=== PATIENT | female | born 2000 | race Hispanic/Latino ===

== ENCOUNTER 2022-03-29 21:52 | Emergency (ER) | payer OTHER ==
--- OUTSIDE RECORDS SUMMARY | 2022-03-29 22:05 | XMS REPORT | Continuity of Care Document ---
:2002 Author Organization [facility] t Address [address] [place] [id number] Care Team Providers Name Role Phone Alexandra Brooks Primary Care Physician WES RUSH Attending Clinician Unavailable TRAN MADRIGAL Attending Clinician Unavailable ANYA RICHARDSON Attending Clinician Unavailable JULIEN ZHENG Attending Clinician Unavailable CHITO RODRIGES Attending Clinician Unavailable Sally Chapa MD Attending Clinician SALLY CHAPA Attending Clinician Unavailable Alexandra Brooks Attending Clinician Chito Rodriges MD Attending Clinician ALEXANDRA BOSTON Attending Clinician Unavailable BREANA ANTON Attending Clinician Unavailable Campos Malloy RN Attending Clinician Unavailable Dot RN, Ruthie Attending Clinician Unavailable Linda Zimmerman RN Attending Clinician Unavailable KEVYN ROBISON Attending Clinician Unavailable Sherri Reyes RN Attending Clinician Unavailable Pob, [facility] Attending Clinician Unavailable William Garcia MD Attending Clinician Neena Bland RN Attending Clinician Unavailable Kassie Garcia MA Attending Clinician Unavailable DIMITRI العراقي Attending Clinician Unavailable Nurse, Adc Pob Immunization Attending Clinician Unavailable Dimitri العراقي DO Attending Clinician DULCE MUELLER Attending Clinician Unavailable Dulce Mueller MD Attending Clinician Doctor Unassigned, [place] Attending Clinician Unavailable Julien Zheng MD Attending Clinician ABEL STRANGE Attending Clinician Unavailable CLARISSA IZAGUIRRE Attending Clinician Unavailable Rambo Glass MA Attending Clinician Unavailable Nancy Quispe APRN Attending Clinician Kate Pal MD Attending Clinician WES RUSH M.D. Attending Clinician Unavailable ORGANTRANSPLANT, OP Attending Clinician Unavailable Breana Anton MD Attending Clinician [phone] SHADIA OROZCO Attending Clinician Unavailable TRAN MADRIGAL M.D. Attending Clinician Unavailable [facility] Attending Clinician Antoinette Payton MD Attending Clinician Kai Miles MD Attending Clinician Tayo Andrew MD Attending Clinician TAYO ANDREW Attending Clinician Unavailable Marck Sargent MD Attending Clinician Juanita Monroy MD Attending Clinician RYAN GAMBINO Attending Clinician Unavailable JORDAN GARCIA Attending Clinician Unavailable JULIEN ZHENG Admitting Clinician Unavailable DUDLEY HOLLEY Admitting Clinician Unavailable TRAN MADRIGAL Admitting Clinician Unavailable TAYO ANDREW Admitting Clinician Unavailable CHITO RODRIGES Admitting Clinician Unavailable Payers Payer Name Policy Type Policy Number Effective Date Expiration Date S our [facility] [id number] 2016 KIDS 00:00:00 [facility] [id number] 2019 KIDS 00:00:00 Problems Condition Condition Condition Status Onset Resolution Last Treating Co mments Source Name Details Category Date Date Treatment Clinician Date Stage 5 Stage 5 Disease Active [facility] chronic chronic 6-16 Health kidney kidney 00:00: disease disease 00 Spina Spina Disease Active 2020-04 [facility] bifida, bifida, 0-15 Health unspecifie unspecifie 00:00: d d 00 Unspecifie Unspecifie Disease Active 2020-04 U T d d 0-15 Health hydronephr hydronephr 00:00: osis osis 00 Abnormal Abnormal Disease Active 2020-04 [facility] radiologic radiologic 0-15 He alth findings findings 00:00: on on 00 diagnostic diagnostic imaging of imaging of renal renal pelvis, pelvis, ureter, or ureter, or bladder bladder Anemia Anemia Disease Active 2020-04 [facility] 0-06 Health 00:00: 00 Developmen Developmen Disease Active 2020-04 U T eliezer delay eliezer delay 0-06 Heal th 00:00: 00 Elevated Elevated Disease Active 2020-04 UT cholestero cholestero 0-06 He alth l l 00:00: 00 Gait Gait Disease Active 2020-04 UT abnormalit abnormalit 0-06 He alth y y 00:00: 00 History of History of Disease Active 2020-04 U T recurrent recurrent 0-06 Heal urinary urinary 00:00: tract tract 00 infection infection Hypertensi Hypertensi Disease Active 2020-04 U T on on 0-06 Health secondary secondary 00:00: to other to other 00 renal renal disorders disorders Short Short Disease Active 2020-04 [facility] stature stature 0-06 Health disorder disorder 00:00: 00 Syringomye Syringomye Disease Active 2020-04 U T yolanda yolanda 0-06 Health 00:00: 00 Thoracogen Thoracogen Disease Active 2020-04 U T ic ic 0-06 Health scoliosis scoliosis 00:00: of of 00 thoracic thoracic region region Weight Weight Disease Active 2020-04 [facility] loss loss 0-06 Health 00:00: 00 Chronic Chronic Disease Active [facility] kidney kidney 9-09 Health disease, disease, 00:00: stage IV stage IV 00 (severe) (severe) Right Right Disease Active Overview: [facility] external external 05-03 [facility] tibial tibial 00:00: g of this torsion torsion 00 note might be different from the original. Formattin g of this note might be different from the original. 04/2020: Noted in records from [facility] clinic. Will scan to EMR.Forma tting of this note might be different from the original. 04/2020: Noted in records from [facility] clinic. Will scan to EMR.Forma tting of this note might be different from the original. 04/2020: Noted in records from [facility] clinic. Will scan to EMR.: Noted in records from [facility] clinic. Will scan to EMR.Forma tting of this note might be different from the original. 04/2020: Noted in records from [facility]ifida clinic. Will scan to EMR. Spinal Spinal Disease Active Overview: Univer s fusion, fusion, 05-03 [facility] ity o f congenital congenital 00:00: g of this [place] 00 note Medical might be Branch different from the original. 12/10/2019 visit with spina bifida clinic note: She does not have S&S of spinal cord tethering . "Posterio r spinal fusion will likely require extension to the pelvis due to the dysraphic lumbar spine. This is likely to have a negative impact of her ambulator y ability and may render her unable to ambulate independe ntly. 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 Formattin g of this note might be different from the original. 04/2020: Noted on records from [facility]. Pt is shunt dependent . Will scan records to EMR.Forma tting of this note might be different from the original. 04/2020: Noted on records from [facility]. Pt is shunt dependent . Will scan records to EMR.Forma tting of this note might be different from the original. 04/2020: Noted on records from [facility]. Pt is shunt dependent . Will scan records to EMR.Forma tting of this note might be different from the original. 04/2020: Noted on records from [facility]. Pt is shunt dependent . Will scan records to EMR.: Noted on records from [facility]. Pt is shunt dependent . Will scan records to EMR. 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 06-07 Heal th due to due to 00:00: vitamin D vitamin D 00 deficiency deficiency Hyperphosp Hyperphosp Disease Active 2019-04 U nivers hatemia hatemia - ity of 00:00: [place] 00 Medical Branch 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 Formattin g of this note might be different from the original. 03/2020: Received records from [facility]rolog [facility] ([facility]. Emily [facility] DOS: 12/14/2019 Renal function is progressi vely worsening with anticipat ed need for future transplan t was discussed with the pt. Pt was referred to the transplan t clinic. Dialysis options were discussed as well. Will scan records to [facility] Direct clinic line: [phone] Shaka Rush academic office: [phone] ting of this note might be different from the original. 03/2020: Received records from nephrolog y and hypertens ion (Dr. Emily Rush) clinic at [facility] DOS: 12/14/2019 Renal function is progressi vely worsening with anticipat ed need for future transplan t was discussed with the pt. Pt was referred to the transplan t clinic. Dialysis options were discussed as well. Will scan records to [facility] Direct clinic line: [phone] Shaka Rush academic office: [phone] ting of this note might be different from the original. 03/2020: Received records from nephrolog y and hypertens ion (Dr. Emily Rush) clinic at [facility] DOS: 12/14/2019 Renal function is progressi vely worsening with anticipat ed need for future transplan t was discussed with the pt. Pt was referred to the transplan t clinic. Dialysis options were discussed as well. Will scan records to [facility] Direct clinic line: [phone] 158Dr. Rush academic office: [phone] ting of this note might be different from the original. 03/2020: Received records from nephrolog y and hypertens ion (Dr. Emily Rush) clinic at [facility] DOS: 12/14/2019 Renal function is progressi vely worsening with anticipat ed need for future transplan t was discussed with the pt. Pt was referred to the transplan t clinic. Dialysis options were discussed as well. Will scan records to [facility] Direct clinic line: [phone] Shaka Rush academic office: [phone]: Received records from nephrolog y and hypertens ion (Dr. Emily Rush) [facility] DOS: 12/14/2019 Renal function is progressi vely worsening with anticipat ed need for future transplan t was discussed with the pt. Pt was referred to the transplan t clinic. Dialysis options were discussed as well. 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 Formattin g of this note might be different from the original. 08/03/2020 : Neurosurg sadie apptPrior to this she was admitted in 2009 for a simultane ous infection and malfuncti on of her previous ventricul operitone al shunt. During the admission the shunt was initially exteriori zed to a external drain and she was started on antibioti cs for her E coli infection . After the CSF was persisten tly negative, she underwent a ventricul operitone al shunt using a Codman fixed pressure shunt. 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 She has latex allergy. There is no family history of hydroceph alus. On examinati on, she was awake, alert and oriented . The extra ocular movements were full, there was no nystagmus , no facial weakness, no lower cranial nerve paresis or tongue wasting. The power, tone, and bulk were normal in upper extremiti es. She had weakness in the lower limbs predomina ntly distally at the knees and the ankles but was able to ambulate on her own with braces. She child was respondin g to tactile and painful sensation s appropria tely. There was no gross gait ataxia or cerebella r signs. The CT scan done in 2012 had revealed evidence of well decompres sed ventricle s. The shunt was in place. The CT done on 09/29/2014 showed the ventricle s to be well decompres sed.The shunt series showed intact shunt tube. The MRI of the cervical spine revealed a mild Chiari with the cranial MRI showed well functioni ng shunt. The shunt series in 2016 and 2019 showed evidence of intact shunt tube with adequate tube in abdomen. The scoliosis in the thoracic region was evident. 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 Regarding her thoracolu mbar scoliosis along with the syrinx and a low-lying cord, I believe that this possibly can be managed nonsurgic ally at the present time. The cord will be inherentl y low-lying in patients with a myelomeni ngocele. A detetheri ng can be considere d however as the risks of CSF leak worsening weakness in the distal lower limbs along with worsening of the bladder dysfuncti ons. As she is currently 20 years old, she is not going to gain any more significa nt height, de tethering may be deferred and can be done only when definitel y indicated . However, the syrinx increases in size will have to consider the tethering of the low-lying cord. We will follow up with MRI scan in the thoracic spine in this regard to assess for any worsening of the syrinx which is present would require a surgical correctio n.Formatt ing of this note might be different from the original. 08/03/2020 : Neurosurg sadie Loerar to this she was admitted in 2009 for a simultane ous infection and malfuncti on of her previous ventricul operitone al shunt. During the admission the shunt was initially exteriori zed to a external drain and she was started on antibioti cs for her E coli infection . After the CSF was persisten tly negative, she underwent a ventricul operitone al shunt using a Codman fixed pressure shunt. 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 She has latex allergy. There is no family history of hydroceph alus. On examinati on, she was awake, alert and oriented . The extra ocular movements were full, there was no nystagmus , no facial weakness, no lower cranial nerve paresis or tongue wasting. The power, tone, and bulk were normal in upper extremiti es. She had weakness in the lower limbs predomina ntly distally at the knees and the ankles but was able to ambulate on her own with braces. She child was respondin g to tactile and painful sensation s appropria tely. There was no gross gait ataxia or cerebella r signs. The CT scan done in 2012 had revealed evidence of well decompres sed ventricle s. The shunt was in place. The CT done on 09/29/2014 showed the ventricle s to be well decompres sed.The shunt series showed intact shunt tube. The MRI of the cervical spine revealed a mild Chiari with the cranial MRI showed well functioni ng shunt. The shunt series in 2016 and 2019 showed evidence of intact shunt tube with adequate tube in abdomen. The scoliosis in the thoracic region was evident. 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 Regarding her thoracolu mbar scoliosis along with the syrinx and a low-lying cord, I believe that this possibly can be managed nonsurgic ally at the present time. The cord will be inherentl y low-lying in patients with a myelomeni ngocele. A detetheri ng can be considere d however as the risks of CSF leak worsening weakness in the distal lower limbs along with worsening of the bladder dysfuncti ons. As she is currently 20 years old, she is not going to gain any more significa nt height, de tethering may be deferred and can be done only when definitel y indicated . However, the syrinx increases in size will have to consider the tethering of the low-lying cord. We will follow up with MRI scan in the thoracic spine in this regard to assess for any worsening of the syrinx which is present would require a surgical correctio n.Formatt ing of this note might be different from the original. 08/03/2020 : Neurosurg sadie Bridgesrior to this she was admitted in 2009 for a simultane ous infection and malfuncti on of her previous ventricul operitone al shunt. During the admission the shunt was initially exteriori zed to a external drain and she was started on antibioti cs for her E coli infection . After the CSF was persisten tly negative, she underwent a ventricul operitone al shunt using a Codman fixed pressure shunt. 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 She has latex allergy. There is no family history of hydroceph alus. On examinati on, she was awake, alert and oriented . The extra ocular movements were full, there was no nystagmus , no facial weakness, no lower cranial nerve paresis or tongue wasting. The power, tone, and bulk were normal in upper extremiti es. She had weakness in the lower limbs predomina ntly distally at the knees and the ankles but was able to ambulate on her own with braces. She child was respondin g to tactile and painful sensation s appropria tely. There was no gross gait ataxia or cerebella r signs. The CT scan done in 2012 had revealed evidence of well decompres sed ventricle s. The shunt was in place. The CT done on 09/29/2014 showed the ventricle s to be well decompres sed.The shunt series showed intact shunt tube. The MRI of the cervical spine revealed a mild Chiari with the cranial MRI showed well functioni ng shunt. The shunt series in 2016 and 2019 showed evidence of intact shunt tube with adequate tube in abdomen. The scoliosis in the thoracic region was evident. 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 Regarding her thoracolu mbar scoliosis along with the syrinx and a low-lying cord, I believe that this possibly can be managed nonsurgic ally at the present time. The cord will be inherentl y low-lying in patients with a myelomeni ngocele. A detetheri ng can be considere d however as the risks of CSF leak worsening weakness in the distal lower limbs along with worsening of the bladder dysfuncti ons. As she is currently 20 years old, she is not going to gain any more significa nt height, de tethering may be deferred and can be done only when definitel y indicated . However, the syrinx increases in size will have to consider the tethering of the low-lying cord. We will follow up with MRI scan in the thoracic spine in this regard to assess for any worsening of the syrinx which is present would require a surgical correctio n.Formatt ing of this note might be different from the original. 08/03/2020 : Neurosurg sadie Loerar to this she was admitted in 2009 for a simultane ous infection and malfuncti on of her previous ventricul operitone al shunt. During the admission the shunt was initially exteriori zed to a external drain and she was started on antibioti cs for her E coli infection . After the CSF was persisten tly negative, she underwent a ventricul operitone al shunt using a Codman fixed pressure shunt. 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 She has latex allergy. There is no family history of hydroceph alus. On examinati on, she was awake, alert and oriented . The extra ocular movements were full, there was no nystagmus , no facial weakness, no lower cranial nerve paresis or tongue wasting. The power, tone, and bulk were normal in upper extremiti es. She had weakness in the lower limbs predomina ntly distally at the knees and the ankles but was able to ambulate on her own with braces. She child was respondin g to tactile and painful sensation s appropria tely. There was no gross gait ataxia or cerebella r signs. The CT scan done in 2012 had revealed evidence of well decompres sed ventricle s. The shunt was in place. The CT done on 09/29/2014 showed the ventricle s to be well decompres sed.The shunt series showed intact shunt tube. The MRI of the cervical spine revealed a mild Chiari with the cranial MRI showed well functioni ng shunt. The shunt series in 2016 and 2019 showed evidence of intact shunt tube with adequate tube in abdomen. The scoliosis in the thoracic region was evident. 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 Regarding her thoracolu mbar scoliosis along with the syrinx and a low-lying cord, I believe that this possibly can be managed nonsurgic ally at the present time. The cord will be inherentl y low-lying in patients with a myelomeni ngocele. A detetheri ng can be considere d however as the risks of CSF leak worsening weakness in the distal lower limbs along with worsening of the bladder dysfuncti ons. As she is currently 20 years old, she is not going to gain any more significa nt height, de tethering may be deferred and can be done only when definitel y indicated . However, the syrinx increases in size will have to consider the tethering of the low-lying cord. We will follow up with MRI scan in the thoracic spine in this regard to assess for any worsening of the syrinx which is present would require a surgical correctio n. S/P S/P Disease Recurre [facility] cecostomy: cecostomy: nce 07-14 it y of MACE FOR MACE FOR 00:00: [place] BOWEL BOWEL 00 Medical IRRIGATION IRRIGATION Br anch Incomplete Incomplete Disease Active U T paraplegia paraplegia 3-28 He alth 00:00: 00 Scoliosis Scoliosis Disease Active Overview: [place] [facility] 00:00: g of this 00 note might be different from the original. Formattin g of this note might be different from the original. No intervent ion needed per records from [facility] on visit 12/10/2019 . Will scan to EMRFormat ting of this note might be different from the original. No intervent ion needed per records from [facility] on visit 12/10/2019 . Will scan to EMRFormat ting of this note might be different from the original. No intervent ion needed per records from [facility] on visit 12/10/2019 . Will scan to EMRFormat ting of this note might be different from the original. No intervent ion needed per records from [facility] on visit 12/10/2019 . Will scan to EMRNo intervent ion needed per records from [facility] on visit 12/10/2019 . 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 08/03/2020 : Neurosurg sadie apptPrior to this she was admitted in 2009 for a simultane ous infection and malfuncti on of her previous ventricul operitone al shunt. During the admission the shunt was initially exteriori zed to a external drain and she was started on antibioti cs for her E coli infection . After the CSF was persisten tly negative, she underwent a ventricul operitone al shunt using a Codman fixed pressure shunt. 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 She has latex allergy. There is no family history of hydroceph alus. On examinati on, she was awake, alert and oriented . The extra ocular movements were full, there was no nystagmus , no facial weakness, no lower cranial nerve paresis or tongue wasting. The power, tone, and bulk were normal in upper extremiti es. She had weakness in the lower limbs predomina ntly distally at the knees and the ankles but was able to ambulate on her own with braces. She child was respondin g to tactile and painful sensation s appropria tely. There was no gross gait ataxia or cerebella r signs. The CT scan done in 2012 had revealed evidence of well decompres sed ventricle s. The shunt was in place. The CT done on 09/29/2014 showed the ventricle s to be well decompres sed.The shunt series showed intact shunt tube. The MRI of the cervical spine revealed a mild Chiari with the cranial MRI showed well functioni ng shunt. The shunt series in 2016 and 2019 showed evidence of intact shunt tube with adequate tube in abdomen. The scoliosis in the thoracic region was evident. 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 Regarding her thoracolu mbar scoliosis along with the syrinx and a low-lying cord, I believe that this possibly can be managed nonsurgic ally at the present time. The cord will be inherentl y low-lying in patients with a myelomeni ngocele. A detetheri ng can be considere d however as the risks of CSF leak worsening weakness in the distal lower limbs along with worsening of the bladder dysfuncti ons. As she is currently 20 years old, she is not going to gain any more significa nt height, de tethering may be deferred and can be done only when definitel y indicated . However, the syrinx increases in size will have to consider the tethering of the low-lying cord. We will follow up with MRI scan in the thoracic spine in this regard to assess for any worsening of the syrinx which is present would require a surgical correctio n. Impaired Impaired Disease Active UT activities activities 8-08 He alth of daily of daily 00:00: living living 00 Recurrent Recurrent Disease Active UT urinary urinary 11-26 Health tract tract 00:00: infection infection 00 Hydronephr Hydronephr Disease Active U nivers osis of osis of 2-21 ity of left left 00:00: [place] kidney kidney 00 Medical Branch Single Single Disease Active Univers kidney kidney 2-21 ity of 00:00: [place] [address] Medical Branch Neurogenic Neurogenic Disease Active U T bowel bowel 2-21 Health 00:00: 00 Urinary Urinary Disease Active 2010-04 UT tract tract 2-30 Health infection, infection, 00:00: site not site not 00 specified specified Obstructiv Obstructiv Disease Active Overview : UT e e 5-05 Formattin Health hydrocepha hydrocepha 00:00: g of this guera guera 00 note might be different from the original. Formattin g of this note might be different from the original. Received 11/14/2020 visit report post surgery. S/p appendico stomy revision with urology 11/09/2020 . Will scan report to EMRFormat ting of this note might be different from the original. Received 11/14/2020 visit report post surgery. S/p appendico stomy revision with urology 11/09/2020 . Will scan report to EMRFormat ting of this note might be different from the original. Received 11/14/2020 visit report post surgery. S/p appendico stomy revision with urology 11/09/2020 . Will scan report to EMRFormat ting of this note might be different from the original. Received 11/14/2020 visit report post surgery. S/p appendico stomy revision with urology 11/09/2020 . Will scan report to EMR Cystitis, Cystitis, Disease Active UT acute acute 4-16 Health 00:00: 00 Secondary Secondary Disease Active Uni vers hypertensi hypertensi 4-14 it y of on on 00:00: [place] [address] Medical Branch S/p S/p Disease Active Overview: Univer s nephrectom nephrectom 4-14 Formattin ity of y y 00:00: g of this [place] [address] note Medical might be Branch different from the original. Left kidney removed. 20% of right kidney working. Will be put on a transplan t list Neurogenic Neurogenic Disease Active Overview : UT bladder bladder 4-14 Formattin Healt h 00:00: g of this note might be different from the original. Formattin g of this note might be different from the original. Myelomeni ngocele with neurogeni c bladderFo rmatting of this note might be different from the original. Myelomeni ngocele with neurogeni c bladderFo rmatting of this note might be different from the original. Myelomeni ngocele with neurogeni c bladderMy elomening ocele with neurogeni c bladderFo rmatting of this note might be different from the original. Myelomeni ngocele with neurogeni c bladderFo rmatting of this note might be different from the original. Myelomeni ngocele with neurogeni c bladderAp pendicove sicostomy performed 10/2020. Will scan post op notes to EMR.Forma tting of this note might be different from the original. Myelomeni ngocele with neurogeni c bladderAp pendicove sicostomy performed 10/2020. Will scan post op notes to EMR.Forma tting of this note might be different from the original. Myelomeni ngocele with neurogeni c bladderAp pendicove sicostomy performed 10/2020. Will scan post op notes to EMR. S/p S/p Disease Active UT nephrectom nephrectom 14 He alth y y 00:00: 00 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 08-02 Health with with 00:00: hydrocepha hydrocepha 00 guera, guera, lumbar lumbar region region Status Status Disease Recurre [facility] post post nce 2 ity of cutaneous- cutaneous[place] vesicostom vesicostom 00 Me dical y y Branch Obstructed Obstructed Disease Active U T ventriculo ventriculo 204 He alth peritoneal peritoneal 00:00: shunt shunt 00 Vesicouret Vesicouret Disease Active U T eral eral 5-16 Health reflux reflux 00:00: 00 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 07-30 Health occulta occulta 00:00: 00 Ultrasound Ultrasound Problem Active U T 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 History of History of Problem Resolve UT essential essential d Phys ici hypertensi hypertensi an s on on History of History of Problem Resolve UT Encopresis Encopresis d Ph ysici with with ans constipati constipati on and on and overflow overflow incontinen incontinen ce ce History of History of Problem Resolve UT Left Left d Physici ventricula ventricula an s r r hypertroph hypertroph y y Presence Presence Problem Active UT of of Physici cerebrospi cerebrospi an s nal fluid nal fluid drainage drainage device device Personal Personal Problem Resolve UT history of history of d Ph ysici urinary urinary ans tract tract infection infection Osteopenia Osteopenia Problem Active U T Physici ans Chronic Chronic Problem Active UT constipati constipati Ph ysici on on ans Asymptomat Asymptomat Problem Active U T ic ic Physici bacteriuri bacteriuri an s a a Hyperphosp Hyperphosp Problem Active U T hatemia hatemia Physici ans Metabolic Metabolic Problem Active UT acidosis acidosis Physic i ans Renal Renal Problem Active UT tubular tubular Physici acidosis acidosis ans 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 ans Vitamin D Vitamin D Problem Active UT deficiency deficiency Ph ysici ans 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, hyroidism, Ph ysici secondary secondary ans renal renal Iron Iron Problem Active UT deficiency deficiency Ph ysici anemia anemia ans 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 CKD CKD Problem Active UT (chronic (chronic Physic i kidney kidney ans disease) disease) stage 4, stage 4, GFR 15-29 GFR 15-29 ml/min ml/min Neurogenic Neurogenic Problem Active U T bladder bladder Physici ans Spina Spina Problem Active UT bifida bifida Physici ans Solitary Solitary Problem Active UT kidney kidney Physici ans Incontinen Incontinen Problem Active U T ce ce Physici ans Chronic Chronic Problem Active UT kidney kidney Physici disease, disease, ans stage III stage III (moderate) (moderate) Allergies, Adverse Reactions, Alerts Allergy Allergy Status Severity Reaction(s) Onset Inactive Treating Comm ents Source Name Type Date Date Clinician Other Allergy Active 2020-04 Other UT to 0-15 reaction( Health substanc 00:00: s): e 00 [place], [place], Banana (substanc e), Family apterygid ae (organism ), Kiwis Nsaids Allergy Active UT to 12-28 Health substanc 00:00: e 00 Ibuprofe Allergy Active Hives Cannot UT n to 2-22 take due Health substanc 00:00: to kidney e 00 problemsC annot take due to kidney problems Ibuprofe Propensi Active Hives Univer s n ty to 2-22 ity of adverse 00:00: [place] reaction 00 Medical s Branch IBUPROFE DRUG Active Hives Univers N INGREDI 2-22 ity of 00:00: [place] 00 Medical Branch Latex Allergy Active Other UT to 3-01 reaction( Health substanc 00:00: s): e 00 Unknown - See commentsR eaction not givenReac tion not givenReac tion not given Other reaction( s): Unknown - See commentsR eaction not given Latex Propensi Active Unknown - Reaction Uni vers ty to See comments 06-19 not given i ty of adverse 00:00: [place] reaction 00 Medical s Branch LATEX DRUG Active Unknown-Cmnt 2006-0 Univ ers INGREDI 3- ity of 00:00: [place] 00 Medical Branch Banana Allergy Active Rash 2006-0 UT to 10-31 Health substanc 00:00: e 00 Kiwi Allergy Active Rash 2006-0 UT Extract to 10-31 Health substanc 00:00: e 00 Avocado Propensi Active Swelling 2006-0 Unive rs ty to 10-31 ity of adverse 00:00: [place] reaction 00 Medical s Branch Banana Propensi Active Rash 2006-0 Univers ty to 10-31 ity of adverse 00:00: [place] reaction 00 Medical s Branch Kiwi Propensi Active Rash 2006-0 Univers ty to 10-31 ity of adverse 00:00: [place] reaction 00 Medical s Branch AVOCADO DRUG Active High Rash 2006-0 Univers INGREDI 7- ity of 00:00: [place] 00 Medical Branch KIWI DRUG Active High Rash 2006-0 Univers INGREDI 7-13 ity of 00:00: [place] 00 Medical Branch BANANA DRUG Active Rash 2006-0 Univers INGREDI 7- ity of 00:00: [place] 00 Medical Branch Avocado Allergy Active Swelling 2006-0 UT to 10-31 Health substanc 00:00: e 00 NSAIDs Allergy Active UT to drug Physici (finding ans ) Social History Social Habit Start Date Stop Date Quantity Comments Source Alcohol intake 2022-01-21 2022-01-21 [facility] 00:00:00 00:00:00 [facility] Exposure to 2022-01-07 2022-01-17 Not sure [facility] SARS-CoV-2 00:00:00 11:57:00 [facility] (event) Branch Cigarette 2020-12-19 2020-12-19 [facility] pack-years 00:00:00 00:00:00 Tobacco use and 2017-08-19 2017-08-19 Smokeless tobacco Un iversity of exposure 00:00:00 00:00:00 non-user [facility] Tobacco Comment 2012-08-28 2012-08-28 No smoke exposure Un iversity of 00:00:00 00:00:00 [facility] Sex Assigned At 2002 2002 [facility] 00:00:00 00:00:00 Smoking Status Start Date Stop Date Source Tobacco smoking consumption [facility] unknown Never smoked tobacco [facility] Medications Ordered Filled Start Stop Current Ordering Indication Dosage Frequency Signature Comments Components Source Medication Medication Date Date Medication? Clinician (SIG) Name Name FLUTICASONE 2021-04 Yes [id number] SPRAY 1 Univers PROPIONATE 0-24 SPRAY INTO ity of 50 00:00: EACH [place] mcg/actuati 00 NOSTRIL Medic al on nasal EVERY DAY Branch spray FLUTICASONE 2021-04 Yes [id number] SPRAY 1 Univers PROPIONATE 0-24 SPRAY INTO ity of 50 00:00: EACH [place] mcg/actuati 00 NOSTRIL Medic al on nasal EVERY DAY Branch spray fluticasone Yes [id number] 1{spray Use 1 Univers propionate 9-28 } [place] in ity o f 50 00:00: each [place] mcg/actuati 00 nostril Medic al on nasal daily. Branch spray fluticasone Yes [id number] 1{spray Use 1 Univers propionate 9-28 } [place] in ity o f 50 00:00: each [place] mcg/actuati 00 nostril Medic al on nasal daily. Branch spray fluticasone Yes [id number] 1{spray Use 1 Univers propionate 9-28 } [place] in ity o f 50 00:00: each [place] mcg/actuati 00 nostril Medic al on nasal daily. Branch spray fluticasone Yes [id number] 1{spray Use 1 Univers propionate 9-28 } [place] in ity o f 50 00:00: each [place] mcg/actuati 00 nostril Medic al on nasal daily. Branch spray fluticasone 2021- No [id number] 1{spray Use 1 Univers propionate 9-28 10-24 } [place] in ity of 50 00:00: 00:00 each [place] mcg/actuati 00 :00 nostril Medic al on nasal daily. Branch spray lisinopril Yes [id number] 10mg QD Take 1 U T 10 MG 5-17 tablet (10 Health tablet 00:00: mg total) 00 by mouth 1 (one) time each day. calcitriol 2021- No [id number] TAKE 1 UT (Rocaltrol) 5-17 06-08 CAPSULE BY H ealth 0.25 MCG 00:00: 00:00 MOUTH capsule 00 :00 EVERY FRIDAY, FRIDAY, FRIDAY, AND FRIDAY oxybutynin 2021-0 Yes [id number] 15mg QD Take 1 UT XL 4-22 tablet (15 Health (Ditropan-X 00:00: mg total) L) 15 MG 24 00 by mouth 1 hr tablet (one) time each day. oxybutynin 2021-0 2021- No 5mg Take 5 mg U nivers XL 4-01 04-01 by mouth 3 ity of (DITROPAN-X 15:20: 00:00 (three) [place] L) 5 mg 24 10 :00 times Medical hr tablet daily. Branch cephALEXin 2021-0 Yes 250mg Take 250 Un boy 250 mg 4-01 mg by ity of capsule 15:19: mouth [place] 23 daily. Medical Branch cephALEXin 2021-0 Yes 250mg Take 250 Un boy 250 mg 4-01 mg by ity of capsule 15:19: mouth [place] 23 daily. Medical Branch cephALEXin 2021-0 Yes 250mg Take 250 Un boy 250 mg 4-01 mg by ity of capsule 15:19: mouth [place] 23 daily. Medical Branch cephALEXin 2021-0 Yes 250mg Take 250 Un boy 250 mg 4-01 mg by ity of capsule 15:19: mouth [place] 23 daily. Medical Branch cephALEXin 2021-0 Yes 250mg Take 250 Un boy 250 mg 4-01 mg by ity of capsule 15:19: mouth [place] 23 daily. Medical Branch cephALEXin 2021-0 Yes 250mg Take 250 Un boy 250 mg 4-01 mg by ity of capsule 15:19: mouth [place] 23 daily. Medical Branch cephALEXin 2021-0 Yes 250mg Take 250 Un boy 250 mg 4-01 mg by ity of capsule 15:19: mouth [place] 23 daily. Medical Branch cephALEXin 2021-0 Yes 250mg Take 250 Un boy 250 mg 4-01 mg by ity of capsule 15:19: mouth [place] 23 daily. Medical Branch lisinopriL 2021-0 Yes 10mg Take 10 mg U nivers 10 mg 4-01 by mouth ity of tablet 15:18: daily. [address] lisinopriL Yes 10mg Take 10 mg U nivers 10 mg 4-01 by mouth ity of tablet 15:18: daily. [place] [facility] lisinopriL 0 Yes 10mg Take 10 mg U nivers 10 mg 4-01 by mouth ity of tablet 15:18: daily. [address] lisinopriL Yes 10mg Take 10 mg U nivers 10 mg 4-01 by mouth ity of tablet 15:18: daily. [place] [facility] lisinopriL Yes 10mg Take 10 mg U nivers 10 mg 4-01 by mouth ity of tablet 15:18: daily. [address] lisinopriL Yes 10mg Take 10 mg U nivers 10 mg 4-01 by mouth ity of tablet 15:18: daily. [address] lisinopriL Yes 10mg Take 10 mg U nivers 10 mg 4-01 by mouth ity of tablet 15:18: daily. [address] lisinopriL Yes 10mg Take 10 mg U nivers 10 mg 4-01 by mouth ity of tablet 15:18: daily. [address] sodium 2020-04- No [id number] 1950mg Q.[id number] Take 3 UT bicarbonate 05-30 12-10 [id number] tablets Health 650 MG 00:00: 05:59 3D (1,950 mg tablet 00 :00 total) by mouth 3 (three) times a day. No known No No known UT medications 12-19 medication He alth 11:54: s 14 calcitriol Yes TAKE 1 UT (Rocaltrol) 8-18 CAPSULE BY He alth 0.25 MCG 00:00: MOUTH capsule 00 EVERY FRIDAY, FRIDAY, FRIDAY, AND FRIDAY FOR 30 DAYS calcitriol Yes TAKE 1 UT (Rocaltrol) 8-18 CAPSULE BY He alth 0.25 MCG 00:00: MOUTH capsule 00 EVERY FRIDAY, FRIDAY, FRIDAY, AND FRIDAY FOR 30 DAYS cephalexin Yes UT (Keflex) 11-27 Health 250 MG 00:00: capsule 00 nitrofurant 2021-0 Yes 50mg Take 50 mg UT oin 7-26 by mouth Health ([place] 00:00: every n) 50 MG 00 night. capsule lisinopril 0 Yes [id number] 10mg QD Take 1 U T 10 MG 6-10 tablet (10 Health tablet 00:00: mg total) 00 by mouth 1 (one) time each day. lisinopril 0 Yes [id number] 10mg QD Take 1 U T 10 MG 6-10 tablet (10 Health tablet 00:00: mg total) 00 by mouth 1 (one) time each day. Lisinopril Lisinopril 2020-0 Yes KATE 1 QD TAKE 1 UT 10 MG Oral 10 MG Oral 4-09 MORIS TABLET Physici Tablet Tablet 00:00: M.D. DAILY. ans 00 CALCIUM 2020-1 Yes 500mg Take 500 Unive rs CARBONATE 2-09 mg by ity of ORAL 09:35: mouth 2 [place] [id number] (two) Medical times Branch daily with meals. CALCIUM 2020-1 Yes 500mg Take 500 Unive rs CARBONATE 2-09 mg by ity of ORAL 09:35: mouth 2 [place] [id number] ([facility]) Medical times Branch daily with meals. CALCIUM 2020-1 Yes 500mg Take 500 Unive rs CARBONATE 2-09 mg by ity of ORAL 09:35: mouth 2 [place] [id number] (two) Medical times Branch daily with meals. CALCIUM 2020-1 Yes 500mg Take 500 Unive rs CARBONATE 2-09 mg by ity of ORAL 09:35: mouth 2 [place] [id number] (two) Medical times Branch daily with meals. CALCIUM 2020-1 Yes 500mg Take 500 Unive rs CARBONATE 2-09 mg by ity of ORAL 09:35: mouth 2 [place] [address] (two) Medical times Branch daily with meals. CALCIUM 2020-1 Yes 500mg Take 500 Unive rs CARBONATE 2-09 mg by ity of ORAL 09:35: mouth 2 [place] [address] (two) Medical times Branch daily with meals. CALCIUM 2020-1 Yes 500mg Take 500 Unive rs CARBONATE 2-09 mg by ity of ORAL 09:35: mouth 2 [place] [address] (two) Medical times Branch daily with meals. CALCIUM 2020-1 Yes 500mg Take 500 Unive rs CARBONATE 2-09 mg by ity of ORAL 09:35: mouth 2 [place] [address] (two) Medical times Branch daily with meals. ferrous 2019-0 Yes TAKE 1 Univers sulfate 325 9-13 TABLET BY ity of mg (65 mg 00:00: MOUTH [place] iron) 00 THREE Medical tablet TIMES A Branch DAY calcitriol Yes TAKE 1 Unive rs 0.25 mcg 9-13 CAPSULE ON ity o f capsule 00:00: M, W, F, 00 DUDLEY AND 2 Medical CAPSULES Branch ON , ferrous Yes TAKE 1 Univers sulfate 325 9-13 TABLET BY ity of mg (65 mg 00:00: MOUTH [place] iron) 00 THREE Medical tablet TIMES A Branch DAY calcitriol Yes TAKE 1 Unive rs 0.25 mcg 9-13 CAPSULE ON ity o f capsule 00:00: M, W, F, 00 DUDLEY AND 2 Medical CAPSULES Branch ON , ferrous Yes TAKE 1 Univers sulfate 325 9-13 TABLET BY ity of mg (65 mg 00:00: MOUTH [place] iron) 00 THREE Medical tablet TIMES A Branch DAY calcitriol Yes TAKE 1 Unive rs 0.25 mcg 9-13 CAPSULE ON ity o f capsule 00:00: M, W, F, 00 DUDLEY AND 2 Medical CAPSULES Branch ON , ferrous Yes TAKE 1 Univers sulfate 325 9-13 TABLET BY ity of mg (65 mg 00:00: MOUTH [place] iron) 00 THREE Medical tablet TIMES A Branch DAY calcitriol Yes TAKE 1 Unive rs 0.25 mcg 9-13 CAPSULE ON ity o f capsule 00:00: M, W, F, DUDLEY AND 2 Medical CAPSULES Branch ON , ferrous Yes TAKE 1 [facility] sulfate 325 9-13 TABLET BY ity of mg (65 mg 00:00: MOUTH [place] iron) 00 THREE Medical tablet TIMES A Branch DAY calcitriol Yes TAKE 1 Unive rs 0.25 mcg 9-13 CAPSULE ON ity o f capsule 00:00: M, W, F, DUDLEY AND 2 Medical CAPSULES Branch ON , ferrous Yes TAKE 1 [facility] sulfate 325 9-13 TABLET BY ity of mg (65 mg 00:00: MOUTH [place] iron) 00 THREE Medical tablet TIMES A Branch DAY calcitriol Yes TAKE 1 Unive rs 0.25 mcg 9-13 CAPSULE ON ity o f capsule 00:00: M, W, F, 00 DUDLEY AND 2 Medical CAPSULES Branch ON ferrous Yes TAKE 1 [facility] sulfate 325 9-13 TABLET BY ity of mg (65 mg 00:00: MOUTH [place] iron) 00 THREE Medical tablet TIMES A Branch DAY calcitriol Yes TAKE 1 Unive rs 0.25 mcg 9-13 CAPSULE ON ity o f capsule 00:00: M, W, F, DUDLEY AND 2 Medical CAPSULES Branch ON ferrous Yes TAKE 1 [facility] sulfate 325 9-13 TABLET BY ity of mg (65 mg 00:00: MOUTH [place] iron) 00 THREE Medical tablet TIMES A Branch DAY calcitriol Yes TAKE 1 Unive rs 0.25 mcg 9-13 CAPSULE ON ity o f capsule 00:00: M, W, F, DUDLEY AND 2 Medical CAPSULES Branch ON , ferrous Yes TAKE 1 UT sulfate 325 9-13 TABLET BY Hea lth (65 Fe) MG 00:00: MOUTH tablet 00 THREE TIMES A DAY ferrous Yes TAKE 1 UT sulfate 325 9-13 TABLET BY Hea lth (65 Fe) MG 00:00: MOUTH tablet 00 THREE TIMES A DAY ferrous 2021- No TAKE 1 UT sulfate 325 9-13 06-16 TABLET BY He alth (65 Fe) MG 00:00: 00:00 MOUTH tablet 00 :00 THREE TIMES A DAY ergocalcife Yes TAKE ONE Un boy rol, 9-07 CAPSULE BY ity of vitamin d2, 00:00: M[place]TH [place]000 unit 00 TIME PER Medi domonique capsule WEEK Branch ergocalcife Yes TAKE ONE Un boy rol, 9-07 CAPSULE BY ity of vitamin d2, 00:00: MOUTH ONE [place],000 unit 00 TIME PER Medi domonique capsule WEEK Branch ergocalcife Yes TAKE ONE Un boy rol, 9-07 CAPSULE BY ity of vitamin d2, 00:00: MOUTH ONE [place] 50,000 unit 00 TIME PER Medi domonique capsule WEEK Branch ergocalcife Yes TAKE ONE Un boy rol, 9-07 CAPSULE BY ity of vitamin d2, 00:00: MOUTH ONE [place],000 unit 00 TIME PER Medi domonique capsule WEEK Branch ergocalcife Yes TAKE ONE Un boy rol, 9-07 CAPSULE BY ity of vitamin d2, 00:00: MOUTH ONE [place] 50,000 unit 00 TIME PER Medi domonique capsule WEEK Branch ergocalcife Yes TAKE ONE Un boy rol, 9-07 CAPSULE BY ity of vitamin d2, 00:00: MOUTH ONE [place] 50,000 unit 00 TIME PER Medi domonique capsule WEEK Branch ergocalcife Yes TAKE ONE Un boy rol, 9-07 CAPSULE BY ity of vitamin d2, 00:00: MOUTH ONE [place] 50,000 unit 00 TIME PER Medi domonique capsule WEEK Branch ergocalcife Yes TAKE ONE Un boy rol, 9-07 CAPSULE BY ity of vitamin d2, 00:00: M[place]TH [place] 50,000 unit 00 TIME PER Medi domonique capsule WEEK Branch ergocalcife Yes TAKE ONE UT rol 9-07 CAPSULE BY Health (Vitamin 00:00: MOUTH ONE D-2) 1.25 00 TIME PER MG ( WEEK UT) capsule ergocalcife Yes TAKE ONE UT rol 9-07 CAPSULE BY Health (Vitamin 00:00: MOUTH ONE D-2) 1.25 00 TIME PER MG (99373 WEEK UT) capsule ergocalcife 2021- No TAKE ONE U T rol 9-07 06-08 CAPSULE BY Health (Vitamin 00:00: 00:00 MOUTH ONE D-2) 1.25 00 :00 TIME PER MG (46517 WEEK UT) capsule nitrofurant 2021- No TAKE 1 Uni vers oin 50 mg 8-07-20 CAPSULE BY ity of capsule 00:00: 00:00 MOUTH [place] 00 :00 EVERYDAY Medical AT BEDTIME Branch sodium Yes TAKE 2 Univers bicarbonate 8-03 TABLETS BY it y of 650 mg 00:00: MOUTH 3 [place] tablet 00 TIMES A Medical DAY Branch sodium Yes TAKE 2 Univers bicarbonate 8-03 TABLETS BY it y of 650 mg 00:00: MOUTH 3 [place] tablet 00 TIMES A Medical DAY Branch sodium Yes TAKE 2 Univers bicarbonate 8-03 TABLETS BY it y of 650 mg 00:00: MOUTH 3 [place] tablet 00 TIMES A Medical DAY Branch sodium Yes TAKE 2 Univers bicarbonate 8-03 TABLETS BY it y of 650 mg 00:00: MOUTH 3 [place] tablet 00 TIMES A Medical DAY Branch sodium Yes TAKE 2 Univers bicarbonate 8-03 TABLETS BY it y of 650 mg 00:00: MOUTH 3 [place] tablet 00 TIMES A Medical DAY Branch sodium Yes TAKE 2 Univers bicarbonate 8-03 TABLETS BY it y of 650 mg 00:00: MOUTH 3 [place] tablet 00 TIMES A Medical DAY Branch sodium Yes TAKE 2 Univers bicarbonate 8-03 TABLETS BY it y of 650 mg 00:00: MOUTH 3 [place] tablet 00 TIMES A Medical DAY Branch sodium Yes TAKE 2 Univers bicarbonate 8-03 TABLETS BY it y of 650 mg 00:00: MOUTH 3 [place] tablet 00 TIMES A Medical DAY Branch amLODIPine Yes 10mg Take 10 mg U T (Norvasc) 803 by mouth. Healt h 10 MG 00:00: tablet 00 amLODIPine 2021- No 10mg Take 10 mg Univers 10 mg 8-03 07-20 by mouth 2 ity of tablet 00:00: 00:00 (two) [place] 00 :00 times Medical daily. Branch oxybutynin Yes 15mg Take 15 mg U nivers 15 mg 24 hr 7-31 by mouth ity of tablet 00:00: daily. Medical Branch oxybutynin Yes 15mg Take 15 mg U nivers 15 mg 24 hr 7-31 by mouth ity of tablet 00:00: daily. Medical Branch oxybutynin Yes 15mg Take 15 mg U nivers 15 mg 24 hr 7-31 by mouth ity of tablet 00:00: daily. Medical Branch oxybutynin Yes 15mg Take 15 mg U nivers 15 mg 24 hr 7-31 by mouth ity of tablet 00:00: daily. Medical Branch oxybutynin Yes 15mg Take 15 mg U nivers 15 mg 24 hr 7-31 by mouth ity of tablet 00:00: daily. Medical Branch oxybutynin Yes 15mg Take 15 mg U nivers 15 mg 24 hr 7-31 by mouth ity of tablet 00:00: daily. Medical Branch oxybutynin Yes 15mg Take 15 mg U nivers 15 mg 24 hr 7-31 by mouth ity of tablet 00:00: daily. Medical Branch oxybutynin Yes 15mg Take 15 mg U nivers 15 mg 24 hr 11-18 by mouth ity of tablet 00:00: daily. [place] 00 [facility] Branch Vitamin D Vitamin D Yes DENIS TAKE 1 UT (Ergocalcif (Ergocalcif 1-26 ALCARAZ CAPSULE [facility] suma) 1.25 suma) 1.25 00:00: M.D. WEEKLY. ans MG (49798 MG (70655 00 UT) Oral UT) Oral Capsule Capsule Calcium Calcium 2016-04 Yes DENIS TAKE 2 UT Carbonate Carbonate 0-24 ALCARAZ TABLET [facility] Antacid 500 Antacid 500 00:00: M.D. Before ans MG Oral MG Oral 00 meals tid Tablet Tablet Chewable Chewable lisinopril 2021- No 5mg Take 5 mg U nivers 5 mg tablet 11-06 by mouth ity of 00:00: 00:00 daily. [place] 00 :00 [facility] Branch Calcitriol Calcitriol Yes DENIS TAKE 1 UT 0.25 MCG 0.25 MCG 5-05 ALCARAZ CAPSULE on Physici Oral Oral 00:00: M.D. M, W, F, ans Capsule Capsule 00 [place] and 2 capsules on , , Sa Ferrous Ferrous Yes DENIS Q0.3333D TAKE 1 UT Sulfate 325 Sulfate 325 8- ALCARAZ TABLET 3 Phys[facility] (65 Fe) MG (65 Fe) MG 00:00: M.D. TIMES ans Oral Tablet Oral Tablet 00 DAILY. Oxybutynin Oxybutynin Yes DENIS TAKE 1 UT Chloride ER Chloride ER 08-27 ALCARAZ TABLET BY [facility] 15 MG Oral 15 MG Oral 00:00: M.D. MOUTH ans Tablet Tablet 00 EVERY DAY Extended Extended Release 24 Release 24 Hour Hour Nitrofurant Nitrofurant Yes DENIS 1 TAKE 1 UT oin oin -09 ALCARAZ CAPSULE Physic i Macrocrysta Macrocrysta 00:00: M.D. BEDTIME ans l 50 MG l 50 MG 00 Oral Oral Capsule Capsule oxybutynin Yes 15mg Take 15 mg U T XL 509 by mouth. Health (Ditropan-X 00:00: L) 15 MG 24 00 hr tablet oxybutynin Yes 15mg Take 15 mg U T XL 5-09 by mouth. Health (Ditropan-X 00:00: L) 15 MG 24 00 hr tablet Sodium Sodium 2011-0 Yes DENIS TAKE 2 UT Bicarbonate Bicarbonate 1-24 ALCARAZ TABLETS BY [facility] 650 MG Oral 650 MG Oral 00:00: M.D. MOUTH 3 ans Tablet Tablet 00 TIMES A DAY Immunizations Ordered Immunization Filled Date Status Comments Sour ce Name Immunization Name Meningococcal B, OMV 2021-07-20 Completed Univ ersity of 00:00:00 [facility] Branch Meningococcal B, OMV 2021-07-20 Completed Univ ersity of 00:00:00 [facility] Meningococcal B, OMV 2021-07-20 Completed Univ ersity of 00:00:00 [facility] Meningococcal B, OMV 2021-07-20 Completed Univ ersity of 00:00:00 [facility] Meningococcal B, OMV 2021-07-20 Completed Univ ersity of 00:00:00 [facility] Meningococcal B, OMV 2021-07-20 Completed Univ ersity of 00:00:00 [facility] Meningococcal B, OMV 2021-07-20 Completed Univ ersity of 00:00:00 [facility] Meningococcal B, OMV 2021-07-20 Completed Univ ersity of 00:00:00 [facility] SARS-COV-2 COVID-19 2021-05-18 Completed Unive rsity of MODERNA BOOSTER 00:00:00 [facility] VACCINE Branch SARS-COV-2 COVID-19 2021-05-18 Completed Unive rsity of MODERNA 0.25ML BOOSTER 00:00:00 [facility] VACCINE Branch SARS-COV-2 COVID-19 2021-05-18 Completed Unive rsity of MODERNA 0.25ML BOOSTER 00:00:00 [facility] VACCINE Branch SARS-COV-2 COVID-19 2021-05-18 Completed Unive rsity of MODERNA 0.25ML BOOSTER 00:00:00 [facility] VACCINE Branch SARS-COV-2 COVID-19 2021-05-18 Completed Unive rsity of MODERNA 0.25ML BOOSTER 00:00:00 [facility] VACCINE Branch SARS-COV-2 COVID-19 2021-05-18 Completed Unive rsity of MODERNA 0.25ML BOOSTER 00:00:00 [facility] Medical VACCINE Branch SARS-COV-2 COVID-19 2021-05-18 Completed Unive rsity of MODERNA 0.25ML BOOSTER 00:00:00 [facility] Medical VACCINE Branch SARS-COV-2 COVID-19 2021-05-18 Completed Unive rsity of MODERNA 0.25ML BOOSTER 00:00:00 [facility] Medical VACCINE Branch SARS-COV-2 COVID-19 2020-07-26 Completed Unive rsity of MODERNA VACCINE 00:00:00 [facility] ical Branch SARS-COV-2 COVID-19 2020-07-26 Completed Unive rsity of MODERNA VACCINE 00:00:00 [place] [facility] ical Branch SARS-COV-2 COVID-19 2020-07-26 Completed Unive rsity of MODERNA 12+ YRS 00:00:00 [facility] ical VACCINE Branch SARS-COV-2 COVID-19 2020-07-26 Completed Unive rsity of MODERNA 12+ YRS 00:00:00 [place] [facility] ical VACCINE Branch SARS-COV-2 COVID-19 2020-07-26 Completed Unive rsity of MODERNA 12+ YRS 00:00:00 [place] [facility] ical VACCINE Branch SARS-COV-2 COVID-19 2020-07-26 Completed Unive rsity of MODERNA 12+ YRS 00:00:00 [place] [facility] ical VACCINE Branch SARS-COV-2 COVID-19 2020-07-26 Completed Unive rsity of MODERNA 12+ YRS 00:00:00 [facility] ical VACCINE Branch SARS-COV-2 COVID-19 2020-07-26 Completed Unive rsity of MODERNA 12+ YRS 00:00:00 [facility] ical VACCINE Branch COVID-19 Pfizer & 2020-07-26 [facility]:00 COVID-19 Pfizer & 2020-07-26 [facility] Vaccination 00:00:00 (PURPLE-DILUTE) SARS-COV-2 COVID-19 2020-06-28 Completed Unive rsity of MODERNA VACCINE 00:00:00 [facility] ical Branch SARS-COV-2 COVID-19 2020-06-28 Completed Unive rsity of MODERNA VACCINE 00:00:00 [place] [facility] ical Branch SARS-COV-2 COVID-19 2020-06-28 Completed Unive rsity of MODERNA 12+ YRS 00:00:00 [place] [facility] ical VACCINE Branch SARS-COV-2 COVID-19 2020-06-28 Completed Unive rsity of MODERNA 12+ YRS 00:00:00 [place] [facility] ical VACCINE Branch SARS-COV-2 COVID-19 2020-06-28 Completed Unive rsity of MODERNA 12+ YRS 00:00:00 [place] [facility] ical VACCINE Branch SARS-COV-2 COVID-19 2020-06-28 Completed Unive rsity of MODERNA 12+ YRS 00:00:00 [place] [facility] ical VACCINE Branch SARS-COV-2 COVID-19 2020-06-28 Completed Unive rsity of MODERNA 12+ YRS 00:00:00 [place] [facility] ical VACCINE Branch SARS-COV-2 COVID-19 2020-06-28 Completed Unive rsity of MODERNA 12+ YRS 00:00:00 [place] [facility] ical VACCINE Branch COVID-19 Pfizer 12 & 2020-06-28 [facility] Vacc[facility]:00 COVID-19 Pfizer 12 & 2020-06-28 [facility] Vacc[facility] 00:00:00 (PURPLE-DILUTE) Influenza Virus 2020-03-29 Completed Universit y of Vaccine Quad .5 mL IM 00:00:00 [facility] 6+ MO Branch Meningococcal B, 2020-03-29 Completed Universi ty of Recombinant 00:00:00 [facility] Influenza Virus 2020-03-29 Completed Universit y of Vaccine Quad .5 mL IM 00:00:00 [facility] 6+ MO Branch Meningococcal B, 2020-03-29 Completed Universi ty of Recombinant 00:00:00 [facility] Influenza Virus 2020-03-29 Completed Universit y of Vaccine Quad .5 mL IM 00:00:00 [facility] 6+ MO Branch Meningococcal B, 2020-03-29 Completed Universi ty of Recombinant 00:00:00 [facility] Influenza Virus 2020-03-29 Completed Universit y of Vaccine Quad .5 mL IM 00:00:00 [facility] 6+ MO Branch Meningococcal B, 2020-03-29 Completed Universi ty of Recombinant 00:00:00 [facility] Influenza Virus 2020-03-29 Completed Universit y of Vaccine Quad .5 mL IM 00:00:00 [facility] 6+ MO Branch Meningococcal B, 2020-03-29 Completed Universi ty of Recombinant 00:00:00 [facility] Influenza Virus 2020-03-29 Completed Universit y of Vaccine Quad .5 mL IM 00:00:00 [facility] 6+ MO Branch Meningococcal B, 2020-03-29 Completed Universi ty of Recombinant 00:00:00 [facility] Influenza Virus 2020-03-29 Completed Universit y of Vaccine Quad .5 mL IM 00:00:00 [facility] 6+ MO Branch Meningococcal B, 2020-03-29 Completed Universi ty of Recombinant 00:00:00 [facility] Influenza Virus 2020-03-29 Completed Universit y of Vaccine Quad .5 mL IM 00:00:00 [facility] 6+ MO Branch Meningococcal B, 2020-03-29 Completed Universi ty of Recombinant 00:00:00 [facility] Meningococcal B, 2020-03-29 [facility]com[facility]:00:00 Influenza, seasonal, 2020-03-29 [facility] injectable 00:00:00 Influenza, seasonal, 2020-03-29 [facility] injectable 00:00:00 Meningococcal B, 2020-03-29 [facility] Recombinant [facility]:00:00 Meningococcal 2019 Completed University of Polysaccharide (groups 00:00:00 [facility] A, C, Y and W-135) Branch conjugate vaccine (MCV4P) Influenza Virus 2019 Completed Universit y of Vaccine Quad .5 mL IM 00:00:00 [facility] 6+ MO Branch Meningococcal 2019 Completed University of Polysaccharide (groups 00:00:00 [facility] A, C, Y and W-135) Branch conjugate vaccine (MCV4P) Influenza Virus 2019 Completed Universit y of Vaccine Quad .5 mL IM 00:00:00 [facility] 6+ MO Branch Meningococcal 2019 Completed University of Polysaccharide (groups 00:00:00 [facility] A, C, Y and W-135) Branch conjugate vaccine (MCV4P) Influenza Virus 2019 Completed Universit y of Vaccine Quad .5 mL IM 00:00:00 [facility] 6+ MO Branch Meningococcal 2019 Completed [facility] of Polysaccharide (groups 00:00:00 [place] [facility] A, C, Y and W-135) Branch conjugate vaccine (MCV4P) Influenza Virus 2019 Completed Universit y of Vaccine Quad .5 mL IM 00:00:00 [facility] 6+ MO Branch Meningococcal 2019 Completed University of Polysaccharide (groups 00:00:00 [place] [facility] A, C, Y and W-135) Branch conjugate vaccine (MCV4P) Influenza Virus 2019 Completed Universit y of Vaccine Quad .5 mL IM 00:00:00 [facility] 6+ MO Branch Meningococcal 2019 Completed University of Polysaccharide (groups 00:00:00 [place] [facility] A, C, Y and W-135) Branch conjugate vaccine (MCV4P) Influenza Virus 2019 Completed Universit y of Vaccine Quad .5 mL IM 00:00:00 [facility] 6+ MO Branch Meningococcal 2019 Completed University of Polysaccharide (groups 00:00:00 [place] [facility] A, C, Y and W-135) Branch conjugate vaccine (MCV4P) Influenza Virus 2019 Completed Universit y of Vaccine Quad .5 mL IM 00:00:00 [facility] 6+ MO Branch Meningococcal 2019 Completed University of Polysaccharide (groups 00:00:00 [place] [facility] A, C, Y and W-135) Branch conjugate vaccine (MCV4P) Influenza Virus 2019 Completed Universit y of Vaccine Quad .5 mL IM 00:00:00 [facility] 6+ MO Branch Meningococcal MCV4P 2019 [facility]:00 Influenza, seasonal, 2019 [facility] injectable [facility]:00:00 Influenza, seasonal, 2019 [facility] injectable 00:00:00 Meningococcal MCV4P 2019 [facility] 00:00:00 HPV9 2016-11-13 Completed University of 00:00:00 [facility] HPV9 2016-11-13 Completed University of 00:00:00 [facility] HPV9 2016-11-13 Completed University of 00:00:00 [facility] HPV9 2016-11-13 Completed University of 00:00:00 [facility] HPV9 2016-11-13 Completed University of 00:00:00 [facility] HPV9 2016-11-13 Completed University of 00:00:00 [facility] HPV9 2016-11-13 Completed University of 00:00:00 [facility] HPV9 2016-11-13 Completed University of 00:00:00 [facility] HPV 9-Valent 2016-11-13 Completed [facility] 00:00:00 HPV 9-Valent 2016-11-13 [facility] 00:00:00 Influenza Virus 2015-01-23 Completed Universit y of Vaccine Quad IM 00:00:00 [place] [facility] Multi-dose 6+ MO Branch HPV9 2015-01-23 Completed University of 00:00:00 [facility] Influenza Virus 2015-01-23 Completed Universit y of Vaccine Quad IM 00:00:00 [place] [facility] ical Multi-dose 6+ MO Branch HPV9 2015-01-23 Completed University of 00:00:00 [facility] Influenza Virus 2015-01-23 Completed Universit y of Vaccine Quad IM 00:00:00 [place] [facility] ical Multi-dose 6+ MO Branch HPV9 2015-01-23 Completed University of 00:00:00 [facility] Influenza Virus 2015-01-23 Completed Universit y of Vaccine Quad IM 00:00:00 [place] [facility] ical Multi-dose 6+ MO Branch HPV9 2015-01-23 Completed University of 00:00:00 [facility] Influenza Virus 2015-01-23 Completed Universit y of Vaccine Quad IM 00:00:00 [place] [facility] ical Multi-dose 6+ MO Branch HPV9 2015-01-23 Completed University of 00:00:00 [facility] Influenza Virus 2015-01-23 Completed Universit y of Vaccine Quad IM 00:00:00 [place] [facility] ical Multi-dose 6+ MO Branch HPV9 2015-01-23 Completed University of 00:00:00 [facility] Influenza Virus 2015-01-23 Completed Universit y of Vaccine Quad IM 00:00:00 [place] [facility] ical Multi-dose 6+ MO Branch HPV9 2015-01-23 Completed University of 00:00:00 [facility] Influenza Virus 2015-01-23 Completed Universit y of Vaccine Quad IM 00:00:00 [place] [facility] ical Multi-dose 6+ MO Branch HPV9 2015-01-23 Completed University of 00:00:00 [facility] influenza virus 2015-01-23 [facility] vaccine, unspecified 00:00:00 formulation Gardasil 9 2015-01-23 [facility] Intramuscular 00:00:00 Suspension Influenza, Unspecified 2015-01-23 [facility] 00:00:00 HPV 9-Valent 2015-01-23 [facility] 00:00:00 Influenza, injectable, 2015-01-23 Completed [facility] quadrivalent 00:00:00 HPV 9-Valent 2015-01-23 Completed [facility] 00:00:00 HPV 9-Valent 2015-01-23 [facility] 00:00:00 Influenza, Unspecified 2015-01-23 Com[facility] 00:00:00 HPV 9-Valent 2015-01-23 [facility] 00:00:00 Influenza, injectable, 2015-01-23 Completed [facility] quadrivalent (afluria, 00:00:00 fluzone) TDAP 2013-12-24 Completed University of 00:00:00 [facility] Influenza Virus 2013-12-24 Completed Universit y of Vaccine (3+ yrs) 00:00:00 [facility] Meningococcal 2013-12-24 Completed University of Oligosaccharide 00:00:00 [place] [facility] ical (groups A, C, Y and Branc h W-135) conjugate vaccine (MCV4O) TDAP 2013-12-24 Completed University of 00:00:00 [facility] Influenza Virus 2013-12-24 Completed Universit y of Vaccine (3+ yrs) 00:00:00 [facility] Meningococcal 2013-12-24 Completed University of Oligosaccharide 00:00:00 [place] [facility] ical (groups A, C, Y and Branc h W-135) conjugate vaccine (MCV4O) TDAP 2013-12-24 Completed University of 00:00:00 [facility] Influenza Virus 2013-12-24 Completed Universit y of Vaccine (3+ yrs) 00:00:00 [facility] Meningococcal 2013-12-24 Completed University of Oligosaccharide 00:00:00 [place] [facility] ical (groups A, C, Y and Branc h W-135) conjugate vaccine (MCV4O) TDAP 2013-12-24 Completed University of 00:00:00 [facility] Influenza Virus 2013-12-24 Completed Universit y of Vaccine (3+ yrs) 00:00:00 [facility] Meningococcal 2013-12-24 Completed University of Oligosaccharide 00:00:00 [place] [facility] ical (groups A, C, Y and Branc h W-135) conjugate vaccine (MCV4O) TDAP 2013-12-24 Completed University of 00:00:00 [facility] Influenza Virus 2013-12-24 Completed Universit y of Vaccine (3+ yrs) 00:00:00 [facility] Meningococcal 2013-12-24 Completed University of Oligosaccharide 00:00:00 [place] [facility] ical (groups A, C, Y and Branc h W-135) conjugate vaccine (MCV4O) TDAP 2013-12-24 Completed University of 00:00:00 [facility] Influenza Virus 2013-12-24 Completed Universit y of Vaccine (3+ yrs) 00:00:00 [facility] Meningococcal 2013-12-24 Completed University of Oligosaccharide 00:00:00 [facility] ical (groups A, C, Y and Branc h W-135) conjugate vaccine (MCV4O) TDAP 2013-12-24 Completed University of 00:00:00 [facility] Influenza Virus 2013-12-24 Completed Universit y of Vaccine (3+ yrs) 00:00:00 [facility] Meningococcal 2013-12-24 Completed University of Oligosaccharide 00:00:00 [place] [facility] ical (groups A, C, Y and Branc h W-135) conjugate vaccine (MCV4O) TDAP 2013-12-24 Completed University of 00:00:00 [facility] Influenza Virus 2013-12-24 Completed Universit y of Vaccine (3+ yrs) 00:00:00 [facility] Meningococcal 2013-12-24 Completed University of Oligosaccharide 00:00:00 [place] [facility] ical (groups A, C, Y and Branc h W-135) conjugate vaccine (MCV4O) influenza virus 2013-12-24 [facility] vaccine, unspecified 00:00:00 formulation Meningococcal, MCV4, 2013-12-24 [facility] unspecified conjugate 00:00:00 formulation(groups A, C, Y and W-135) Boostrix 5-2.5-18.5 2013-12-24 [facility]pleted [facility] Intramuscular 00:00:00 Suspension Influenza, Unspecified 2013-12-24 [facility] 00:00:00 Influenza, seasonal, 2013-12-24 [facility] injectable 00:00:00 Meningococcal MCV4O 2013-12-24 [facility]pleted [facility] 00:[facility]:00 Meningococcal MCV4, 2013-12-24 [facility] Unspecified 00:00:00 Tdap 2013-12-24 [facility]pleted [facility] 00:00:00 Tdap 2013-12-24 Completed [facility] 00:00:00 Influenza, Unspecified 2013-12-24 [facility]pleted [facility] 00:00:00 Influenza, seasonal, 2013-12-24 [facility] injectable 00:00:00 Meningococcal MCV4O 2013-12-24 [facility]pleted [facility] 00:00:00 Meningococcal MCV4, 2013-12-24 [facility]pleted [facility] Unspecified 00:00:00 Tdap 2013-12-24 [facility]pleted [facility] 00:00:00 Tdap 2013-12-24 Completed [facility] 00:00:00 Influenza, injectable, 2013-02-28 Completed [facility] quadrivalent 00:00:00 Influenza, injectable, 2013-02-28 Completed [facility] quadrivalent (afluria, 00:00:00 fluzone) Influenza Virus 2012-02-18 Completed Universit y of Vaccine - Whole 00:00:00 [facility] Influenza, seasonal, 2012-02-18 [facility] injectable 00:00:00 Influenza, seasonal, 2012-02-18 [facility] injectable 00:00:00 Influenza Virus 2006-04-24 Completed Universit y of Vaccine - Whole 00:00:00 [facility] influenza virus 2006-04-24 [facility] vaccine, unspecified 00:00:00 formulation Influenza, seasonal, 2006-04-24 [facility] injectable 00:00:00 Influenza, Unspecified 2006-04-24 [facility] 00:00:00 Influenza, Unspecified 2006-04-24 [facility] 00:00:00 Influenza, seasonal, 2006-04-24 [facility] injectable 00:00:00 Hep B, Adol or Pedi 2006-04-02 Completed Unive rsity of Dosage 00:00:00 [facility] Hepatitis B, 2006-04-02 [facility]ad[facility]cent 00:00:00 dosage Hep B, Adolescent or 2006-04-02 [facility] 00:[facility]:00 Hep B, Adolescent or 2006-04-02 [facility]:00 DTAP 2006-03-27 Completed University of 00:00:00 [facility] HEPATITIS A 2006-03-27 Completed University of 00:00:00 [facility] Influenza Virus 2006-03-27 Completed Universit y of Vaccine - Whole 00:00:00 [facility] Polio (IPV/OPV) 2006-03-27 Completed Universit y of 00:00:00 [facility] Proquad 2006-03-27 Completed University of (MMR/VARICELLA) 00:00:00 [facility] Polio (IPV/OPV) 2006-03-27 Completed Universit y of 00:00:00 [facility] Proquad 2006-03-27 Completed University of (MMR/VARICELLA) 00:00:00 [facility] Polio (IPV/OPV) 2006-03-27 Completed Universit y of 00:00:00 [facility] 2006-03-27 Completed University of (MMR/VARICELLA) 00:00:00 [facility] Polio (IPV/OPV) 2006-03-27 Completed Universit y of 00:00:00 [facility] Proquad 2006-03-27 Completed University of (MMR/VARICELLA) 00:00:00 [facility] Polio (IPV/OPV) 2006-03-27 Completed Universit y of 00:00:00 [facility] Proqu 2006-03-27 Completed University of (MMR/VARICELLA) 00:00:00 [facility] Polio (IPV/OPV) 2006-03-27 Completed Universit y of 00:00:00 [facility] Proquad 2006-03-27 Completed University of (MMR/VARICELLA) 00:00:00 [facility] Polio (IPV/OPV) 2006-03-27 Completed Universit y of 00:00:00 [facility] Proqu 2006-03-27 Completed University of (MMR/VARICELLA) 00:00:00 [facility] Polio (IPV/OPV) 2006-03-27 Completed Universit y of 00:00:00 [facility] Proqu 2006-03-27 Completed University of (MMR/VARICELLA) 00:00:00 [facility] M-M-R II Subcutaneous 2006-03-27 [facility] Injectable 00:00:00 hepatitis A vaccine, 2006-03-27 [facility]ad[facility] 00:00:00 dosage, 2 dose schedule influenza virus 2006-03-27 [facility]pleted [facility] vaccine, unspecified 00:00:00 formulation Influenza, Unspecified 2006-03-27 [facility] 00:00:00 Hep A, ped/adol, 2 2006-03-27 [facility] dose 00:00:00 MMR 2006-03-27 [facility] 00:00:00 Polio, Unspecified 2006-03-27 [facility] 00:[facility]:00 MMRV 2006-03-27 [facility] 00:00:00 DTaP 2006-03-27 Completed [facility] 00:00:00 DTaP 2006-03-27 Completed [facility] 00:00:00 Influenza, Unspecified 2006-03-27 Completed [facility] 00:00:00 Hep A, ped/adol, 2 2006-03-27 [facility]pleted [facility] dose 00:00:00 MMR 2006-03-27 Completed [facility] 00:00:00 Polio, Unspecified 2006-03-27 [facility] 00:[facility]:00 MMRV 2006-03-27 [facility] 00:00:00 HEPATITIS A 2005-05-03 Completed University of 00:00:00 [facility] hepatitis A vaccine, 2005-05-03 [facility]ad[facility] 00:00:00 dosage, 2 dose schedule Hep A, ped/adol, 2 2005-05-03 [facility] dose 00:[facility]:00 Hep A, ped/adol, 2 2005-05-03 [facility]00 DTAP 2003-04-22 Completed [facility] 00:00:00 [facility] Varicella 2003-04-22 Completed [facility] (varivax)(chicken pox) 00:00:00 [facility] Varicella 2003-04-22 Completed [facility] (varivax)(chicken pox) 00:00:00 [facility] Varicella 2003-04-22 Completed [facility] (varivax)(chicken pox) 00:00:00 [facility] Varicella 2003-04-22 Completed [facility] (varivax)(chicken pox) 00:00:00 [facility] Varicella 2003-04-22 Completed [facility] (varivax)(chicken pox) 00:00:00 [facility] Varicella 2003-04-22 Completed [facility] (varivax)(chicken pox) 00:00:00 [facility] Varicella 2003-04-22 Completed [facility] (varivax)(chicken pox) 00:00:00 [facility] Varicella 2003-04-22 Completed [facility] (varivax)(chicken pox) 00:00:00 [facility] DTaP, unspecified 2003-04-22 [facility] formulation 00:00:00 Varivax 1350 PFU/0.5ML 2003-04-22 [facility]pleted [facility] Subcutaneous 00:00:00 Injectable Varicella 2003-04-22 [facility] 00:[facility]:00 DTaP, Unspecified 2003-04-22 [facility] DTaP, Unspecified 2003-04-22 [facility] Varicella 2003-04-22 [facility] 00:00:00 HIB 4 Dose Schedule 2003-01-21 Completed Unive rsity of 00:00:00 [facility] MMR 2003-01-21 Completed [facility] 00:00:00 [facility] Pneumococcal 7 2003-01-21 Completed [facility] Conjugate, PCV7 00:00:00 [facility] ical (Prevnar7) Branch PPD (TB) 2003-01-21 Completed [facility] 00:00:00 [facility] PPD (TB) 2003-01-21 Completed [facility] 00:00:00 [facility] PPD (TB) 2003-01-21 Completed [facility] 00:00:00 [facility] PPD (TB) 2003-01-21 Completed [facility] 00:00:00 [facility] PPD (TB) 2003-01-21 Completed [facility] 00:00:00 [facility] PPD (TB) 2003-01-21 Completed [facility] 00:00:00 [facility] PPD (TB) 2003-01-21 Completed [facility] 00:00:00 [facility] PPD (TB) 2003-01-21 Completed [facility] 00:00:00 [facility] Hib, Haemophilus 2003-01-21 [facility] influenzae type b 00:00:00 vaccine, PRP-T conjugate Pneumo (Prevnar 7) 2003-01-21 [facility] 00:[facility]:00 M-M-R II Subcutaneous 2003-01-21 [facility]pleted [facility] Injectable 00:00:00 Hib (PRP-T) 2003-01-21 [facility] 00:00:00 MMR 2003-01-21 [facility] 00:00:00 Pneumococcal Conjugate 2003-01-21 [facility] PCV 7 00:00:00 PPD Test 2003-01-21 [facility] 00[facility]00:00 HiB, unspecified 2003-01-21 [facility] Pneumococcal, 2003-01-21 [facility] Unspecified 00:00:00 HiB, unspecified 2003-01-21 [facility]:00 Pneumococcal, 2003-01-21 [facility] Unspecified 00:00:00 Hib (PRP-T) 2003-01-21 [facility] 00:00:00 MMR 2003-01-21 [facility] 00:00:00 Pneumococcal Conjugate 2003-01-21 [facility] PCV 7 00:00:00 PPD Test 2003-01-21 [facility] 00:00:00 Pneumococcal 7 2002 Completed [facility] Conjugate, PCV7 00:00:00 [facility] ical (Prevnar7) Branch Polio (IPV/OPV) 2002 Completed [facility] 00:00:00 [facility] Polio (IPV/OPV) 2002 Completed [facility] 00:00:00 [facility] Polio (IPV/OPV) 2002 Completed [facility] 00:00:00 [facility] Polio (IPV/OPV) 2002 Completed [facility] 00:00:00 [facility] Polio (IPV/OPV) 2002 Completed [facility] 00:00:00 [facility] Polio (IPV/OPV) 2002 Completed [facility] 00:00:00 [facility] Polio (IPV/OPV) 2002 Completed [facility] 00:00:00 [facility] Polio (IPV/OPV) 2002 Completed [facility] 00:00:00 [facility] DTaP - Hepatitis B - 2002 [facility] IPV 00:00:00 Pneumo (Prevnar 7) 2002 [facility] 00:00:00 Pneumococcal Conjugate 2002 [facility] PCV 7 00:00:00 Polio, Unspecified 2002 [facility] DTaP / Hep B / IPV 2002 [facility] 00:[facility] DTaP / Hep B / IPV 2002 [facility] 00:[facility] Pneumococcal Conjugate [facility] PCV 7 00:00:00 Polio, Unspecified 2002 [facility] 00:00:00 DTAP 2002 Completed [facility] 00:00:00 [facility] HIB 4 Dose Schedule 2002 Completed Unive rsity of 00:00:00 [facility] Pneumococcal 7 2002 Completed [facility] Conjugate, PCV7 00:00:00 [facility] ica (Prevnar7) Branch Hib, Haemophilus 2002 [facility] influenzae type b 00:00:00 vaccine, PRP-T conjugate Pneumo (Prevnar 7) 2002 [facility] 00:00:00 DTaP, unspecified 2002 [facility] formulation 00:00:00 Hib (PRP-T) 2002 [facility] 00:00:00 Pneumococcal Conjugate 2002 [facility] PCV 7 00:00:00 DTaP, Unspecified 2002 [facility] 00:[facility]:00 DTaP, Unspecified 2002 [facility] 00:[facility]:00 Hib (PRP-T) 2002 [facility] 00:00:00 Pneumococcal Conjugate 2002 [facility] PCV 7 00:00:00 DTAP 2002 Completed [facility] 00:00:00 [facility] HIB 4 Dose Schedule 2002 Completed Unive rsity of 00:00:00 [facility] Pneumococcal 7 2002 Completed [facility] Conjugate, PCV7 00:00:00 [facility] ica (Prevnar7) Branch Polio (IPV/OPV) 2002 Completed [facility] 00:00:00 [facility] Polio (IPV/OPV) 2002 Completed [facility] 00:00:00 [facility] Polio (IPV/OPV) 2002 Completed [facility] 00:00:00 [facility] Polio (IPV/OPV) 2002 Completed [facility] 00:00:00 [facility] Polio (IPV/OPV) 2002 Completed [facility] 00:00:00 [facility] Polio (IPV/OPV) 2002 Completed [facility] 00:00:00 [facility] Polio (IPV/OPV) 2002 Completed [facility] 00:00:00 [facility] Polio (IPV/OPV) 2002 Completed [facility] 00:00:00 [facility] DTaP - Hepatitis B - 2002 [facility] IPV 00:00:00 Hib, Haemophilus 2002 [facility] influenzae type b 00:00:00 vaccine, PRP-T conjugate Pneumo (Prevnar 7) 2002 [facility] 00:00:00 Hib (PRP-T) 2002 [facility] 00:00:00 Pneumococcal Conjugate 2002 [facility] PCV 7 00:00:00 Polio, Unspecified 2002 [facility] 00:[facility] DTaP / Hep B / IPV 2002 [facility] 00:[facility]:00 DTaP 2002 [facility] 00:00:00 DTaP / Hep B / IPV 2002 [facility] 00:[facility]:00 DTaP 2002 [facility] 00:00:00 Hib (PRP-T) 2002 Completed [facility] 00:00:00 Pneumococcal Conjugate 2002 [facility] PCV 7 00:00:00 Polio, Unspecified 2002 [facility] 00:00:00 DTAP 2002 Completed [facility] 00:00:00 [facility] HIB 4 Dose Schedule 2002 Completed [facility]ive rsity of 00:00:00 [facility] Polio (IPV/OPV) 2002 Completed [facility] 00:00:00 [facility] Polio (IPV/OPV) 2002 Completed [facility] 00:00:00 [facility] Polio (IPV/OPV) 2002 Completed [facility] 00:00:00 [facility] Polio (IPV/OPV) 2002 Completed [facility] 00:00:00 [facility] Polio (IPV/OPV) 2002 Completed [facility] 00:00:00 [facility] Polio (IPV/OPV) 2002 Completed [facility] 00:00:00 [facility] Polio (IPV/OPV) 2002 Completed [facility] 00:00:00 [facility] Polio (IPV/OPV) 2002 Completed [facility] 00:00:00 [facility] DTaP - Hepatitis B - 2002 [facility] IPV 00:00:00 Hib, Haemophilus 2002 [facility]pleted [facility] influenzae type b 00:00:00 vaccine, PRP-T conjugate Hib (PRP-T) 2002 [facility] 00:00:00 Polio, Unspecified 2002 [facility] 00:[facility]:00 HiB, unspecified 2002 [facility] 00:[facility] DTaP / Hep B / IPV 2002 [facility] 00:[facility]:00 DTaP [facility] 00:00:00 HiB, unspecified 2002 [facility] 00:[facility] DTaP / Hep B / IPV 2002 [facility] 00:[facility]:00 DTaP [facility] 00:00:00 Hib (PRP-T) 2002 [facility] 00:00:00 Polio, Unspecified 2002 [facility] 00:[facility]:00 Hep B, Adol or Pedi 2002 Completed Unive rsity of Dosage 00:00:00 [facility] Hepatitis B, 2002 [facility] pediatric[facility]adolescent 00:00:00 dosage Hep B, Adolescent or [facility] 00:[facility] Hep B, Adolescent or 2002 [facility] 00:[facility]:00 Hep B, Adol or Pedi 2002 Completed [facility]ive rsity of Dosage 00:00:00 [facility] Hepatitis B, 2002 [facility] 00:00:00 dosage Hep B, Adolescent or 2002 [facility] 00:[facility]:00 Hep B, Adolescent or 2002 [facility] 00:[facility]:00 Vital Signs Vital Name Observation Time Observation Value Comments Source Systolic blood 2022-01-17 120 mm[Hg] [facility] of pressure 17:03:00 [facility] Diastolic blood 2022-01-17 80 mm[Hg] University o f pressure 17:03:00 [facility] Heart rate 2022-01-17 108 /min [facility] 17:03:00 [facility] Body temperature 2022-01-17 36.5 Ambar [facility] 17:03:00 [facility] Body weight 2022-01-17 51.6 kg University of 17:03:00 [facility] Systolic blood 2022-01-16 116 mm[Hg] [facility] of pressure 22:01:00 [facility] Diastolic blood 2022-01-16 87 mm[Hg] University o f pressure 22:01:00 [facility] Heart rate 2022-01-16 90 /min [facility] 21:59:00 [facility] Body temperature 2022-01-16 36.78 Ambar [facility] 21:59:00 [facility] Respiratory rate 2022-01-16 18 /min [facility] 21:59:00 [facility] Body weight 2022-01-16 52.254 kg University of 21:59:00 [facility] Oxygen saturation 2022-01-16 100 /min [facility] in Arterial blood 21:59:[address] [facility] Pulse oximetry [place] Systolic blood 2021-07-20 113 mm[Hg] University of pressure 21:05:00 [facility] Diastolic blood 2021-07-20 77 mm[Hg] University o f pressure 21:05:00 [facility] Heart rate 2021-07-20 85 /min [facility] 19:44:00 [facility] Body temperature 2021-07-20 36.67 Ambar [facility] 19:44:00 [facility] Respiratory rate 2021-07-20 18 /min [facility] 19:44:00 [facility] Body height 2021-07-20 143 cm pt was unable University 19:44:00 to take shoes [facility] off, pt had a Branch boot on. Body weight 2021-07-20 52.98 kg [facility] 19:44:00 [facility] BMI 2021-07-20 25.91 kg/m2 [facility] 19:44:00 [facility] Body mass index 2021-07-20 83.51 % University o f (BMI) [Percentile] 19:44:00 [facility] Per age and sex [facility] Oxygen saturation 2021-07-20 100 /min [facility] Arterial blood 19:44:[address] [facility] by Pulse oximetry Branch Systolic blood 2020-08-10 112 mm[Hg] Location: RUE; [facility] pressure 15:13:00 Position: Sitting Diastolic blood 2020-08-10 69 mm[Hg] Location: R[facility]; [facility] pressure 15:13:00 Position: Sitting Body height 2020-08-10 132.08 cm [facility] 15:13:00 Weight 2020-08-10 46.08 kg [facility] 15:13:00 Body mass index 2020-08-10 26.42 kg/m2 [facility] (BMI) [Ratio] 15:13:00 Heart Rate 2020-08-10 108 /min Location: R [facility] 15:13:00 Brachial Artery; Body temperature 2020-08-10 98.6 [degF] Method: [facility] 15:13:00 Temporal Respiratory rate 2020-08-10 16 /min Quality: Normal [facility] 15:13:00 Systolic blood 2020-04-27 111 mm[Hg] Location: RUE; [facility] pressure 15:51:00 Position: Sitting Diastolic blood 2020-04-27 72 mm[Hg] Location: R[facility]; [facility] pressure 15:51:00 Position: Sitting Body height 2020-04-27 139.7 cm [facility] 15:51:00 Weight 2020-04-27 44.69 kg [facility] 15:51:00 Body mass index 2020-04-27 22.9 kg/m2 [facility] (BMI) [Ratio] 15:51:00 Body temperature 2020-04-27 97.7 [degF] Method: [facility] 15:51:00 Temporal Heart Rate 2020-04-27 87 /min Location: R [facility] 15:51:00 Brachial Artery; Respiratory rate 2020-04-27 16 /min [facility] 15:51:00 Body height 2019-12-22 55 [in_us] [facility] 12:56:00 Weight 2019-12-22 98 [lb_av] [facility] 12:56:00 Body mass index 2019-12-22 22.78 kg/m2 [facility] (BMI) [Ratio] 12:56:00 Systolic blood 2019-12-14 113 mm[Hg] Location: [facility]; [facility] pressure 14:57:00 Position: Sitting Diastolic blood 2019-12-14 74 mm[Hg] Location: [facility]; [facility] pressure 14:57:00 Position: Sitting Body height 2019-12-14 55 [in_us] [facility] 14:57:00 Weight 2019-12-14 98.125 [lb_av] [facility] 14:57:00 Body mass index 2019-12-14 22.81 kg/m2 [facility] (BMI) [Ratio] 14:57:00 Body temperature 2019-12-14 99 [degF] Method: Oral [facility] 14:57:00 Heart Rate 2019-12-14 121 /min Location: R [facility] 14:57:00 Brachial Artery; Quality: Normal Respiratory rate 2019-12-14 16 /min Quality: Normal [facility] 14:57:00 Systolic blood 2019-10-07 132 mm[Hg] [facility] pressure 13:17:00 Diastolic blood 2019-10-07 88 mm[Hg] [facility] pressure 13:17:00 Body height 2019-10-07 140 cm [facility] 13:17:00 Weight 2019-10-07 45.9 kg [facility] 13:17:00 Body mass index 2019-10-07 23.42 kg/m2 [facility] (BMI) [Ratio] 13:17:00 Body temperature 2019-10-07 98 [degF] [facility] 13:17:00 Heart Rate 2019-10-07 97 /min [facility] 13:17:00 Systolic blood 2019-06-04 106 mm[Hg] [facility] pressure 13:42:00 Diastolic blood 2019-06-04 71 mm[Hg] [facility] pressure 13:42:00 Body height 2019-06-04 143 cm [facility] 13:42:00 Weight 2019-06-04 49.1 kg [facility] 13:42:00 Body mass index 2019-06-04 24.01 kg/m2 [facility] (BMI) [Ratio] 13:42:00 Body temperature 2019-06-04 98.7 [degF] [facility] 13:42:00 Heart Rate 2019-06-04 90 /min [facility] 13:42:00 Systolic blood 2019-05-18 116 mm[Hg] [facility] pressure 15:11:00 Diastolic blood 2019-05-18 77 mm[Hg] [facility] pressure 15:11:00 Body height 2019-05-18 144 cm [facility] 15:11:00 Weight 2019-05-18 49.1 kg [facility] 15:11:00 Body mass index 2019-05-18 23.68 kg/m2 [facility] (BMI) [Ratio] 15:11:00 Body temperature 2019-05-18 98.3 [degF] [facility] 15:11:00 Heart Rate 2019-05-18 94 /min [facility] 15:11:00 BP Systolic 2019-05-11 93 mm[Hg] Location: [facility]; [facility] 13:38:00 Position: Sitting BP Diastolic 2019-05-11 55 mm[Hg] Location: [facility]; [facility] 13:38:00 Position: Sitting Height 2019-05-11 56 [in_us] [facility] 13:38:00 Weight 2019-05-11 109 [lb_av] [facility] 13:38:00 Body Mass Index 2019-05-11 24.44 kg/m2 [facility] Calculated 13:38:00 Temperature 2019-05-11 97.7 [degF] Method: Oral [facility] 13:38:00 Heart Rate 2019-05-11 94 /min Location: R [facility] 13:38:00 Brachial Artery; Respiration Rate 2019-05-11 18 /min Quality: Normal [facility] 13:38:00 BP Systolic 2019-01-12 121 mm[Hg] Location: [facility]; [facility] 13:18:00 Position: Sitting BP Diastolic 2019-01-12 81 mm[Hg] Location: [facility]; [facility] 13:18:00 Position: Sitting Height 2019-01-12 56.69 [in_us] [facility] 13:18:00 Weight 2019-01-12 104.125 [lb_av] [facility] 13:18:00 Body Mass Index 2019-01-12 22.78 kg/m2 [facility] Calculated 13:18:00 Temperature 2019-01-12 97.7 [degF] Method: Oral [facility] 13:18:00 BP Systolic 2018-09-15 118 mm[Hg] Location: [facility]; [facility] 15:30:00 Position: Sitting BP Diastolic 2018-09-15 74 mm[Hg] Location: [facility]; [facility] 15:30:00 Position: Sitting Height 2018-09-15 145 cm [facility] 15:30:00 Weight 2018-09-15 104 [lb_av] [facility] 15:30:00 Body Mass Index 2018-09-15 22.44 kg/m2 [facility] Calculated 15:30:00 Heart Rate 2018-09-15 80 /min [facility] 15:30:00 BP Systolic 2018-06-09 122 mm[Hg] Location: [facility]; [facility] 13:27:00 Position: Sitting BP Diastolic 2018-06-09 78 mm[Hg] Location: [facility]; [facility] 13:27:00 Position: Sitting Weight 2018-06-09 48.2 kg [facility] 13:27:00 Temperature 2018-06-09 97.7 [degF] Method: Oral [facility] 13:27:00 Heart Rate 2018-06-09 105 /min [facility] 13:27:00 BP Systolic 2018-03-17 111 mm[Hg] Location: [facility]; [facility] 13:41:00 Position: Sitting BP Diastolic 2018-03-17 78 mm[Hg] Location: [facility]; [facility] 13:41:00 Position: Sitting Height 2018-03-17 142.3 cm [facility] 13:41:00 Weight 2018-03-17 46.3 kg [facility] 13:41:00 Body Mass Index 2018-03-17 22.86 kg/m2 [facility] Calculated 13:41:00 Temperature 2018-03-17 97.9 [degF] [facility] 13:41:00 Heart Rate 2018-03-17 109 /min [facility] 13:41:00 BP Systolic 2017-11-11 125 mm[Hg] Location: [facility]; [facility] 15:29:00 Position: Sitting BP Diastolic 2017-11-11 82 mm[Hg] Location: [facility]; [facility] 15:29:00 Position: Sitting Weight 2017-11-11 46.7 kg [facility] 15:29:00 Heart Rate 2017-11-11 80 /min [facility] 15:29:00 BP Systolic 2017-08-12 117 mm[Hg] Location: [facility]; [facility] 15:00:00 Position: Sitting BP Diastolic 2017-08-12 73 mm[Hg] Location: [facility]; [facility] 15:00:00 Position: Sitting Height 2017-08-12 144.8 cm [facility] 15:00:00 Weight 2017-08-12 47.8 kg [facility] 15:00:00 Body Mass Index 2017-08-12 22.8 kg/m2 [facility] Calculated 15:00:00 Heart Rate 2017-08-12 97 /min [facility] 15:00:00 BP Systolic 2017-05-13 101 mm[Hg] Location: [facility]; [facility] 15:44:00 Position: Sitting BP Diastolic 2017-05-13 61 mm[Hg] Location: [facility]; [facility] 15:44:00 Position: Sitting Height 2017-05-13 144.8 cm [facility] 15:44:00 Weight 2017-05-13 44.9 kg [facility] 15:44:00 Body Mass Index 2017-05-13 21.41 kg/m2 [facility] Calculated 15:44:00 Heart Rate 2017-05-13 99 /min [facility] 15:44:00 BP Systolic 2017-02-11 112 mm[Hg] Location: [facility]; [facility] 15:50:00 Position: Sitting BP Diastolic 2017-02-11 73 mm[Hg] Location: [facility] 15:50:00 Position: Sitting Heart Rate 2017-02-11 76 /min [facility] 15:50:00 BP Systolic 2017-02-11 110 mm[Hg] Location: [facility] 15:49:00 Position: Sitting BP Diastolic 2017-02-11 66 mm[Hg] Location: [facility]; [facility] 15:49:00 Position: Sitting Heart Rate 2017-02-11 82 /min [facility] 15:49:00 Weight 2017-02-11 45.1 kg [facility] 15:49:00 Procedures Procedure Date / Time Performing Clinician Source Performed PREPARE PACKED RBC 2022-02-27 19:38:12 [facility] TYPE AND SCREEN 2022-02-27 16:35:00 Jf Acharya [facility] o f [facility] MENINGOCOCCAL B VACCINE, 2021-07-20 20:30:06 Darvin Alexandraaicha [facility] OMV, 2 DOSE, IM [facility] [Q] CYSTATIN C WITH eGFR 2020-08-10 00:00:00 [facility] [Q] PROTEIN, TOTAL 2020-08-10 00:00:00 [facility] W/CREAT, RANDOM URINE [QL] CBC (INCLUDES 2020-08-10 00:00:00 [facility] DIFF/PLT) [QL] CMP W/EGFR 2020-08-10 00:00:00 [facility] [QL] MAGNESIUM 2020-08-10 00:00:00 [facility] [QL] PHOSPHATE ( 2020-08-10 00:00:00 [facility] PHOSPHORUS) [QL] PTH, INTACT (WITHOUT 2020-08-10 00:00:00 [facility] CALCIUM) [QL] URINALYSIS, COMPLETE 2020-08-10 00:00:00 [facility] [QL] VITAMIN D, 2020-08-10 00:00:00 [facility] 25-HYDROXY, LC/MS/MS [Q] IRON, TIBC AND 2020-08-10 00:00:00 [facility] FERRITIN PANEL [QL] CMP W/EGFR 2020-08-03 00:00:00 [facility] [QL] CMP W/EGFR 2020-04-27 00:00:00 [facility] [L] Vitamin D, 25-Hydroxy, 2020-04-27 00:00:00 [facility] Total - [employer] [QL] VITAMIN D, 2020-04-27 00:00:00 [facility] 25-HYDROXY, LC/MS/MS [Q] PTH, INTACT AND 2020-04-27 00:00:00 [facility] CALCIUM [QL] MAGNESIUM 2020-04-27 00:00:00 [facility] [QL] PHOSPHATE ( 2020-04-27 00:00:00 [facility] PHOSPHORUS) [QL] CBC (INCLUDES 2020-04-27 00:00:00 [facility] DIFF/PLT) [QL] IRON AND TOTAL IRON 2020-04-27 00:00:00 [facility] BINDING CAPACITY [QL] FERRITIN 2020-04-27 00:00:00 [facility] [QL] URINALYSIS, COMPLETE 2020-04-27 00:00:00 [facility] [Q] PROTEIN, TOTAL 2020-04-19 00:00:00 [facility] W/CREAT, RANDOM URINE [QL] CBC (INCLUDES 2020-04-19 00:00:00 [facility] DIFF/PLT) [QL] CMP W/EGFR 2020-04-19 00:00:00 [facility] [QL] IRON AND TOTAL IRON 2020-04-19 00:00:00 [facility] BINDING CAPACITY [QL] IRON, TOTAL 2020-04-19 00:00:00 [facility] [QL] MAGNESIUM 2020-04-19 00:00:00 [facility] [QL] PHOSPHATE ( 2020-04-19 00:00:00 [facility] PHOSPHORUS) [QL] PTH, INTACT (WITHOUT 2020-04-19 00:00:00 [facility] CALCIUM) [QL] URINALYSIS, COMPLETE 2020-04-19 00:00:00 [facility] [QL] VITAMIN D, 2020-04-19 00:00:00 [facility] 25-HYDROXY, LC/MS/MS [QL] CYSTATIN C 2020-04-19 00:00:00 [facility] [Q] CYSTATIN C WITH eGFR 2019-12-14 00:00:00 [facility] [Q] PROTEIN, TOTAL 2019-12-14 00:00:00 [facility] W/CREAT, RANDOM URINE [QL] CBC (INCLUDES 2019-12-14 00:00:00 [facility] DIFF/PLT) [QL] CMP W/EGFR 2019-12-14 00:00:00 [facility] [QL] MAGNESIUM 2019-12-14 00:00:00 [facility] [QL] PHOSPHATE ( 2019-12-14 00:00:00 [facility] PHOSPHORUS) [QL] PTH, INTACT (WITHOUT 2019-12-14 00:00:00 [facility] CALCIUM) [QL] URINALYSIS, COMPLETE 2019-12-14 00:00:00 [facility] [QL] VITAMIN D, 2019-12-14 00:00:00 [facility] 25-HYDROXY, LC/MS/MS [QL] HEPATITIS PANEL 2019-12-14 00:00:00 [facility] [QL] CULTURE, URINE, 2019-10-05 00:00:00 [facility] ROUTINE [UTP] Surgical Repair 2019-09-16 00:00:00 [facility] Bladder 2019-07-07 00:00:00 [facility] Cystourethrogram void[place] [id number] [H] Iron, TIBC \\T\\ 2019-07-05 00:00:00 [facility] Ferritin [QH] PROTEIN, TOTAL 2019-07-05 00:00:00 [facility] W/CREAT, RANDOM URINE [QLH] CBC (INCLUDES 2019-07-05 00:00:00 [facility] DIFF/PLT) [QLH] CMP W/EGFR 2019-07-05 00:00:00 [facility] [QLH] PTH, INTACT (WITHOUT 2019-07-05 00:00:00 [facility] CALCIUM) [QLH] URINALYSIS, COMPLETE 2019-07-05 00:00:00 [facility] [QLH] VITAMIN D, 2019-07-05 00:00:00 [facility] 25-HYDROXY, LC/MS/MS [QLH] MAGNESIUM 2019-07-05 00:00:00 [facility] [QLH] PHOSPHATE ( 2019-07-05 00:00:00 [facility] PHOSPHORUS) Renal [id number] 2019-05-18 00:00:00 [facility] [H] Pediatric Renal Panel 2019-05-11 00:00:00 [facility] [QLH] URINALYSIS, COMPLETE 2019-05-11 00:00:00 [facility] W/REFLEX TO CULTURE [QLH] VITAMIN D, 2019-05-11 00:00:00 [facility] 25-HYDROXY, LC/MS/MS [QLH] PTH, INTACT (WITHOUT 2019-05-11 00:00:00 [facility] CALCIUM) [QLH] CBC (INCLUDES 2019-05-11 00:00:00 [facility] DIFF/PLT) [H] Iron, TIBC \\T\\ 2019-05-11 00:00:00 [facility] Ferritin [QH] PROTEIN, TOTAL 2019-05-11 00:00:00 [facility] W/CREAT, RANDOM URINE [QLH] URINALYSIS, COMPLETE 2019-05-11 00:00:00 [facility] [H] Iron, TIBC \\T\\ 2019-01-12 00:00:00 [facility] Ferritin [H] Pediatric Renal Panel 2019-01-12 00:00:00 [facility] [QH] PROTEIN, TOTAL 2019-01-12 00:00:00 [facility] W/CREAT, RANDOM URINE [QLH] CBC (INCLUDES 2019-01-12 00:00:00 [facility] DIFF/PLT) [QLH] PTH, INTACT (WITHOUT 2019-01-12 00:00:00 [facility] CALCIUM) [QLH] URINALYSIS, COMPLETE 2019-01-12 00:00:00 [facility] [QLH] VITAMIN D, 2019-01-12 00:00:00 [facility] 25-HYDROXY, LC/MS/MS [H] Iron, TIBC \\T\\ 2018-09-15 00:00:00 [facility] Ferritin [H] Pediatric Renal Panel 2018-09-15 00:00:00 [facility] [QH] PROTEIN, TOTAL 2018-09-15 00:00:00 [facility] W/CREAT, RANDOM URINE [QLH] CBC (INCLUDES 2018-09-15 00:00:00 [facility] DIFF/PLT) [QLH] PTH, INTACT (WITHOUT 2018-09-15 00:00:00 [facility] CALCIUM) [QLH] VITAMIN D, 2018-09-15 00:00:00 [facility] 25-HYDROXY, LC/MS/MS [H] Iron, TIBC \\T\\ 2018-06-09 00:00:00 [facility] [H] Pediatric Renal Panel 2018-06-09 00:00:[facility] [QH] PROTEIN, TOTAL 2018-06-09 00:00:00 [facility] W/CREAT, RANDOM URINE [QLH] CBC (INCLUDES 2018-06-09 00:00:00 [facility] DIFF/PLT) [QLH] PTH, INTACT (WITHOUT 2018-06-09 00:00:00 [facility] CALCIUM) [QLH] URINALYSIS, COMPLETE 2018-06-09 00:00:00 [facility] [QLH] VITAMIN D, 2018-06-09 00:00:00 [facility] 25-HYDROXY, LC/MS/MS [H] Iron, TIBC \\T\\ 2018-03-17 00:00:00 [facility] [H] Pediatric Renal Panel 2018-03-17 00:00:00 [facility] [QH] PROTEIN, TOTAL 2018-03-17 00:00:00 [facility] W/CREAT, RANDOM URINE [QLH] CBC (INCLUDES 2018-03-17 00:00:00 [facility] DIFF/PLT) [QLH] PTH, INTACT (WITHOUT 2018-03-17 00:00:00 [facility] CALCIUM) [QLH] VITAMIN D, 2018-03-17 00:00:00 [facility] 25-HYDROXY, LC/MS/MS [O] Urine Dipstick (In 2017-11-11 00:00:00 [facility]) [H] Iron, TIBC \\T\\ 2017-11-11 00:00:00 [facility] [H] Pediatric Renal Panel 2017-11-11 00:00:00 [facility] [QH] PROTEIN, TOTAL 2017-11-11 00:00:00 [facility] W/CREAT, RANDOM URINE [QLH] CBC (INCLUDES 2017-11-11 00:00:00 [facility] DIFF/PLT) [QLH] PTH, INTACT (WITHOUT 2017-11-11 00:00:00 [facility] CALCIUM) [QLH] URINALYSIS, COMPLETE 2017-11-11 00:00:00 [facility] [QLH] VITAMIN D, 2017-11-11 00:00:00 [facility] 25-HYDROXY, LC/MS/MS [QLH] CMP W/EGFR 2017-11-11 00:00:00 [facility] [QLH] MAGNESIUM 2017-11-11 00:00:00 [facility] [QLH] PHOSPHATE ( 2017-11-11 00:00:00 [facility] PHOSPHORUS) [QLH] IRON AND TOTAL IRON 2017-11-11 00:00:00 [facility] BINDING CAPACITY [QLH] FERRITIN 2017-11-11 00:00:00 [facility] [QLH] CMP W/EGFR 2017-08-14 00:00:00 [facility] [QLH] PHOSPHATE ( 2017-08-14 00:00:00 [facility] PHOSPHORUS) [QLH] PTH, INTACT (WITHOUT 2017-08-14 00:00:00 [facility] CALCIUM) [O] Urine Dipstick (In 2017-08-12 00:00:00 [facility] [H] Pediatric Renal Panel 2017-08-12 00:00:00 [facility] [QLH] CBC (INCLUDES 2017-08-12 00:00:00 [facility] DIFF/PLT) [QLH] IRON AND TOTAL IRON 2017-08-12 00:00:00 [facility] BINDING CAPACITY [QLH] PTH, INTACT (WITHOUT 2017-08-12 00:00:00 [facility] CALCIUM) [QLH] FERRITIN 2017-08-12 00:00:00 [facility] [QLH] VITAMIN D, 2017-08-12 00:00:00 [facility] 25-HYDROXY, LC/MS/MS [QLH] VITAMIN D, 1,25 2017-08-12 00:00:00 [facility] DIHYDROXY LC/MS/MS [H] Pediatric Renal Panel 2017-05-13 00:00:00 [facility] [QH] PROTEIN, TOTAL 2017-05-13 00:00:00 [facility] W/CREAT, RANDOM URINE [QLH] CBC (INCLUDES 2017-05-13 00:00:00 [facility] DIFF/PLT) [QLH] PTH, INTACT (WITHOUT 2017-05-13 00:00:00 [facility] CALCIUM) [QLH] VITAMIN D, 1,25 2017-05-13 00:00:00 [facility] DIHYDROXY LC/MS/MS [QLH] VITAMIN D, 2017-05-13 00:00:00 [facility] 25-HYDROXY, LC/MS/MS Plan of Care Planned Activity Planned Date Details Comments Source Future Scheduled 2020-10-24 [Q] CYSTATIN C [facility] Test 00:00:00 WITH eGFR [code = [Q] CYSTATIN C WITH eGFR] Future Scheduled 2020-10-24 [Q] PROTEIN, TOTAL [facility] 00:00:00 W/CREAT, RANDOM URINE [code = [Q] PROTEIN, TOTAL W/CREAT, RANDOM URINE] Future Scheduled 2020-10-24 [QL] CBC (INCLUDES [facility] 00:00:00 DIFF/PLT) [code = [QL] CBC (INCLUDES DIFF/PLT)] Future Scheduled 2020-10-24 [QL] CMP W/EGFR [facility] 00:00:00 [code = [QL] CMP W/EGFR] Future Scheduled 2020-10-24 [QL] MAGNESIUM [facility] 00:00:00 [code = [QL] MAGNESIUM] Future Scheduled 2020-10-24 [QL] PHOSPHATE ( [facility] 00:00:00 PHOSPHORUS) [code = [QL] PHOSPHATE ( PHOSPHORUS)] Future Scheduled 2020-10-24 [QL] PTH, INTACT [facility] 00:00:00 (WITHOUT CALCIUM) [code = [QL] PTH, INTACT (WITHOUT CALCIUM)] Future Scheduled 2020-10-24 [QL] URINALYSIS, [facility] 00:00:00 COMPLETE [code = [QL] URINALYSIS, COMPLETE] Future Scheduled 2020-10-24 [QL] VITAMIN D, [facility] 00:00:00 25-HYDROXY, LC/MS/MS [code = [QL] VITAMIN D, 25-HYDROXY, LC/MS/MS] Future Scheduled 2020-10-24 [Q] IRON, TIBC AND [facility] 00:00:00 FERRITIN PANEL [code = [Q] IRON, TIBC AND FERRITIN PANEL] Future Scheduled 2020-10-24 [Q] CYSTATIN C [facility] 00:00:00 WITH eGFR [code = [Q] CYSTATIN C WITH eGFR] Future Scheduled 2020-10-24 [Q] PROTEIN, TOTAL [facility] 00:00:00 W/CREAT, RANDOM URINE [code = [Q] PROTEIN, TOTAL W/CREAT, RANDOM URINE] Future Scheduled 2020-10-24 [QL] CBC (INCLUDES [facility] 00:00:00 DIFF/PLT) [code = [QL] CBC (INCLUDES DIFF/PLT)] Future Scheduled 2020-10-24 [QL] CMP W/EGFR [facility] 00:00:00 [code = [QL] CMP W/EGFR] Future Scheduled 2020-10-24 [QL] MAGNESIUM [facility] 00:00:00 [code = [QL] MAGNESIUM] Future Scheduled 2020-10-24 [QL] PHOSPHATE ( [facility] 00:00:00 PHOSPHORUS) [code = [QL] PHOSPHATE ( PHOSPHORUS)] Future Scheduled 2020-10-24 [QL] PTH, INTACT [facility] 00:00:00 (WITHOUT CALCIUM) [code = [QL] PTH, INTACT (WITHOUT CALCIUM)] Future Scheduled 2020-10-24 [QL] URINALYSIS, [facility] 00:00:00 COMPLETE [code = [QL] URINALYSIS, COMPLETE] Future Scheduled 2020-10-24 [QL] VITAMIN D, [facility] 00:00:00 25-HYDROXY, LC/MS/MS [code = [QL] VITAMIN D, 25-HYDROXY, LC/MS/MS] Future Scheduled 2020-10-24 [Q] IRON, TIBC AND [facility] 00:00:00 FERRITIN PANEL [code = [Q] IRON, TIBC AND FERRITIN PANEL] Future Scheduled 2020-10-24 [Q] CYSTATIN C [facility] 00:00:00 WITH eGFR [code = [Q] CYSTATIN C WITH eGFR] Future Scheduled 2020-10-24 [Q] PROTEIN, TOTAL [facility] 00:00:00 W/CREAT, RANDOM URINE [code = [Q] PROTEIN, TOTAL W/CREAT, RANDOM URINE] Future Scheduled 2020-10-24 [QL] CBC (INCLUDES [facility] 00:00:00 DIFF/PLT) [code = [QL] CBC (INCLUDES DIFF/PLT)] Future Scheduled 2020-10-24 [QL] CMP W/EGFR [facility] 00:00:00 [code = [QL] CMP W/EGFR] Future Scheduled 2020-10-24 [QL] MAGNESIUM [facility] 00:00:00 [code = [QL] MAGNESIUM] Future Scheduled 2020-10-24 [QL] PHOSPHATE ( [facility] 00:00:00 PHOSPHORUS) [code = [QL] PHOSPHATE ( PHOSPHORUS)] Future Scheduled 2020-10-24 [QL] PTH, INTACT [facility] 00:00:00 (WITHOUT CALCIUM) [code = [QL] PTH, INTACT (WITHOUT CALCIUM)] Future Scheduled 2020-10-24 [QL] URINALYSIS, [facility] 00:00:00 COMPLETE [code = [QL] URINALYSIS, COMPLETE] Future Scheduled 2020-10-24 [QL] VITAMIN D, [facility] 00:00:00 25-HYDROXY, LC/MS/MS [code = [QL] VITAMIN D, 25-HYDROXY, LC/MS/MS] Future Scheduled 2020-10-24 [Q] IRON, TIBC AND [facility] 00:00:00 FERRITIN PANEL [code = [Q] IRON, TIBC AND FERRITIN PANEL] Future Scheduled 2020-08-11 [QL] CMP W/EGFR [facility] 00:00:00 [code = [QL] CMP W/EGFR] Future Scheduled 2020-08-11 [QL] CMP W/EGFR [facility] 00:00:00 [code = [QL] CMP W/EGFR] Future Scheduled 2019-10-14 [UT[facility]] Surgical [facility] 00:00:00 Repair [code = [UTP] Surgical Repair] Future Scheduled 2019-10-14 [UT[facility]] Surgical [facility] 00:00:00 Repair [code = [UTP] Surgical Repair] Diagnostic Test 2017-12-09 [H] Iron, TIBC \\T\\ [facility] Pending 00:00:00 Ferritin [code = [H] Iron, TIBC \\T\\ Ferritin] Diagnostic Test 2017-12-09 [H] [facility] 00:00:00 Renal Panel [code = [H] Pediatric Renal Panel] Diagnostic Test 2017-12-09 [QH] PROTEIN, [facility] Pending 00:00:00 TOTAL W/CREAT, RANDOM URINE [code = [QH] PROTEIN, TOTAL W/CREAT, RANDOM URINE] Diagnostic Test 2017-12-09 [QLH] CBC [facility] Pending 00:00:00 (INCLUDES DIFF/PLT) [code = [QLH] CBC (INCLUDES DIFF/PLT)] Diagnostic Test 2017-12-09 [QLH] PTH, INTACT [facility] Pending 00:00:00 (WITHOUT CALCIUM) [code = [QLH] PTH, INTACT (WITHOUT CALCIUM)] Diagnostic Test 2017-12-09 [QLH] URINALYSIS, [facility] Pending 00:00:00 COMPLETE [code = [QLH] URINALYSIS, COMPLETE] Diagnostic Test 2017-12-09 [QLH] VITAMIN D, [facility]ending 00:00:00 25-HYDROXY, LC/MS/MS [code = [QLH] VITAMIN D, 25-HYDROXY, LC/MS/MS] Diagnostic Test 2017-12-09 [H] Iron, TIBC \\T\\ [facility] 00:00:00 Ferritin [code = [H] Iron, TIBC \\T\\ Ferritin] Diagnostic Test 2017-12-09 [H] [facility] 00:00:00 Renal Panel [code = [H] Pediatric Renal Panel] Diagnostic Test 2017-12-09 [QH] PROTEIN, [facility]ending 00:00:00 TOTAL W/CREAT, RANDOM URINE [code = [QH] PROTEIN, TOTAL W/CREAT, RANDOM URINE] Diagnostic Test 2017-12-09 [QLH] CBC [facility] Pending 00:00:00 (INCLUDES DIFF/PLT) [code = [QLH] CBC (INCLUDES DIFF/PLT)] Diagnostic Test 2017-12-09 [QLH] PTH, INTACT [facility] Pending 00:00:00 (WITHOUT CALCIUM) [code = [QLH] PTH, INTACT (WITHOUT CALCIUM)] Diagnostic Test 2017-12-09 [QLH] URINALYSIS, [facility] Pending 00:00:00 COMPLETE [code = [QLH] URINALYSIS, COMPLETE] Diagnostic Test 2017-12-09 [QLH] VITAMIN D, [facility]ending 00:00:00 25-HYDROXY, LC/MS/MS [code = [QLH] VITAMIN D, 25-HYDROXY, LC/MS/MS] Diagnostic Test 2017-12-09 [QLH] CBC [facility] Pending 00:00:00 (INCLUDES DIFF/PLT) [code = [QLH] CBC (INCLUDES DIFF/PLT)] Diagnostic Test 2017-12-09 [QLH] CMP W/EGFR [facility]ending 00:00:00 [code = [QLH] CMP W/EGFR] Diagnostic Test 2017-12-09 [QLH] MAGNESIUM [facility] 00:00:00 [code = [QLH] MAGNESIUM] Diagnostic Test 2017-12-09 [QLH] PHOSPHATE [facility]ending 00:00:00 ( PHOSPHORUS) [code = [QLH] PHOSPHATE ( PHOSPHORUS)] Diagnostic Test 2017-12-09 [QLH] IRON AND [facility]ending 00:00:00 TOTAL IRON BINDING CAPACITY [code = [QLH] IRON AND TOTAL IRON BINDING CAPACITY] Diagnostic Test 2017-12-09 [QLH] FERRITIN [facility] 00:00:00 [code = [QLH] FERRITIN] Diagnostic Test 2017-12-09 [QH] PROTEIN, [facility] 00:00:00 TOTAL W/CREAT, RANDOM URINE [code = [QH] PROTEIN, TOTAL W/CREAT, RANDOM URINE] Diagnostic Test 2017-12-09 [QLH] PTH, INTACT [facility]ending 00:00:00 (WITHOUT CALCIUM) [code = [QLH] PTH, INTACT (WITHOUT CALCIUM)] Diagnostic Test 2017-12-09 [QLH] URINALYSIS, [facility] Pending 00:00:00 COMPLETE [code = [QLH] URINALYSIS, COMPLETE] Diagnostic Test 2017-12-09 [QLH] VITAMIN D, [facility] 00:00:00 25-HYDROXY, LC/MS/MS [code = [QLH] VITAMIN D, 25-HYDROXY, LC/MS/MS] Diagnostic Test 2017-12-09 [H] Iron, TIBC \\T\\ [facility] 00:00:00 Ferritin [code = [H] Iron, TIBC \\T\\ Ferritin] Diagnostic Test 2017-12-09 [H] Pediatric [facility] 00:00:00 Renal Panel [code = [H] Pediatric Renal Panel] Diagnostic Test 2017-12-09 [QH] PROTEIN, [facility] 00:00:00 TOTAL W/CREAT, RANDOM URINE [code = [QH] PROTEIN, TOTAL W/CREAT, RANDOM URINE] Diagnostic Test 2017-12-09 [QLH] CBC [facility] 00:00:00 (INCLUDES DIFF/PLT) [code = [QLH] CBC (INCLUDES DIFF/PLT)] Diagnostic Test 2017-12-09 [QLH] PTH, INTACT [facility]ending 00:00:00 (WITHOUT CALCIUM) [code = [QLH] PTH, INTACT (WITHOUT CALCIUM)] Diagnostic Test 2017-12-09 [QLH] URINALYSIS, [facility]ending 00:00:00 COMPLETE [code = [QLH] URINALYSIS, COMPLETE] Diagnostic Test 2017-12-09 [QLH] VITAMIN D, [facility] 00:00:00 25-HYDROXY, LC/MS/MS [code = [QLH] VITAMIN D, 25-HYDROXY, LC/MS/MS] Diagnostic Test 2017-12-09 [QLH] CBC [facility]ending 00:00:00 (INCLUDES DIFF/PLT) [code = [QLH] CBC (INCLUDES DIFF/PLT)] Diagnostic Test 2017-12-09 [QLH] CMP W/EGFR [facility] 00:00:00 [code = [QLH] CMP W/EGFR] Diagnostic Test 2017-12-09 [QLH] MAGNESIUM [facility]ending 00:00:00 [code = [QLH] MAGNESIUM] Diagnostic Test 2017-12-09 [QLH] PHOSPHATE [facility] Pending 00:00:00 ( PHOSPHORUS) [code = [QLH] PHOSPHATE ( PHOSPHORUS)] Diagnostic Test 2017-12-09 [QLH] IRON AND [facility]ending 00:00:00 TOTAL IRON BINDING CAPACITY [code = [QLH] IRON AND TOTAL IRON BINDING CAPACITY] Diagnostic Test 2017-12-09 [QLH] FERRITIN [facility] 00:00:00 [code = [QLH] FERRITIN] Diagnostic Test 2017-12-09 [QH] PROTEIN, [facility] 00:00:00 TOTAL W/CREAT, RANDOM URINE [code = [QH] PROTEIN, TOTAL W/CREAT, RANDOM URINE] Diagnostic Test 2017-12-09 [QLH] PTH, INTACT [facility] 00:00:00 (WITHOUT CALCIUM) [code = [QLH] PTH, INTACT (WITHOUT CALCIUM)] Diagnostic Test 2017-12-09 [QLH] URINALYSIS, [facility]ending 00:00:00 COMPLETE [code = [QLH] URINALYSIS, COMPLETE] Diagnostic Test 2017-12-09 [QLH] VITAMIN D, [facility] 00:00:00 25-HYDROXY, LC/MS/MS [code = [QLH] VITAMIN D, 25-HYDROXY, LC/MS/MS] Diagnostic Test 2017-12-09 [H] Iron, TIBC \\T\\ [facility] 00:00:00 Ferritin [code = [H] Iron, TIBC \\T\\ Ferritin] Diagnostic Test 2017-12-09 [H] [facility] 00:00:00 Renal Panel [code = [H] Pediatric Renal Panel] Diagnostic Test 2017-12-09 [QH] PROTEIN, [facility] 00:00:00 TOTAL W/CREAT, RANDOM URINE [code = [QH] PROTEIN, TOTAL W/CREAT, RANDOM URINE] Diagnostic Test 2017-12-09 [QLH] CBC [facility]ending 00:00:00 (INCLUDES DIFF/PLT) [code = [QLH] CBC (INCLUDES DIFF/PLT)] Diagnostic Test 2017-12-09 [QLH] PTH, INTACT [facility]ending 00:00:00 (WITHOUT CALCIUM) [code = [QLH] PTH, INTACT (WITHOUT CALCIUM)] Diagnostic Test 2017-12-09 [QLH] URINALYSIS, [facility]ending 00:00:00 COMPLETE [code = [QLH] URINALYSIS, COMPLETE] Diagnostic Test 2017-12-09 [QLH] VITAMIN D, [facility] 00:00:00 25-HYDROXY, LC/MS/MS [code = [QLH] VITAMIN D, 25-HYDROXY, LC/MS/MS] Diagnostic Test 2017-09-15 [QLH] CMP W/EGFR [facility] 00:00:00 [code = [QLH] CMP W/EGFR] Diagnostic Test 2017-09-15 [QLH] PHOSPHATE [facility]ending 00:00:00 ( PHOSPHORUS) [code = [QLH] PHOSPHATE ( PHOSPHORUS)] Diagnostic Test 2017-09-15 [QLH] PTH, INTACT [facility]ending 00:00:00 (WITHOUT CALCIUM) [code = [QLH] PTH, INTACT (WITHOUT CALCIUM)] Diagnostic Test 2017-09-15 [QLH] CMP W/EGFR [facility] 00:00:00 [code = [QLH] CMP W/EGFR] Diagnostic Test 2017-09-15 [QLH] PHOSPHATE [facility]ending 00:00:00 ( PHOSPHORUS) [code = [QLH] PHOSPHATE ( PHOSPHORUS)] Diagnostic Test 2017-09-15 [QLH] PTH, INTACT [facility]ending 00:00:00 (WITHOUT CALCIUM) [code = [QLH] PTH, INTACT (WITHOUT CALCIUM)] Future Scheduled [QL] CMP W/EGFR Approx [id number] [facility] [code = [QL] CMP W/EGFR] Future Scheduled [L] Vitamin D, Approx [id number] [facility] 25-Hydroxy, Total - [facility] [code = [L] Vitamin D, 25-Hydroxy, Total - [employer]] Future Scheduled [QL] VITAMIN D, Approx [id number] [facility] 25-HYDROXY, LC/MS/MS [code = [QL] VITAMIN D, 25-HYDROXY, LC/MS/MS] Future Scheduled [Q] PTH, INTACT Approx [id number] [facility] Test AND CALCIUM [code = [Q] PTH, INTACT AND CALCIUM] Future Scheduled [QL] MAGNESIUM Approx [id number] [facility] [code = [QL] MAGNESIUM] Future Scheduled [QL] PHOSPHATE ( Approx [id number] [facility] Test PHOSPHORUS) [code = [QL] PHOSPHATE ( PHOSPHORUS)] Future Scheduled [QL] CBC (INCLUDES Approx [id number] [facility] DIFF/PLT) [code = [QL] CBC (INCLUDES DIFF/PLT)] Future Scheduled [QL] IRON AND Approx [id number] [facility] Test TOTAL IRON BINDING CAPACITY [code = [QL] IRON AND TOTAL IRON BINDING CAPACITY] Future Scheduled [QL] FERRITIN Approx [id number] [facility] [code = [QL] FERRITIN] Future Scheduled [QL] URINALYSIS, Approx [id number] [facility] Test COMPLETE [code = [QL] URINALYSIS, COMPLETE] Future Scheduled [QL] CMP W/EGFR Approx [id number] [facility] [code = [QL] CMP W/EGFR] Future Scheduled [L] Vitamin D, Approx [id number] [facility] Test 25-Hydroxy, Total - [employer] [code = [L] Vitamin D, 25-Hydroxy, Total - [employer]] Future Scheduled [QL] VITAMIN D, Approx [id number] [facility] 25-HYDROXY, LC/MS/MS [code = [QL] VITAMIN D, 25-HYDROXY, LC/MS/MS] Future Scheduled [Q] PTH, INTACT Approx [id number] [facility] Test AND CALCIUM [code = [Q] PTH, INTACT AND CALCIUM] Future Scheduled [QL] MAGNESIUM Approx [id number] [facility] [code = [QL] MAGNESIUM] Future Scheduled [QL] PHOSPHATE ( Approx [id number] [facility] PHOSPHORUS) [code = [QL] PHOSPHATE ( PHOSPHORUS)] Future Scheduled [QL] CBC (INCLUDES Approx [id number] [facility] DIFF/PLT) [code = [QL] CBC (INCLUDES DIFF/PLT)] Future Scheduled [QL] IRON AND Approx [id number] [facility] Test TOTAL IRON BINDING CAPACITY [code = [QL] IRON AND TOTAL IRON BINDING CAPACITY] Future Scheduled [QL] FERRITIN Approx [id number] [facility] [code = [QL] FERRITIN] Future Scheduled [QL] URINALYSIS, Approx [id number] [facility] COMPLETE [code = [QL] URINALYSIS, COMPLETE] Future Scheduled [QL] CMP W/EGFR Approx [id number] [facility] [code = [QL] CMP W/EGFR] Future Scheduled [L] Vitamin D, Approx [id number] [facility] 25-Hydroxy, Total - [facility] [code = [L] Vitamin D, 25-Hydroxy, Total - [employer]] Future Scheduled [QL] VITAMIN D, Approx [id number] [facility] 25-HYDROXY, LC/MS/MS [code = [QL] VITAMIN D, 25-HYDROXY, LC/MS/MS] Future Scheduled [Q] PTH, INTACT Approx [id number] [facility] Test AND CALCIUM [code = [Q] PTH, INTACT AND CALCIUM] Future Scheduled [QL] MAGNESIUM Approx [id number] [facility] [code = [QL] MAGNESIUM] Future Scheduled [QL] PHOSPHATE ( Approx [id number] [facility] PHOSPHORUS) [code = [QL] PHOSPHATE ( PHOSPHORUS)] Future Scheduled [QL] CBC (INCLUDES Approx [id number] [facility] DIFF/PLT) [code = [QL] CBC (INCLUDES DIFF/PLT)] Future Scheduled [QL] IRON AND Approx [id number] [facility] Test TOTAL IRON BINDING CAPACITY [code = [QL] IRON AND TOTAL IRON BINDING CAPACITY] Future Scheduled [QL] FERRITIN Approx [id number] [facility] [code = [QL] FERRITIN] Future Scheduled [QL] URINALYSIS, Approx [id number] [facility] COMPLETE [code = [QL] URINALYSIS, COMPLETE] Encounters Start End Encounter Admission Attending Care Care Encounter Source Date/Time Date/Time Type Type Clinicians Facility Department ID 2022-03-24 Outpatient [facility] [id number] [place] 06:01:[id number] [place] [address] 2022-03-13 Outpatient [facility] [id number] [place] 14:11:[address] [place] [address] 2021-03-29 Outpatient VICTOR MANUEL [facility] [id number] [place] 15:38:12 [facility] 2021-02-08 Outpatient TRAN MADRIGAL [facility] [id number] [place] 16:00:36 [facility] 2020-12-19 Outpatient TRAN MADRIGAL [facility] [id number] [place] 12:24:20 [facility] 2020-12-10 Outpatient TRAN MADRIGAL [facility] [id number] [place] 01:03:57 [facility] 2020-08-26 Outpatient VICTOR MANUEL [facility] [id number] [place] 03:48:26 [facility] 2019-09-14 Outpatient DYLAN, [facility] [id number] [facility] 09:20:42 [facility] 2019-09-09 Inpatient JULIEN ZHENG [facility] [id number] [facility] 17:48:36 2022-05-16 2022-05-16 Outpatient RUSH, [facility] [id number] [place] 10:40:00 10:40:00 [facility] 2022-04-04 2022-04-04 Outpatient Damian RODRIGES [facility] [id number] [facility] 09:40:00 09:40:00 CHITO calhoun [facility] 2022-02-22 2022-03-23 Outpatient JULIEN ZHENG [facility] LIYA [id number] [facility] 11:00:00 23:59:00 2022-02-27 2022-02-27 [facility] JIMMY Chapa [id number] [facility] 11:24:00 23:59:00 Encounter [facility] [id number] [facility] [address] 2022-02-27 2022-02-27 Outpatient Damian CHAPA [facility] ANC [id number] [facility] 00:00:00 00:00:00 [facility] 2022-01-24 2022-02-22 Outpatient JULIEN ZHENG [facility] [id number] [facility] 11:00:00 23:59:00 2022-02-09 2022-02-09 [facility] [id number] [facility] 00:00:00 00:00:00 Alexandra [place] [id number] [id number] [id number] Mi dical NAL 225 [facility] 2022-01-17 2022-01-17 [facility] [id number] [facility] 12:00:00 12:20:00 Visit [place] [facility] [id number] [id number] [id number] [facility] [address] 2022-01-17 2022-01-17 Outpatient Damian RODRIGES [facility] [id number] Univers 12:00:00 12:00:00 CHITO calhoun [facility] 2022-01-16 2022-01-16 Outpatient Damian BOSTON [facility] [id number] Univers 15:20:00 16:03:01 ALEXANDRA [facility] 2022-01-16 2022-01-16 [facility] 1.2.840.114 [id number] Univers 15:20:00 16:03:01 Visit Alexandra MILLER [id number] i ty [place] [id number] Mi dical NAL [address] [facility] 2021-11-27 2021-12-26 Outpatient DE [facility] [id number] [facility] 11:00:00 23:59:00 BREANA CHOWDHURY 2021-10-24 2021-11-22 Outpatient DE [facility] [id number] [facility] 11:00:00 23:59:00 BREANA CHOWDHURY 2021-10-30 2021-10-30 Telephone [facility] 1.2.840.114 [id number] [facility] 00:00:00 00:00:00 [place] SPECIALTY [id number] [facility] [id number] [facility] [phone] [place] [address] 2021-09-19 2021-10-18 Outpatient DE [facility] MHH [id number] [facility] 08:25:00 23:59:00 JUANSINGHBREANA SMITH 2021-09-25 2021-09-25 Telephone Campos Malloy S[place]OVIA 1.2.840.1 14 [id number] [place] 00:00:00 00:00:00 Campos Malloy [id number] Health MEDICAL 9.2.7.2.686 [place] [id number] 0 2021-09-21 2021-09-21 Telephone Ruthie Chris S[place] 1.2. 840.114 [id number] [place] 00:00:00 00:00:00 Ruthie Chris [id number] Health MEDICAL [id number] [place] [phone] 0 2021-09-18 2021-09-18 Telephone Linda Zimmerman S[place] 1.2.840 .114 [id number] [place] 00:00:00 00:00:00 Linda Zimmerman [id number] Health MEDICAL [id number] [place] [id number] 2021-08-10 2021-08-10 Telemedici Tran Madrigal 1.2.840.114 [id number] [place] 08:30:00 08:36:10 maida [place] [id number] [facility] 9.2.7.2.686 [facility] [id number] SPECIALTY 6 2021-07-11 2021-08-09 Outpatient ENRIQUETA, [facility] [id number] [facility] 06:52:00 23:59:00 KEVYN 2021-07-23 2021-07-23 Telephone Sherri Reyes 1.2.84 0.114 [id number] [place] 00:00:00 00:00:00 Sherri Reyes 350.1.13.58 [facility] 9.2.7.2.686 [place] [id number] [id number] 2021-07-21 2021-07-21 Hotel Controller Darian, [facility] 1.2.8 40.114 [id number] Univers 09:15:00 09:30:00 Visit William Garcia 350.1.13.10 ity Alexandra Montano 4.2.7.2.686 [place] PROFESS[place] [phone] Mi dical [facility] 353 [facility] 2021-07-21 2021-07-21 Outpatient Damian BOSTON [facility] [id number] Univers 09:15:00 09:15:00 ALEXANDRA calhoun [facility] 2021-07-20 2021-07-20 Billaurelia [place] [facility] 1.2.840.114 [id number] Univers 16:00:00 16:21:18 Encounter Alexandra MILLER [id number] ity rodo [place] [id number] Mi dical [facility] 225 [facility] 2021-07-20 2021-07-20 Office Darvin [facility] 1.2.840.114 [id number] Univers 14:20:00 16:09:35 Visit Alexandra MILLER 350.1.13.10 i ty [facility] 4[place] [id number] Mi dical NAL 225 [facility] 2021-07-20 2021-07-20 Outpatient Damian BOSTON [facility] [id number] Univers 14:20:00 16:09:35 ALEXANDRA calhoun [facility] 2021-07-20 2021-07-20 [facility] [id number] Univers 16:00:00 16:00:00 ALEXANDRA [facility] 2021-07-20 2021-07-20 Telephone Sherri Reyes 1.2.84 0.114 [id number] [place] 00:00:00 00:00:00 Sherri Reyes [id number] Health MEDICAL [id number] CENTER [id number] 0 2021-07-13 2021-07-13 Telephone Neena Bland 1.2.8 40.114 [id number] [place] 00:00:00 00:00:00 Neena Bland 350.1.13.58 Health MEDICAL 9.2.7.2.686 BOND [id number] 0 2021-07-09 2021-07-09 Telephone Kassie Garcia 6410 1.2.8 40.114 [id number] [place] 00:00:00 00:00:00 Kassie GarciaN 350.1.13.5 8 Health 9.2.7.2.686 [id number] 7 2021-05-18 2021-05-18 Outpatient Damian العراقي [facility] [id number] Univers 16:40:00 16:40:00 DIMITRI marilyn [facility] 2021-05-18 2021-05-18 Imm/Inj Nurse, Adc Pob Immunization [facility] 1.2.840.114 [id number] Univers 16:40:00 16:40:00 Visit Dimitri العراقي 350.1.13 .10 ity of [facility] [place].2.[place] [id number] [address] 2021-03-28 2021-04-26 Outpatient ERVIN [facility] 9603 [facility] 14:12:00 23:59:00 DULCE 2021-04-09 2021-04-09 [facility] JIMMY Chapa 1.2.682.043 [id number] Univers 08:37:00 23:59:00 [facility] 350.1.13.10 [place] [phone] [facility] [address] 2021-04-09 2021-04-09 Outpatient R JANUARY, [facility] ANC [id number] Univers 00:00:00 00:00:00 SALLY itmarilyn of [facility] 2021-03-29 2021-03-29 Office HAYDEE Rush 1.2.840.114 [id number] [place] 14:20:00 15:38:16 Visit Wes GARCIA 350.1.13.58 H ealt MEDICAL 9.2.7.2.686 [facility] [id number] 8 2021-03-27 2021-03-27 EXT [facility] OP Ervin, EXT MSRDP 1.2.840.114 [id number] [place] 00:00:00 00:00:00 Dulce LOCATION 350.1.13.58 H ealth 9.2.7.2.686 [id number] 0 2021-03-27 2021-03-27 EXT [facility] OP Ervin, EXT MSRDP 1.2.840.114 [id number] [place] 00:00:00 00:00:00 Dulce LOCATION 350.1.13.58 H ealth 9.2.7.2.686 [id number] 0 2021-02-20 2021-02-20 Telephone Darvin [facility] 1.2.840.114 [id number] Univers 00:00:00 00:00:00 Alexandra MILLER 350.1.13.10 i ty of [place].2.[place] PROFESS[place] [phone] Mi dical NAL 225 [facility] 2021-02-08 2021-02-08 Office Tran Madrigal UTP 6410 1.2.840.114 1 [id number] [place] 15:04:41 16:04:53 Visit TOLU HERBERT 350.1.13.58 Health 9.2.7.2.686 [id number] 7 2021-02-08 2021-02-08 Orders Doctor JULIEN 1.2.840.114 [id number] Univers 00:00:00 00:00:00 Only Unassigned, MESERET 350.1.13.10 ity of [place] [facility] 4.2.7.2.686 [place] [id number] [address] 2021-01-17 2021-01-17 Outpatient [facility]60 2 [facility] 13:22:00 13:22:00 2021-01-16 2021-01-16 EXT [facility] OP Jem Julien EXT MSRDP 1.2.840.1 14 [id number] [place] 00:00:00 00:00:00 S LOCATION 350.1.13.58 H ealth 9.2.7.2.686 [id number] 0 2021-01-16 2021-01-16 EXT MHH OP Julien Zheng EXT MSRDP 1.2.840.1 14 [id number] [place] 00:00:00 00:00:00 S LOCATION 350.1.13.58 H ealth 9.2.7.2.686 [id number] 0 2020-12-28 2020-12-28 Office HAYDEE Rush 1.2.840.114 [id number] 1598 [place] 15:13:44 16:59:21 Visit Wes GARCIA 350.1.13.58 [facility] 9.2.7.2.686 [facility] [id number] 8 2020-12-26 2020-12-26 Telephone CM [place] 1.2.840.114 [id number] Univers 00:00:00 00:00:00 Alexandra Miller 350.1.13.10 i ty of [place].2.[place] Profess[place] [phone] Mi dical nal 225 [facility] 2020-12-19 2020-12-19 Office Tran Madrigal UTP 6410 1.2.840.114 1 [id number] NE 10:35:28 12:26:07 Visit TOLU HERBERT 350.1.13.58 Health 9.2.7.2.686 [id number] 7 2020-12-19 2020-12-19 Orders Doctor JULIEN 1.2.840.114 [id number] Univers 00:00:00 00:00:00 Only Unassigned, MESERET 350.1.13.10 ity of [place] HOSPITAL 4.2.7.2.686 [place] [phone] [address] 2020-11-30 2020-11-30 Orders Doctor JULIEN 1.2.840.114 [id number] 00:00:00 00:00:00 Only Unassigned, MESERET 350.1.13.10 ity of [place] HOSPITAL 4.2.7.2.686 [place] [id number] [address] 2020-11-20 2020-11-22 Inpatient E ALIE, [facility] 7536 [facility] 09:09:00 18:03:00 ABEL 2020-11-15 2020-11-15 Telephone Darvin [facility] 1.2.840.114 [id number] [facility] 00:00:00 00:00:00 Alexandra Miller 350.1.13.10 i ty of [place].2.7.2.686 [place] [facility] [phone] Mi dical [facility] 225 [facility] 2020-11-09 2020-11-13 Inpatient ZINA, [facility] URO 7535 [facility] 06:06:00 16:00:00 CLARISSA 2020-11-07 2020-11-07 Telephone Rambo Glass UTP 6410 1.2. 840.114 [id number] NE 00:00:00 00:00:[address] 350.1.13. 58 Health 9.2.7.2.686 [id number] 7 2020-11-07 2020-11-07 Telephone HAYDEE Quispe 6410 1.2.840.114 1 [id number] NE 00:00:00 00:00:[address] 350.1.13.58 Health 9.2.7.2.686 [id number] 7 2020-11-07 2020-11-07 Telephone Darvin [facility] 1.2.840.114 [id number] [facility] 00:00:00 00:00:00 Alexandra Nancy 350.1.13.10 i ty of [place].7.2.[place] Profess[place] [phone] Mi dical nal 225 [facility] 2020-11-02 2020-11-02 Orders Doctor VICTORIA 1.2.840.114 [id number] [facility] 00:00:00 00:00:00 Only Unassigned, MESERET 350.1.13.10 ity of [place] [facility] 4.2.7.2.686 [place] [id number] [address] 2020-10-31 2020-10-31 Telephone Darvin [facility] 1.2.840.114 [id number] [facility] 00:00:00 00:00:00 Alexandra Nancy 350.1.13.10 i ty of [place] 4.[place].7.2.[place] Profess[place] [phone] Mi dical nal 225 [facility] 2020-10-25 2020-10-25 Orders HAYDEE Rush [facility] 1.2.840.114 [id number] [place] 00:00:00 00:00:00 Only Wes [facility] 350.1.13.58 H [facility] TOWER 9.2.7.2.686 [id number] 3 2020-10-19 2020-10-19 Outside Tran Madrigal UTP 6410 1.2.840.114 1 [id number] [place] 00:00:00 00:00:[address] 350.1.13.58 Health 9.2.7.2.686 [id number] 4 2020-09-28 2020-09-28 HAYDEE Jessica 6410 1.2.840.114 [id number] [place] 00:00:00 00:00:[address] 350.1.13.58 Health 9.2.7.2.686 [id number] 1 2020-09-21 2020-09-21 Outpatient Damian RODRIGES [facility] [id number] [facility] 11:30:00 11:30:00 CHITO calhoun [facility] 2020-08-07 2020-09-05 Outpatient DE [facility] 9601 [facility] 13:13:00 23:59:00 BREANA CHOWDHURY 2020-08-29 2020-08-29 Refill Moris, UTP 6410 1.2.840.114 [id number] [place] 00:00:00 00:00:00 Kate MOTLEY 350.1.13.58 Health 9.2.7.2.686 [id number] 1 2020-08-10 2020-08-10 Appointmen VICTOR MANUEL, UTP Pedi [id number] [place] 15:00:00 15:00:00 t; WES, Nephrology Phy linwood RUSH M.D. & ans Ye MAIER M.D. n 2020-08-07 2020-08-07 Appointmen ORGANTRANSP UTP UTP [id number] [place] 13:00:00 13:00:00 t; BRYN OP Physi ci ORGANTRANS ans PLANT, OP 2020-08-07 2020-08-07 EXT MHH OP de EXT MSRDP 1.2.840.114 1 [id number] [place] 00:00:00 00:00:00 [facility] 350.1.13.58 Health [facility] 9.2.7.2.686 [id number] 0 2020-08-07 2020-08-07 EXT [facility] OP de EXT MSRDP 1.2.840.114 1 [id number] [place] 00:00:00 00:00:00 [facility] 350.1.13.58 Health [facility] 9.2.7.2.686 [id number] 0 2020-08-03 2020-08-03 [facility] 1.2.840.114 [id number] Univers 11:54:09 13:07:33 Visit [facility] 350.1.13.10 it y of [place] 4.2.7.2.686 Karoline Hernandez [phone] [address] Office Building 2020-08-03 2020-08-03 Outpatient Damian RODRIGES [facility] [id number] Univers 12:00:00 12:00:00 CHITO calhoun [facility] 2020-07-26 2020-07-26 Outpatient Damian OROZCO [facility] [id number] Univers 13:10:00 13:10:00 [facility] 2020-07-21 2020-07-21 Outpatient Damian RODRIGES [facility] [id number] Univers 14:45:00 14:45:00 CHITO marilyn [facility] 2020-06-28 2020-06-28 Outpatient Damian OROZCO [facility] [id number] Univers 13:10:00 13:10:00 [facility] 2020-06-23 2020-06-23 [facility] [id number] Univers 13:15:00 13:15:00 [facility] 2020-06-09 2020-06-09 Outpatient Damian [facility] [id number] Univers 15:40:00 15:40:00 [facility] 2020-06-08 2020-06-08 Outpatient [facility] [id number] Univers 12:40:00 12:40:00 [facility] 2020-05-31 2020-05-31 Outpatient Damian BOSTON [facility] [id number] Univers 15:20:00 15:20:00 [facility] 2020-05-12 2020-05-12 Outpatient [facility] [id number] Univers 09:00:00 09:00:00 [facility] 2020-05-11 2020-05-11 Orders Doctor VICTORIA 1.2.840.114 [id number] Univers 00:00:00 00:00:00 Only Unassigned, MESERET 350.1.13.10 ity of [place] [employer] 4.2.7.2.686 [place] [phone] [address] 2020-04-27 2020-04-27 HAYDEE Rodriguez [id number] [place] 15:40:00 15:40:00 t; WES, Nephrology Phy linwood RUSH M.D. & ans Ye MAIER M.D. n 2020-04-24 2020-04-24 Orders Doctor JULIEN Hammer2.840.114 [id number] Univers 00:00:00 00:00:00 Only Unassigned, MESERET 350.1.13.10 ity of [place] [facility] 4.2.7.2.686 [place] [phone] [address] 2020-04-19 2020-04-19 Appointmen HAYDEE MADRIGAL Pediatric [id number] [place] 15:00:00 15:00:00 t; TRAN MADRIGAL M.D. Urology P saranya MAYFIELD M.D. [facility] 2020-04-19 2020-04-19 Appointmen HAYDEE MADRIGAL [facility] [id number] [place] 14:00:00 14:00:00 t; TRAN MADRIGAL M.D. P hysici ERIC, M.D. [facility] 2020-04-19 2020-04-19 Telephone Darvin, [facility] 1.2.840.114 [id number] Univers 00:00:00 00:00:00 Alexandra Nancy 350.1.13.10 i ty of [place].2.[place] Profess[place] [phone] Mi dical nal [address] [place] [address] 2020-04-11 2020-04-11 Appointmen VICTOR MANUEL, HAYDEE [facility] [id number] [place] 13:40:00 13:40:00 t; Silvano MAIER i, M.D. ans JOSHUA, M.D. 2020-04-04 2020-04-04 Telephone [facility] 1.2.840.114 [id number] Univers 00:00:00 00:00:00 Alexandra [place] 350.1.13.10 i ty of [place].7.2.[place] [phone] Mi dical nal [address] [place] [address] 2020-04-04 2020-04-04 Telephone [facility] 1.2.840.114 [id number] Univers 00:00:00 00:00:00 Alexandra [place] 350.1.13.10 i ty of [place] 4.[place].7.2.[place] [phone] Mi dicfl nal [address] [place] [address] 2020-04-03 2020-04-03 Telephone [facility] 1.2.840.114 [id number] Univers 00:00:00 00:00:00 [facility] 350.1.13.10 it y of [place] 4.2.7.2.686 [place] Professio [phone] Mi dical nal [address] Office [facility] One 2020-04-01 2020-04-01 Hotel Controller Darian, Jimmie Lab Main [facility] 1.2.8 40.114 [id number] Univers 08:03:14 08:18:14 Visit China Bostonta [place] 350.1.13.10 ity of [place] 4.2.7.2.[place] [phone] Mi dical [facility] 353 [facility] 2020-04-01 2020-04-01 Outpatient R [facility] [id number] Univers 08:15:00 08:15:00 ity of [facility] 2020-03-31 2020-03-31 [facility] 1.2.840.114 [id number] Univers 00:00:00 00:00:00 Outreach Kalyani Hans [place] 350.1.13.10 ity of [place].7.2.[place] [phone] Mi dical nal 225 [facility] 2020-03-29 2020-03-29 [facility] 1.2.840.114 [id number] Univers 16:35:01 16:50:01 Encounter Alexandra [place] 350.1.13.10 ity of [place] 4.2.7.2.[place] Profess[place] [phone] Mi dical nal 225 [facility] 2020-03-29 2020-03-29 Office [facility] 1.2.840.114 [id number] Univers 09:09:56 10:51:25 Visit Alexandra [place] 350.1.13.10 i ty of [place] 4.2.7.2.[place] [phone] Mi dical nal 225 [facility] 2020-03-29 2020-03-29 Outpatient R [facility] [id number] Univers 09:00:00 09:00:00 ALEXANDRA ity of [facility] 2020-03-29 2020-03-29 Orders Doctor JULIEN 1.2.840.114 [id number] Univers 00:00:00 00:00:00 Only Unassigned, MESERET 350.1.13.10 ity of [place] HOSPITAL 4.2.7.2.686 [place] [phone] [facility] [address] 2020-01-24 2020-01-24 Orders Doctor JULIEN 1.2.840.114 [id number] Univers 00:00:00 00:00:00 Only Unassigned, MESERET 350.1.13.10 ity of [place] HOSPITAL 4.2.7.2.686 [place] [phone] [facility] [address] 2020-01-14 2020-01-14 Telephone [facility] 1.2.840.114 7 [id number] Univers 00:00:00 00:00:00 Antoinette Shaffer 350.1.13.10 ity of Pediatric 4.2.7.2.686 [facility] [phone] [facility] [address] 2020 2020 Orders Doctor VICTORIA 1.2.840.114 [id number] Univers 00:00:00 00:00:00 Only Unassigned, MESERET 350.1.13.10 ity of [place] HOSPITAL 4.2.7.2.686 [place] [phone] [address] 2020-01-10 2020-01-10 Telephone [facility] 1.2.840.114 [id number] Univers 00:00:00 00:00:00 [facility] 350.1.13.10 it y of [place] 4.2.7.2.686 [place] Professio [phone] Mi dical [facility] [address] One 2019-12-22 2019-12-22 AppointHAYDEE Bhandari Pediatric [id number] [place] 13:00:00 13:00:00 t; TRAN MADRIGAL M.D. Surgery - Physici Sophia MAYFIELD. [facility] 2019-12-14 2019-12-14 AppointHAYDEE Crowley Pedi [id number] [place] 14:40:00 14:40:00 t; WES, Nephrology Phy linwood RUSH M.D. & ans Ye MAIER M.D. n 2019-11-24 2019-11-24 HAYDEE Nichols [id number] [place] 14:40:00 14:40:00 t; TRAN MADRIGAL M.D. P hysici ERIC, M.D. ans 2019-11-16 2019-11-16 Office [facility] 1.2.752.400 [id number] Univers 13:53:15 14:08:15 Visit Edward P SPECIALTY 350.1.13.10 ity of [facility] 4.2.7.2.686 [facility] CENTER AT [phone] [address] 2019-11-16 2019-11-16 Outpatient R [facility] [id number] Univers 14:00:00 14:00:00 EDWARD ity of [facility] 2019-11-16 2019-11-16 Orders Doctor JULIEN 1.2.840.114 [id number] Univers 00:00:00 00:00:00 Only Unassigned, MESERET 350.1.13.10 ity of [place] [facility] 4.2.7.2.686 [place] [phone] [address] 2019-11-04 2019-11-04 Outpatient R [facility] [id number] Univers 13:15:00 13:15:00 EDWARD ity of [facility] 2019-11-04 2019-11-04 HAYDEE Nichols [facility] [id number] [place] 09:30:00 09:30:00 t; TRAN MADRIGAL M.D. P hysici ERIC, M.D. ans 2019-10-14 2019-10-14 HAYDEE Nichols [facility] [id number] [place] 13:00:00 13:00:00 t; TRAN MADRIGAL M.D. P hysici ERIC, M.D. ans 2019-10-07 2019-10-07 HAYDEE Nichols Pediatric [id number] [place] 13:00:00 13:00:00 t; TRAN MADRIGAL M.D. Urology P saranya MAYFIELD M.D. ans 2019-09-09 2019-09-09 Outpatient R [facility] [id number] Univers 09:44:10 23:59:00 EDWARD ity of [facility] 2019-09-09 2019-09-09 [facility] 1.2.840.114 [id number] Univers 09:44:00 23:59:00 Encounter Edward P [place] 350.1.13.10 ity of [place] 4.2.7.2.686 [facility] [phone] [facility] [address] 2019-08-12 2019-09-09 [facility] 1.2.840.114 [id number] Univers 07:55:40 12:35:52 ne Visit Edward P SPECIALTY 350.1.13.10 ity of CARE 4.2.7.2.686 [facility] AT [phone] Mi lorri ARELLANO[address] 2019-09-09 2019-09-09 Orders Doctor VICTORIA 1.2.840.114 [id number] Univers 00:00:00 00:00:00 Only Unassigned, MESERET 350.1.13.10 ity of [place] [facility] 4.2.7.2.686 [place] [phone] [facility] [address] 2019-08-12 2019-08-12 Outpatient R [facility] [id number] Univers 11:15:00 11:15:00 EDWARD ity of [facility] 2019-08-05 2019-08-05 Outpatient [facility] [id number] Univers 15:40:00 15:40:00 CHITO ity of [facility] 2019-07-27 2019-07-27 [facility] 1.2.840.114 [id number] Univers 10:49:00 23:59:00 Encounter Edward P [place] 350.1.13.10 ity of [place] 4.2.7.2.686 [facility] [phone] [facility] [address] [place] [address] 2019-07-27 2019-07-27 Outpatient R [facility] [id number] Univers 00:00:00 00:00:00 EDWARD ity [facility] 2019-07-27 2019-07-27 Orders Doctor VICTORIA 1.2.840.114 [id number] Univers 00:00:00 00:00:00 Only Unassigned, MESERET 350.1.13.10 ity of [place] HOSPITAL 4.2.7.2.686 [place] [phone] [address] 2019-07-22 2019-07-22 Outpatient R [facility] [id number] Univers 10:40:00 10:40:00 CHITO ity of [facility] 2019-07-21 2019-07-21 [facility] 1.2.337.851 [id number] Univers 00:00:00 00:00:00 Management Edward P SPECIALTY 350.1.13.10 it[place].2.[place] AT [phone] Mi lorri SANTIAGO [address] [facility] 2019-07-21 2019-07-21 Patient Doctor [facility] 1.2.840.114 [id number] Univers 00:00:00 00:00:00 Secure Msg Unassigned, SPECIALTY 350.1.13.10 ity of [place] CARE [place].2.7.2.[place] AT [phone] Mi lorri EILEENMarilyn 198 [facility] 2019-07-15 2019-07-15 Orders Doctor JULIEN 1.2.840.114 [id number] Univers 00:00:00 00:00:00 Only Unassigned, MESERET 350.1.13.10 ity of [place] HOSPITAL 4.2.7.2.686 [place] [phone] [address] 2019-07-09 2019-07-09 [facility] 1.2.840.114 [id number] Univers 14:49:00 23:59:00 Encounter Edward P SPECIALTY 350.1.13.10 ity of [place]2.7.2.[place] AT [phone] Mi jyotsnadeepika ARELLANOMarilyn [address] [facility] 2019-07-09 2019-07-09 [facility] 1.2.840.114 [id number] Univers 14:46:00 14:48:00 Encounter Edward P SPECIALTY 350.1.13.10 it[place] of [place].7.2.[place] AT [phone] Mi dicdeepika SANTIAGO [address] [place] [address] 2019-07-09 2019-07-09 Outpatient R [facility] [id number] Univers 14:43:23 14:45:00 EDWARD ity [facility] 2019-07-09 2019-07-09 [facility] 1.2.840.114 [id number] Univers 14:43:00 14:45:00 Encounter Edward P SPECIALTY 350.1.13.10 ity of [place].7.2.[place] AT [phone] Mi dicdeepika SANTIAGO [address] [place] [address] 2019-07-08 2019-07-08 [facility] 1.2.963.054 [id number] Univers 14:33:00 23:59:00 Encounter Chito SPECIALTY 350.1.13.10 ity of [place]2.7.2.[place] [phone] Mi dicdeepika SANTIAGO [address] [place] [address] 2019-07-08 2019-07-08 Outpatient R [facility] [id number] Univers 14:32:43 14:32:[address] [facility] 2019-07-08 2019-07-08 [facility] 1.2.598.818 [id number] Univers 14:32:00 14:32:00 Encounter [place] SPECIALTY 350.1.13.10 ity of [place]2.7.2.[place] [phone] Mi lorri SANTIAGO [address] [place] [address] 2019-07-06 2019-07-06 Ann RUSH, [facility] UTP [id number] [place] 13:40:00 13:40:00 t; Silvano MAIER i, M.D. ans JOSHUA, M.D. 2019-07-05 2019-07-05 Outpatient DE [facility] 9600 [facility] 12:49:00 12:49:00 BREANA CHOWDHURY 2019-07-05 2019-07-05 Appointmen ORGANTRANSP [facility] UTP [id number] [place] 09:30:00 09:30:00 t; MARTIN Physi ci ORGANTRANS ans PLANT, OP 2019-07-02 2019-07-02 [facility]phone [facility] 1.2.840.114 [id number] Univers 00:00:00 00:00:00 [facility] 350.1.13.10 it [place].2.[place] [phone] [address] Office [facility] 2019-07-01 2019-07-01 [facility] 1.2.840.114 [id number] Univers 11:33:00 23:59:00 Encounter Edward P SPECIALTY 350.1.13.10 ity of C[place]2.7.2.[place] AT [phone] Mi lorri SANTIAGO 8[address] [facility] 2019-07-01 2019-07-01 [facility] 1.2.826.823 [id number] Univers 10:07:15 11:38:11 Visit Edward P SPECIALTY 350.1.13.10 ity of [place]2.7.2.[place] AT [phone] Mi lorri SANTIAGO 198 [facility] 2019-07-01 2019-07-01 Outpatient R [facility] [id number] Univers 10:31:31 11:32:00 EDWARD ity of [facility] 2019-07-01 2019-07-01 [facility] 1.2.840.114 [id number] Univers 10:31:00 11:32:00 Encounter Edward P SPECIALTY 350.1.13.10 ity of [place] 4[place]2.7.2.[place] AT [phone] Mi lorri SANTIAGO 8[address] [facility] 2019-06-30 2019-06-30 Appointmen ORGANTRANSP [facility] [id number] [place] 07:00:00 07:00:00 t; MARTIN Physi ci ORGANTRANS ans MENDEL, SARA 2019-06-30 2019-06-30 Telephone [facility] 1.2.840.114 [id number] Univers 00:00:00 00:00:00 [facility] [id number] [id number] [phone] [address] Office Building 2019-06-28 2019-06-28 [facility] [id number] Univers 00:00:00 00:00:00 EDWARD ity of [facility] 2019-06-28 2019-06-28 Telephone Marck Sargent [facility] David 1.2.840.114 [id number] Univers 00:00:00 00:00:00 Edmund 350.1.13.10 it y [place] [facility] [place]7.2.686 [facility] [phone] [address] 2019-06-28 2019-06-28 [facility] 1.2.840.114 [id number] Univers 00:00:00 00:00:00 Juanita SPECIALTY [id number] [id number] [phone] [address] 2019-06-28 2019-06-28 Orders Doctor JULIEN 1.2.840.114 [id number] Univers 00:00:00 00:00:00 Only Unassigned, MESERET 350.1.13.10 ity of [place] [facility] 4.2.7.2.686 [place] [phone] [address] 2019-06-16 2019-06-16 Telephone Anetlmo [facility] 1.2.840.114 [id number] Univers 00:00:00 00:00:00 [facility] [id number] [id number] [phone] [address] Office Building 2019-06-03 2019-06-03 Appointmen HAYDEE MADRIGAL Pediatric [id number] [place] 14:00:00 14:00:00 t; TRAN MADRIGAL M.D. Urology P saranya MAYFIELD M.D. ans 2019-06-02 2019-06-02 Orders Doctor JULIEN 1.2.840.114 [id number] Univers 00:00:00 00:00:00 Only Unassigned, MESERET 350.1.13.10 ity of [place] [facility] 4.2.7.2.686 [place] [phone] [address] 2019-05-20 2019-05-20 Office Antelmo [facility] 1.2.840.114 [id number] Univers 09:59:39 10:19:39 Visit [place] SPECIALTY 350.1.13.10 [place] [phone] [address] 2019-05-20 2019-05-20 Spencer Rodriges [facility] 1.2.840.114 [id number] Univers 00:00:00 00:00:00 (Out) [place] SPECIALTY 350.1.13.10 ity of [place] 4.2.7.2.686 [place] [phone] [address] 2019-05-18 2019-05-18 AppointHAYDEE Bhandari Pediatric [id number] [place] 15:15:00 15:15:00 t; TRAN MADRIGAL M.D. Urology P saranya MAYFIELD M.D. ans 2019-05-11 2019-05-11 HAYDEE Rodriguez Pedi [id number] [place] 13:40:00 13:40:00 t; Chip MAIER M.D. & Ye Duke M.D. n 2019-01-12 2019-01-12 HAYDEE Rodriguez Pedi [id number] [place] 13:00:00 13:00:00 t; Chip MAIER M.D. & Ye [facility] M.D. n 2019-01-04 2019-01-04 [facility] [id number] Univers 10:00:00 10:00:00 RYAN SHAIKH [facility] 2018-09-15 2018-09-15 HAYDEE [facility] [id number] [place] 15:20:00 15:20:00 t; joceline MAIER i, M.D. [place] ans JOSHUA, M.D. 2018-06-09 2018-06-09 HAYDEE Rodriguez Pedi [id number] [place] 13:30:00 13:30:00 t; Chip MAIER M.D. & Ye Duke M.D. n 2018-03-17 2018-03-17 Appointsocrates [facility], [facility] [place] [id number] [place] 13:30:00 13:30:00 t; Ceasar MAIER i, M.D. Specialty fozia MAIER M.D. 2017-11-11 2017-11-11 Ann [facility] Pedi [id number] [place] 15:00:00 15:00:00 t; WES Nephrology Stephanie [facility] M.D. & Ye Duke M.D. n 2017-08-12 2017-08-12 Appointsocrates [facility] [id number] [place] 14:30:00 14:30:00 t; Ceasar MAIER i, M.D. Specialty fozia MAIER M.D. 2017-05-13 2017-05-13 Ann [facility] Nephrology [id number] [place] 15:30:00 15:30:00 t; Silvano MAIER i, M.D. ans JOSHUA, M.D. 2017-02-11 2017-02-11 Ann [facility], [facility] [id number] [place] 15:30:00 15:30:00 t; Silvano MAIER i, M.D. ans JOSHUA, M.D. 2016-12-10 2016-12-10 Ann [facility] UTP [id number] [place] 14:00:00 14:00:00 t; Silvano MAIER i, M.D. ans JOSHUA, M.D. 2016-12-03 2016-12-03 Ann GARCIA, [facility] UTP [id number] [place] 11:00:00 11:00:00 t; ECHO fozia Garcia i ECHO 2016-09-03 2016-09-03 Ann [facility], [facility] [id number] [place] 16:00:00 16:00:00 t; Silvano MAIER i, M.D. ans JOSHUA, M.D. 2015-11-01 2015-11-01 Ann [facility] [id number] [place] 15:45:00 15:45:00 t; Silvano MAIER i, M.D. ans JOSHUA, M.D. 2015-06-28 2015-06-28 AppointHAYDEE Crowley UTP [id number] [place] 15:45:00 15:45:00 t; Silvano MAIER i, M.D. ans JOSHUA, M.D. 2015-05-15 2015-05-15 HAYDEE Rodriguez UTP [id number] [place] 14:00:00 14:00:00 t; Silvano MAIER i, M.D. ans JOSHUA, M.D. 2002 2002 Orders Doctor JULIEN [id number] Univers 00:00:00 00:00:00 Only Unassigned, MESERET [id number] [facility] [place] [facility] [id number] [place] [phone] [address] 2002 2002 Orders Doctor JULIEN [id number] Univers 00:00:00 00:00:00 Only Unassigned, MESERET 350.1.13.10 [facility] [place] [facility] 4.2.7.2.686 [place] [phone] [address] Results Test Description Test Time Test Comments Results Result Comments Source Prepare Packed RBC (in units) 2022-02-27 19:38:12 Test Item Value Reference Range Interpretation Comme nts Cross Match Result (test code = Compatible 4408) ISBT Blood Type Code (test code = 265795) Unit Blood Type (test code = 4410) O Pos Unit Number (test code = 4411) [id number] Blood Expiration Date & Time (test code = 891283) Status Information (test code = Issued 4411) Product Identification (test code = Red Blood Cells 4413) Product Code (test code = 4414) [id number] Performed at [facility] Laboratory Services - [facility] Blood [address] [place] [address]Oelo Free: [phone] A No. [id number] [facility] [id number] 17:58:08 Test Item Value Reference Range Interpretation Comments ABO & RH (test code O POSITIVE Performe d at [facility] = 20) Laboratory Serv [facility] Blood Bank3 [address] [facility] s [address]Tvxu Free: [phone] A No. [id number] IAT (test code = Negative Performed a t [facility] 1185) Laboratory Serv [facility] Blood Bank3 [facility] s [address]Nxpj Free: [phone] A No. [id number] [facility][] CMP [id number] 16:16:00 Test Item Value Reference Range Interpretation Comments GLUCOSE; Normal 90 mg/dl 65-99 N Fasting refe rence (test code = 1547-9) interva l UREA NITROGEN (BUN) 52 mg/dl 7-20 (test code = UREA NITROGEN (BUN)) CREATININE (test 3.41 mg/dl 0.50-1.00 code = CREATININE) eGFR NON-AFR. 19 See_Comment [Automated me ssage] TANZANIAN (test code {ML/MIN/1.7} The syst em which = eGFR NON-AFR. generated th is TANZANIAN) result transmit janes reference range : > OR = 60. The reference range was not used to interpret this result as normal/abnormal . eGFR 22 See_Comment [Automated mes marcelina] TANZANIAN (test code {ML/MIN/1.7} The syst em which = eGFR generated thi s TANZANIAN) result transmit janes reference range : > OR = 60. The reference range was not used to interpret this result as normal/abnormal . BUN/CREATININE RATIO 15 {CALC} 6-22 N (test code = BUN/CREATININE RATIO) SODIUM (test code = 137 mmol/L 135-146 N SODIUM) POTASSIUM (test code 3.9 mmol/L 3.8-5.1 N = POTASSIUM) CHLORIDE (test code 109 mmol/L 98-110 N = CHLORIDE) CARBON DIOXIDE (test 17 mmol/L 20-32 code = CARBON DIOXIDE) CALCIUM (test code = 8.9 mg/dl 8.9-10.4 N CALCIUM) PROTEIN, TOTAL (test 7.0 g/dl 6.3-8.2 N code = PROTEIN, TOTAL) ALBUMIN (test code = 4.2 g/dl 3.6-5.1 N ALBUMIN) GLOBULIN (test code 2.8 {G/DL 2.0-3.8 N = GLOBULIN) CALC} ALBUMIN/GLOBULIN 1.5 {CALC} 1.0-2.5 N RATIO (test code = ALBUMIN/GLOBULIN RATIO) BILIRUBIN, TOTAL; 0.3 mg/dl 0.2-1.1 N Normal (test code = 38736-7) ALKALINE PHOSPHATASE 49 u/l 36-128 N (test code = ALKALINE PHOSPHATASE) AST; Below Low 7 u/l 12-32 Threshold (test code = 1916-6) ALT; Normal (test 6 u/l 5-32 N code = 1742-6) [facility]] Urine Dipstick (In Office)2020-08-10 15:47:00 Test Item Value Reference Range Interpretation Comments Glucose (test code = Glucose) Negative N LEUKOCYTES (test code = Small A LEUKOCYTES) NITRITE; Normal (test code = Negative N 23652-8) UROBILINOGEN; Normal (test code 0.2 N = 39988-1) PROTEIN; Abnormal (test code = 100 A 73810-8) pH (test code = pH) 6.5 N URINE BLOOD; Abnormal (test code Small A = 37610-5) SPECIFIC GRAVITY; Normal (test 1.010 N code = 2965-2) KETONES; Normal (test code = Negative N 15454-2) BILIRUBIN; Normal (test code = Negative N 45163-8) COLOR URINE; Normal (test code = Light Yellow N 5778-6) APPEARANCE; Abnormal (test code Turbid A = 5767-9) [facility][Q] IRON, TIBC AND FERRITIN [id number] 11:37:00 Test Item Value Reference Range Interpretation Comments IRON, TOTAL (test code = 32 {mcg/dl} 27-164 N IRON, TOTAL) IRON BINDING CAPACITY (test 283 {mcg/dL ca} 271-448 N code = IRON BINDING CAPACITY) % SATURATION (test code = % 11 {% CALC} 15-45 SATURATION) FERRITIN (test code = 17 ng/ml 6-67 N FERRITIN) [facility][Q] PTH, INTACT AND [id number] 11:37:00 Test Item Value Reference Interpretation Comments Range PARATHYROID 132 pg/ml 12-71 Interpretive Gu lei Intact PTH HORMONE, INTACT Calcium----- (test code = ---- ---Normal PARATHYROID Parathyroid Nor mal HORMONE, INTACT) NormalHypop arathyroidism Low or Low Normal LowHyperparathy roidism Primary Normal or High High Secondary High Normal or Low Tertiary High HighNon-Parathy roid Hypercalcemia L ow or Low Normal High CALCIUM (test 9.3 mg/dl 8.9-10.4 N code = CALCIUM) REPORT COMMENT:FASTING:YES[facility][QL] [id number] 11:37:00 Test Item Value Reference Range Interpretation Comments MAGNESIUM (test code = MAGNESIUM) 2.4 mg/dl 1.5-2.5 N [facility][QL] PHOSPHATE ( PHOSPHORUS)2020-07-26 11:37:00 Test Item Value Reference Range Interpretation Comments PHOSPHATE ( PHOSPHORUS) (test 4.8 mg/dl 2.5-4.5 code = PHOSPHATE ( PHOSPHORUS)) [facility][QL] CMP [id number] 11:37:00 Test Item Value Reference Range Interpretation Comments GLUCOSE; Normal 91 mg/dl 65-99 N Fasting refe rence (test code = 1547-9) interva l UREA NITROGEN (BUN) 68 mg/dl 7-20 (test code = UREA NITROGEN (BUN)) CREATININE (test 3.48 mg/dl 0.50-1.00 code = CREATININE) eGFR NON-AFR. 18 See_Comment [Automated mn ssage] TANZANIAN (test code {ML/MIN/1.7} The syst em which = eGFR NON-AFR. generated th is TANZANIAN) result transmit janes reference range : > OR = 60. The reference range was not used to interpret this result as normal/abnormal . eGFR 21 See_Comment [Automated mes marcelina] TANZANIAN (test code {ML/MIN/1.7} The syst em which = eGFR generated thi s TANZANIAN) result transmit janes reference range : > OR = 60. The reference range was not used to interpret this result as normal/abnormal . BUN/CREATININE RATIO 20 {CALC} 6-22 N (test code = BUN/CREATININE RATIO) SODIUM (test code = 136 mmol/L 135-146 N SODIUM) POTASSIUM (test code 3.8 mmol/L 3.8-5.1 N = POTASSIUM) CHLORIDE (test code 108 mmol/L 98-110 N = CHLORIDE) CARBON DIOXIDE (test 17 mmol/L 20-32 code = CARBON DIOXIDE) CALCIUM (test code = 9.3 mg/dl 8.9-10.4 N CALCIUM) PROTEIN, TOTAL (test 7.5 g/dl 6.3-8.2 N code = PROTEIN, TOTAL) ALBUMIN (test code = 4.3 g/dl 3.6-5.1 N ALBUMIN) GLOBULIN (test code 3.2 {G/DL 2.0-3.8 N = GLOBULIN) CALC} ALBUMIN/GLOBULIN 1.3 {CALC} 1.0-2.5 N RATIO (test code = ALBUMIN/GLOBULIN RATIO) BILIRUBIN, TOTAL; 0.3 mg/dl 0.2-1.1 N Normal (test code = 39964-2) ALKALINE PHOSPHATASE 75 u/l 36-128 N (test code = ALKALINE PHOSPHATASE) AST; Below Low 6 u/l 12-32 Threshold (test code = 1916-6) ALT; Normal (test 6 u/l 5-32 N code = 1742-6) [facility][QL] URINALYSIS, [id number] 11:37:00 Test Item Value Reference Range Interpretation Comments COLOR; Normal (test YELLOW YELLOW N code = 5778-6) APPEARANCE (test code CLEAR CLEAR N = APPEARANCE) SPECIFIC GRAVITY; 1.009 1.001-1.035 N Normal (test code = 2965-2) PH; Normal (test code 5.5 5.0-8.0 N = 2756-5) GLUCOSE; Normal (test NEGATIVE NEGATIVE N code = 1547-9) BILIRUBIN; Normal NEGATIVE NEGATIVE N (test code = 92454-8) KETONES; Normal (test NEGATIVE NEGATIVE N code = 84517-4) OCCULT BLOOD; Abnormal 1+ NEGATIVE A (test code = 72372-6) PROTEIN; Abnormal 1+ NEGATIVE A (test code = 67097-2) NITRITE; Abnormal POSITIVE NEGATIVE A (test code = 05243-9) LEUKOCYTE ESTERASE 3+ NEGATIVE A (test code = LEUKOCYTE ESTERASE) WBC; Abnormal (test 40-60 See_Comment A [Automa janes message] code = 6690-2) The system [facility] generated this result transmitted ref erence range: < OR = 5 . The reference range was not used to int erpret this result as normal/abnormal . RBC; Abnormal (test 3-10 See_Comment A [Automa janes message] code = 789-8) The system i generated this result transmitted ref erence range: < OR = 2 . The reference range was not used to int erpret this result as normal/abnormal . SQUAMOUS EPITHELIAL 0-5 See_Comment [Automa janes message] CELLS (test code = The syste [place] 85802-6) generated this result transmitted ref erence range: < OR = 5 . The reference range was not used to int erpret this result as normal/abnormal . BACTERIA; Abnormal MODERATE NONE SEEN A (test code = 630-4) HYALINE CAST; Normal NONE SEEN NONE SEEN N (test code = 91840-6) [facility][QL] CBC (INCLUDES DIFF/PLT)2020-07-26 11:37:00 Test Item Value Reference Range Interpretation Comments WHITE BLOOD CELL COUNT 6.9 {Thousand/u} 4.5-13.0 N (test code = WHITE BLOOD CELL COUNT) RED BLOOD CELL COUNT (test 4.11 {Million/uL} 3.80-5.10 N code = RED BLOOD CELL COUNT) HEMOGLOBIN; Below Low 11.0 g/dl 11.5-15.3 Threshold (test code = 24094-5) HEMATOCRIT; Normal (test 34.8 % 34.0-46.0 N code = 4544-3) MCV; Normal (test code = 84.7 fL 78.0-98.0 N 787-2) MCHC; Normal (test code = 31.6 g/dl 31.0-36.0 N 78128-5) RDW; Above High Threshold 15.6 % 11.0-15.0 (test code = 788-0) PLATELET COUNT; Normal 287 {Thousand/u} 140-400 N (test code = 777-3) MPV; Normal (test code = 12.1 fL 7.5-12.5 N 58456-1) ABSOLUTE NEUTROPHILS (test 4326 {cells/uL} 2377-3370 N code = ABSOLUTE NEUTROPHILS) ABSOLUTE LYMPHOCYTES (test 1442 {cells/uL} 8493-5228 N code = ABSOLUTE LYMPHOCYTES) ABSOLUTE MONOCYTES (test 338 {cells/uL} 200-900 N code = ABSOLUTE MONOCYTES) ABSOLUTE EOSINOPHILS (test 745 {cells/uL} 15-500 code = ABSOLUTE EOSINOPHILS) ABSOLUTE BASOPHILS (test 48 {cells/uL} 0-200 N code = ABSOLUTE BASOPHILS) NEUTROPHILS (test code = 62.7 % N NEUTROPHILS) LYMPHOCYTES (test code = 20.9 % N LYMPHOCYTES) MONOCYTES; Normal (test 4.9 % N code = 23279-8) EOSINOPHILS; Normal (test 10.8 % N code = 01192-6) BASOPHILS; Normal (test 0.7 % N code = 86067-7) [facility][QL] VITAMIN D, 25-HYDROXY, [id number] 11:37:00 Test Item Value Reference Range Interpretation Comments VITAMIN 17 ng/ml 30-100 Vitamin D Statu s 25-OH D,25-OH,TOTAL,IA Vitamin D: Deficiency: (test code = VITAMIN <20 ng/ mLInsufficiency: D,25-OH,TOTAL,IA) 20 - 29 ng /mLOptimal: > or = 30 ng/mL F or 25-OH Vitamin D testi ng on patients on D2-supplementat ion and patients for wh om quantitation of D2 and D3 fractions is required, the QuestAssureD(TM )25-OH VIT D, (D2,D3), LC/MS/MS is recommended: order code 96216 (pat ients >2yrs).See Note 1 Note 1 For additional information, pl ease refer to http://educatio n.[employer]/f aq/CVZ665 (This link is b eing provided for informational/e ducationa l purposes only .) REPORT COMMENT:FASTING:YESUT [facility][O] Urine Dipstick (In Office)2020-04-27 16:11:00 Test Item Value Reference Range Interpretation Comments Glucose (test code = Glucose) Negative N LEUKOCYTES (test code = Small A LEUKOCYTES) NITRITE; Normal (test code = Negative N 24342-6) UROBILINOGEN; Normal (test code 0.2 N = 85255-9) PROTEIN; Abnormal (test code = 100 A 50162-8) pH (test code = pH) 5.5 N URINE BLOOD; Abnormal (test code Small A = 54856-1) SPECIFIC GRAVITY; Normal (test 1.010 N code = 2965-2) KETONES; Normal (test code = Negative N 79043-4) BILIRUBIN; Normal (test code = Negative N 06060-6) COLOR URINE; Normal (test code = Light yellow N 5778-6) APPEARANCE; Abnormal (test code Cloudy A = 5767-9) [facility][Q] CYSTATIN C WITH [id number] 13:36:00 Test Item Value Reference Range Interpretation Comments CYSTATIN C (test code = 2.89 mg/L 0.52-1.19 CYSTATIN C) eGFR (test code = eGFR) 26 {ML/MIN/1.7} > OR = 60 [facility][QL] [id number] 13:35:00 Test Item Value Reference Range Interpretation Comments MAGNESIUM (test code = MAGNESIUM) 2.4 mg/dl 1.5-2.5 N [facility][QL] PHOSPHATE ( PHOSPHORUS)2020-04-25 13:35:00 Test Item Value Reference Range Interpretation Comments PHOSPHATE ( PHOSPHORUS) (test 4.8 mg/dl 2.5-4.5 code = PHOSPHATE ( PHOSPHORUS)) [facility][QL] IRON AND TOTAL IRON BINDING [id number] 13:35:00 Test Item Value Reference Range Interpretation Comments IRON, TOTAL (test code = 81 {mcg/dl} 27-164 N IRON, TOTAL) IRON BINDING CAPACITY (test 293 {mcg/dL ca} 271-448 N code = IRON BINDING CAPACITY) % SATURATION (test code = % 28 {% CALC} 15-45 N SATURATION) [facility][QL] CMP [id number] 13:35:00 Test Item Value Reference Range Interpretation Comments GLUCOSE; Normal (test 82 mg/dl 65-99 N Fastin g reference code = 1547-9) interval UREA NITROGEN (BUN) 67 mg/dl 7-20 (test code = UREA NITROGEN (BUN)) CREATININE (test code 3.22 mg/dl 0.50-1.00 = CREATININE) eGFR NON-AFR. 20 {ML/MIN/1.7} > OR = 60 TANZANIAN (test code = eGFR NON-AFR. TANZANIAN) eGFR 23 {ML/MIN/1.7} > OR = 60 (test code = eGFR ) BUN/CREATININE RATIO 21 {CALC} 6-22 N (test code = BUN/CREATININE RATIO) SODIUM (test code = 138 mmol/L 135-146 N SODIUM) POTASSIUM (test code 3.8 mmol/L 3.8-5.1 N = POTASSIUM) CHLORIDE (test code = 112 mmol/L 98-110 CHLORIDE) CARBON DIOXIDE (test 17 mmol/L 20-32 code = CARBON DIOXIDE) CALCIUM (test code = 9.3 mg/dl 8.9-10.4 N CALCIUM) PROTEIN, TOTAL (test 7.6 g/dl 6.3-8.2 N code = PROTEIN, TOTAL) ALBUMIN (test code = 4.4 g/dl 3.6-5.1 N ALBUMIN) GLOBULIN (test code = 3.2 {G/DL CALC} 2.0-3.8 N GLOBULIN) ALBUMIN/GLOBULIN 1.4 {CALC} 1.0-2.5 N RATIO (test code = ALBUMIN/GLOBULIN RATIO) BILIRUBIN, TOTAL; 0.4 mg/dl 0.2-1.1 N Normal (test code = 46145-6) ALKALINE PHOSPHATASE 64 u/l 36-128 N (test code = ALKALINE PHOSPHATASE) AST; Normal (test 13 u/l 12-32 N code = 1916-6) ALT; Normal (test 17 u/l 5-32 N code = 1742-6) [facility][QL] URINALYSIS, [id number] 13:35:00 Test Item Value Reference Range Interpretation Comments COLOR; Normal (test code = 5778-6) YELLOW YELLOW N APPEARANCE (test code = APPEARANCE) CLOUDY CLEAR A SPECIFIC GRAVITY; Normal (test code 1.006 1.001-1.035 N = 2965-2) PH; Normal (test code = 2756-5) 5.5 5.0-8.0 N GLUCOSE; Normal (test code = NEGATIVE NEGATIVE N 1547-9) BILIRUBIN; Normal (test code = NEGATIVE NEGATIVE N 48871-4) KETONES; Normal (test code = NEGATIVE NEGATIVE N 47544-8) OCCULT BLOOD; Abnormal (test code = 1+ NEGATIVE A 46389-8) PROTEIN; Abnormal (test code = 1+ NEGATIVE A 02194-8) NITRITE; Abnormal (test code = POSITIVE NEGATIVE A 70579-0) LEUKOCYTE ESTERASE (test code = 3+ NEGATIVE A LEUKOCYTE ESTERASE) WBC; Abnormal (test code = 6690-2) > OR = 60 < OR = 5 A RBC; Abnormal (test code = 789-8) 3-10 < OR = 2 A SQUAMOUS EPITHELIAL CELLS (test 0-5 < OR = 5 code = 17075-6) BACTERIA; Abnormal (test code = MODERATE NONE SEEN A 630-4) HYALINE CAST; Normal (test code = NONE SEEN NONE SEEN N 93046-7) [facility][QL] CBC (INCLUDES DIFF/PLT)2020-04-25 13:35:00 Test Item Value Reference Range Interpretation Comments WHITE BLOOD CELL COUNT 6.6 {Thousand/u} 4.5-13.0 N (test code = WHITE BLOOD CELL COUNT) RED BLOOD CELL COUNT (test 4.09 {Million/uL} 3.80-5.10 N code = RED BLOOD CELL COUNT) HEMOGLOBIN; Below Low 10.6 g/dl 11.5-15.3 Threshold (test code = 78272-0) HEMATOCRIT; Normal (test 34.3 % 34.0-46.0 N code = 4544-3) MCV; Normal (test code = 83.9 fL 78.0-98.0 N 787-2) MCHC; Below Low Threshold 30.9 g/dl 31.0-36.0 N (test code = 04077-4) RDW; Normal (test code = 14.3 % 11.0-15.0 N 788-0) PLATELET COUNT; Normal 323 {Thousand/u} 140-400 N (test code = 777-3) MPV; Normal (test code = 11.2 fL 7.5-12.5 N 17841-4) ABSOLUTE NEUTROPHILS (test 4633 {cells/uL} 1163-8017 N code = ABSOLUTE NEUTROPHILS) ABSOLUTE LYMPHOCYTES (test 1353 {cells/uL} 0658-9914 N code = ABSOLUTE LYMPHOCYTES) ABSOLUTE MONOCYTES (test 383 {cells/uL} 200-900 N code = ABSOLUTE MONOCYTES) ABSOLUTE EOSINOPHILS (test 152 {cells/uL} 15-500 N code = ABSOLUTE EOSINOPHILS) ABSOLUTE BASOPHILS (test 79 {cells/uL} 0-200 N code = ABSOLUTE BASOPHILS) NEUTROPHILS (test code = 70.2 % N NEUTROPHILS) LYMPHOCYTES (test code = 20.5 % N LYMPHOCYTES) MONOCYTES; Normal (test 5.8 % N code = 99816-8) EOSINOPHILS; Normal (test 2.3 % N code = 38131-1) BASOPHILS; Normal (test 1.2 % N code = 28975-0) [facility][QL] PTH, INTACT (WITHOUT CALCIUM)2020-04-25 13:35:00 Test Item Value Reference Interpretation Comments Range PARATHYROID 128 pg/ml 12-71 Interpretive Gu lei Intact PTH HORMONE, INTACT Calcium----- (test code = ---- ---Normal PARATHYROID Parathyroid Nor mal HORMONE, INTACT) NormalHypop arathyroidism Low or Low Normal LowHyperparathy roidism Primary Normal or High High Secondary High Normal or Low Tertiary High HighNon-Parathy roid Hypercalcemia L ow or Low Normal High [facility][QL] VITAMIN D, 25-HYDROXY, LC/[id number] 13:35:00 Test Item Value Reference Range Interpretation Comments VITAMIN 11 ng/ml 30-100 Vitamin D Statu s 25-OH D,25-OH,TOTAL,IA Vitamin D: Deficiency: (test code = VITAMIN <20 ng/ mLInsufficiency: D,25-OH,TOTAL,IA) 20 - 29 ng /mLOptimal: > or = 30 ng/mL F or 25-OH Vitamin D testi ng on patients on D2-supplementat ion and patients for wh om quantitation of D2 and D3 fractions is required, the QuestAssureD(TM )25-OH VIT D, (D2,D3), LC/MS/MS is recommended: order code 49827 (pat ients >2yrs).See Note 1 Note 1 For additional information, pl ease refer to http://educatio n.[employer]/f aq/JCU045 (This link is b will provided for informational/e ducationa l purposes only .) [facility][Q] PROTEIN, TOTAL W/CREAT, RANDOM [id number] 13:35:00 Test Item Value Reference Range Interpretation Comments CREATININE, RANDOM URINE 35 mg/dl 20-275 N (test code = CREATININE, RANDOM URINE) PROTEIN/CREATININE RATIO 1.514 {mg/mg crea} 0.021-0.161 (test code = PROTEIN/CREATININE RATIO) PROTEIN, TOTAL, RANDOM UR 53 mg/dl 5-24 (test code = PROTEIN, TOTAL, RANDOM UR) [facility][O] Urine Dipstick (In Office)2019-12-14 15:25:00 Test Item Value Reference Range Interpretation Comments Glucose (test code = Glucose) Negative N LEUKOCYTES (test code = Small A LEUKOCYTES) NITRITE; Normal (test code = Negative N 91995-5) UROBILINOGEN; Normal (test code 0.2 N = 37363-8) PROTEIN; Abnormal (test code = 30 A 42182-9) pH (test code = pH) 5.5 N URINE BLOOD; Abnormal (test code Moderate A = 49217-0) SPECIFIC GRAVITY; Abnormal (test <1.005 A code = 2965-2) KETONES; Normal (test code = Negative N 06836-4) BILIRUBIN; Normal (test code = Negative N 28351-4) COLOR URINE; Normal (test code = Light yellow N 5778-6) APPEARANCE; Abnormal (test code Cloudy A = 5767-9) [facility][QL] HEPATITIS [id number] 00:00:00 Test Item Value Reference Range Interpretation Comments HEPATITIS A AB, REACTIVE NON-REACTIVE A For addition al TOTAL; Abnormal information, please ([place] = [place] [address]-6) http://educatio n.ques tdiagnostics.co m/faq/ GXE267 (This li nk is being provided for informational/e ducati onal purposes o nly.) HEPATITIS B SURFACE NON-REACTIVE NON-REACTIVE N ANTIBODY QL; Normal (test code = 61492-8) HEPATITIS B SURFACE NON-REACTIVE NON-REACTIVE N ANTIGEN; Normal (test code = 5195-3) HEPATITIS B CORE AB NON-REACTIVE NON-REACTIVE N TOTAL; Normal (test code = 23817-5) HEPATITIS C NON-REACTIVE NON-REACTIVE N ANTIBODY; Normal (test code = 61933-5) SIGNAL TO CUT-OFF 0.01 <1.00 N HCV antibo dy was (test code = SIGNAL non-reac tive. There TO CUT-OFF) is no laborator y evidence of HCV infection. In m ost cases, no furth er action is requi red. However,if rece nt HCV exposure is suspected, a te [place] HCV RNA([place] [address]) is sugge sted. For additional information ple ase refer tohttp://educat ion.qu estPixowl. [employer]/fa q/DYR21k0(This link is being provid ed for informational/e ducati onal purposes o nly.) [facility][QL] [id number] 00:00:00 Test Item Value Reference Range Interpretation Comments MAGNESIUM (test code = MAGNESIUM) 2.3 mg/dl 1.5-2.5 N [facility][QL] PHOSPHATE ( PHOSPHORUS)2019-12-14 00:00:00 Test Item Value Reference Range Interpretation Comments PHOSPHATE ( PHOSPHORUS) (test 4.0 mg/dl 2.5-4.5 N code = PHOSPHATE ( PHOSPHORUS)) [facility][QL] CMP [id number] 00:00:00 Test Item Value Reference Range Interpretation Comments GLUCOSE; Normal (test 91 mg/dl 65-139 N Non-fa sting code = 1547-9) reference int erval UREA NITROGEN (BUN) 49 mg/dl 7-20 (test code = UREA NITROGEN (BUN)) CREATININE (test code 3.38 mg/dl 0.50-1.00 Patien t is <18 = CREATININE) years old. Adelita ble to calculate eG FR. BUN/CREATININE RATIO 14 {CALC} 6-22 N (test code = BUN/CREATININE RATIO) SODIUM (test code = 139 mmol/L 135-146 N SODIUM) POTASSIUM (test code 3.2 mmol/L 3.8-5.1 = POTASSIUM) CHLORIDE (test code = 111 mmol/L 98-110 CHLORIDE) CARBON DIOXIDE (test 16 mmol/L 20-32 code = CARBON DIOXIDE) CALCIUM (test code = 9.7 mg/dl 8.9-10.4 N CALCIUM) PROTEIN, TOTAL (test 8.3 g/dl 6.3-8.2 code = PROTEIN, TOTAL) ALBUMIN (test code = 4.7 g/dl 3.6-5.1 N ALBUMIN) GLOBULIN (test code = 3.6 {G/DL CALC} 2.0-3.8 N GLOBULIN) ALBUMIN/GLOBULIN 1.3 {CALC} 1.0-2.5 N RATIO (test code = ALBUMIN/GLOBULIN RATIO) BILIRUBIN, TOTAL; 0.4 mg/dl 0.2-1.1 N Normal (test code = 72757-8) ALKALINE PHOSPHATASE 52 u/l 36-128 N (test code = ALKALINE PHOSPHATASE) AST; Below Low 7 u/l 12-32 Threshold (test code = 1916-6) ALT; Normal (test 6 u/l 5-32 N code = 1742-6) [facility][QL] CBC (INCLUDES DIFF/PLT)2019-12-14 00:00:00 Test Item Value Reference Range Interpretation Comments WHITE BLOOD CELL COUNT 5.9 {Thousand/u} 4.5-13.0 N (test code = WHITE BLOOD CELL COUNT) RED BLOOD CELL COUNT (test 4.15 {Million/uL} 3.80-5.10 N code = RED BLOOD CELL COUNT) HEMOGLOBIN; Below Low 11.1 g/dl 11.5-15.3 Threshold (test code = 04729-5) HEMATOCRIT; Normal (test 34.2 % 34.0-46.0 N code = 4544-3) MCV; Normal (test code = 82.4 fL 78.0-98.0 N 787-2) MCHC; Normal (test code = 32.5 g/dl 31.0-36.0 N 00476-8) RDW; Normal (test code = 14.6 % 11.0-15.0 N 788-0) PLATELET COUNT; Normal 345 {Thousand/u} 140-400 N (test code = 777-3) MPV; Normal (test code = 12.0 fL 7.5-12.5 N 85241-6) ABSOLUTE NEUTROPHILS (test 3463 {cells/uL} 6283-9144 N code = ABSOLUTE NEUTROPHILS) ABSOLUTE LYMPHOCYTES (test 1522 {cells/uL} 5421-3997 N code = ABSOLUTE LYMPHOCYTES) ABSOLUTE MONOCYTES (test 330 {cells/uL} 200-900 N code = ABSOLUTE MONOCYTES) ABSOLUTE EOSINOPHILS (test 537 {cells/uL} 15-500 code = ABSOLUTE EOSINOPHILS) ABSOLUTE BASOPHILS (test 47 {cells/uL} 0-200 N code = ABSOLUTE BASOPHILS) NEUTROPHILS (test code = 58.7 % N NEUTROPHILS) LYMPHOCYTES (test code = 25.8 % N LYMPHOCYTES) MONOCYTES; Normal (test 5.6 % N code = 06376-6) EOSINOPHILS; Normal (test 9.1 % N code = 24891-0) BASOPHILS; Normal (test 0.8 % N code = 31261-1) [facility][QL] PTH, INTACT (WITHOUT CALCIUM)2019-12-14 00:00:00 Test Item Value Reference Interpretation Comments Range PARATHYROID 136 pg/ml - Interpretive Gu lei Intact PTH HORMONE, INTACT Calcium----- (test code = ---- ---Normal PARATHYROID Parathyroid Nor mal HORMONE, INTACT) NormalHypop arathyroidism Low or Low Normal LowHyperparathy roidism Primary Normal or High High Secondary High Normal or Low Tertiary High HighNon-Parathy roid Hypercalcemia L ow or Low Normal High [facility][QL] VITAMIN D, 25-HYDROXY, LC/MS/[id number] 00:00:00 Test Item Value Reference Range Interpretation Comments VITAMIN 24 ng/ml 30-100 Vitamin D Statu s 25-OH D,25-OH,TOTAL,IA Vitamin D: Deficiency: (test code = VITAMIN <20 ng/ mLInsufficiency: D,25-OH,TOTAL,IA) 20 - 29 ng /mLOptimal: > or = 30 ng/mL F or 25-OH Vitamin D testi ng on patients on D2-supplementat ion and patients for wh om quantitation of D2 and D3 fractions is required, the QuestAssureD(TM )25-OH VIT D, (D2,D3), LC/MS/MS is recommended: order code 99965 (pat ients >2yrs).See Note 1 Note 1 For additional information, pl ease refer to http://educatio nBrandlive.[employer]/f aq/WUD814 (This link is b eing provided for informational/e ducationa l purposes only .) [facility][QL] URINALYSIS, [id number] 00:00:00 Test Item Value Reference Range Interpretation Comments COLOR; Normal (test code = 5778-6) YELLOW YELLOW N APPEARANCE (test code = TURBID CLEAR A APPEARANCE) SPECIFIC GRAVITY; Normal (test 1.009 1.001-1.035 N code = 2965-2) PH; Normal (test code = 2756-5) < OR = 5.0 5.0-8.0 N GLUCOSE; Normal (test code = NEGATIVE NEGATIVE N 9967-9) BILIRUBIN; Normal (test code = NEGATIVE NEGATIVE N 86624-4) KETONES; Normal (test code = NEGATIVE NEGATIVE N 20392-7) OCCULT BLOOD; Abnormal (test code 2+ NEGATIVE A = 89490-6) PROTEIN; Abnormal (test code = 1+ NEGATIVE A 28415-9) NITRITE; Normal (test code = NEGATIVE NEGATIVE N 04784-0) LEUKOCYTE ESTERASE (test code = 3+ NEGATIVE A LEUKOCYTE ESTERASE) WBC; Abnormal (test code = 6690-2) > OR = 60 < OR = 5 A RBC; Abnormal (test code = 789-8) 3-10 < OR = 2 A SQUAMOUS EPITHELIAL CELLS; Normal NONE SEEN < OR = 5 N (test code = 65607-8) BACTERIA; Abnormal (test code = MODERATE NONE SEEN A 630-4) HYALINE CAST; Normal (test code = NONE SEEN NONE SEEN N 41742-3) [facility][Q] CYSTATIN C WITH [id number] 00:00:00 Test Item Value Reference Range Interpretation Comments CYSTATIN C (test code = 2.69 mg/L 0.52-1.19 CYSTATIN C) eGFR (test code = eGFR) 28 {ML/MIN/1.7} > OR = 60 [facility][Q] PROTEIN, TOTAL W/CREAT, RANDOM [id number] 00:00:00 Test Item Value Reference Range Interpretation Comments CREATININE, RANDOM URINE 32 mg/dl 20-275 N (test code = CREATININE, RANDOM URINE) PROTEIN/CREATININE RATIO 1.250 {mg/mg crea} 0.021-0.161 (test code = PROTEIN/CREATININE RATIO) PROTEIN, TOTAL, RANDOM UR 40 mg/dl 5-24 (test code = PROTEIN, TOTAL, RANDOM UR) [facility][QL] URINALYSIS, COMPLETE W/REFLEX TO [id number] 00:00:00 Test Item Value Reference Range Interpretation Comments COLOR; Normal (test YELLOW YELLOW N code = 5778-6) APPEARANCE (test code CLEAR CLEAR N = APPEARANCE) SPECIFIC GRAVITY; 1.009 1.001-1.035 N Normal (test code = 2965-2) PH; Normal (test code 5.5 5.0-8.0 N = 2756-5) GLUCOSE; Normal (test NEGATIVE NEGATIVE N code = 1547-9) BILIRUBIN; Normal NEGATIVE NEGATIVE N (test code = 89717-8) KETONES; Normal (test NEGATIVE NEGATIVE N code = 49505-1) OCCULT BLOOD; 2+ NEGATIVE A Abnormal (test code = 37958-0) PROTEIN; Abnormal 1+ NEGATIVE A (test code = 55255-7) NITRITE (test code = NEGATIVE NEGATIVE N NITRITE) LEUKOCYTE ESTERASE 2+ NEGATIVE A (test code = LEUKOCYTE ESTERASE) WBC; Abnormal (test 10-20 < OR = 5 A code = 6690-2) RBC; Abnormal (test 3-10 < OR = 2 A code = 789-8) SQUAMOUS EPITHELIAL 0-5 < OR = 5 CELLS (test code = 82366-1) BACTERIA; Abnormal FEW NONE SEEN A (test code = 630-4) HYALINE CAST; Normal NONE SEEN NONE SEEN N SPECIME N RECEIVED DATE (test code = 91232-0) AND TI NM: [id number] [facility][QL] CBC (INCLUDES DIFF/PLT)2019-10-11 00:00:00 Test Item Value Reference Range Interpretation Comments WHITE BLOOD CELL 6.9 4.5-13.0 N COUNT (test code = {Thousand/u} WHITE BLOOD CELL COUNT) RED BLOOD CELL COUNT 4.16 3.80-5.10 N (test code = RED {Million/uL} BLOOD CELL COUNT) HEMOGLOBIN; Below 11.4 g/dl 11.5-15.3 Low Threshold (test code = 33187-6) HEMATOCRIT; Normal 34.8 % 34.0-46.0 N (test code = 4544-3) MCV; Normal (test 83.7 fL 78.0-98.0 N code = 787-2) MCHC; Normal (test 32.8 g/dl 31.0-36.0 N code = 69829-9) RDW; Above High 15.2 % 11.0-15.0 Threshold (test code = 788-0) PLATELET COUNT; 296 140-400 N Normal (test code = {Thousand/u} 777-3) MPV; Normal (test 11.4 fL 7.5-12.5 N code = 31297-4) ABSOLUTE NEUTROPHILS 3912 8156-3233 N (test code = {cells/uL} ABSOLUTE NEUTROPHILS) ABSOLUTE LYMPHOCYTES 2077 1575-0670 N (test code = {cells/uL} ABSOLUTE LYMPHOCYTES) ABSOLUTE MONOCYTES 518 {cells/uL} 200-900 N (test code = ABSOLUTE MONOCYTES) ABSOLUTE EOSINOPHILS 331 {cells/uL} 15-500 N (test code = ABSOLUTE EOSINOPHILS) ABSOLUTE BASOPHILS 62 {cells/uL} 0-200 N (test code = ABSOLUTE BASOPHILS) NEUTROPHILS (test 56.7 % N code = NEUTROPHILS) LYMPHOCYTES (test 30.1 % N code = LYMPHOCYTES) MONOCYTES; Normal 7.5 % N (test code = 96235-4) EOSINOPHILS; Normal 4.8 % N (test code = 22820-1) BASOPHILS; Normal 0.9 % N SPECIMEN R ECEIVED (test code = DATE AND TIME: 95875-2) [facility][QL] PTH, INTACT (WITHOUT CALCIUM)2019-10-11 00:00:00 Test Item Value Reference Interpretation Comments Range PARATHYROID 140 pg/ml Interpretive Gu lei Intact PTH HORMONE, INTACT Calcium----- (test code = ---- ---Normal PARATHYROID Parathyroid Nor mal HORMONE, INTACT) NormalHypop arathyroidism Low or Low Normal LowHyperparathy roidism Primary Normal or High High Secondary High Normal or Low Tertiary High HighNon-Parathy roid Hypercalcemia L ow or Low Normal High SPE CIMEN RECEIVED DATE AND TIME: [facility][QL] VITAMIN D, 25-HYDROXY, LC/MS/[id number] 00:00:00 Test Item Value Reference Range Interpretation Comments VITAMIN 26 ng/ml 30-100 Vitamin D Statu s 25-OH D,25-OH,TOTAL,IA Vitamin D: Deficiency: (test code = VITAMIN <20 ng/ mLInsufficiency: D,25-OH,TOTAL,IA) 20 - 29 ng /mLOptimal: > or = 30 ng/mL F or 25-OH Vitamin D testi ng on patients on D2-supplementat ion and patients for wh om quantitation of D2 and D3 fractions is re quired, the QuestAssure D(TM)25-OH VIT D, (D2,D3), LC/MS/MS is recommended: order code 39128 (pat ients >2yrs).See Note 1 Note 1 For additional information, pl ease refer to http://educatio n.[employer]/fa q/UTI193 (This link is b eing provided for informational/e ducational purposes only.) SPECIMEN RECEIVED DATE A TIME: [facility][Q] REFLEXIVE URINE [id number] 00:00:00 Test Item Value Reference Range Interpretation Comments REFLEXIVE URINE CULTURE INDICATED SPECIME N RECEIVED CULTURE (test - RESULTS TO DATE AND TIME: code = REFLEXIVE FOLLOW URINE CULTURE) [facility][QL] CULTURE, URINE, [id number] 00:00:00 Test Item Value Reference Range Interpretation Comments CULTURE (test code See Comment CULTURE, URINE, ROUTINE = CULTURE) Micro Number: [id number] Test Status: Fi nal Specimen Source : URINE Specimen Qualit y: Adequate Result : Multiple organi sms present, each l ess than 10,000 CFU/mL. These organisms, comm only found on after school driver al and internal genita yolanda, are considered to b e colonizers. No further testing performed.SPECI MEN RECEIVED DATE A ND TIME: [facility][QL] CULTURE, URINE, [id number] 13:59:00 Test Item Value Reference Range Interpretation Comments CULTURE (test See Comment A CULTURE, URINE , ROUTINE code = CULTURE) Micro Number : [id number] Test Status: Fi nal Specimen Source : URINE, CLEAN CATCH Spe cimen Quality: Adequa te Result: Greater than 10 0,000 CFU/mL of Klebs iella oxytoca K.oxyto ca - INT HANSA AMOX/CLAVULANAT E S 4 AMPICILLIN R >= 32 AMP/SULBACTAM I 16 CEFAZOLIN R 16 1 CEFEPIME S <=1 CEFTRIAXONE S < =1 CIPROFLOXACIN S <=0.25 GENTAMICIN S <= 1 IMIPENEM S <=0.25 LEVOFL OXACIN S <=0.12 NITROFUR ANTOIN R 128 PIP/TAZOBAC MARRERO S <=4 TOBRAMYCIN S <= 1 TRIMETHOPRIM/DUDLEY LFA S <=20S=Susceptib le I=Intermediate R=Resistant * = Not TestedNR = Not Reported NN = See Ther apy CommentsTHERAPY COMMENTS Note 1: For unc omplicated UTI caused by E . coli, K. pneumoniae or P . mirabilis: Cefa zolin is susceptible if HANSA <32 mcg/mL and pred icts susceptible to the oral agents cefaclor , cefdinir, cefpo doxime, cefprozil, cefu roxime, cephalexin and loracarbef. [facility] Bladder Cystourethrogram voiding [id number] 09:50:00EXAM: VOIDING CYSTOURETHROGRAMDATE: 09/14/2019, 0953 hoursINDICATION: - chronic kidney disease ,neurogenic bladder.COMPARISON: 01/28/2018FLUOROSCOPIC TIME: 48 secondsSKIN DOSE: 2.98 mGYFINDINGS:A scoutview of the abdomen shows a normal bowel gas pattern. No abnormalcalcifications are seen. Levoscoliosis of the lumbar spine has increasedslightly since the previous radiograph. Ventriculoperitoneal shunt tubingremains coiled in the pelvis.After placement of a catheter in the bladder through the vesicostomy,approximately 375 mL of contrast material were administered. The bladder isenlarged and trabeculated but is unchanged in appearance. No vesicoureteralreflux occurs. A small amount of residual contrast remained in the bladderafter drainage.IMPRESSION:1. No change in the appearance of the enlarged,trabeculated neurogenicbladder.2. No vesicoureteral reflux.--Read by: María Elena Victoriaictated Date/time: 09/14/19 11:12Electronically Signed by: María Elena Victoria MD 09/13/2010:16FINAL REPORTUT [facility]icians[Q] IRON, TIBC AND FERRITIN [id number] 12:57:00 Test Item Value Reference Range Interpretation Comments IRON, TOTAL (test code = 47 {mcg/dl} 27-164 N IRON, TOTAL) IRON BINDING CAPACITY (test 231 {mcg/dL ca} 271-448 code = IRON BINDING CAPACITY) % SATURATION (test code = % 20 {% CALC} 15-45 N SATURATION) FERRITIN (test code = 21 ng/ml 6-67 N FERRITIN) [facility][QLH] [id number] 12:57:00 Test Item Value Reference Range Interpretation Comments MAGNESIUM (test code = MAGNESIUM) 2.3 mg/dl 1.5-2.5 N [facility][QLH] PHOSPHATE ( PHOSPHORUS)2019-07-07 12:57:00 Test Item Value Reference Range Interpretation Comments PHOSPHATE ( PHOSPHORUS) (test 4.1 mg/dl 2.5-4.5 N code = PHOSPHATE ( PHOSPHORUS)) [facility][QLH] CMP [id number] 12:57:00 Test Item Value Reference Range Interpretation Comments GLUCOSE; Normal 95 mg/dl 65-139 N Non-fasting (test code = 1547-9) referen ce interval UREA NITROGEN (BUN) 54 mg/dl 7-20 (test code = UREA NITROGEN (BUN)) CREATININE (test 3.32 mg/dl 0.50-1.00 Patient is <18 code = CREATININE) years old . Unable to calculate eG FR. BUN/CREATININE RATIO 16 {CALC} 6-22 N (test code = BUN/CREATININE RATIO) SODIUM (test code = 143 mmol/L 135-146 N SODIUM) POTASSIUM (test code 3.7 mmol/L 3.8-5.1 = POTASSIUM) CHLORIDE (test code 106 mmol/L 98-110 N = CHLORIDE) CARBON DIOXIDE (test 26 mmol/L 20-32 N code = CARBON DIOXIDE) CALCIUM (test code = 9.9 mg/dl 8.9-10.4 N CALCIUM) PROTEIN, TOTAL (test 6.7 g/dl 6.3-8.2 N code = PROTEIN, TOTAL) ALBUMIN (test code = 4.1 g/dl 3.6-5.1 N ALBUMIN) GLOBULIN (test code 2.6 {G/DL CALC} 2.0-3.8 N = GLOBULIN) ALBUMIN/GLOBULIN 1.6 {CALC} 1.0-2.5 N RATIO (test code = ALBUMIN/GLOBULIN RATIO) BILIRUBIN, TOTAL; 0.2 mg/dl 0.2-1.1 N Normal (test code = 09809-3) ALKALINE PHSPHATASE 45 u/l 36-128 N (test code = ALKALINE PHSPHATASE) AST; Below Low 6 u/l 12-32 Threshold (test code = 1916-6) ALT; Below Low 4 u/l 5-32 Threshold (test code = 1742-6) [facility]] URINALYSIS, [id number] 12:57:00 Test Item Value Reference Range Interpretation Comments COLOR; Normal (test code = 5778-6) YELLOW YELLOW N APPEARANCE (test code = APPEARANCE) CLEAR CLEAR N SPECIFIC GRAVITY; Normal (test code 1.010 1.001-1.035 N = 2965-2) PH; Normal (test code = 2756-5) 6.5 5.0-8.0 N GLUCOSE; Normal (test code = 1547-9) NEGATIVE NEGATIVE N BILIRUBIN; Normal (test code = NEGATIVE NEGATIVE N 58542-6) KETONES; Normal (test code = NEGATIVE NEGATIVE N 42314-7) OCCULT BLOOD; Abnormal (test code = TRACE NEGATIVE A 96517-3) PROTEIN; Abnormal (test code = TRACE NEGATIVE A 75912-0) NITRITE; Normal (test code = NEGATIVE NEGATIVE N 60350-4) LEUKOCYTE ESTERASE (test code = 2+ NEGATIVE A LEUKOCYTE ESTERASE) WBC; Abnormal (test code = 6690-2) 40-60 < OR = 5 A RBC; Abnormal (test code = 789-8) 3-10 < OR = 2 A SQUAMOUS EPITHELIAL CELLS; Abnormal 6-10 < OR = 5 A (test code = 76481-5) BACTERIA; Abnormal (test code = MODERATE NONE SEEN A 630-4) HYALINE CAST; Abnormal (test code = 0-1 NONE SEEN A 02525-3) [facility]] CBC (INCLUDES DIFF/PLT)2019-07-07 12:57:00 Test Item Value Reference Range Interpretation Comments WHITE BLOOD CELL COUNT 5.1 {Thousand/u} 4.5-13.0 N (test code = WHITE BLOOD CELL COUNT) RED BLOOD CELL COUNT (test 3.89 {Million/uL} 3.80-5.10 N code = RED BLOOD CELL COUNT) HEMAGLOBIN; Below Low 10.7 g/dl 11.5-15.3 Threshold (test code = 55824-6) HEMATOCRIT; Below Low 33.2 % 34.0-46.0 Threshold (test code = 4544-3) MCV; Normal (test code = 85.3 fL 78.0-98.0 N 787-2) MCHC; Normal (test code = 32.2 g/dl 31.0-36.0 N 81097-4) RDW; Normal (test code = 13.5 % 11.0-15.0 N 788-0) PLATELET COUNT; Normal 259 {Thousand/u} 140-400 N (test code = 777-3) MPV; Normal (test code = 11.5 fL 7.5-12.5 N 07441-9) ABSOLUTE NEUTROPHILS (test 2729 {cells/uL} 8526-2419 N code = ABSOLUTE NEUTROPHILS) ABSOLUTE LYMPHOCYTES (test 1637 {cells/uL} 0465-4423 N code = ABSOLUTE LYMPHOCYTES) ABSOLUTE MONOCYTES (test 281 {cells/uL} 200-900 N code = ABSOLUTE MONOCYTES) ABSOLUTE EOSINOPHILS (test 413 {cells/uL} 15-500 N code = ABSOLUTE EOSINOPHILS) ABSOLUTE BASOPHILS (test 41 {cells/uL} 0-200 N code = ABSOLUTE BASOPHILS) NEUTROPHILS (test code = 53.5 % N NEUTROPHILS) LYMPHOCYTES (test code = 32.1 % N LYMPHOCYTES) MONOCYTES; Normal (test 5.5 % N code = 51233-0) EOSINOPHILS; Normal (test 8.1 % N code = 06958-2) BASOPHILS; Normal (test 0.8 % N code = 10957-7) [facility][QL] PTH, INTACT (WITHOUT CALCIUM)2019-07-07 12:57:00 Test Item Value Reference Range Interpretation Comments PARATHYROID 54 pg/ml 12-71 N Interpretive Gu lei Intact PTH HORMONE, INTACT Calcium----- (test code = ---- ---Normal PARATHYROID Parathyroid Nor mal HORMONE, INTACT) NormalHypop arathyroidism Low or Low Normal LowHyperparathy roidism Primary Normal or High High Secondary High Normal or Low Tertiary High HighNon-Parathy roid Hypercalcemia L ow or Low Normal High [facility]] VITAMIN D, 25-HYDROXY, LC/MS/[id number] 12:57:00 Test Item Value Reference Range Interpretation Comments VITAMIN 30 ng/ml 30-100 N Vitamin D Statu s 25-OH D,25-OH,TOTAL,IA Vitamin D: Deficiency: (test code = VITAMIN <20 ng/ mLInsufficiency: D,25-OH,TOTAL,IA) 20 - 29 ng /mLOptimal: > or = 30 ng/mL F or 25-OH Vitamin D testi ng on patients on D2-supplementat ion and patients for wh om quantitation of D2 and D3 fractions is required, the QuestAssureD(TM )25-OH VIT D, (D2,D3), LC/MS/MS is recommended: order code 22947 (pat ients >2yrs). For mor e information on this test, go to:http://educa pavel.[employer] tdiagnostics.co m/faq/FAQ 163(This link i s being provided for informational/e ducationa l purposes only .) [facility][QH] PROTEIN, TOTAL W/CREAT, RANDOM [id number] 12:57:00 Test Item Value Reference Range Interpretation Comments CREATININE, RANDOM URINE 38 mg/dl 20-275 N (test code = CREATININE, RANDOM URINE) PROTEIN/CREATININE RATIO 0.711 {mg/mg crea} 0.021-0.161 (test code = PROTEIN/CREATININE RATIO) PROTEIN, TOTAL, RANDOM UR 27 mg/dl 5-24 (test code = PROTEIN, TOTAL, RANDOM UR) [facility] Retroperitoneal Complete [id number] 11:16:00PROCEDURE INFORMATION:Exam: US Retroperitoneal Complete.Exam date and time: 05/29/2019 11:34 AMAge: 19years oldClinical indication: Renal agenesis, unilateral; Additional info: /solitarykidneyTECHNIQUE:Imaging protocol: Real-time ultrasound of the retroperitoneum with imagedocumentation. 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 No prone images left kidney were obtained.Right kidney: No renal tissue identified in the right renal fossa, similarprior and keeping with history of solitary left kidney.Left kidney: Limited evaluation of the left kidney upper and inferior poles dueto obscuration from anatomic structures such as ribs and bowel gas. The leftkidney measures approximately 8.3 cm in length, previously 9 cm. The apparentdecreased size is likely secondary to measurement technique variability andsuboptimal imaging of the left kidney. Normal size, shape, contour, andposition. Redemonstration of the mildly hyperechoic renal cortex. The corticesare normal in thickness and the corticomedullary differentiation is maintained.No hydronephrosis, nephrolithiasis or abnormal perinephric fluid collections.Aorta: The imaged portions are normal. Limited evaluation due to obscuration bybowel gas.Common iliac arteries: Obscured by bowel gas.Inferior vena cava: The imaged portions are normal. Limited evaluation due toobscuration by bowel gas.Bladder: The urinary bladder is well filled (approximately 224.6 mL) with mildmural irregularity/thickening, in keeping with history of neurogenic bladder.Other findings: No ascites.IMPRESSION:1. Mildly limited exam.2. Mildly hyperechoic left kidney without hydronephrosis.3. Absent right kidney.Sebastián Seay MD On 05/29/2019 13:56:12; [id number]--Vmog by: Sebastián Seay MDDictated Date/time: 05/29/19 13:56Electronically Signed by: Sebastián Seay MD 05/29/2012:56FINALREPORTUT [facility]icians[[facility]] CBC (INCLUDES DIFF/PLT) 2019-05-11 14:55:01 Test Item Value Reference Range Interpretation Comments WBC (test code = 6690-2) 10.0 {K/CMM} 3.7-10.4 RBC; Below Low Threshold (test 4.12 {M/CMM} 4.20-5.40 code = 789-8) Hgb; Below Low Threshold (test 11.8 g/dl 12.0-16.0 code = 718-7) Hct; Below Low Threshold (test 35.9 % 36.0-48.0 code = 78186-9) MCV (test code = 787-2) 87.2 fL 80.0-98.0 MCH (test code = 785-6) 28.5 pg 27.0-31.0 MCHC (test code = 786-4) 32.7 g/dl 32.0-36.0 RDW (test code = 788-0) 13.9 % 11.5-14.5 Platelet (test code = 00615-2) 258 {K/CMM} 133-450 Mean Platelet Volume (test code 9.0 fL 7.4-10.4 = 04397-2) [facility][QL] [id number] 14:55:01 Test Item Value Reference Range Interpretation Comments Segmented Neutrophils (test code 67.2 % 45.0-75.0 = 23258-9) Monocytes (test code = 47695-7) 5.9 % 2.0-12.0 Lymphocytes; Below Low Threshold 14.5 % 20.0-40.0 (test code = 50302-9) Eosinophils; Above High Threshold 12.2 % 0.0-4.0 (test code = 03467-0) Basophils (test code = 706-2) 0.2 % 0.0-1.0 Segs-Bands # (test code = 6.7 {K/CMM} 1.5-8.1 16806-4) Lymphocytes # (test code = 1.5 {K/CMM} 1.0-5.5 76907-1) Monocytes # (test code = 66352-5) 0.6 {K/CMM} 0.0-0.8 Eosinophils #; Above High 1.2 {K/CMM} 0.0-0.5 Threshold (test code = 91503-8) [facility][QL] VITAMIN D, 25-HYDROXY, LC/MS/[id number] 14:55:01 Test Item Value Reference Range Interpretation Comments Vitamin D, 25-OH, 21.5 ng/ml 30.0-100.0 Reference range is based Total (test code on recommen dations in the = Vitamin D, EndocrineSociet y Clinical 25-OH, Total) Practice Guide line (J Clin Endocrinol Utplx0046;96:19 11-1930) [facility][QL] PTH, INTACT (WITHOUT CALCIUM)2019-05-11 14:55:01 Test Item Value Reference Range Interpretation Comments Parathyroid Hormone Intact; Above 143.3 pg/ml 18.4-80.1 High Threshold (test code = 2731-8) [facility][H] Pediatric Renal [id number] 14:55:01 Test Item Value Reference Range Interpretation Comments Sodium Level (test 137 {mEq/l} 135-145 code = 2951-2) Potassium Level 3.6 {mEq/l} 3.5-5.1 (test code = 2823-3) Chloride Level 105 {mEq/l} 95-109 (test code = 2075-0) Carbon Dioxide; 22 {mEq/l} 24-32 Below Low Threshold (test code = 8-9) Blood Urea 54 mg/dl 7-22 Nitrogen; Above High Threshold (test code = 3094-0) Creatinine Lvl; 3.90 mg/dl 0.50-1.40 Above High Threshold (test code = 2160-0) Glucose Lvl; Above 105 mg/dl 70-99 Adult ref erence range High Threshold values reflec t the (test code = clinical guidel inesof 2345-7) the [place] [employer]. Chol (test code = 167 mg/dl <=199 2093-3) Albumin Lvl (test 3.7 g/dl 3.5-5.0 code = 1751-7) Alk Phos (test 80 u/l 43-86 The pediatric reference code = 1783-0) ranges for th is test represent a CLSI-basedtrans ference of the CALIPER database of pediatric re ference intervals to th eSiemens Notrees analyzer (Clinical Biochemistry 46 (2013): 1681-0985). [facility] [employer] ices has not interna lly validated these referenceranges and therefore they should be used only in th e context of a thoroughcl inical assessment. ALT (test code = 19 u/l 0-65 1743-4) Calcium Level 8.9 mg/dl 8.5-10.5 Total (test code = 58479-1) Magnesium Level; 2.8 mg/dl 1.8-2.4 Above High Threshold (test code = 02986-5) Phosphorus Level 3.2 mg/dl 2.5-4.5 (test code = 2777-1) Uric Acid; Above 8.2 mg/dl 2.5-7.0 High Threshold (test code = 3084-1) eGFR (test code = See Comment No height is recorded 87763-8) for this patien t; estimated GFR c annot be calculated. [facility][H] Iron, TIBC \\T\\ [id number] 14:55:01 Test Item Value Reference Range Interpretation Comments Iron; Below Low Threshold (test 27 ug/dL 30-160 code = 2498-4) % [place] (test code = 2502-3) 13 % 12-57 TIBC; Below Low Threshold (test 209 ug/dL 228-428 code = 2500-7) UIBC (test code = UIBC) 182 ug/dL 110-370 Ferritin Lvl (test code = 2276-4) 118 ng/ml 5-204 [facility][O] Urine Dipstick (In Office)2019-05-11 00:00:00 Test Item Value Reference Range Interpretation Comments Glucose (test code = Glucose) Negative N LEUKOCYTES (test code = small A LEUKOCYTES) NITRITE; Normal (test code = negative N 77129-5) UROBILINOGEN; Normal (test code 0.2 N = 71444-8) PROTEIN; Abnormal (test code = 30 A 37007-8) pH (test code = pH) 6.5 N URINE BLOOD; Abnormal (test code trace-intact A = 16199-7) SPECIFIC GRAVITY; Normal (test 1.010 N code = 2965-2) KETONES; Normal (test code = negative N 03177-7) BILIRUBIN; Normal (test code = negative N 03934-0) COLOR URINE; Normal (test code = yellow N 5778-6) APPEARANCE; Normal (test code = clear N 5767-9) [facility]] CBC (INCLUDES DIFF/PLT)2019-01-12 14:36:01 Test Item Value Reference Range Interpretation Comments WBC (test code = 6690-2) 5.6 {K/CMM} 3.7-10.4 RBC (test code = 789-8) 4.35 {M/CMM} 4.20-5.40 Hgb (test code = 718-7) 12.1 g/dl 12.0-16.0 Hct (test code = 44077-1) 37.6 % 36.0-48.0 MCV (test code = 787-2) 86.5 fL 80.0-98.0 MCH (test code = 785-6) 27.9 pg 27.0-31.0 MCHC (test code = 786-4) 32.2 g/dl 32.0-36.0 RDW; Above High Threshold (test 15.5 % 11.5-14.5 code = 788-0) Platelet (test code = 90742-6) 278 {K/CMM} 133-450 Mean Platelet Volume (test code 9.4 fL 7.4-10.4 = 70817-0) [facility]] [id number] 14:36:01 Test Item Value Reference Range Interpretation Comments Segmented Neutrophils (test code 59.1 % 45.0-75.0 = 46688-4) Monocytes (test code = 73491-0) 7.5 % 2.0-12.0 Lymphocytes (test code = 65620-4) 28.4 % 20.0-40.0 Eosinophils (test code = 15579-5) 3.7 % 0.0-4.0 Basophils; Above High Threshold 1.3 % 0.0-1.0 (test code = 706-2) Segs-Bands # (test code = 3.3 {K/CMM} 1.5-8.1 42088-9) Lymphocytes # (test code = 1.6 {K/CMM} 1.0-5.5 11030-8) Monocytes # (test code = 54743-0) 0.4 {K/CMM} 0.0-0.8 Eosinophils # (test code = 0.2 {K/CMM} 0.0-0.5 60505-1) Basophils # (test code = 19796-0) 0.1 {K/CMM} 0.0-0.2 [facility]] PTH, INTACT (WITHOUT CALCIUM)2019-01-12 14:36:01 Test Item Value Reference Range Interpretation Comments Parathyroid Hormone Intact; Above 267.1 pg/ml 18.4-80.1 High Threshold (test code = 2731-8) [facility]] VITAMIN D, 25-HYDROXY, LC/MS/[id number] 14:36:01 Test Item Value Reference Range Interpretation Comments Vitamin D, 25-OH, 16.8 ng/ml 30.0-100.0 Reference range is based Total (test code on recommen dations in the = Vitamin D, EndocrineSociet y Clinical 25-OH, Total) Practice Guide line (J Clin Endocrinol Qvzfp3123;96:19 11-1930) [facility][H] Pediatric Renal [id number] 14:36:01 Test Item Value Reference Range Interpretation Comments Sodium Level (test 141 {mEq/l} 135-145 code = 2951-2) Potassium Level 3.6 {mEq/l} 3.5-5.1 (test code = 2823-3) Chloride Level; 111 {mEq/l} 95-109 Above High Threshold (test code = 2074-0) Carbon Dioxide; 19 {mEq/l} 24-32 Below Low Threshold (test code = 2027-9) Blood Urea 55 mg/dl 7-22 Nitrogen; Above High Threshold (test code = 3094-0) Creatinine Lvl; 3.50 mg/dl 0.50-1.40 Above High Threshold (test code = 2160-0) Glucose Lvl; Below 62 mg/dl 70-99 Adult ref erence range Low Threshold values reflect the (test code = clinical guidel inesof 2345-7) the [place] [employer]. Chol; Above High 206 mg/dl <=199 Threshold (test code = 2093-3) Albumin Lvl (test 4.1 g/dl 3.5-5.0 code = 1751-7) Alk Phos (test 61 u/l 43-86 The pediatric reference code = 1783-0) ranges for th is test represent a CLSI-basedtrans ference of the CALIPER database of pediatric re ference intervals to th e[employer]iemens Notrees analyzer (Clinical Biochemistry 46 (2013): 6286-8991). [facility] [employer] [facility] has not interna lly validated these referenceranges and therefore they should be used only in th e context of a thoroughcl inical assessment. ALT (test code = 20 u/l 0-65 1743-4) Calcium Level 8.7 mg/dl 8.5-10.5 Total (test code = 85158-0) Magnesium Level; 2.8 mg/dl 1.8-2.4 Above High Threshold (test code = 71910-1) Phosphorus Level 4.2 mg/dl 2.5-4.5 (test code = 2777-1) Uric Acid; Above 7.6 mg/dl 2.5-7.0 High Threshold (test code = 3084-1) eGFR (test code = See Comment No height is recorded 69358-6) for this patien t; estimated GFR c annot be calculated. [facility][H] Iron, TIBC \\T\\ [id number] 14:36:01 Test Item Value Reference Range Interpretation Comments Iron (test code = 2498-4) 78 ug/dL 30-160 % Satur [place] (test code = 2502-3) 29 % 12-57 TIBC (test code = 2500-7) 272 ug/dL 228-428 UIBC (test code = UIBC) 194 ug/dL 110-370 Ferritin Lvl (test code = 2276-4) 32 ng/ml 5-204 [facility][QH] PROTEIN, TOTAL W/CREAT, RANDOM [id number] 14:36:01 Test Item Value Reference Range Interpretation Comments U Creatinine (test 28.80 mg/dl No establ ished code = 2161-8) reference ran ge. Urine Protein Level 141.1 mg/dl No estab lished (test code = 2888-6) referen ce ranges. U Prot/Creat (test 4.90 code = 2890-2) [facility]] URINALYSIS, [id number] 14:36:01 Test Item Value Reference Range Interpretation Comments UA RBC (test code = 61513-9) <1 0-2 UA WBC; Above High Threshold 6 {/HPF} 0-5 (test code = 43244-9) UA Bacteria; Abnormal (test Many None Seen A code = 79876-1) UA Mucus (test code = 8247-9) Few None Seen UA Color (test code = 5778-6) Light Yellow Yellow UA Turbidity (test code = Slight Cloudy Clear 77272-3) UA Spec Grav (test code = 1.015 <=1.030 5810-7) UA pH (test code = 5803-2) 6.0 5.0-8.0 UA Protein; Abnormal (test code 100 mg/dl Negative A = 87022-7) UA Glucose (test code = Negative Negative 99114-1) UA Ketones (test code = Negative Negative 20313-4) UA Bili (test code = 5770-3) Negative Negative UA Blood; Abnormal (test code = Small Negative A 5794-3) UROBILINOGEN (test code = 0.2 {EU/DL} 0.1-1.0 58925-7) UA Nitrite (test code = 5802-4) Negative Negative UA Leuk Est; Abnormal (test Moderate Negative A code = 5799-2) UA Sq Epi (test code = 36506-9) None Seen Few [facility][O] Urine Dipstick (In Office)2019-01-12 00:00:00 Test Item Value Reference Range Interpretation Comments Glucose (test code = Glucose) 100 A LEUKOCYTES (test code = Small A LEUKOCYTES) NITRITE; Abnormal (test code = Positive A 35137-3) UROBILINOGEN; Normal (test code 0.2 N = 91528-0) PROTEIN; Abnormal (test code = >300 A 57570-3) pH (test code = pH) 6.0 N URINE BLOOD; Abnormal (test code Moderate A = 67182-1) SPECIFIC GRAVITY; Normal (test 1.015 N code = 2965-2) KETONES; Normal (test code = Negative N 88608-7) BILIRUBIN; Normal (test code = Negative N 95015-3) COLOR URINE; Normal (test code = Light Yellow N 5778-6) APPEARANCE; Abnormal (test code Cloudy A = 5767-9) [facility]] CBC (INCLUDES DIFF/PLT)2018-09-15 17:00:01 Test Item Value Reference Range Interpretation Comments WBC (test code = 6690-2) 5.6 {K/CMM} 3.7-10.4 RBC (test code = 789-8) 4.73 {M/CMM} 4.20-5.40 Hgb (test code = 718-7) 13.1 g/dl 12.0-16.0 Hct (test code = 78371-9) 41.7 % 36.0-48.0 MCV (test code = 787-2) 88.1 fL 80.0-98.0 MCH (test code = 785-6) 27.6 pg 27.0-31.0 MCHC; Below Low Threshold (test 31.4 g/dl 32.0-36.0 code = 786-4) RDW (test code = 788-0) 14.4 % 11.5-14.5 Platelet (test code = 39770-5) 259 {K/CMM} 133-450 Mean Platelet Volume (test code 9.4 fL 7.4-10.4 = 26322-3) [facility]] [id number] 17:00:01 Test Item Value Reference Range Interpretation Comments Segmented Neutrophils (test code 69.0 % 45.0-75.0 = 19133-3) Monocytes (test code = 12529-0) 6.4 % 2.0-12.0 Lymphocytes (test code = 66888-9) 21.7 % 20.0-40.0 Eosinophils (test code = 90654-8) 1.9 % 0.0-4.0 Basophils (test code = 706-2) 1.0 % 0.0-1.0 Segs-Bands # (test code = 3.8 {K/CMM} 1.5-8.1 88134-6) Lymphocytes # (test code = 1.2 {K/CMM} 1.0-5.5 01220-2) Monocytes # (test code = 25510-2) 0.4 {K/CMM} 0.0-0.8 Eosinophils # (test code = 0.1 {K/CMM} 0.0-0.5 61766-2) Basophils # (test code = 63837-2) 0.1 {K/CMM} 0.0-0.2 [facility]] Pediatric Renal [id number] 17:00:01 Test Item Value Reference Range Interpretation Comments Sodium Level (test 140 {mEq/l} 135-145 code = 2951-2) Potassium Level 3.7 {mEq/l} 3.5-5.1 (test code = 2823-3) Chloride Level; 110 {mEq/l} 95-109 Above High Threshold (test code = 5-0) Carbon Dioxide; 19 {mEq/l} 24-32 Below Low Threshold (test code = 2027-9) Blood Urea Nitrogen; 52 mg/dl 7-22 Above High Threshold (test code = 3094-0) Creatinine Lvl; 2.80 mg/dl 0.50-1.40 Above High Threshold (test code = 2160-0) Glucose Lvl; Above 104 mg/dl 70-99 Adult ref erence range High Threshold (test values reflect the code = 2345-7) clinical guid elinesof the [place] Di abetes [employer]. Chol; Above High 236 mg/dl <=199 Threshold (test code = 3-3) Albumin Lvl (test 4.3 g/dl 3.5-5.0 code = 1751-7) Alk Phos (test code 62 u/l 39-136 = 1783-0) ALT (test code = 17 u/l 0-65 1743-4) Calcium Level Total 9.1 mg/dl 8.5-10.5 (test code = 50289-7) Magnesium Level; 2.8 mg/dl 1.8-2.4 Above High Threshold (test code = 83047-1) Phosphorus Level 4.0 mg/dl 2.5-4.5 (test code = 2777-1) Uric Acid (test code 7.0 mg/dl 2.5-7.0 = 3084-1) eGFR (test code = See Comment No height is recorded 01122-3) for this patien t; estimated GFR c annot be calculated. [facility]] Iron, TIBC \\T\\ [id number] 17:00:01 Test Item Value Reference Range Interpretation Comments Iron (test code = 2498-4) 57 ug/dL 30-160 % [place] (test code = 2502-3) 21 % 12-57 TIBC (test code = 2500-7) 277 ug/dL 228-428 UIBC (test code = UIBC) 220 ug/dL 110-370 Ferritin Lvl (test code = 2276-4) 24 ng/ml 5-204 [facility]] PTH, INTACT (WITHOUT CALCIUM)2018-09-15 17:00:01 Test Item Value Reference Range Interpretation Comments Parathyroid Hormone Intact; Above 216.9 pg/ml 18.4-80.1 High Threshold (test code = 2731-8) [facility]] VITAMIN D, 25-HYDROXY, [id number] 17:00:01 Test Item Value Reference Range Interpretation Comments Vitamin D, 25-OH, 11.7 ng/ml 30.0-100.0 Reference range is based Total (test code on recommen dations in the = Vitamin D, EndocrineSociet y Clinical 25-OH, Total) Practice Guide line (J Clin Endocrinol Lqycc7176;96:19 11-1930) [facility]] Urine Dipstick (In Office)2018-09-15 16:07:00 Test Item Value Reference Range Interpretation Comments Glucose (test code = Glucose) NEG N LEUKOCYTES (test code = LEUKOCYTES) LARGE A NITRITE; Abnormal (test code = POSITIVE A 54116-5) UROBILINOGEN; Normal (test code = 0.2 N 93892-3) PROTEIN; Abnormal (test code = 100 MG/DL A 87454-8) pH (test code = pH) 6.0 N URINE BLOOD; Abnormal (test code = MODERATE A 47418-4) SPECIFIC GRAVITY; Normal (test code 1.015 N = 2965-2) KETONES; Normal (test code = NEG N 95853-2) BILIRUBIN; Normal (test code = NEG N 64292-9) COLOR URINE; Abnormal (test code = MARCELINO A 5778-6) APPEARANCE; Abnormal (test code = CLOUDY A 5767-9) [facility]] PTH, INTACT (WITHOUT CALCIUM)2018-06-09 14:27:01 Test Item Value Reference Range Interpretation Comments Parathyroid Hormone Intact; Above 239.4 pg/ml 18.4-80.1 High Threshold (test code = 2731-8) [facility]] URINALYSIS, [id number] 14:27:01 Test Item Value Reference Range Interpretation Comments UA Color (test code = 5778-6) Red UA Turbidity; Abnormal (test code Marked Clear A = 01569-1) UA Spec Grav (test code = 5810-7) 1.016 <=1.030 UA pH (test code = 5803-2) 5.0 5.0-8.0 UA Protein; Abnormal (test code = 100 mg/dl Negative A 80461-4) UA Glucose (test code = 42764-7) Negative Negative UA Ketones (test code = 34987-6) Negative Negative UA Bili (test code = 5770-3) Negative Negative UA Blood; Abnormal (test code = Moderate Negative A 5794-3) UROBILINOGEN (test code = 78527-1) <=1.0 0.1-1.0 UA Nitrite (test code = 5802-4) Negative Negative UA Leuk Est; Abnormal (test code = Moderate Negative A 5799-2) UA RBC; Above High Threshold (test 4 {/HPF} 0-2 code = 57398-9) UA WBC; Above High Threshold (test 112 {/HPF} 0-5 code = 23166-7) UA Bacteria; Abnormal (test code = Many None Seen A 74171-0) UA Mucus (test code = 8247-9) Few None Seen UA Sq Epi (test code = 67329-6) Occasional Few [facility]] CBC (INCLUDES DIFF/PLT)2018-06-09 14:27:01 Test Item Value Reference Range Interpretation Comments WBC (test code = 6690-2) 7.0 {K/CMM} 3.7-10.4 RBC; Below Low Threshold (test 4.18 {M/CMM} 4.20-5.40 code = 789-8) Hgb; Below Low Threshold (test 11.8 g/dl 12.0-16.0 code = 718-7) Hct (test code = 46592-6) 37.1 % 36.0-48.0 MCV (test code = 787-2) 88.6 fL 80.0-98.0 MCH (test code = 785-6) 28.3 pg 27.0-31.0 MCHC; Below Low Threshold (test 31.9 g/dl 32.0-36.0 code = 786-4) RDW; Above High Threshold (test 14.6 % 11.5-14.5 code = 788-0) Platelet (test code = 07772-7) 228 {K/CMM} 133-450 Mean Platelet Volume (test code 9.2 fL 7.4-10.4 = 18473-7) [facility]] [id number] 14:27:01 Test Item Value Reference Range Interpretation Comments Segmented Neutrophils (test code 57.0 % 45.0-75.0 = 61708-5) Monocytes (test code = 76993-1) 6.2 % 2.0-12.0 Lymphocytes; Below Low Threshold 17.8 % 20.0-40.0 (test code = 26658-7) Eosinophils; Above High Threshold 18.6 % 0.0-4.0 (test code = 11034-1) Basophils (test code = 706-2) 0.4 % 0.0-1.0 Segs-Bands # (test code = 4.0 {K/CMM} 1.5-8.1 49595-4) Lymphocytes # (test code = 1.2 {K/CMM} 1.0-5.5 85837-6) Monocytes # (test code = 93272-5) 0.4 {K/CMM} 0.0-0.8 Eosinophils #; Above High 1.3 {K/CMM} 0.0-0.5 Threshold (test code = 03881-3) [facility]] Pediatric Renal [id number] 14:27:01 Test Item Value Reference Range Interpretation Comments Sodium Level (test 141 {mEq/l} 135-145 code = 2951-2) Potassium Level 3.9 {mEq/l} 3.5-5.1 (test code = 2823-3) Chloride Level; 112 {mEq/l} 95-109 Above High Threshold (test code = 5-0) Carbon Dioxide; 16 {mEq/l} 24-32 Below Low Threshold (test code = 2027-9) Blood Urea Nitrogen; 51 mg/dl 7-22 Above High Threshold (test code = 3094-0) Creatinine Lvl; 3.10 mg/dl 0.50-1.40 Above High Threshold (test code = 2160-0) Glucose Lvl (test 88 mg/dl 70-99 Adult refe rence range code = 2345-7) values reflec t the clinical guidel inesof the [place] Di [employer]etes [employer]. Chol (test code = 191 mg/dl <=199 3-3) Albumin Lvl (test 3.9 g/dl 3.5-5.0 code = 1751-7) Alk Phos (test code 67 u/l 39-136 = 1783-0) ALT (test code = 16 u/l 0-65 1743-4) Calcium Level Total 8.6 mg/dl 8.5-10.5 (test code = 10547-1) Magnesium Level; 2.6 mg/dl 1.8-2.4 Above High Threshold (test code = 49593-4) Phosphorus Level 4.2 mg/dl 2.5-4.5 (test code = 2777-1) Uric Acid; Above 7.9 mg/dl 2.5-7.0 High Threshold (test code = 3084-1) eGFR (test code = See Comment No height is recorded 89675-0) for this patien t; estimated GFR c annot be calculated. [facility]] Iron, TIBC \\T\\ [id number] 14:27:01 Test Item Value Reference Range Interpretation Comments Iron (test code = 2498-4) 41 ug/dL 30-160 % [place] (test code = 2502-3) 17 % 12-57 TIBC (test code = 2500-7) 243 ug/dL 228-428 UIBC (test code = UIBC) 202 ug/dL 110-370 Ferritin Lvl (test code = 2276-4) 40 ng/ml 5-204 [facility]] VITAMIN D, 25-HYDROXY, [id number] 14:27:01 Test Item Value Reference Range Interpretation Comments Vitamin D, 25-OH, 13.2 ng/ml 30.0-100.0 Reference range is based Total (test code on recommen dations in the = Vitamin D, EndocrineSociet y Clinical 25-OH, Total) Practice Guide line (J Clin Endocrinol Jbgtz6294;96:19 11-1930) [facility]] PROTEIN, TOTAL W/CREAT, RANDOM [id number] 14:27:01 Test Item Value Reference Range Interpretation Comments U Creatinine (test 28.40 mg/dl No establ ished code = 2161-8) reference ran ges. Urine Protein Level 116.9 mg/dl No estab lished (test code = 2888-6) referen ce ranges. U Prot/Creat (test 4.12 code = 2890-2) [facility]] Urine Dipstick (In Office)2018-06-09 13:40:00 Test Item Value Reference Range Interpretation Comments Glucose (test code = Glucose) 100 A LEUKOCYTES (test code = LEUKOCYTES) small A NITRITE; Normal (test code = neg N 50891-9) UROBILINOGEN; Normal (test code = 0.2 N 85652-0) PROTEIN; Abnormal (test code = 100 A 71955-1) pH (test code = pH) 6.0 MS URINE BLOOD; Abnormal (test code = moderate A 78312-8) SPECIFIC GRAVITY; Normal (test code 1.015 N = 2965-2) KETONES; Normal (test code = neg N 94438-9) BILIRUBIN; Normal (test code = neg N 73276-3) COLOR URINE; Normal (test code = yellow N 5778-6) APPEARANCE; Abnormal (test code = cloudy A 5767-9) [facility]] [id number] 14:36:01 Test Item Value Reference Range Interpretation Comments Segmented Neutrophils (test code 47.0 % 45.0-75.0 = 90491-9) Monocytes (test code = 19244-1) 5.3 % 2.0-12.0 Lymphocytes (test code = 23788-7) 26.7 % 20.0-40.0 Eosinophils; Above High Threshold 20.3 % 0.0-4.0 (test code = 29544-1) Basophils (test code = 706-2) 0.7 % 0.0-1.0 Segs-Bands # (test code = 3.1 {K/CMM} 1.5-8.1 11361-3) Lymphocytes # (test code = 1.8 {K/CMM} 1.0-5.5 06798-2) Monocytes # (test code = 02370-4) 0.3 {K/CMM} 0.0-0.8 Eosinophils #; Above High 1.3 {K/CMM} 0.0-0.5 Threshold (test code = 07166-5) Basophils # (test code = 17579-9) 0.0 {K/CMM} 0.0-0.2 [facility]] PTH, INTACT (WITHOUT CALCIUM)2018-03-17 14:36:01 Test Item Value Reference Range Interpretation Comments Parathyroid Hormone Intact; Above 141.6 pg/ml 18.4-80.1 High Threshold (test code = 2731-8) [facility]] Pediatric Renal [id number] 14:36:01 Test Item Value Reference Range Interpretation Comments Sodium Level (test 141 {mEq/l} 135-145 code = 2951-2) Potassium Level 4.4 {mEq/l} 3.5-5.1 (test code = 2823-3) Chloride Level; 112 {mEq/l} 95-109 Above High Threshold (test code = 5-0) Carbon Dioxide; 20 {mEq/l} 24-32 Below Low Threshold (test code = 8-9) Blood Urea Nitrogen; 41 mg/dl 7-22 Above High Threshold (test code = 3094-0) Creatinine Lvl; 2.70 mg/dl 0.50-1.40 Above High Threshold (test code = 2160-0) Glucose Lvl (test 80 mg/dl 70-99 Adult refe rence range code = 2345-7) values reflec t the clinical guidel inesof the [place] [employer]etes [employer]. Chol; Above High 209 mg/dl <=199 Threshold (test code = 2093-3) Albumin Lvl (test 4.0 g/dl 3.5-5.0 code = 1751-7) Alk Phos (test code 71 u/l 39-136 = 1783-0) ALT (test code = 17 u/l 0-65 1743-4) Calcium Level Total 9.2 mg/dl 8.5-10.5 (test code = 39196-6) Magnesium Level; 2.7 mg/dl 1.8-2.4 Above High Threshold (test code = 84893-9) Phosphorus Level 3.8 mg/dl 2.5-4.5 (test code = 2777-1) Uric Acid (test code 6.1 mg/dl 2.5-7.0 = 3084-1) eGFR (test code = See Comment No height is recorded 35521-0) for this patien t; estimated GFR c annot be calculated. [facility]] Iron, TIBC \\T\\ [id number] 14:36:01 Test Item Value Reference Range Interpretation Comments Iron (test code = 2498-4) 69 ug/dL 30-160 % [place] (test code = 2502-3) 26 % 12-57 TIBC (test code = 2500-7) 261 ug/dL 228-428 UIBC (test code = UIBC) 192 ug/dL 110-370 Ferritin Lvl (test code = 2276-4) 50 ng/ml 5-204 [facility][QL] VITAMIN D, 25-HYDROXY, [id number] 14:36:01 Test Item Value Reference Range Interpretation Comments Vitamin D, 25-OH, 20.6 ng/ml 30.0-100.0 Reference range is based Total (test code on recommen dations in the = Vitamin D, EndocrineSociet y Clinical 25-OH, Total) Practice Guide line (J Clin Endocrinol Lgmnv6703;96:19 11-1930) [facility]] CBC (INCLUDES DIFF/PLT)2018-03-17 14:36:01 Test Item Value Reference Range Interpretation Comments WBC (test code = 6690-2) 6.6 {K/CMM} 3.7-10.4 RBC (test code = 789-8) 4.79 {M/CMM} 4.20-5.40 Hgb (test code = 718-7) 13.3 g/dl 12.0-16.0 Hct (test code = 85954-4) 40.7 % 36.0-48.0 MCV (test code = 787-2) 84.9 fL 80.0-98.0 MCH (test code = 785-6) 27.8 pg 27.0-31.0 MCHC (test code = 786-4) 32.7 g/dl 32.0-36.0 RDW (test code = 788-0) 14.1 % 11.5-14.5 Platelet (test code = 94064-3) 271 {K/CMM} 133-450 Mean Platelet Volume (test code 8.8 fL 7.4-10.4 = 33240-3) [facility]] Urine Dipstick (In Office)2018-03-17 14:01:00 Test Item Value Reference Range Interpretation Comments Glucose (test code = Glucose) Negative N LEUKOCYTES (test code = Trace A LEUKOCYTES) NITRITE; Normal (test code = Negative N 05509-7) UROBILINOGEN; Normal (test code 0.2 N = 63243-2) PROTEIN; Abnormal (test code = 30 A 03201-9) pH (test code = pH) 6.5 N URINE BLOOD; Abnormal (test code Trace-intact A = 11056-7) SPECIFIC GRAVITY; Normal (test 1.015 N code = 2965-2) KETONES; Normal (test code = Negative N 46423-5) BILIRUBIN; Normal (test code = Negative N 67130-7) COLOR URINE; Normal (test code = light yellow N 5778-6) APPEARANCE; Normal (test code = clear N 5767-9) [facility]] [id number] 16:34:00 Test Item Value Reference Range Interpretation Comments MAGNESIUM (test code = MAGNESIUM) 2.6 mg/dl 1.5-2.5 [facility]] PHOSPHATE ( PHOSPHORUS)2017-12-18 16:34:00 Test Item Value Reference Range Interpretation Comments PHOSPHATE ( PHOSPHORUS) (test 4.1 mg/dl 2.5-4.5 N code = PHOSPHATE ( PHOSPHORUS)) [facility]] IRON AND TOTAL IRON BINDING [id number] 16:34:00 Test Item Value Reference Range Interpretation Comments IRON, TOTAL (test code = 78 {mcg/dl} 27-164 N IRON, TOTAL) IRON BINDING CAPACITY (test 258 {mcg/dL ca} 271-448 code = IRON BINDING CAPACITY) % SATURATION (test code = % 30 {% CALC} 8-45 N SATURATION) [facility]] CMP [id number] 16:34:00 Test Item Value Reference Range Interpretation Comments GLUCOSE; Normal 81 mg/dl 65-139 N Non-fasting (test code = 1547-9) referen ce interval UREA NITROGEN (BUN) 46 mg/dl 7-20 (test code = UREA NITROGEN (BUN)) CREATININE (test 2.32 mg/dl 0.40-1.00 Patient is <18 code = CREATININE) years old . Unable to calculate eG FR. BUN/CREATININE RATIO 20 {CALC} 6-22 N (test code = BUN/CREATININE RATIO) SODIUM (test code = 138 mmol/L 135-146 N SODIUM) POTASSIUM (test code 3.8 mmol/L 3.8-5.1 N = POTASSIUM) CHLORIDE (test code 107 mmol/L 98-110 N = CHLORIDE) CARBON DIOXIDE (test 22 mmol/L 20-32 N code = CARBON DIOXIDE) CALCIUM (test code = 9.1 mg/dl 8.9-10.4 N CALCIUM) PROTEIN, TOTAL (test 7.0 g/dl 6.3-8.2 N code = PROTEIN, TOTAL) ALBUMIN (test code = 4.3 g/dl 3.6-5.1 N ALBUMIN) GLOBULIN (test code 2.7 {G/DL CALC} 2.0-3.8 N = GLOBULIN) ALBUMIN/GLOBULIN 1.6 {CALC} 1.0-2.5 N RATIO (test code = ALBUMIN/GLOBULIN RATIO) BILIRUBIN, TOTAL; 0.4 mg/dl 0.2-1.1 N Normal (test code = 25820-2) ALKALINE PHSPHATASE 76 u/l 41-244 N (test code = ALKALINE PHSPHATASE) AST; Below Low 8 u/l 12-32 Threshold (test code = 1916-6) ALT; Normal (test 7 u/l 6-19 N code = 1742-6) [facility]] URINALYSIS, [id number] 16:34:00 Test Item Value Reference Range Interpretation Comments COLOR; Normal (test code = 5778-6) YELLOW YELLOW N APPEARANCE (test code = CLEAR CLEAR N APPEARANCE) SPECIFIC GRAVITY; Normal (test 1.004 1.001-1.035 N code = 2965-2) PH; Abnormal (test code = 2756-5) > OR = 8.5 5.0-8.0 A GLUCOSE; Normal (test code = NEGATIVE NEGATIVE N 1547-9) BILIRUBIN; Normal (test code = NEGATIVE NEGATIVE N 44019-4) KETONES; Normal (test code = NEGATIVE NEGATIVE N 20694-3) OCCULT BLOOD; Abnormal (test code 1+ NEGATIVE A = 23112-3) PROTEIN; Abnormal (test code = 2+ NEGATIVE A 81397-2) NITRITE; Abnormal (test code = POSITIVE NEGATIVE A 73126-8) LEUKOCYTE ESTERASE (test code = 2+ NEGATIVE A LEUKOCYTE ESTERASE) WBC; Abnormal (test code = 6690-2) 6-10 < OR = 5 A RBC; Abnormal (test code = 789-8) 3-10 < OR = 2 A SQUAMOUS EPITHELIAL CELLS (test 0-5 < OR = 5 code = 56038-8) BACTERIA; Abnormal (test code = FEW NONE SEEN A 630-4) HYALINE CAST; Normal (test code = NONE SEEN NONE SEEN N 56230-2) [facility]] CBC (INCLUDES DIFF/PLT)2017-12-18 16:34:00 Test Item Value Reference Range Interpretation Comments WHITE BLOOD CELL COUNT 5.1 {Thousand/u} 4.5-13.0 N (test code = WHITE BLOOD CELL COUNT) RED BLOOD CELL COUNT (test 4.40 {Million/uL} 3.80-5.10 N code = RED BLOOD CELL COUNT) HEMAGLOBIN; Normal (test 12.2 g/dl 11.5-15.3 N code = 64303-6) HEMATOCRIT; Normal (test 37.1 % 34.0-46.0 N code = 4544-3) MCV; Normal (test code = 84.3 fL 78.0-98.0 N 787-2) MCHC; Normal (test code = 32.9 g/dl 31.0-36.0 N 40278-1) RDW; Normal (test code = 13.5 % 11.0-15.0 N 788-0) PLATELET COUNT; Normal 263 {Thousand/u} 140-400 N (test code = 777-3) MPV; Normal (test code = 11.2 fL 7.5-12.5 N 67687-6) ABSOLUTE NEUTROPHILS (test 2933 {cells/uL} 6879-6203 N code = ABSOLUTE NEUTROPHILS) ABSOLUTE LYMPHOCYTES (test 1673 {cells/uL} 6055-7939 N code = ABSOLUTE LYMPHOCYTES) ABSOLUTE MONOCYTES (test 311 {cells/uL} 200-900 N code = ABSOLUTE MONOCYTES) ABSOLUTE EOSINOPHILS (test 133 {cells/uL} 15-500 N code = ABSOLUTE EOSINOPHILS) ABSOLUTE BASOPHILS (test 51 {cells/uL} 0-200 N code = ABSOLUTE BASOPHILS) NEUTROPHILS (test code = 57.5 % N NEUTROPHILS) LYMPHOCYTES (test code = 32.8 % N LYMPHOCYTES) MONOCYTES; Normal (test 6.1 % N code = 20278-1) EOSINOPHILS; Normal (test 2.6 % N code = 20898-5) BASOPHILS; Normal (test 1.0 % N code = 89803-5) [facility]] PTH, INTACT (WITHOUT CALCIUM)2017-12-18 16:34:00 Test Item Value Reference Interpretation Comments Range PARATHYROID 175 pg/ml 9-69 Interpretive Gu lei Intact PTH HORMONE, INTACT Calcium----- (test code = ---- ---Normal PARATHYROID Parathyroid No rmal HORMONE, INTACT) NormalHypop arathyroidism Low or Low Normal LowHyperparathy roidism Primary Normal or High High Secondary High Normal or Low Tertiary High HighNon-Parathy roid Hypercalcemia L ow or Low Normal High [facility]] [id number] 16:34:00 Test Item Value Reference Range Interpretation Comments FERRITIN (test code = FERRITIN) 34 ng/ml 6-67 N [facility]] VITAMIN D, 25-HYDROXY, LC/MS/[id number] 16:34:00 Test Item Value Reference Range Interpretation Comments VITAMIN 17 ng/ml 30-100 Vitamin D Statu s 25-OH D,25-OH,TOTAL,IA Vitamin D: Deficiency: (test code = VITAMIN <20 ng/ mLInsufficiency: D,25-OH,TOTAL,IA) 20 - 29 ng /mLOptimal: > or = 30 ng/mL F or 25-OH Vitamin D testi ng on patients on D2-supplementat ion and patients for wh om quantitation of D2 and D3 fractions is required, the [employer]ureD(TM )25-OH VIT D, (D2,D3), LC/MS/MS is recommended: order code 37669 (pat ients >2yrs). For john sood information on this test, go to:[email or web address](This link i s being provided for informational/e ducationa l purposes only .) [facility]] PROTEIN, TOTAL W/CREAT, RANDOM [id number] 16:34:00 Test Item Value Reference Range Interpretation Comments CREATININE, RANDOM URINE 30 mg/dl 20-320 N (test code = CREATININE, RANDOM URINE) PROTEIN/CREATININE RATIO 2700 {MG/G CREAT} 21-161 (test code = PROTEIN/CREATININE RATIO) PROTEIN, TOTAL, RANDOM UR 81 mg/dl 5-24 (test code = PROTEIN, TOTAL, RANDOM UR) [facility][O] Urine Dipstick (In Office)2017-11-11 00:00:00 Test Item Value Reference Range Interpretation Comments LEUKOCYTES (test code = SMALL A LEUKOCYTES) NITRITE; Abnormal (test code POSITIVE A = 20375-0) UROBILINOGEN; Normal (test 0.2 N code = 12307-7) PROTEIN; Abnormal (test code 100 MG/DL A = 76222-7) pH (test code = pH) 6.0 N URINE BLOOD; Abnormal (test LARGE A code = 41495-7) SPECIFIC GRAVITY; Normal 1.010 N (test code = 2965-2) KETONES; Normal (test code = NEG N 64044-0) BILIRUBIN; Normal (test code NEG N = 06673-6) GLUCOSE; Normal (test code = NEG N 1547-9) COLOR URINE; Normal (test LIGHT YELLOW N code = 5778-6) APPEARANCE (test code = SLIGHTLY CLOUDY 5767-9) [facility]] PHOSPHATE ( PHOSPHORUS)2017-09-16 15:20:00 Test Item Value Reference Range Interpretation Comments PHOSPHATE ( PHOSPHORUS) (test 4.6 mg/dl 2.5-4.5 code = PHOSPHATE ( PHOSPHORUS)) [facility]] CMP [id number] 15:20:00 Test Item Value Reference Range Interpretation Comments GLUCOSE; Normal 92 mg/dl 65-139 N Non-fasting (test code = 1547-9) referen ce interval UREA NITROGEN (BUN) 45 mg/dl 7-20 (test code = UREA NITROGEN (BUN)) CREATININE (test 2.55 mg/dl 0.40-1.00 Patient is <18 code = CREATININE) years old . Unable to calculate eG FR. BUN/CREATININE RATIO 18 {CALC} 6-22 N (test code = BUN/CREATININE RATIO) SODIUM (test code = 140 mmol/L 135-146 N SODIUM) POTASSIUM (test code 3.6 mmol/L 3.8-5.1 = POTASSIUM) CHLORIDE (test code 110 mmol/L 98-110 N = CHLORIDE) CARBON DIOXIDE (test 19 mmol/L 20-31 code = CARBON DIOXIDE) CALCIUM (test code = 8.8 mg/dl 8.9-10.4 CALCIUM) PROTEIN, TOTAL (test 6.6 g/dl 6.3-8.2 N code = PROTEIN, TOTAL) ALBUMIN (test code = 3.9 g/dl 3.6-5.1 N ALBUMIN) GLOBULIN (test code 2.7 {G/DL CALC} 2.0-3.8 N = GLOBULIN) ALBUMIN/GLOBULIN 1.4 {CALC} 1.0-2.5 N RATIO (test code = ALBUMIN/GLOBULIN RATIO) BILIRUBIN, TOTAL; 0.3 mg/dl 0.2-1.1 N Normal (test code = 96204-5) ALKALINE PHSPHATASE 106 u/l 41-244 N (test code = ALKALINE PHSPHATASE) AST; Below Low 7 u/l 12-32 Threshold (test code = 1916-6) ALT; Normal (test 7 u/l 6-19 N code = 1742-6) [facility]] PTH, INTACT (WITHOUT CALCIUM)2017-09-16 15:20:00 Test Item Value Reference Interpretation Comments Range PARATHYROID 311 pg/ml 9-69 Interpretive Gu lei Intact PTH HORMONE, INTACT Calcium----- (test code = ---- ---Normal PARATHYROID Parathyroid Nor mal HORMONE, INTACT) NormalHypop arathyroidism Low or Low Normal LowHyperparathy roidism Primary Normal or High High Secondary High Normal or Low Tertiary High HighNon-Parathy roid Hypercalcemia L ow or Low Normal High [facility]] [id number] 16:50:01 Test Item Value Reference Range Interpretation Comments Ferritin Lvl (test code = 2276-4) 24 ng/ml 5-204 [facility]] IRON AND TOTAL IRON BINDING [id number] 16:50:01 Test Item Value Reference Range Interpretation Comments Iron (test code = 2498-4) 57 ug/dL 30-160 % Satur Fe (test code = 2502-3) 18 % 12-57 TIBC (test code = 2500-7) 312 ug/dL 228-428 UIBC (test code = UIBC) 255 ug/dL 110-370 [facility][H] Pediatric Renal [id number] 16:50:01 Test Item Value Reference Range Interpretation Comments Sodium Level (test 139 {mEq/l} 135-145 code = 2951-2) Potassium Level 3.7 {mEq/l} 3.5-5.1 (test code = 2823-3) Chloride Level (test 108 {mEq/l} 95-109 code = 5-0) Carbon Dioxide; 20 {mEq/l} 24-32 Below Low Threshold (test code = 8-9) Blood Urea Nitrogen; 48 mg/dl 7-22 Above High Threshold (test code = 3094-0) Creatinine Lvl; 2.40 mg/dl 0.50-1.40 Above High Threshold (test code = 2160-0) Glucose Lvl; Above 100 mg/dl 70-99 Adult ref erence range High Threshold (test values reflect the code = 2345-7) clinical guid elinesof the [place] Di abetes Association. Chol; Above High 223 mg/dl <=199 Threshold (test code = 3-3) Albumin Lvl (test 3.7 g/dl 3.5-5.0 code = 1751-7) Alk Phos (test code 127 u/l 80-406 = 1783-0) ALT (test code = 16 u/l 0-65 1743-4) Calcium Level Total 8.8 mg/dl 8.5-10.5 (test code = 29888-5) Magnesium Level; 2.5 mg/dl 1.8-2.4 Above High Threshold (test code = 98354-3) Phosphorus Level; 5.4 mg/dl 2.5-4.5 Above High Threshold (test code = 2777-1) Uric Acid (test code 7.0 mg/dl 2.5-7.0 = 3084-1) eGFR (test code = See Comment No height is recorded 01801-7) for this patien t; estimated GFR c annot be calculated. [facility]] PTH, INTACT (WITHOUT CALCIUM)2017-08-12 16:50:01 Test Item Value Reference Range Interpretation Comments Parathyroid Hormone Intact; Above 272.6 pg/ml 18.4-80.1 High Threshold (test code = 2731-8) [facility]] CBC (INCLUDES DIFF/PLT)2017-08-12 16:50:01 Test Item Value Reference Range Interpretation Comments WBC (test code = 6690-2) 7.3 {K/CMM} 3.7-10.4 RBC (test code = 789-8) 4.56 {M/CMM} 4.20-5.40 Hgb (test code = 718-7) 12.8 g/dl 12.0-16.0 Hct (test code = 93155-5) 38.0 % 36.0-48.0 MCV (test code = 787-2) 83.3 fL 80.0-98.0 MCH (test code = 785-6) 28.0 pg 27.0-31.0 MCHC (test code = 786-4) 33.6 g/dl 32.0-36.0 RDW (test code = 788-0) 13.9 % 11.5-14.5 Platelet (test code = 69312-8) 230 {K/CMM} 133-450 Mean Platelet Volume (test code 9.5 fL 7.4-10.4 = 61773-9) [facility]] [id number] 16:50:01 Test Item Value Reference Range Interpretation Comments Segmented Neutrophils (test code 51.9 % 34.0-64.0 = 46845-9) Monocytes (test code = 60745-3) 6.3 % 2.0-12.0 Lymphocytes (test code = 73086-6) 29.6 % 20.0-40.0 Eosinophils; Above High Threshold 11.8 % 0.0-4.0 (test code = 05506-4) Basophils (test code = 706-2) 0.4 % 0.0-1.0 Segs-Bands # (test code = 3.8 {K/CMM} 1.5-8.1 80224-4) Lymphocytes # (test code = 2.2 {K/CMM} 1.0-5.5 75485-5) Monocytes # (test code = 33998-4) 0.5 {K/CMM} 0.0-0.8 Eosinophils #; Above High 0.9 {K/CMM} 0.0-0.5 Threshold (test code = 46295-1) Basophils # (test code = 83617-4) 0.0 {K/CMM} 0.0-0.2 [facility]] VITAMIN D, 25-HYDROXY, [id number] 16:50:01 Test Item Value Reference Range Interpretation Comments Vitamin D, 25-OH, 13.9 ng/ml 30.0-100.0 Reference range is based Total (test code on recommen dations in the = Vitamin D, EndocrineSociet y Clinical 25-OH, Total) Practice Guide line (J Clin Endocrinol Jhmic5088;96:19 11-1930) [facility][QL] VITAMIN D, 1,25 DIHYDROXY [id number] 16:50:01 Test Item Value Reference Range Interpretation Comments Vitamin D 1,25 (OH)2 33 pg/ml Referen ce Range:Infants Total (test code = and child angelica: 15 - 90 Vitamin D 1,25 (OH)2 Total) Vitamin D2 1,25 (OH)2 25 pg/ml (test code = Vitamin D2 1,25 (OH)2) Vitamin D3 1,25 (OH)2 <10 Perfor med At: ES (test code = Vitamin Esoteri x D3 1,25 (OH)2) Endocrinology [address] [place], [place] [id number] gurinder Franz MD Ph:[phone] [facility][O] Urine Dipstick (In Office)2017-08-12 15:56:00 Test Item Value Reference Range Interpretation Comments LEUKOCYTES (test code = LEUKOCYTES) Trace A NITRITE; Abnormal (test code = positive A 43850-2) UROBILINOGEN; Normal (test code = 0.2 N 77978-5) PROTEIN; Abnormal (test code = 100 A 15670-7) pH (test code = pH) 7.0 N URINE BLOOD; Abnormal (test code = small A 03950-2) SPECIFIC GRAVITY; Normal (test code 1.010 N = 2965-2) KETONES; Normal (test code = neg N 09762-9) BILIRUBIN; Normal (test code = neg N 99131-4) GLUCOSE; Normal (test code = 1547-9) neg N COLOR URINE; Normal (test code = yellow N 5778-6) APPEARANCE; Normal (test code = clear N 5767-9) [facility]] CBC (INCLUDES DIFF/PLT)2017-05-13 17:29:01 Test Item Value Reference Range Interpretation Comments WBC (test code = WBC) 6.1 {K/CMM} 3.7-10.4 RBC (test code = RBC) 4.60 {M/CMM} 4.20-5.40 Hgb (test code = 60632-6) 12.5 g/dl 12.0-16.0 Hct (test code = 4544-3) 38.3 % 36.0-48.0 MCV (test code = MCV) 83.2 fL 80.0-98.0 MCH (test code = MCH) 27.1 pg 27.0-31.0 MCHC (test code = MCHC) 32.5 g/dl 32.0-36.0 RDW (test code = RDW) 13.9 % 11.5-14.5 Platelet (test code = 777-3) 264 {K/CMM} 133-450 Mean Platelet Volume (test code 8.9 fL 7.4-10.4 = Mean Platelet Volume) [facility]] [id number] 17:29:01 Test Item Value Reference Range Interpretation Comments Segmented Neutrophils (test code 48.9 % 34.0-64.0 = 43213-1) Monocytes # (test code = 60577-9) 0.4 {K/CMM} 0.0-0.8 Lymphocytes (test code = 27.6 % 20.0-40.0 Lymphocytes) Eosinophils #; Above High 1.0 {K/CMM} 0.0-0.5 Threshold (test code = 64815-1) Basophils (test code = 73425-9) 0.6 % 0.0-1.0 Segs-Bands # (test code = 3.0 {K/CMM} 1.5-8.1 02464-2) Lymphocytes # (test code = 1.7 {K/CMM} 1.0-5.5 11349-6) [facility]] PROTEIN, TOTAL W/CREAT, RANDOM [id number] 17:29:01 Test Item Value Reference Range Interpretation Comments U Creatinine (test 18.10 mg/dl No establ ished code = U Creatinine) referen ce ranges. Urine Protein Level 41.8 mg/dl No estab lished (test code = 2888-6) referen ce ranges. U Prot/Creat (test 2.31 code = 2890-2) [facility]] PTH, INTACT (WITHOUT CALCIUM)2017-05-13 17:29:01 Test Item Value Reference Range Interpretation Comments Parathyroid Hormone Intact (test 167.7 pg/ml 11.1-79.5 code = Parathyroid Hormone Intact) [facility][H] Pediatric Renal [id number] 17:29:01 Test Item Value Reference Range Interpretation Comments Sodium Level (test 139 {mEq/l} 135-145 code = Sodium Level) Potassium Level 4.4 {mEq/l} 3.5-5.1 (test code = Potassium Level) Chloride Level (test 106 {mEq/l} 95-109 code = Chloride Level) Carbon Dioxide (test 21 {mEq/l} 24-32 code = Carbon Dioxide) Blood Urea Nitrogen 53 mg/dl 7-22 (test code = Blood Urea Nitrogen) Creatinine Lvl (test 2.40 mg/dl 0.50-1.40 code = Creatinine Lvl) Glucose Lvl (test 95 mg/dl 70-99 Adult refe rence range code = Glucose Lvl) values r eflect the clinical guidel inesof the [place] Di abetes Association. Chol (test code = 214 mg/dl <=199 Chol) Albumin Lvl (test 3.9 g/dl 3.5-5.0 code = 1751-7) Alk Phos (test code 100 u/l 80-406 = 1783-0) ALT (test code = 14 u/l 0-65 1742-6) Calcium Level Total 9.3 mg/dl 8.5-10.5 (test code = Calcium Level Total) Magnesium Level 2.9 mg/dl 1.8-2.4 (test code = Magnesium Level) Phosphorus Level 6.2 mg/dl 2.5-4.5 (test code = Phosphorus Level) Uric Acid (test code 6.5 mg/dl 2.5-7.0 = 3086-6) eGFR (test code = See Comment No height is recorded eGFR) for this patien t; estimated GFR c annot be calculated. [facility]] VITAMIN D, 25-HYDROXY, [id number] 17:29:01 Test Item Value Reference Range Interpretation Comments Vitamin D, 25-OH, 10.7 ng/ml 30.0-100.0 Reference range is based Total (test code on recommen dations in the = Vitamin D, EndocrineSociet y Clinical 25-OH, Total) Practice Guide line (J Clin Endocrinol Kizlh8272;96:19 11-1930) [facility][QL] VITAMIN D, 1,25 DIHYDROXY [id number] 17:29:01 Test Item Value Reference Range Interpretation Comments Vitamin D 1,25 (OH)2 49 pg/ml Referen ce Range:Infants Total (test code = and child angelica: 15 - 90 Vitamin D 1,25 (OH)2 Total) Vitamin D2 1,25 (OH)2 <10 (test code = Vitamin D2 1,25 (OH)2) Vitamin D3 1,25 (OH)2 47 pg/ml Perfor med At: ES (test code = Vitamin Esoteri x D3 1,25 (OH)2) Endocrinology [address] [place], [place] [id number] gurinder Franz MD Ph:[phone] [facility][O] Urine Dipstick (In Office)2017-05-13 15:54:00 Test Item Value Reference Range Interpretation Comments LEUKOCYTES (test code = LEUKOCYTES) Small A NITRITE; Abnormal (test code = Positive A 69957-2) UROBILINOGEN; Normal (test code = 0.2 N 58098-1) PROTEIN; Abnormal (test code = 100mg/dL A 67378-6) pH (test code = pH) 7.0 N URINE BLOOD; Abnormal (test code = Moderate A 48204-4) SPECIFIC GRAVITY; Normal (test code 1.010 N = 2965-2) KETONES; Normal (test code = Negative N 03800-7) BILIRUBIN; Normal (test code = Negative N 87127-9) GLUCOSE; Normal (test code = 1547-9) Negative N [facility]] Urine Dipstick (In Office)2017-02-11 16:23:00 Test Item Value Reference Range Interpretation Comments LEUKOCYTES (test code = TRACE A LEUKOCYTES) NITRITE; Abnormal (test code = POSITIVE A 08745-4) UROBILINOGEN; Normal (test code = 0.2 N 70070-1) PROTEIN; Abnormal (test code = 30mg/dL A 21004-5) pH (test code = pH) 7.0 N URINE BLOOD; Abnormal (test code TRACE-LYSED A = 85400-5) SPECIFIC GRAVITY; Normal (test 1.010 N code = 2965-2) KETONES; Normal (test code = NEGATIVE N 20411-9) BILIRUBIN; Normal (test code = NEGATIVE N 34494-6) GLUCOSE; Normal (test code = NEGATIVE N 1547-9) [facility]
[2022-03-29 23:04] LABS: Urine Blood Trace-lysed (Negative); Urine Glucose Negative (Negative); Urine Protein Negative (Negative); Urine Specific Gravity <=1.005 (1.005-1.030); Urine pH 5.5 (5.0-7.0)
[2022-03-29 23:12] LABS: Urine Specific Gravity/Preg 1.005 (1.005-1.030)
--- NOTE | 2022-03-29 23:23 | EDPHYS ---
Physician Documentation [facility] Name: Ari Honeycutt Age: 22 yrs Sex: Female : 2000 Arrival Date: 03/29/2022 Time: 21:53 Bed IW1 Private MD: ED Physician Tarik Correa HPI: 03/29 23:24 This 22 yrs old Female presents to ER via Wheelchair with complaints of Cloudy kdr Urine, Urinary Retention. 23:24 The patient noted that her urine was cloudy this morning. She has not had a UTI in a kdr few years. She had no new or associated s/s suggesting a UTI. The patient does self cath secondary to spina bifida.. 23:24 Onset: The symptoms/episode began/occurred this morning. Severity of symptoms: At their kdr worst the symptoms were very mild in the emergency department the symptoms are unchanged. The patient has experienced similar episodes in the past, a few times. The patient has not recently seen a physician. Historical: - Allergies: 22:21 Latex, Natural Rubber; hb 22:21 Motrin; hb - PMHx: 22:21 Hypertension; SPINABIFADA; hb - Immunization history:: Adult Immunizations up to date. - Social history:: Smoking status: Patient denies any tobacco usage or history of. ROS: 23:24 Constitutional: Negative for fever, chills, and weight loss, Eyes: Negative for injury, kdr pain, redness, and discharge, ENT: Negative for injury, pain, and discharge, Neck: Negative for injury, pain, and swelling, Cardiovascular: Negative for chest pain, palpitations, and edema, Respiratory: Negative for shortness of breath, cough, wheezing, and pleuritic chest pain, Abdomen/GI: Negative for abdominal pain, nausea, vomiting, diarrhea, and constipation, Back: Negative for injury and pain, Skin: Negative for injury, rash, and discoloration, Neuro: Negative for headache, weakness, numbness, tingling, and seizure activity. Psych: Negative for depression, anxiety, suicide ideation, homicidal ideation, and hallucinations, Allergy/Immunology: Negative for hives, rash, and allergies, Endocrine: Negative for neck swelling, polydipsia, polyuria, polyphagia, and marked weight changes, Hematologic/Lymphatic: Negative for swollen nodes, abnormal bleeding, and unusual bruising. 23:24 : Positive for urinary symptoms, Negative for hematuria, pelvic pain, flank pain, burning with urination, difficulty urinating, bladder incontinence, foul smelling urine. Exam: 23:24 Constitutional: This is a well developed, well nourished patient who is awake, alert, kdr and in no acute distress. Head/Face: Normocephalic, atraumatic. Eyes: Pupils equal round and reactive to light, extra-ocular motions intact. Lids and lashes normal. Conjunctiva and sclera are non-icteric and not injected. Cornea within normal limits. Periorbital areas with no swelling, redness, or edema. Neck: Trachea midline, no thyromegaly or masses palpated, and no cervical lymphadenopathy. Supple, full range of motion without nuchal rigidity, or vertebral point tenderness. No Meningismus. Chest/axilla: Normal chest wall appearance and motion. Nontender with no deformity. No lesions are appreciated. Cardiovascular: Regular rate and rhythm with a normal S1 and S2. No gallops, murmurs, or rubs. Normal PMI, no JVD. No pulse deficits. Respiratory: Lungs have equal breath sounds bilaterally, clear to auscultation and percussion. No rales, rhonchi or wheezes noted. No increased work of breathing, no retractions or nasal flaring. Abdomen/GI: Soft, non-tender, with normal bowel sounds. No distension or tympany. No guarding or rebound. No evidence of tenderness throughout. Vital Signs: 22:19 BP 101 / 64; Pulse 91; Resp 16; Temp 98.2(O); Pulse Ox 100% on R/A; Weight 45.36 kg; hb Height 4 ft. 9 in. (144.78 cm); Pain 0/10; 22:19 Body Mass Index 21.64 (45.36 kg, 144.78 cm) hb MDM: 23:23 Patient medically screened. kdr 23:24 Data reviewed: vital signs, nurses notes, lab test result(s). Counseling: I had a kdr detailed discussion with the patient and/or guardian regarding: the historical points, exam findings, and any diagnostic results supporting the discharge/admit diagnosis, lab results, the need for outpatient follow up. 03/29 23:04 Order name: Urine Dipstick-Ancillary; Complete Time: 23:15 EDMS 03/29 23:05 Order name: Test Urine - POC; Complete Time: 23:15 mb4 03/29 22:03 Order name: Urine Dipstick-Ancillary (obtain specimen); Complete Time: 23:22 kdr 03/29 22:25 Order name: Urine Test (obtain specimen); Complete Time: 23:22 kdr 03/29 23:24 Order name: Urine Culture kdr Administered Medications: No medications were administered Disposition Summary: 03/29/22 23:23 Discharge Ordered Location: Home kdr Problem: new kdr Symptoms: are unchanged kdr Condition: Stable kdr Diagnosis - Other abnormal findings in urine - Cloudy kdr Followup: kdr - With: Private Physician - When: 2 - 3 days - Reason: If symptoms return, Further diagnostic work-up, Recheck today's complaints, Continuance of care, Re-evaluation by your physician Discharge Instructions: - Discharge Summary Sheet kdr - Urine Culture and Sensitivity Testing kdr Forms: - Medication Reconciliation Form kdr - Thank You Letter kdr - Antibiotic Education kdr Prescriptions: - Bactrim DS 800-160 mg Oral Tablet - take 1 tablet by ORAL route every 12 hours for 3 days; 6 tablet; Refills: 0, kdr Product Selection Permitted Signatures: Dispatcher [employer] [facility] Tarik Correa MD MD kdr Vanessa Reeves, RN RN
--- NOTE | 2022-03-29 23:23 | ER ---
Nurse's Notes [facility] Name: Ari Honeycutt Age: 22 yrs Sex: Female : 2000 Arrival Date: 03/29/2022 Time: 21:53 Bed IW1 Private MD: Diagnosis: Other abnormal findings in urine-Cloudy Presentation: 03/29 22:19 Chief complaint: Cloudy urine and decreased output when she self cathed today. Denies hb pain/fever/chills. Coronavirus screen: At this time, the client does not indicate any symptoms associated with coronavirus-19. Ebola Screen: No symptoms or risks identified at this time. Initial Sepsis Screen: Does the patient meet any 2 criteria? No. Patient's initial sepsis screen is negative. Does the patient have a suspected source of infection? No. Patient's initial sepsis screen is negative. Risk Assessment: Do you want to hurt yourself or someone else? Patient reports no desire to harm self or others. Onset of symptoms was March 29, 2022. 22:19 Method Of Arrival: Wheelchair hb 22:19 Acuity: ARSEN 4 hb Historical: - Allergies: 22:21 Latex, Natural Rubber; hb 22:21 Motrin; hb - PMHx: 22:21 Hypertension; SPINABIFADA; hb - Immunization history:: Adult Immunizations up to date. - Social history:: Smoking status: Patient denies any tobacco usage or history of. Vital Signs: 22:19 BP 101 / 64; Pulse 91; Resp 16; Temp 98.2(O); Pulse Ox 100% on R/A; Weight 45.36 kg; hb Height 4 ft. 9 in. (144.78 cm); Pain 0/10; 22:19 Body Mass Index 21.64 (45.36 kg, 144.78 cm) hb ED Course: 21:53 Patient arrived in ED. bp1 22:03 Tarik Correa MD is Attending Physician. kdr 22:21 Triage completed. hb 22:21 Arm band placed on. hb Administered Medications: No medications were administered Outcome: 23:23 Discharge ordered by . kdr 03/30 00:05 Patient left the ED. hb Addendum: 04/02/2022 18:07 Addendum: Culture Results: Positive urine culture. Bacteria is resistant to, has s s intermediate sensitivity, or is not tested against prescribed antibiotics. Report given to JANE for further evaluation and then to soil conservationist for follow up with patient. Phone call Attempt #1 Spoke with patient and her mother. Pt states that she does not have a PCP at this time, but has an appointment soon with a provider through [facility]. AL Rosales recommends patient go to [facility] for further treatment. Pt verbalizes understanding that she needs to follow up TRIP and if she chooses to go to [facility] to call us and we will fax culture report TRIP to the facility for continuity of care. Signatures: Tarik Correa MD MD [facility] Belkis Arora RN RN ss Vanessa Reeves, SABI RN Laurita Zuñiga [facility]
[2022-03-30 15:56] VITALS: BP 101/64; TEMP 98.2; O2SAT 100
== END 2022-03-30 00:05 | disposition home or self-care (01) ==
LOC: ER 21:52
DX: R82.998 Other abnormal findings in urine (principal)
CPT/HCPCS: 81003; 81025; 87077; 87086; 87088; 87186; 99281

== ENCOUNTER 2022-04-13 15:03 | Emergency (ER) | payer OTHER ==
--- OUTSIDE RECORDS SUMMARY | 2022-04-13 15:21 | XMS REPORT | Continuity of Care Document ---
:2000 Author Organization [facility] t Address [address] [place] [place] [address] Care Team Providers Name Role Phone Alexandra Brooks Primary Care Physician WES RUSH Attending Clinician Unavailable TRAN MADRIGAL Attending Clinician Unavailable ANYA RICHARDSON Attending Clinician Unavailable JULIEN ZHENG Attending Clinician Unavailable Chito Rodriges MD Attending Clinician NAILA LUIS Attending Clinician Unavailable Robby Wilks MD Attending Clinician CHITO RODRIGES Attending Clinician Unavailable Sally Chapa MD Attending Clinician SALLY CHAPA Attending Clinician Unavailable Alexandra Brooks Attending Clinician ALEXANDRA BOSTON Attending Clinician Unavailable BREANA ANTON Attending Clinician Unavailable Campos Malloy RN Attending Clinician Unavailable Dot CELESTIN, Ruthie Attending Clinician Unavailable Elsie CELESTIN, Linda Attending Clinician Unavailable KEVYN ROBISON Attending Clinician Unavailable Eric CELESTIN, Sherri Attending Clinician Unavailable Po, [facility] Attending Clinician Unavailable William Garcia MD Attending Clinician Baldo RN, Neena Attending Clinician Unavailable Kassie Garcia MA Attending Clinician Unavailable DIMITRI العراقي Attending Clinician Unavailable Nurse, [facility] Immunization Attending Clinician Unavailable Dimitri العراقي DO Attending Clinician DULCE MUELLER Attending Clinician Unavailable Dulce Mueller MD Attending Clinician Doctor Unassigned, [place] Attending Clinician Unavailable Julien Zheng MD Attending Clinician ABEL STRANGE Attending Clinician Unavailable CLARISSA IZAGUIRRE Attending Clinician Unavailable Rambo Glass MA Attending Clinician Unavailable Nancy Quispe APRN Attending Clinician Kate Pal MD Attending Clinician WES RUSH M.D. Attending Clinician Unavailable ORGANTRANSPLANT, OP Attending Clinician Unavailable Anton MD, Breana Attending Clinician [phone] SHADIA OROZCO Attending Clinician Unavailable TRAN MADRIGAL M.D. Attending Clinician Unavailable Kalyani Banks LMSW Attending Clinician Antoinette Payton MD Attending Clinician Kai Miles MD Attending Clinician Tayo Andrew MD Attending Clinician TAYO ANDREW Attending Clinician Unavailable Marck Sargent MD Attending Clinician Juanita Monroy MD Attending Clinician RYAN GAMBINO Attending Clinician Unavailable JORDAN GARCIA Attending Clinician Unavailable JULIEN ZHENG Admitting Clinician Unavailable JON NARAYANAN Admitting Clinician Unavailable DUDLEY HOLLEY Admitting Clinician Unavailable TRAN MADRIGAL Admitting Clinician Unavailable TAYO ANDREW Admitting Clinician Unavailable CHITO RODRIGES Admitting Clinician Unavailable Payers Payer Name Policy Type Policy Number Effective Date Expiration Date Mili CAO [id number] 2016 KIDS 00:00:00 Problems Condition Condition Condition Status [...] 2020-04 U T recurrent recurrent 0-06 Heal th urinary urinary 00:00: tract tract 00 infection [...] stage IV stage IV 00 (severe) (severe) Spinal Spinal Disease Active Overview: Univer s fusion, fusion, 05-03 [facility] ity o f congenital congenital 00:00: g of this [place] 00 note Medical might be Branch different [...] 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 04/2020: Noted on records from [facility]. Pt is shunt dependent . Will scan records to EMR.Forma tting of this note might be different from the original. 04/2020: Noted on records from [facility]. Pt is shunt dependent . Will scan records to EMR.Forma tting of this note might be different from the original. 04/2020: Noted on records from [facility]. Pt is shunt dependent . Will scan records to EMR.Forma tting of this note might be different from the original. 04/2020: Noted on records from [facility]. Pt is shunt dependent . Will scan records to EMR.: Noted on records from [facility]. Pt is shunt dependent . Will scan records to EMR. Right Right Disease Active Overview: UT external external 05-03 [facility] tibial tibial 00:00: g of this torsion torsion 00 note might be different from the original. Formattin g of this note might be different from the original. 04/2020: Noted in records from [facility] Sp[facility] Bifida clinic. Will scan to EMR.Forma tting of this note might be different from the original. 04/2020: Noted in records from [facility]ifida clinic. Will scan to EMR.Forma tting of this note might be different from the original. 04/2020: Noted in records from [facility]ifida clinic. Will scan to EMR.: Noted in records from [facility] Bifida clinic. Will scan to EMR.Forma tting of this note might be different from the original. 04/2020: Noted in records from [facility] Spina Bifida clinic. Will scan to EMR. 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 Formattin g of this note might be different from the original. 03/2020: Received records from nephrolog y and hypertens ion (Dr. Emily Rush) clinic at [facility] DOS: 12/14/2019 Renal function is progressi vely worsening with anticipat ed need for future transplan t was discussed with the pt. Pt was referred to the transplan t clinic. Dialysis options were discussed as well. Will scan records to [facility]'s Direct clinic line: [phone] 158Dr. Rush academic office: [phone] ting of this note might be different from the original. 03/2020: Received records from nephrolog y and hypertens ion (Dr. Emily Rush) clinic at [facility]. DOS: 12/14/2019 Renal function is progressi vely worsening with anticipat ed need for future transplan t was discussed with the pt. Pt was referred to the transplan t clinic. Dialysis options were discussed as well. Will scan records to [facility]'s Direct clinic line: [phone] 158Dr. Rush academic office: [phone] ting of this note might be different from the original. 03/2020: Received records from nephrolog y and hypertens ion (Dr. Emily Rush) clinic at [facility] DOS: 12/14/2019 Renal function is progressi vely worsening with anticipat ed need for future transplan t was discussed with the pt. Pt was referred to the transplan t clinic. Dialysis options were discussed as well. Will scan records to [facility]'s Direct clinic line: [phone] 158Dr. Rush academic office: [phone] ting of this note might be different from the original. 03/2020: Received records from nephrolog y and hypertens ion (Dr. Emily Rush) clinic at [facility] DOS: 12/14/2019 Renal function is progressi vely worsening with anticipat ed need for future transplan t was discussed with the pt. Pt was referred to the transplan t clinic. Dialysis options were discussed as well. Will scan records to [facility]'s Direct clinic line: [phone] Shaka Rush academic office: [phone]: Received records from nephrolog y and hypertens ion (Dr. Emily Rush) clinic at [facility] DOS: 12/14/2019 Renal function is progressi vely worsening with anticipat ed need for future transplan t was discussed with the pt. Pt was referred to the transplan t clinic. Dialysis options were discussed as well. 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 Formattin g of this note might be different from the original. No intervent ion needed per records from [facility] on visit 12/10/2019 . Will scan to EMRFormat ting of this note might be different from the original. No intervent ion needed per records from [facility] on visit 12/10/2019 . Will scan to EMRFormat ting of this note might be different from the original. No intervent ion needed per records from [facility] on visit 12/10/2019 . Will scan to EMRFormat ting of this note might be different from the original. No intervent ion needed per records from [facility] on visit 12/10/2019 . Will scan to EMRNo intervent ion needed per records from [facility] on visit 12/10/2019 . 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 11-26 [facility] ity o f shunt shunt 00:00: g of this [place] status status 00 note Medical might be [...] of 2-21 ity of left left 00:00: [place] kidney kidney Medical Branch Single Single Disease Active Univers kidney kidney 2-21 ity of 00:00: [place] [address] Medical Branch Neurogenic Neurogenic Disease Active U T bowel bowel 2-21 Health 00:00: 00 Urinary Urinary Disease Active 2010-04 UT tract tract 2-30 Health infection, infection, 00:00: site not site not 00 specified specified Obstructiv Obstructiv Disease Active Overview : [facility] hydrocepha hydrocepha 00:00: g of this [...] report to EMR Cystitis, Cystitis, Disease Active MD acute acute 4-16 Health 00:00: 00 Secondary Secondary Disease Active Uni vers hypertensi hypertensi 4-14 it y of on on 00:00: [address] S/p S/p Disease Active UT nephrectom nephrectom 4-14 He alth y y 00:00: 00 Neurogenic Neurogenic Disease Active Overview : UT bladder bladder 4-14 [facility] Healt h 00:00: g of this 00 note might [...] 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 14 Health with with 00:00: hydrocepha hydrocepha 00 [...] 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 4-11 Health occulta occulta 00:00: 00 Ultrasound Ultrasound [...] IBUPROFE DRUG Active Hives Univers N INGREDI 2 ity of 00:00: [place] 00 Medical Branch Latex Propensi Active Unknown - Reaction Uni vers ty to See comments 06-19 not given i ty of adverse 00:00: [place] reaction 00 Medical s Branch LATEX DRUG Active Unknown-Cmnt Univ ers INGREDI 06-19 ity of 00:00: [place] 00 Medical Branch Latex Allergy Active Other UT to 3 reaction( Health substanc 00:00: s): e 00 Unknown - See commentsR eaction not givenReac tion not givenReac tion not given Other reaction( s): Unknown - See commentsR eaction not given Banana Allergy Active Rash 2006-0 UT to 10-31 Health substanc 00:00: e 00 Kiwi Allergy Active Rash 2006-0 UT Extract to 10-31 Health substanc 00:00: e 00 Avocado Propensi Active Swelling 2006-0 Unive rs ty to 7 ity of adverse 00:00: [place] reaction 00 Medical s Branch Banana Propensi Active Rash 2006-0 Univers ty to 7-13 ity of adverse 00:00: [place] reaction 00 Medical s Branch Kiwi Propensi Active Rash 2006-0 Univers ty to 7-13 ity of adverse 00:00: [place] reaction 00 Medical s Branch AVOCADO DRUG Active High Rash 2006-0 Univers INGREDI 7-13 ity of 00:00: [place] 00 Medical Branch KIWI DRUG Active High Rash 2006-0 Univers INGREDI 7-13 ity of 00:00: [place] 00 Medical Branch BANANA DRUG Active Rash 2006-0 Univers INGREDI 7-13 ity of 00:00: [place] 00 Medical Branch Avocado Allergy Active Swelling 2006-0 UT to 10-31 Health substanc 00:00: e 00 NSAIDs Allergy Active [facility] to drug [facility] (finding ans ) Social History Social Habit Start Date Stop Date Quantity Comments Source Alcohol intake 2022-01-21 2022-01-21 University 00:00:00 00:00:[address] [facility] Exposure to 2022-01-07 2022-01-[address] [facility] SARS-CoV-2 00:00:00 11:57:00 [facility] (event) [place] Cigarette 2020-12-19 2020-12-19 [facility] pack-years 00:00:00 00:00:00 Tobacco use and 2017-08-19 2017-08-19 Smokeless tobacco Un iversity of exposure 00:00:00 00:00:[address] [facility] Tobacco Comment 2012-08-28 2012-08-28 No smoke exposure Un iversity of 00:00:00 00:00:[address] [facility] Sex Assigned At 2002 2002 [facility] 00:00:00 00:00:00 Smoking Status Start Date Stop Date Source Tobacco smoking consumption [facility] unknown Never smoked tobacco [facility] Medications Ordered Filled Start Stop Current Ordering Indication Dosage Frequency Signature Comments Components Source Medication Medication Date Date Medication? Clinician (SIG) Name Name nickolas 2021-04 Yes [id number] TAKE 1 UT rol 2-13 CAPSULE Health (Vitamin 00:00: (50,000 D2) 1.25 MG 00 UNITS (40677 UT) TOTAL) BY capsule MOUTH ONCE WEEKLY oxybutynin 2021-04 Yes [id number] TAKE 1 UT XL 2-12 TABLET (15 Health (Ditropan-X 00:00: MG TOTAL) L) 15 MG 24 00 BY MOUTH hr tablet ONE TIME EACH DAY. FLUTICASONE 2021-04 Yes [id number] SPRAY 1 Univers PROPIONATE 0-24 SPRAY INTO ity of 50 00:00: EACH [place] mcg/actuati 00 NOSTRIL Medic al on nasal EVERY DAY Branch spray FLUTICASONE 2021-04 Yes [id number] SPRAY 1 Univers PROPIONATE 0-24 SPRAY INTO ity of 50 00:00: EACH [place] mcg/actuati 00 NOSTRIL Medic al on nasal EVERY DAY Branch spray FLUTICASONE 2021-04 Yes [id number] SPRAY 1 Univers PROPIONATE 0-24 SPRAY INTO ity of 50 00:00: EACH [place] mcg/actuati 00 NOSTRIL Medic al on nasal EVERY DAY Branch spray FLUTICASONE 2021-04 Yes [id number] SPRAY 1 Univers PROPIONATE 0-24 SPRAY INTO ity of 50 00:00: EACH [place] mcg/actuati 00 NOSTRIL Medic al on nasal EVERY DAY Branch spray fluticasone Yes [id number] 1{spray Use 1 Univers propionate 9-28 } [place] in ity o f 50 00:00: each [place] mcg/actuati 00 nostril Medic al on nasal daily. Branch spray fluticasone Yes [id number] 1{spray Use 1 Univers propionate 9-28 } [place] in ity o f 50 00:00: each [place] mcg/actuati 00 nostril Medic al on nasal daily. Branch spray fluticasone Yes [id number] 1{spray Use 1 Univers propionate 9-28 } [place] in ity o f 50 00:00: each [place] mcg/actuati 00 nostril Medic al on nasal daily. Branch spray fluticasone Yes [id number] 1{spray Use 1 Univers propionate 9-28 } [place] in ity o f 50 00:00: each [place] mcg/actuati 00 nostril Medic al on nasal daily. Branch spray fluticasone 2021- No [id number] 1{spray Use 1 Univers propionate 9-28 10-24 } [place] in ity of 50 00:00: 00:00 each [place] mcg/actuati 00 :00 nostril Medic al on nasal daily. Branch spray ferrous 2022- No [id number] 325mg [id number] Take 1 UT sulfate 325 6-16 06-17 [id number] tablet Health (65 Fe) MG 00:00: 04:59 3D (325 mg tablet 00 :00 total) by mouth in the morning and 1 tablet (325 mg total) at noon and 1 tablet (325 mg total) in the evening. calcitriol Yes [id number] TAKE 1 U T (Rocaltrol) 6-08 CAPSULE BY He alth 0.25 MCG 00:00: MOUTH capsule 00 EVERY FRIDAY, FRIDAY, FRIDAY, AND FRIDAY lisinopril Yes [id number] 10mg QD Take 1 U T 10 MG 5-17 tablet (10 Health tablet 00:00: mg total) 00 by mouth 1 (one) time each day. lisinopril Yes [id number] 10mg QD Take 1 U T 10 MG 5-17 tablet (10 Health tablet 00:00: mg total) 00 by mouth 1 (one) time each day. calcitriol 2021- No [id number] TAKE 1 UT (Rocaltrol) 5-17 06-08 CAPSULE BY H ealth 0.25 MCG 00:00: 00:00 MOUTH capsule 00 :00 EVERY FRIDAY, FRIDAY, FRIDAY, AND FRIDAY oxybutynin Yes [id number] 15mg QD Take 1 UT XL 4-22 tablet (15 Health (Ditropan-X 00:00: mg total) L) 15 MG 24 00 by mouth 1 hr tablet (one) time each day. oxybutynin 2021- No 5mg Take 5 mg U nivers XL 4-01 04-01 by mouth 3 ity of (DITROPAN-X 15:20: 00:00 (three[place] L) 5 mg 24 10 :00 times Medical hr tablet daily. Branch cephALEXin 2-0 Yes 250mg Take 250 Un boy 250 mg 4-01 mg by ity of capsule 15:19: mouth [place] 23 daily. Medical Branch cephALEXin 2-0 Yes 250mg Take 250 Un boy 250 mg 4-01 mg by ity of capsule 15:19: mouth [place] 23 daily. Medical Branch cephALEXin 2-0 Yes 250mg Take 250 Un boy 250 mg 4-01 mg by ity of capsule 15:19: mouth [place] 23 daily. Medical Branch cephALEXin 2-0 Yes 250mg Take 250 Un boy 250 mg 4-01 mg by ity of capsule 15:19: mouth [place] 23 daily. Medical Branch cephALEXin 2-0 Yes 250mg Take 250 Un boy 250 mg 4-01 mg by ity of capsule 15:19: mouth [place] 23 daily. Medical Branch cephALEXin 2-0 Yes 250mg Take 250 Un boy 250 mg 4-01 mg by ity of capsule 15:19: mouth [place] 23 daily. Medical Branch cephALEXin 2-0 Yes 250mg Take 250 Un boy 250 mg 4-01 mg by ity of capsule 15:19: mouth [place] 23 daily. Medical Branch cephALEXin 2-0 Yes 250mg Take 250 Un boy 250 mg 4-01 mg by ity of capsule 15:19: mouth [place] 23 daily. Medical Branch cephALEXin 2-0 Yes 250mg Take 250 Un boy 250 mg 4-01 mg by ity of capsule 15:19: mouth [place] 23 daily. Medical Branch cephALEXin 2-0 Yes 250mg Take 250 Un boy 250 mg 4-01 mg by ity of capsule 15:19: mouth [place] 23 daily. Medical Branch lisinopriL 2-0 Yes 10mg Take 10 mg U nivers 10 mg 4-01 by mouth ity of tablet 15:18: daily. Medical Branch lisinopriL 2022-0 Yes 10mg Take 10 mg U nivers 10 mg 4-01 by mouth ity of tablet 15:18: daily. Medical Branch lisinopriL 2022-0 Yes 10mg Take 10 mg U nivers 10 mg 4-01 by mouth ity of tablet 15:18: daily. [address] lisinopriL Yes 10mg Take 10 mg U nivers 10 mg 4-01 by mouth ity of tablet 15:18: daily. [place] [facility] lisinopriL Yes 10mg Take 10 mg U nivers 10 mg 4-01 by mouth ity of tablet 15:18: daily. [address] lisinopriL Yes 10mg Take 10 mg U nivers 10 mg 4-01 by mouth ity of tablet 15:18: daily. [address] lisinopriL Yes 10mg Take 10 mg U nivers 10 mg 4-01 by mouth ity of tablet 15:18: daily. [address] lisinopriL Yes 10mg Take 10 mg U nivers 10 mg 4-01 by mouth ity of tablet 15:18: daily. [address] lisinopriL Yes 10mg Take 10 mg U nivers 10 mg 4-01 by mouth ity of tablet 15:18: daily. [address] lisinopriL Yes 10mg Take 10 mg U nivers 10 mg 4-01 by mouth ity of tablet 15:18: daily. [address] sodium 2020-04- No [id number] 1950mg Q.[id number] Take 3 UT bicarbonate 05-30 1210 [id number] tablets Health 650 MG 00:00: 05:59 3D [...] 11-27 Health 250 MG 00:00: capsule 00 cephalexin 2020-0 Yes UT (Keflex) 8-09 Health 250 MG 00:00: capsule 00 nitrofurant 2020-0 Yes 50mg Take 50 mg UT oin 7-26 by mouth Health ([place] 00:00: every n) 50 MG 00 night. capsule lisinopril 2020-0 Yes [id number] 10mg QD Take 1 U T 10 MG 6-10 tablet (10 Health tablet 00:00: mg total) 00 by mouth 1 (one) time each day. lisinopril 2020-0 Yes [id number] 10mg QD Take 1 U T 10 [...] by ity of ORAL 09:35: mouth 2 [place] [address] ([facility]) Medical times Branch daily with meals. CALCIUM 2020-1 Yes 500mg Take 500 Unive rs CARBONATE 2-09 mg by ity of ORAL 09:35: mouth 2 [place] [address] (two) Medical times Branch daily with meals. CALCIUM 2020-1 Yes 500mg Take 500 Unive rs CARBONATE 2-09 mg by ity of ORAL 09:35: mouth 2 [place] [address] (two) Medical times Branch daily with meals. CALCIUM 2020-1 Yes 500mg Take 500 Unive rs CARBONATE 2-09 mg by ity of ORAL 09:35: mouth 2 [place] [address] (two) Medical times Branch daily with meals. CALCIUM 2020-1 Yes 500mg Take 500 Unive rs CARBONATE 2-09 mg by ity of ORAL 09:35: mouth 2 [place] [address] (two) Medical times Branch daily with meals. CALCIUM 2020-1 Yes 500mg Take 500 Unive rs CARBONATE 2-09 mg by ity of ORAL 09:35: mouth 2 [place] [address] (two) Medical times Branch daily with meals. CALCIUM 2020-1 Yes 500mg Take 500 Unive rs CARBONATE 2-09 mg by ity of ORAL 09:35: mouth 2 [place] [address] (two) Medical times Branch daily with meals. CALCIUM 2020-1 Yes 500mg Take 500 Unive rs CARBONATE 2-09 mg by ity of ORAL 09:35: mouth 2 [place] 38 (two) Medical times Branch daily with meals. CALCIUM 2019-04 Yes 500mg Take 500 Unive rs CARBONATE 2-09 mg by ity of ORAL 09:35: mouth 2 [place] 38 (two) Medical times Branch daily with meals. CALCIUM 2019-04 Yes 500mg Take 500 Unive rs CARBONATE 2-09 mg by ity of ORAL 09:35: mouth 2 [place] 38 (two) Medical times Branch daily with meals. ferrous Yes TAKE 1 Univers sulfate 325 9-13 TABLET BY ity of mg (65 mg 00:00: MOUTH [place] iron) 00 THREE Medical tablet TIMES A Branch DAY calcitriol Yes TAKE 1 Unive rs 0.25 mcg 9-13 CAPSULE ON ity o f capsule 00:00: M, W, F, 00 DUDLEY AND 2 Medical CAPSULES Branch ON , , ferrous Yes TAKE 1 Univers sulfate [...] o f capsule 00:00: M, W, F, [place] 00 DUDLEY AND 2 Medical CAPSULES Branch ON , , ferrous Yes TAKE 1 Univers sulfate [...] 00 TIME PER Medi domonique capsule WEEK [place] ergocalcife Yes TAKE ONE Un boy rol, 9-07 CAPSULE BY ity of vitamin d2, 00:00: MOUTH ONE [place],000 unit 00 TIME PER Medi domonique capsule WEEK [place] ergocalcife Yes TAKE ONE Un boy rol, [...] ergocalcife Yes TAKE ONE Un boy rol, 9- CAPSULE BY ity of vitamin d2, 00:00: MOUTH ONE [place] 50,000 unit 00 TIME PER Medi domonique capsule WEEK Branch ergocalcife Yes TAKE ONE UT rol 9- CAPSULE BY Health (Vitamin 00:00: MOUTH ONE D-2) 1.25 00 TIME PER MG ( UT) capsule ergocalcife Yes TAKE ONE UT rol 9- CAPSULE BY Health (Vitamin 00:00: MOUTH ONE D-2) 1.25 00 TIME PER MG ( UT) capsule ergocalcife 2021- No TAKE ONE U T rol 12-26 06- CAPSULE BY Health (Vitamin 00:00: 00:00 MOUTH ONE D-2) 1.25 00 :00 TIME PER MG ( UT) capsule nitrofurant 2021- No TAKE 1 [...] 10mg Take 10 mg U T (Norvasc) 11-21 by mouth. Healt h 10 MG 00:00: tablet 00 amLODIPine 2021- No 10mg Take 10 mg Univers 10 mg 11-21 by mouth 2 ity of tablet 00:00: 00:00 (two) [place] 00 :00 times Medical daily. Branch oxybutynin Yes 15mg Take 15 mg U nivers 15 mg 24 hr 7-31 by mouth ity of tablet 00:00: daily. [place] Medical Branch oxybutynin Yes 15mg Take 15 mg U nivers 15 mg 24 hr 7-31 by mouth ity of tablet 00:00: daily. [place] Medical Branch oxybutynin Yes 15mg Take 15 mg U nivers 15 mg 24 hr 7-31 by mouth ity of tablet 00:00: daily. [place] Medical Branch oxybutynin Yes 15mg Take 15 mg U nivers 15 mg 24 hr 7-31 by mouth ity of tablet 00:00: daily. [place] Medical Branch oxybutynin Yes 15mg Take 15 mg U nivers 15 mg 24 hr 7-31 by mouth ity of tablet 00:00: daily. [place] [facility] Branch oxybutynin Yes 15mg Take 15 mg U nivers 15 mg 24 hr 7-31 by mouth ity of tablet 00:00: daily. [place] Medical Branch oxybutynin Yes 15mg Take 15 mg U nivers 15 mg 24 hr 7-31 by mouth ity of tablet 00:00: daily. [place] [facility] Branch oxybutynin Yes 15mg Take 15 mg U nivers 15 mg 24 hr 7-31 by mouth ity of tablet 00:00: daily. [place] [facility] Branch oxybutynin Yes 15mg Take 15 mg U nivers 15 mg 24 hr 7-31 by mouth ity of tablet 00:00: daily. [address] oxybutynin Yes 15mg Take 15 mg U nivers 15 mg 24 hr 7-31 by mouth ity of tablet 00:00: daily. [address] Vitamin D Vitamin D Yes DENIS TAKE 1 UT (Ergocalcif (Ergocalcif 1-26 ALCARAZ CAPSULE [facility] suma) 1.25 suma) 1.25 00:00: M.D. WEEKLY. ans MG (67825 MG (36558 00 UT) Oral UT) Oral Capsule Capsule Calcium Calcium 2016-04 Yes DENIS TAKE 2 UT Carbonate Carbonate 0-24 ALCARAZ TABLET [facility] Antacid 500 Antacid 500 00:00: M.D. Before ans MG Oral MG Oral 00 meals tid Tablet Tablet Chewable Chewable lisinopril 2021- No 5mg Take 5 mg U nivers 5 mg tablet 11-06 by mouth ity of 00:00: 00:00 daily. [place] 00 :00 [facility] Calcitriol Calcitriol Yes DENIS TAKE 1 UT 0.25 MCG 0.25 MCG 5-05 ALCARAZ CAPSULE on [facility] Oral Oral 00:00: M.D. M, W, F, ans Capsule Capsule 00 [place] and 2 capsules on , , Ferrous Ferrous Yes DENIS Q0.3333D TAKE 1 UT Sulfate 325 Sulfate 325 8-04 ALCARAZ TABLET 3 [facility] (65 Fe) MG (65 Fe) MG 00:00: M.D. TIMES ans Oral Tablet Oral Tablet 00 DAILY. Oxybutynin Oxybutynin Yes DENIS TAKE 1 UT Chloride ER Chloride ER 5-09 ALCARAZ TABLET BY [facility] 15 MG Oral [...] MG 24 00 hr tablet Sodium Sodium Yes DENIS TAKE 2 UT Bicarbonate Bicarbonate 1-24 ALCARAZ TABLETS BY [facility] 650 MG Oral 650 MG Oral 00:00: M.D. MOUTH 3 ans Tablet Tablet 00 TIMES A DAY Immunizations Ordered Immunization Filled Date Status Comments Sour ce Name Immunization Name Meningococcal B, OMV 2021-07-20 Completed [facility] ers[facility] of 00:00:00 [facility] Meningococcal B, OMV 2021-07-20 Completed [facility] ersity of 00:00:00 [facility] Meningococcal B, OMV 2021-07-20 Completed Univ ersity of 00:00:00 [facility] Meningococcal B, OMV 2021-07-20 Completed Univ ersity of 00:00:00 [facility] Meningococcal B, OMV 2021-07-20 Completed Univ ersity of 00:00:00 [facility] Meningococcal B, OMV 2021-07-20 Completed Univ ersity of 00:00:00 [facility] Meningococcal B, OMV 2021-07-20 Completed [facility] ersity of 00:00:[address] [facility] Meningococcal B, OMV 2021-07-20 Completed Univ ersity of 00:00:[address] [facility] Meningococcal B, OMV 2021-07-20 Completed Univ ersity of 00:00:[address] [facility] Meningococcal B, OMV 2021-07-20 Completed Univ ersity of 00:00:[address] [facility] SARS-COV-2 COVID-19 2021-05-18 Completed Unive rsity of MODERNA BOOSTER 00:00:00 [facility] VACCINE Branch SARS-COV-2 COVID-19 2021-05-18 Completed Unive rsity of MODERNA 0.25ML BOOSTER 00:00:00 [facility] VACCINE Branch SARS-COV-2 COVID-19 2021-05-18 Completed Unive rsity of MODERNA 0.25ML BOOSTER 00:00:00 [facility] VACCINE Branch SARS-COV-2 COVID-19 2021-05-18 Completed Unive rsity of MODERNA 0.25ML BOOSTER 00:00:00 [facility] VACCINE Branch SARS-COV-2 COVID-19 2021-05-18 Completed Unive rsity of MODERNA 0.25ML BOOSTER 00:00:00 [facility] VACCINE Branch SARS-COV-2 COVID-19 2021-05-18 Completed Unive rsity of MODERNA 0.25ML BOOSTER 00:00:00 [facility] VACCINE Branch SARS-COV-2 COVID-19 2021-05-18 Completed Unive rsity of MODERNA 0.25ML BOOSTER 00:00:00 [facility] VACCINE Branch SARS-COV-2 COVID-19 2021-05-18 Completed Unive rsity of MODERNA 0.25ML BOOSTER 00:00:00 [facility] VACCINE Branch SARS-COV-2 COVID-19 2021-05-18 Completed Unive rsity of MODERNA 0.25ML BOOSTER 00:00:00 [facility] VACCINE Branch SARS-COV-2 COVID-19 2021-05-18 Completed Unive rsity of MODERNA 0.25ML BOOSTER 00:00:00 [facility] VACCINE Branch SARS-COV-2 COVID-19 2020-07-26 Completed Unive rsity of MODERNA VACCINE 00:00:00 [facility] ical Branch SARS-COV-2 COVID-19 2020-07-26 Completed Unive rsity of MODERNA VACCINE 00:00:00 [facility] ical Branch SARS-COV-2 COVID-19 2020-07-26 Completed Unive rsity of MODERNA 12+ YRS 00:00:00 [facility] ical VACCINE Branch SARS-COV-2 COVID-19 2020-07-26 Completed Unive rsity of MODERNA 12+ YRS 00:00:00 [facility] ical VACCINE Branch SARS-COV-2 COVID-19 2020-07-26 Completed Unive rsity of MODERNA 12+ YRS 00:00:00 [facility] ical VACCINE Branch SARS-COV-2 COVID-19 2020-07-26 Completed Unive rsity of MODERNA 12+ YRS 00:00:00 [facility] ical VACCINE Branch SARS-COV-2 COVID-19 2020-07-26 Completed Unive rsity of MODERNA 12+ YRS 00:00:00 [place] [facility] VACCINE Branch SARS-COV-2 COVID-19 2020-07-26 Completed Unive rsity of MODERNA 12+ YRS 00:00:00 [place] [facility] VACCINE [facility] SARS-COV-2 COVID-19 2020-07-26 Completed Unive rsity of MODERNA 12+ YRS 00:00:00 [place] [facility] VACCINE Branch SARS-COV-2 COVID-19 2020-07-26 Completed Unive rsity of MODERNA 12+ YRS 00:00:00 [place] [facility] VACCINE [facility] COVID-19 Pfizer & 2020-07-26 [facility] Vacc[facility]:00 (PURPLE-DILUTE) COVID-19 Pfizer & 2020-07-26 [facility] Vacc[facility] 00:00:00 (PURPLE-DILUTE) COVID-19 Pfizer & 2020-07-26 [facility] 00:00:00 COVID-19 Pfizer & 2020-06-28 [facility] Vacc[facility] 00:00:00 SARS-COV-2 COVID-19 2020-06-28 Completed Unive rsity of MODERNA VACCINE 00:00:00 [facility] ical Branch SARS-COV-2 COVID-19 2020-06-28 Completed Unive rsity of MODERNA VACCINE 00:00:00 [facility] ical Branch SARS-COV-2 COVID-19 2020-06-28 Completed Unive rsity of MODERNA 12+ YRS 00:00:00 [place] [facility] VACCINE Branch SARS-COV-2 COVID-19 2020-06-28 Completed Unive rsity of MODERNA 12+ YRS 00:00:00 [place] [facility] VACCINE Branch SARS-COV-2 COVID-19 2020-06-28 Completed Unive rsity of MODERNA 12+ YRS 00:00:00 [place] [facility] VACCINE Branch SARS-COV-2 COVID-19 2020-06-28 Completed Unive rsity of MODERNA 12+ YRS 00:00:00 [place] [facility] VACCINE Branch SARS-COV-2 COVID-19 2020-06-28 Completed Unive rsity of MODERNA 12+ YRS 00:00:00 [place] [facility] VACCINE Branch SARS-COV-2 COVID-19 2020-06-28 Completed Unive rsity of MODERNA 12+ YRS 00:00:00 [facility] ica VACCINE Branch SARS-COV-2 COVID-19 2020-06-28 Completed Unive rsity of MODERNA 12+ YRS 00:00:00 [facility] ical VACCINE Branch SARS-COV-2 COVID-19 2020-06-28 Completed Unive rsity of MODERNA 12+ YRS 00:00:00 [facility] VACCINE Branch COVID-19 Pfizer & 2020-06-28 [facility]:00 (PURPLE-DILUTE) COVID-19 Pfizer & 2020-06-28 [facility] Vacc[facility] 00:00:00 (PURPLE-DILUTE) Meningococcal B, 2020-03-29 [facility] Recombinant 00:[facility]:00 Influenza, seasonal, 2020-03-29 [facility] injectable 00:00:00 Influenza Virus 2020-03-29 Completed [facility]it y of Vaccine Quad .5 mL IM 00:00:00 [facility] 6+ MO [facility] Meningococcal B, 2020-03-29 Completed Universi ty of Recombinant 00:00:[address] [facility] Influenza Virus 2020-03-29 Completed Universit y of Vaccine Quad .5 mL IM 00:00:00 [facility] 6[facility] MO [facility] Meningococcal B, 2020-03-29 Completed Universi ty of Recombinant 00:00:[address] [facility] Influenza Virus 2020-03-29 Completed Universit y of Vaccine Quad .5 mL IM 00:00:00 [facility] 6+ MO [facility] Meningococcal B, 2020-03-29 Completed Universi ty of Recombinant 00:00:[address] [facility] Influenza Virus 2020-03-29 Completed Universit y of Vaccine Quad .5 mL IM 00:00:00 [facility] 6[facility] MO [facility] Meningococcal B, 2020-03-29 Completed Universi ty of Recombinant 00:00:[address] [facility] Influenza Virus 2020-03-29 Completed Universit y of Vaccine Quad .5 mL IM 00:00:00 [facility] 6[facility] MO [facility] Meningococcal B, 2020-03-29 Completed Universi ty of Recombinant 00:00:[address] [facility] Influenza Virus 2020-03-29 Completed Universit y of Vaccine Quad .5 mL IM 00:00:00 [facility] 6[facility] MO [facility] Meningococcal B, 2020-03-29 Completed Universi ty of Recombinant 00:00:[address] [facility] Influenza Virus 2020-03-29 Completed Universit y of Vaccine Quad .5 mL IM 00:00:00 [facility] 6[facility] MO [facility] Meningococcal B, 2020-03-29 Completed Universi ty of Recombinant 00:00:[address] [facility] Influenza Virus 2020-03-29 Completed Universit y of Vaccine Quad .5 mL IM 00:00:00 [facility] 6[facility] MO [facility] Meningococcal B, 2020-03-29 Completed Universi ty of Recombinant 00:00:[address] [facility] Influenza Virus 2020-03-29 Completed Universit y of Vaccine Quad .5 mL IM 00:00:00 [facility] 6[facility] MO [facility] Meningococcal B, 2020-03-29 Completed Universi ty of Recombinant 00:00:[address] [facility] Influenza Virus 2020-03-29 Completed Universit y of Vaccine Quad .5 mL IM 00:00:00 [facility] 6[facility] MO [facility] Meningococcal B, 2020-03-29 Completed Universi ty of Recombinant 00:00:[address] [facility] Influenza, seasonal, 2020-03-29 [facility]:00 Meningococcal B, 2020-03-29 [facility]combinant 00:00:00 Influenza, seasonal, 2020-03-29 [facility] injectable 00:00:00 Meningococcal B, 2020-03-29 [facility]combinant 00:00:00 Meningococcal MCV4P 2019 [facility] Influenza, seasonal, 2019 [facility] injectable [facility]:00 Meningococcal 2019 Completed University of Polysaccharide [...] 00:00:00 [facility] 6[facility] Influenza, seasonal, 2019 [facility] injectable 00:00:00 Meningococcal MCV4P 2019 [facility] 00:[facility]:00 Influenza, seasonal, 2019 [facility] injectable 00:00:00 Meningococcal MCV4P 2019 [facility] 00:[facility]:00 HPV 9-Valent 2016-11-13 [facility] 00:00:00 HPV9 2016-11-13 Completed University of 00:00:[address] [facility] HPV9 2016-11-13 Completed University of 00:00:[address] [facility] HPV9 2016-11-13 Completed University of 00:00:[address] [facility] HPV9 2016-11-13 Completed University of 00:00:[address] [facility] HPV9 2016-11-13 Completed University of 00:00:[address] [facility] HPV9 2016-11-13 Completed University of 00:00:[address] [facility] HPV9 2016-11-13 Completed University of 00:00:[address] [facility] HPV9 2016-11-13 Completed University of 00:00:[address] [facility] HPV9 2016-11-13 Completed University of 00:00:[address] [facility] HPV9 2016-11-13 Completed University of 00:00:[address] [facility] HPV 9-Valent 2016-11-13 [facility] 00:00:00 HPV 9-Valent 2016-11-13 Com[facility] 00:00:00 Influenza, Unspecified 2015-01-23 Completed [facility] 00:00:00 HPV 9-Valent 2015-01-23 Completed [facility] 00:00:00 Influenza, injectable, 2015-01-23 Completed [facility] quadrivalent 00:00:00 HPV 9-Valent 2015-01-23 Completed [facility] 00:00:00 Influenza Virus 2015-01-23 Completed [facility]it y of Vaccine Quad IM 00:00:00 [place] [facility] Multi-dose 6+ MO Branch HPV9 2015-01-23 Completed [facility] of 00:00:[address] [facility] Influenza Virus 2015-01-23 Completed Universit y of Vaccine Quad IM 00:00:00 [place] [facility] Multi-dose 6+ MO Branch HPV9 2015-01-23 Completed University of 00:00:[address] [facility] Influenza Virus 2015-01-23 Completed Universit y of Vaccine Quad IM 00:00:00 [place] [facility] Multi-dose 6+ MO Branch HPV9 2015-01-23 Completed University of 00:00:[address] [facility] Influenza Virus 2015-01-23 Completed Universit y of Vaccine Quad IM 00:00:00 [place] [facility] Multi-dose 6+ MO Branch HPV9 2015-01-23 Completed University of 00:00:[address] [facility] Influenza Virus 2015-01-23 Completed Universit y of Vaccine Quad IM 00:00:00 [place] [facility] Multi-dose 6+ MO Branch HPV9 2015-01-23 Completed University of 00:00:[address] [facility] Influenza Virus 2015-01-23 Completed Universit y of Vaccine Quad IM 00:00:00 [place] [facility] Multi-dose 6+ MO Branch HPV9 2015-01-23 Completed University of 00:00:[address] [facility] Influenza Virus 2015-01-23 Completed Universit y of Vaccine Quad IM 00:00:00 [place] [facility] Multi-dose 6+ MO Branch HPV9 2015-01-23 Completed [facility] of 00:00:[address] [facility] Influenza Virus 2015-01-23 Completed Universit y of Vaccine Quad IM 00:00:00 [place] [facility] Multi-dose 6+ MO Branch HPV9 2015-01-23 Completed [facility] of 00:00:[address] [facility] Influenza Virus 2015-01-23 Completed Universit y of Vaccine Quad IM 00:00:00 [place] [facility] Multi-dose 6+ MO Branch HPV9 2015-01-23 Completed [facility] of 00:00:[address] [facility] Influenza Virus 2015-01-23 Completed Universit y of Vaccine Quad IM 00:00:00 [place] [facility] Multi-dose 6+ MO Branch HPV9 2015-01-23 Completed [facility] of 00:00:[address] [facility] influenza virus 2015-01-23 [facility] vaccine, unspecified 00:00:00 formulation Gardasil 9 2015-01-23 [facility] Intramuscular 00:00:00 Suspension HPV 9-Valent 2015-01-23 Completed [facility] 00:00:00 Influenza, Unspecified 2015-01-23 Completed [facility] 00:00:00 HPV 9-Valent 2015-01-23 Completed [facility] 00:00:00 Influenza, injectable, 2015-01-23 Completed [facility] quadrivalent (afluria, 00:00:00 fluzone) HPV 9-Valent 2015-01-23 Completed [facility] 00:00:00 Influenza, Unspecified 2015-01-23 Completed [facility] 00:00:00 HPV 9-Valent 2015-01-23 [facility] 00:00:00 Influenza, injectable, 2015-01-23 Completed [facility] quadrivalent (afluria, 00:00:00 fluzone) Influenza, Unspecified 2013-12-24 Completed [facility] 00:00:00 Influenza, seasonal, 2013-12-24 [facility] injectable 00:00:00 Meningococcal MCV4O 2013-12-24 [facility] 00:[facility]:00 Meningococcal MCV4, 2013-12-24 [facility] Unspecified 00:00:00 TDAP 2013-12-24 Completed [facility] of 00:00:[address] [facility] Influenza Virus 2013-12-24 Completed Universit y of Vaccine (3+ yrs) 00:00:00 [facility] Meningococcal 2013-12-24 Completed University of Oligosaccharide 00:00:00 [place] [facility] (groups A, C, Y and Branc h W-135) conjugate vaccine (MCV4O) TDAP 2013-12-24 Completed University of 00:00:[address] [facility] Tdap 2013-12-24 Completed [facility] 00:00:00 Influenza Virus 2013-12-24 Completed Universit y of Vaccine (3+ yrs) 00:00:00 [facility] Meningococcal 2013-12-24 Completed University of Oligosaccharide 00:00:00 [place] [facility] (groups A, C, Y and Branc h W-135) conjugate vaccine (MCV4O) TDAP 2013-12-24 Completed University of 00:00:[address] [facility] Influenza Virus 2013-12-24 Completed Universit y of Vaccine (3+ yrs) 00:00:00 [facility] Meningococcal 2013-12-24 Completed [facility] of Oligosaccharide 00:00:00 [place] [facility] (groups A, C, Y and Branc h W-135) conjugate vaccine (MCV4O) TDAP 2013-12-24 Completed University of 00:00:[address] [facility] Influenza Virus 2013-12-24 Completed Universit y of Vaccine (3+ yrs) 00:00:00 [facility] Meningococcal 2013-12-24 Completed [facility] of Oligosaccharide 00:00:00 [place] [facility] (groups A, C, Y and Branc h W-135) conjugate vaccine (MCV4O) TDAP 2013-12-24 Completed University of 00:00:[address] [facility] Tdap 2013-12-24 Completed [facility] 00:00:00 Influenza Virus 2013-12-24 Completed Universit y of Vaccine (3+ yrs) 00:00:00 [facility] Meningococcal 2013-12-24 Completed University of Oligosaccharide 00:00:00 [place] [facility] (groups A, C, Y and Branc h W-135) conjugate vaccine (MCV4O) TDAP 2013-12-24 Completed University of 00:00:[address] [facility] Influenza Virus 2013-12-24 Completed Universit y of Vaccine (3+ yrs) 00:00:00 [facility] Meningococcal 2013-12-24 Completed [facility] of Oligosaccharide 00:00:00 [place] [facility] (groups A, C, Y and Branc h W-135) conjugate vaccine (MCV4O) TDAP 2013-12-24 Completed University of 00:00:[address] [facility] Influenza Virus 2013-12-24 Completed Universit y of Vaccine (3+ yrs) 00:00:00 [facility] Meningococcal 2013-12-24 Completed [facility] of Oligosaccharide 00:00:00 [place] [facility] (groups A, C, Y and Branc h W-135) conjugate vaccine (MCV4O) TDAP 2013-12-24 Completed [facility] of 00:00:[address] [facility] Influenza Virus 2013-12-24 Completed Universit y of Vaccine (3+ yrs) 00:00:00 [facility] Meningococcal 2013-12-24 Completed [facility] of Oligosaccharide 00:00:00 [place] [facility] (groups A, C, Y and Branc h W-135) conjugate vaccine (MCV4O) TDAP 2013-12-24 Completed [facility] of 00:00:[address] [facility] Influenza Virus 2013-12-24 Completed Universit y of Vaccine (3+ yrs) 00:00:00 [facility] Meningococcal 2013-12-24 Completed [facility] of Oligosaccharide 00:00:00 [place] [facility] (groups A, C, Y and Branc h W-135) conjugate vaccine (MCV4O) TDAP 2013-12-24 Completed University of 00:00:[address] [facility] Influenza Virus 2013-12-24 Completed Universit y of Vaccine (3+ yrs) 00:00[facility]00 [facility] 2013-12-24 Com[facility] 00:00:00 [facility] ical (groups A, C, Y [...] Completed [facility] quadrivalent (afluria, 00:00:00 fluzone) Influenza, injectable, 2013-02-28 Completed [facility] quadrivalent (afluria, 00:00:00 fluzone) Influenza Virus 2012-02-18 Completed [facility] of Vaccine - Whole 00:00:00 [place] [facility] Influenza Virus 2012-02-18 Completed [facility] of Vaccine - Whole 00:00:00 [facility] Influenza, seasonal, 2012-02-18 [facility] injectable [facility]:00:00 Influenza, seasonal, 2012-02-18 [facility] injectable 00:00:00 Influenza, seasonal, 2012-02-18 [facility] injectable 00:00:00 Influenza Virus 2006-04-24 Completed Universit y of Vaccine - Whole 00:00:00 [facility] Influenza Virus 2006-04-24 Completed Universit y of Vaccine - Whole 00:00:00 [facility] Influenza, seasonal, 2006-04-24 [facility] injectable 00:00:00 Influenza, Unspecified 2006-04-24 [facility] 00:00:00 influenza virus 2006-04-24 [facility] vaccine, unspecified 00:00:00 formulation Influenza, Unspecified 2006-04-24 Completed [facility] 00:00:00 Influenza, seasonal, 2006-04-24 [facility] injectable 00:00:00 Influenza, Unspecified 2006-04-24 Completed [facility] 00:00:00 Influenza, seasonal, 2006-04-24 [facility] injectable 00:00:00 Hep B, Adol or Pedi 2006-04-02 Completed Unive rsity of Dosage 00:00:[address] [facility] Hep B, Adol or Pedi 2006-04-02 Completed Unive rsity of Dosage 00:00:[address] [facility] Hep B, Adolescent or 2006-04-02 [facility] 00:[facility]:00 Hepatitis B, 2006-04-02 [facility]ad[facility] 00:00:00 dosage Hep B, Adolescent or 2006-04-02 [facility] 00:00:00 Hep B, Adolescent or 2006-04-02 [facility] 00[facility]00:00 DTAP 2006-03-27 Completed University 00:00:[address] [facility] HEPATITIS A 2006-03-27 Completed University 00:00:[address] [facility] Influenza Virus 2006-03-27 Completed Universit y of Vaccine - Whole 00:00:00 [facility] Polio (IPV/OPV) 2006-03-27 Completed [facility] y of 00:00:[address] [facility] Proqu 2006-03-27 Completed University of (MMR/VARICELLA) 00:00:00 [facility] Polio (IPV/OPV) 2006-03-27 Completed Universit y of 00:00:[address] [facility] Proquad 2006-03-27 Completed University of (MMR/VARICELLA) 00:00:00 [facility] Polio (IPV/OPV) 2006-03-27 Completed Universit y of 00:00:[address] [facility] 2006-03-27 Completed University of (MMR/VARICELLA) 00:00:00 [facility] Polio (IPV/OPV) 2006-03-27 Completed [facility]it y of 00:00:[address] [facility] 2006-03-27 Completed University of (MMR/VARICELLA) 00:00:00 [facility] Polio (IPV/OPV) 2006-03-27 Completed [facility] of 00:00:00 [facility] 2006-03-27 Completed University of (MMR/VARICELLA) 00:00:00 [facility] Polio (IPV/OPV) 2006-03-27 Completed [facility] y of 00:00:00 [facility] 2006-03-27 Completed University of (MMR/VARICELLA) 00:00:00 [facility] Polio (IPV/OPV) 2006-03-27 Completed [facility] of 00:00:00 [facility] 2006-03-27 Completed University of (MMR/VARICELLA) 00:00:00 [facility] Polio (IPV/OPV) 2006-03-27 Completed [facility]it y of 00:00:[address] [facility] Proquad 2006-03-27 Completed University of (MMR/VARICELLA) 00:00:00 [facility] Polio (IPV/OPV) 2006-03-27 Completed [facility]it y of 00:00:[address] [facility] Proad 2006-03-27 Completed University of (MMR/VARICELLA) 00:00:00 [facility] DTAP 2006-03-27 Completed University of 00:00:[address] [facility] HEPATITIS A 2006-03-27 Completed University of 00:00:[address] [facility] Influenza Virus 2006-03-27 Completed Universit y of Vaccine - Whole 00:00:00 [facility] Polio (IPV/OPV) 2006-03-27 Completed [facility] of 00:00:[address] [facility] Proquad 2006-03-27 Completed University of (MMR/VARICELLA) 00:00:00 [facility] Influenza, Unspecified 2006-03-27 [facility] 00:00:00 Hep A, ped/adol, 2 2006-03-27 [facility] dose [facility]:00 MMR 2006-03-27 Completed [facility] 00:00:00 Polio, Unspecified 2006-03-27 [facility] 00:[facility]:00 MMRV 2006-03-27 Completed [facility] 00:00:00 DTaP 2006-03-27 Completed [facility] 00:00:00 M-M-R II Subcutaneous 2006-03-27 [facility]pleted [facility] Injectable 00:00:00 hepatitis A vaccine, 2006-03-27 [facility] 00:00:00 dosage, 2 dose schedule influenza virus 2006-03-27 [facility] vaccine, unspecified 00:00:00 formulation DTaP 2006-03-27 Completed [facility] 00:00:00 Influenza, [...] HEPATITIS A 2005-05-03 Completed [facility] of 00:00:[address] [facility] HEPATITIS A 2005-05-03 Completed University of 00:00:[address] [facility] Hep A, ped/adol, 2 2005-05-03 [facility] 00:[facility]:00 hepatitis A vaccine, 2005-05-03 [facility]ad[facility] 00:00:00 dosage, 2 dose schedule Hep A, ped/adol, 2 2005-05-03 [facility]:00 Hep A, ped/adol, 2 2005-05-03 [facility]:00 DTAP 2003-04-22 Completed [facility] of 00:00:[address] [facility] Varicella 2003-04-22 Completed University of (varivax)(chicken pox) 00:00:00 [facility] Varicella 2003-04-22 Completed University of (varivax)(chicken pox) 00:00:00 [facility] Varicella 2003-04-22 Completed University of (varivax)(chicken pox) 00:00:00 [facility] Varicella 2003-04-22 Completed University of (varivax)(chicken pox) 00:00:00 [facility] Varicella 2003-04-22 Completed University of (varivax)(chicken pox) 00:00:00 [facility] Varicella 2003-04-22 Completed University of (varivax)(chicken pox) 00:00:00 [facility] Varicella 2003-04-22 Completed University of (varivax)(chicken pox) 00:00:00 [facility] Varicella 2003-04-22 Completed [facility] of (varivax)(chicken pox) 00:00:00 [facility] Varicella 2003-04-22 Completed University of (varivax)(chicken pox) 00:00:00 [facility] DTAP 2003-04-22 Completed [facility] of 00:00:[address] [facility] Varicella 2003-04-22 Completed [facility] of (varivax)(chicken pox) 00:00:00 [facility] Varicella 2003-04-22 [facility] 00:00:00 DTaP, Unspecified 2003-04-22 [facility] DTaP, unspecified 2003-04-22 [facility] formulation 00:00:00 Varivax 1350 PFU/0.5ML 2003-04-22 Completed [facility] Subcutaneous 00:00:00 Injectable DTaP, Unspecified 2003-04-22 [facility] 00:[facility]:00 Varicella 2003-04-22 [facility] 00:[facility]:00 DTaP, Unspecified 2003-04-22 [facility] Varicella 2003-04-22 [facility] 00:[facility]:00 HIB 4 Dose Schedule 2003-01-21 Completed Unive rsity of 00:00:[address] [facility] MMR 2003-01-21 Completed University of 00:00:[address] [facility] Pneumococcal 7 2003-01-21 Completed University of Conjugate, PCV7 00:00:00 [place] [facility] (Prevnar7) [facility] PPD (TB) 2003-01-21 Completed University of 00:00:[address] [facility] PPD (TB) 2003-01-21 Completed University of 00:00:[address] [facility] PPD (TB) 2003-01-21 Completed University of 00:00:[address] [facility] PPD (TB) 2003-01-21 Completed University of 00:00:[address] [facility] PPD (TB) 2003-01-21 Completed University of 00:00:[address] [facility] PPD (TB) 2003-01-21 Completed University of 00:00:[address] [facility] PPD (TB) 2003-01-21 Completed University of 00:00:[address] [facility] PPD (TB) 2003-01-21 Completed University of 00:00:[address] [facility] PPD (TB) 2003-01-21 Completed University of 00:00:[address] [facility] HIB 4 Dose Schedule 2003-01-21 Completed Unive rsity of 00:00:[address] [facility] MMR 2003-01-21 Completed University of 00:00:[address] [facility] Pneumococcal 7 2003-01-21 Completed University of Conjugate, PCV7 00:00:00 [place] [facility] (Prevnar7) [facility] PPD (TB) 2003-01-21 Completed University of 00:00:[address] [facility] Hib (PRP-T) 2003-01-21 [facility]pleted [facility] 00:[facility]:00 MMR 2003-01-21 [facility] 00:00:00 Pneumococcal Conjugate 2003-01-21 [facility]pleted [facility] PCV 7 00:00:00 Hib, Haemophilus 2003-01-21 [facility]pleted [facility] influenzae type b 00:00:00 vaccine, PRP-T conjugate Pneumo (Prevnar 7) 2003-01-21 [facility]pleted [facility]:00 M-M-R II Subcutaneous 2003-01-21 [facility]pleted [facility] Injectable 00:00:00 PPD Test 2003-01-21 [facility]pleted [facility] [...] 2002 Completed University of Conjugate, PCV7 00:00:00 [facility] (Prevnar7) Branch Polio (IPV/OPV) 2002 Completed [facility] y of 00:00:[address] [facility] Polio (IPV/OPV) 2002 Completed Universit y of 00:00:00 [facility] Branch Polio (IPV/OPV) 2002 Completed Universit y of 00:00:00 [facility] Polio (IPV/OPV) 2002 Completed Universit y of 00:00:00 [facility] Polio (IPV/OPV) 2002 Completed Universit y of 00:00:00 [facility] Polio (IPV/OPV) 2002 Completed Universit y of 00:00:00 [facility] Polio (IPV/OPV) 2002 Completed [facility]it y of 00:00:00 [facility] Polio (IPV/OPV) 2002 Completed [facility] y of 00:00:[address] [facility] Polio (IPV/OPV) 2002 Completed [facility] y of 00:00:[address] [facility] Pneumococcal 7 2002 Completed University of Conjugate, PCV7 00:00:00 [place] [facility] (Prevnar7) [facility] Polio (IPV/OPV) 2002 Completed [facility]it y of 00:00:[address] [facility] DTaP - Hepatitis B - 2002 [...] 00:00:00 DTAP 2002 Completed University of 00:00:[address] [facility] HIB 4 Dose Schedule 2002 Completed Unive rsity of 00:00:[address] [facility] Pneumococcal 7 2002 Completed University of Conjugate, PCV7 00:00:00 [facility] ical (Prevnar7) Branch DTAP 2002 Completed University of 00:00:[address] [facility] HIB 4 Dose Schedule 2002 Completed Unive rsity of 00:00:[address] [facility] Pneumococcal 7 2002 Completed University of Conjugate, PCV7 00:00:00 [facility] ical (Prevnar7) Branch Hib, Haemophilus 2002 Completed [facility] [...] 00:00:00 DTAP 2002 Completed University of 00:00:[address] [facility] HIB 4 Dose Schedule 2002 Completed Unive rsity of 00:00:[address] [facility] Pneumococcal 7 2002 Completed University Conjugate, PCV7 00:00:00 [facility] ical (Prevnar7) Branch Polio (IPV/OPV) 2002 Completed Universit y of 00:00:[address] [facility] Polio (IPV/OPV) 2002 Completed Universit y of 00:00:[address] [facility] Polio (IPV/OPV) 2002 Completed Universit y of 00:00:[address] [facility] Polio (IPV/OPV) 2002 Completed [facility]it y of 00:00:[address] [facility] Polio (IPV/OPV) 2002 Completed Universit y of 00:00:[address] [facility] Polio (IPV/OPV) 2002 Completed [facility]it y of 00:00:[address] [facility] Polio (IPV/OPV) 2002 Completed Universit y of 00:00:[address] [facility] Polio (IPV/OPV) 2002 Completed Universit y of 00:00:[address] [facility] Polio (IPV/OPV) 2002 Completed Universit y of 00:00:[address] [facility] DTAP 2002 Completed University of 00:00:[address] [facility] HIB 4 Dose Schedule 2002 Completed Unive rsity of 00:00:[address] [facility] Pneumococcal 7 2002 Completed University of Conjugate, PCV7 00:00:00 [facility] ical (Prevnar7) Branch Polio (IPV/OPV) 2002 Completed Universit y of 00:00:[address] [facility] DTaP - Hepatitis B - 2002 [...] 00:00:00 DTAP 2002 Completed University of 00:00:[address] [facility] HIB 4 Dose Schedule 2002 Completed Unive rsity of 00:00:[address] [facility] Polio (IPV/OPV) 2002 Completed Universit y of 00:00:[address] [facility] Polio (IPV/OPV) 2002 Completed Universit y of 00:00:[address] [facility] Polio (IPV/OPV) 2002 Completed Universit y of 00:00:[address] [facility] Polio (IPV/OPV) 2002 Completed Universit y of 00:00:[address] [facility] Polio (IPV/OPV) 2002 Completed [facility]it y of 00:00:[address] [facility] Polio (IPV/OPV) 2002 Completed [facility]it y of 00:00:[address] [facility] Polio (IPV/OPV) 2002 Completed Universit y of 00:00:[address] [facility] Polio (IPV/OPV) 2002 Completed Universit y of 00:00:[address] [facility] Polio (IPV/OPV) 2002 Completed Universit y of 00:00:[address] [facility] DTAP 2002 Completed University of 00:00:[address] [facility] HIB 4 Dose Schedule 2002 Completed Unive rsity of 00:00:[address] [facility] Polio (IPV/OPV) 2002 Completed Universit y of 00:00:[address] [facility] DTaP - Hepatitis B - 2002 [...] 2002 Completed Unive rsity of Dosage 00:00:[address] [facility] Hep B, Adol or Pedi 2002 Completed Unive rsity of Dosage 00:00:[address] [facility] Hepatitis B, 2002 [facility]pleted [facility] 00:00:00 dosage Hep B, Adolescent or [facility] Hep B, Adolescent or 2002 [facility] Hep B, Adolescent or 2002 [facility]:00 Hep B, Adol or Pedi 2002 Completed Unive rsity of Dosage 00:00:[address] [facility] Hep B, Adol or Pedi 2002 Completed Unive rsity of Dosage 00:00:[address] [facility] Hepatitis B, 2002 Completed [facility]cent 00:00:00 dosage Hep B, Adolescent or 2002 [facility]:00 Hep B, Adolescent or 2002 [facility] 00:[facility]:00 Hep B, Adolescent or 2002 [facility] 00:[facility] Vital Signs Vital Name Observation Time Observation Value Comments Source Systolic blood 2022-01-17 120 mm[Hg] University of pressure 17:03:[address] [facility] Diastolic blood 2022-01-17 80 mm[Hg] University o f pressure 17:03:[address] [facility] Heart rate 2022-01-17 108 /min University of 17:03:[address] [facility] Body temperature 2022-01-17 36.5 Ambar University of 17:03:[address] [facility] Body weight 2022-01-17 51.6 kg University of 17:03:[address] [facility] Systolic blood 2022-01-16 116 mm[Hg] University of pressure 22:01:[address] [facility] Diastolic blood 2022-01-16 87 mm[Hg] University o f pressure 22:01:[address] [facility] Heart rate 2022-01-16 90 /min University of 21:59:[address] [facility] Body temperature 2022-01-16 36.78 Ambar University of 21:59:[address] [facility] Respiratory rate 2022-01-16 18 /min University of 21:59:[address] [facility] Body weight 2022-01-16 52.254 kg University of 21:59:[address] [facility] Oxygen saturation 2022-01-16 100 /min [facility] in Arterial blood 21:59:00 [facility] by Pulse oximetry Branch Systolic blood 2021-07-20 113 mm[Hg] University of pressure 21:05:[address] [facility] Diastolic blood 2021-07-20 77 mm[Hg] University o f pressure 21:05:[address] [facility] Heart rate 2021-07-20 85 /min University of 19:44:[address] [facility] Body temperature 2021-07-20 36.67 Ambar University of 19:44:[address] [facility] Respiratory rate 2021-07-20 18 /min University of 19:44:[address] [facility] Body height 2021-07-20 143 cm pt was unable University of 19:44:00 to take shoes [facility] off, pt had a Branch boot on. Body weight 2021-07-20 52.98 kg University of 19:44:[address] [facility] BMI 2021-07-20 25.91 kg/m2 University of 19:44:[address] [facility] Body mass index 2021-07-20 83.51 % University o f (BMI) [Percentile] 19:44:00 [place] [facility] Per age and sex Branch Oxygen saturation 2021-07-20 100 /min [facility] in Arterial blood 19:44:00 [facility] by Pulse oximetry Branch Systolic blood 2020-08-10 112 mm[Hg] Location: RUE; [facility] pressure 15:13:00 Position: Sitting Diastolic blood 2020-08-10 69 mm[Hg] [facility]: [facility]; [facility] pressure 15:13:00 Position: Sitting Body [...] Systolic blood 2020-04-27 111 mm[Hg] Location: RUE; [facility] pressure 15:51:00 Position: Sitting Diastolic blood 2020-04-27 72 mm[Hg] Location: RUE; [facility] pressure 15:51:00 Position: Sitting Body [...] Systolic blood 2019-12-14 113 mm[Hg] Location: RUE; [facility] pressure 14:57:00 Position: Sitting Diastolic blood 2019-12-14 74 mm[Hg] Location: RUE; [facility] pressure 14:57:00 Position: Sitting Body [...] BP Systolic 2019-05-11 93 mm[Hg] [facility]; [facility] 13:38:00 Position: Sitting BP Diastolic 2019-05-11 55 mm[Hg] Location: RUE; [facility] 13:38:00 Position: Sitting Height 2019-05-11 56 [in_us] [facility] 13:38:00 Weight 2019-05-11 109 [lb_av] [facility] 13:38:00 Body Mass Index 2019-05-11 24.44 kg/m2 [facility] Calculated 13:38:00 Temperature 2019-05-11 97.7 [degF] Method: Oral [facility] 13:38:00 Heart Rate 2019-05-11 94 /min Location: R [facility] 13:38:00 Brachial Artery; Respiration Rate 2019-05-11 18 /min Quality: Normal [facility] 13:38:00 BP Systolic 2019-01-12 121 mm[Hg] Location: RUE; [facility] 13:18:00 Position: Sitting BP Diastolic 2019-01-12 [...] BP Systolic 2018-03-17 111 mm[Hg] Location: RUE; [facility] 13:41:00 Position: Sitting BP Diastolic 2018-03-17 78 mm[Hg] Location: RUE; [facility] 13:41:00 Position: Sitting Height 2018-03-17 142.3 [...] BP Systolic 2017-08-12 117 mm[Hg] Location: RUE; [facility] 15:00:00 Position: Sitting BP Diastolic 2017-08-12 73 mm[Hg] Location: RUE; [facility] 15:00:00 Position: Sitting Height 2017-08-12 144.8 cm [facility] 15:00:00 Weight 2017-08-12 47.8 kg [facility] 15:00:00 Body Mass Index 2017-08-12 22.8 kg/m2 [facility] Calculated 15:00:00 Heart Rate 2017-08-12 97 /min [facility] 15:00:00 BP Systolic 2017-05-13 101 mm[Hg] Location: RUE; [facility] 15:44:00 Position: Sitting BP Diastolic 2017-05-13 61 mm[Hg] Location: RUE; [facility] 15:44:00 Position: Sitting Height 2017-05-13 144.8 cm [facility] 15:44:00 Weight 2017-05-13 44.9 kg [facility] 15:44:00 Body Mass Index 2017-05-13 21.41 kg/m2 [facility] Calculated 15:44:00 Heart Rate 2017-05-13 99 /min [facility] 15:44:00 BP Systolic 2017-02-11 112 mm[Hg] Location: RUE; [facility] 15:50:00 Position: Sitting BP Diastolic 2017-02-11 73 mm[Hg] Location: RUE; [facility] 15:50:00 Position: Sitting Heart Rate 2017-02-11 76 /min [facility] 15:50:00 BP Systolic 2017-02-11 110 mm[Hg] Location: RUE; [facility] 15:49:00 Position: Sitting BP Diastolic 2017-02-11 66 mm[Hg] Location: RUE; [facility] 15:49:00 Position: Sitting Heart Rate 2017-02-11 82 /min [facility] 15:49:00 Weight 2017-02-11 45.1 kg [facility] 15:49:00 Procedures Procedure Date / Time Performing Clinician Source Performed PREPARE PACKED RBC 2022-02-27 19:38:[address] [facility] AND SCREEN 2022-02-27 16:35:00 Jf Acharya Jarrod [place] [facility] MENINGOCOCCAL B VACCINE, 2021-07-20 20:30:06 Alexandra Boston [facility] OMV, 2 DOSE, IM Medical Branch [...] 2019-07-07 00:00:00 [facility] Cystourethrogram voiding 64712 [H] Iron, TIBC \\T\\ 2019-07-05 00:00:00 [facility] [...] 2019-07-05 00:00:00 [facility] PHOSPHORUS) Renal [id number] 2019-05-18 00:00:00 [facility] [H] Pediatric [...] Physicia ns 25-HYDROXY, LC/MS/MS [QLH] VITAMIN D, 2017-08-12 00:00:00 [facility] DIHYDROXY LC/MS/MS [H] Pediatric Renal Panel 2017-05-13 00:00:00 [facility] [QH] PROTEIN, TOTAL 2017-05-13 00:00:00 [facility] W/CREAT, RANDOM URINE [QLH] CBC (INCLUDES 2017-05-13 00:00:00 [facility] DIFF/PLT) [QLH] PTH, INTACT (WITHOUT 2017-05-13 00:00:00 [facility] CALCIUM) [QLH] VITAMIN D, 2017-05-13 00:00:00 [facility] DIHYDROXY LC/MS/MS [...] CALCIUM)] Future Scheduled [QL] CMP W/EGFR Approx [id number] [facility] Test [code = [QL] CMP W/EGFR] Future Scheduled [L] Vitamin D, Approx [id number] [facility] Test 25-Hydroxy, Total - Esoterix [code = [L] Vitamin D, 25-Hydroxy, Total - Esoterix] Future Scheduled [QL] VITAMIN D, Approx [id number] [facility] Test 25-HYDROXY, LC/MS/MS [code = [QL] VITAMIN D, 25-HYDROXY, LC/MS/MS] Future Scheduled [Q] PTH, INTACT Approx [id number] [facility] Test AND CALCIUM [code = [Q] PTH, INTACT AND CALCIUM] Future Scheduled [QL] MAGNESIUM Approx [id number] [facility] Test [code = [QL] MAGNESIUM] Future Scheduled [QL] PHOSPHATE ( Approx [id number] [facility] Test PHOSPHORUS) [code = [QL] PHOSPHATE ( PHOSPHORUS)] Future Scheduled [QL] CBC (INCLUDES Approx [id number] [facility] Test DIFF/PLT) [code = [QL] CBC (INCLUDES DIFF/PLT)] Future Scheduled [QL] IRON AND Approx [id number] [facility] Test TOTAL IRON BINDING CAPACITY [code = [QL] IRON AND TOTAL IRON BINDING CAPACITY] Future Scheduled [QL] FERRITIN Approx [id number] [facility] Test [code = [QL] FERRITIN] Future Scheduled [QL] URINALYSIS, Approx [id number] [facility] Test COMPLETE [code = [QL] URINALYSIS, COMPLETE] Future Scheduled [QL] CMP W/EGFR Approx [id number] [facility] Test [code = [QL] CMP W/EGFR] Future Scheduled [L] Vitamin D, Approx [id number] [facility] Test 25-Hydroxy, Total - Esoterix [code = [L] Vitamin D, 25-Hydroxy, Total - Esoterix] Future Scheduled [QL] VITAMIN D, Approx [id number] [facility] Test 25-HYDROXY, LC/MS/MS [code = [QL] VITAMIN D, 25-HYDROXY, LC/MS/MS] Future Scheduled [Q] PTH, INTACT Approx [id number] [facility] Test AND CALCIUM [code = [Q] PTH, INTACT AND CALCIUM] Future Scheduled [QL] MAGNESIUM Approx [id number] [facility] Test [code = [QL] MAGNESIUM] Future Scheduled [QL] PHOSPHATE ( Approx [id number] [facility] Test PHOSPHORUS) [code = [QL] PHOSPHATE ( PHOSPHORUS)] Future Scheduled [QL] CBC (INCLUDES Approx [id number] [facility] Test DIFF/PLT) [code = [QL] CBC (INCLUDES DIFF/PLT)] Future Scheduled [QL] IRON AND Approx [id number] [facility] Test TOTAL IRON BINDING CAPACITY [code = [QL] IRON AND TOTAL IRON BINDING CAPACITY] Future Scheduled [QL] FERRITIN Approx [id number] [facility] Test [code = [QL] FERRITIN] Future Scheduled [QL] URINALYSIS, Approx [id number] [facility] Test COMPLETE [code = [QL] URINALYSIS, COMPLETE] Future Scheduled [QL] CMP W/EGFR Approx [id number] [facility] Test [code = [QL] CMP W/EGFR] Future Scheduled [L] Vitamin D, Approx [id number] [facility] Test 25-Hydroxy, Total - Esoterix [code = [L] Vitamin D, 25-Hydroxy, Total - Esoterix] Future Scheduled [QL] VITAMIN D, Approx [id number] [facility] Test 25-HYDROXY, LC/MS/MS [code = [QL] VITAMIN D, 25-HYDROXY, LC/MS/MS] Future Scheduled [Q] PTH, INTACT Approx [id number] [facility] Test AND CALCIUM [code = [Q] PTH, INTACT AND CALCIUM] Future Scheduled [QL] MAGNESIUM Approx [id number] [facility] Test [code = [QL] MAGNESIUM] Future Scheduled [QL] PHOSPHATE ( Approx [id number] [facility] Test PHOSPHORUS) [code = [QL] PHOSPHATE ( PHOSPHORUS)] Future Scheduled [QL] CBC (INCLUDES Approx [id number] [facility] Test DIFF/PLT) [code = [QL] CBC (INCLUDES DIFF/PLT)] Future Scheduled [QL] IRON AND Approx [id number] [facility] Test TOTAL IRON BINDING CAPACITY [code = [QL] IRON AND TOTAL IRON BINDING CAPACITY] Future Scheduled [QL] FERRITIN Approx [id number] [facility] Test [code = [QL] FERRITIN] Future Scheduled [QL] URINALYSIS, Approx [id number] [facility] Test COMPLETE [code = [QL] URINALYSIS, COMPLETE] Encounters Start End Encounter Admission Attending Care Care Encounter Source Date/Time Date/Time Type Type Clinicians Facility Department ID 2022-04-10 Outpatient [facility] [id number] MD 17:07:14 [id number] [facility] 2022-04-09 Outpatient [facility] [id number] MD 21:33:14 [id number] [facility] 2022-04-04 Outpatient [facility] [id number] MD 15:25:00 [id number] [facility] 2022-03-24 Outpatient [facility] [id number] MD 06:01:01 [id number] [facility] 2022-03-13 Outpatient [facility] [id number] UT 14:11:13 [id number] Health 2021-03-29 Outpatient VICTOR MANUEL [facility] [id number] [place] 15:38:12 [facility] 2021-02-08 Outpatient TRAN MADRIGAL [facility] [id number] UT 16:00:36 Health 2020-12-19 Outpatient TRAN MADRIGAL [facility] [id number] [place] 12:24:20 Health 2020-12-10 Outpatient TRAN MADRIGAL [facility] [id number] [place] 01:03:57 Health 2020-08-26 Outpatient VICTOR MANUEL [facility] [id number] UT 03:48:26 [facility] 2019-09-14 Outpatient DYLAN, [id number] 09:20:42 ANYA 2019-09-09 Inpatient JULIEN ZHENG [facility] [id number] [facility] 17:48:36 2022-05-16 2022-05-16 Outpatient VICTOR MANUEL [facility] [id number] [place] 10:40:00 10:40:00 [facility] 2022-04-11 2022-04-11 [facility] [id number] [facility] 00:00:00 00:00:00 Chito WALTER [id number] [facility] [id number] [facility] [id number] [address] 2022-04-03 2022-04-10 Inpatient E TOBY [facility] [id number] [facility] 20:27:00 16:50:00 [place] 2022-04-05 2022-04-05 Outside [facility], [facility] [id number] [place] 00:00:00 00:00:00 Procedure Robby HERBERT [id number] [facility] [id number] 2022-04-04 2022-04-04 Outpatient Damian RODRIGES [facility] [id number] Univers 09:40:00 09:40:00 CHITO calhoun [facility] 2022-03-26 2022-03-26 Outpatient JULIEN ZHENG [facility] LIYA [id number] [facility] 11:00:00 11:00:00 2022-02-22 2022-03-23 Outpatient JULIEN ZHENG [facility] LIYA [id number] [facility] 11:00:00 23:59:00 2022-02-27 2022-02-27 [facility] Sammi JIMMY [id number] Univers 11:24:00 23:59:00 Encounter [facility] [id number] [id number] [id number] [facility] 057 [place] 2022-02-27 2022-02-27 Outpatient Damian CHAPA [facility] [id number] Univers 00:00:00 00:00:00 SALLY calhoun [facility] 2022-01-24 2022-02-22 Outpatient JULIEN ZHENG [facility] [id number] [facility] 11:00:00 23:59:00 2022-02-09 2022-02-09 [facility] [id number] Univers 00:00:00 00:00:00 Alexandra MILLER [id number] i ty [facility] [id number] [id number] [facility] 2022-01-17 2022-01-17 Office [facility] [id number] Univers 12:00:00 12:20:00 Visit Chito WALTER [id number] ity [facility] [id number] [id number] [facility] [address] [place] 2022-01-17 2022-01-17 Outpatient Damian RODRIGES [facility] [id number] Univers 12:00:00 12:00:00 CHITO calhoun [facility] 2022-01-16 2022-01-16 Outpatient Damian BOSTON [facility] [id number] Univers 15:20:00 16:03:01 ALEXANDRA calhoun [facility] 2022-01-16 2022-01-16 Office Darvin [facility] [id number] Univers 15:20:00 16:03:01 Visit Alexandra ANGELA [id number] i ty [facility] [id number] Karoline [facility] [id number] Pr dical [facility] [address] [facility] 2021-11-27 2021-12-26 Outpatient DE [facility] [id number] [facility] 11:00:00 23:59:00 BREANA CHOWDHURY 2021-10-24 2021-11-22 Outpatient DE [facility] [id number] [facility] 11:00:00 23:59:00 BREANA CHOWDHURY 2021-10-30 2021-10-30 [facility] [id number] [facility] 00:00:00 00:00:00 Chito SPECIALTY [id number] ity [facility] [id number] [facility] [place] [id number] [address] 2021-09-19 2021-10-18 Outpatient DE [facility] [id number] [facility] 08:25:00 23:59:00 BREANA CHOWDHURY 2021-09-25 2021-09-25 Telephone Campos Malloy [id number] MD 00:00:00 00:00:00 Campos Malloy [id number] Health MEDICAL [id number] [place] [id number] 2021-09-21 2021-09-21 Telephone Ruthie Chris 1.2. [id number] MD 00:00:00 00:00:00 Ruthie Chris [id number] Health MEDICAL [id number] [place] [id number] 2021-09-18 2021-09-18 Telephone Linda Zimmerman [id number] .[id number] MD 00:00:00 00:00:00 Linda Zimmerman [id number] Health MEDICAL [id number] [place] [id number] 2021-08-10 2021-08-10 Telemedici Tran Madrigal [facility] [id number] MD 08:30:00 08:36:10 ne MAGEN [id number] Juan Carlos forman [facility] [id number] [facility] [id number] SPECIALTY 6 2021-07-11 2021-08-09 Outpatient ENRIQUETA [facility] [id number] [facility] 06:52:00 23:59:00 KEVYN 2021-07-23 2021-07-23 Telephone Sherri Reyes [facility] [id number] MD 00:00:00 00:00:00 Sherri Reyes [place] [id number] [facility] [id number] [place] [id number] 2021-07-21 2021-07-21 [employer] Darian, Jimmie [facility] [id number] Univers 09:15:00 09:30:00 Visit William Garcia [id number] ity of Alexandra Bostno [id number] [id number] Pr dical NAL [address] [facility] 2021-07-21 2021-07-21 Outpatient Damian BOSTON [facility] [id number] Univers 09:15:00 09:15:[address] [facility] 2021-07-20 2021-07-20 [facility]illing [facility] [id number] Univers 16:00:00 16:21:18 Encounter Alexandra MILLER [id number] ity rodo [place] [id number] [facility] [id number] Pr dical NAL [address] [facility] 2021-07-20 2021-07-20 Office Darvin [facility] [id number] Univers 14:20:00 16:09:35 Visit Alexandra MILLER [id number] i ty rodo [place] [id number] [id number] Pr dical NAL [address] [facility] 2021-07-20 2021-07-20 Outpatient R DARVIN, [facility] [facility] [id number] Univers 14:20:00 16:09:35 [facility] 2021-07-20 2021-07-20 Outpatient R DARVIN, [facility] [id number] Univers 16:00:00 16:00:00 [facility] 2021-07-20 2021-07-20 Telephone Sherri Reyes [facility] [place] 1.2.84 0.114 [id number] [place] 00:00:00 00:00:00 Sherri Reyes 350.1.13.58 Health MEDICAL 9.2.7.2.686 CENTER [id number] 0 2021-07-13 2021-07-13 Telephone Neena Bland [place] [place] 1.2.8 40.114 [id number] [place] 00:00:00 00:00:00 Neena Bland 350.1.13.58 Health MEDICAL 9.2.7.2.686 CENTER [id number] 0 2021-07-09 2021-07-09 Telephone Kassie Garcia UTP 6410 1.2.8 40.114 [id number] [place] 00:00:00 00:00:00 Kassie GarciaN 350.1.13.5 8 Health 9.2.7.2.686 [id number] 7 2021-05-18 2021-05-18 Outpatient R MARIA DOLORES [facility] [id number] Univers 16:40:00 16:40:00 DIMITRI [facility] 2021-05-18 2021-05-18 Imm/Inj Nurse, Adc Pob Immunization [facility] 1.2.840.114 [id number] Univers 16:40:00 16:40:00 Visit Dimitri العراقي 350.1.13 .10 ity [facility] [place]2.[place] [phone] Pr dical NAL 421 [facility] 2021-03-282021-04-26 Outpatient ERVIN, [facility] 9603 [facility] 14:12:00 23:59:00 DULCE 2021-04-09 2021-04-09 [facility] JIMMY Chapa 1.2.839.970 [id number] Univers 08:37:00 23:59:00 Encounter [facility] 350.1.13.10 [id number] [place] [id number] [place] 2021-04-09 2021-04-09 [facility] [id number] [facility] 00:00:00 00:00:00 [facility] 2021-03-29 2021-03-29 Office HAYDEE Rush 1.2.840.114 [id number] MD 14:20:00 15:38:16 Visit Wes [facility]ARCIA [facility].1.13.58 [facility] 9.2.7.2.686 [facility] [id number] 8 2021-03-27 2021-03-27 EXT [facility] OP Ervin, EXT MSRDP 1.2.840.114 [id number] MD 00:00:00 00:00:00 Dulce LOCATION 350.1.13.58 H ealth 9.2.7.2.686 [id number] 0 2021-03-27 2021-03-27 EXT [facility] OP Ervin, EXT MSRDP 1.2.840.114 [id number] MD 00:00:00 00:00:00 Dulce LOCATION 350.1.13.58 H ealth 9.2.7.2.686 [id number] 0 2021-02-20 2021-02-20 [facility]phone [facility] 1.2.840.114 [id number] [facility] 00:00:00 00:00:00 Alexandra MILLER 350.1.13.10 i ty [facility] 4.2.7.2.[place] [phone] Pr dical [facility] 225 [facility] 2021-02-08 2021-02-08 Office Tran Madrigal 6410 1.2.840.114 1 [id number] [place] 15:04:41 16:04:53 Visit TOLU HERBERT 350.1.13.58 Health 9.2.7.2.686 [id number] 7 2021-02-08 2021-02-08 Orders Doctor JULIEN 1.2.840.114 [id number] Univers 00:00:00 00:00:00 Only Unassigned, MESERET 350.1.13.10 ity of [place] [facility] 4.2.7.2.686 [place] [phone] [address] 2021-01-17 2021-01-17 Outpatient JULIEN ZHENG [facility] 960 2 [facility] 13:22:00 13:22:00 2021-01-16 2021-01-16 EXT MH OP Julien Zheng EXT MSRDP 1.2.840.1 14 [id number] [place] 00:00:00 00:00:00 S LOCATION 350.1.13.58 H ealth 9.2.7.2.686 [id number] 0 2021-01-16 2021-01-16 EXT [facility] OP Julien Zheng EXT MSRDP 1.2.840.1 14 [id number] MD 00:00:00 00:00:00 S LOCATION 350.1.13.58 H ealth 9.2.7.2.686 [id number] 0 2020-12-28 2020-12-28 Office HAYDEE Rush 1.2.840.114 [id number] [place] 15:13:44 16:59:21 Visit Wes GARCIA 350.1.13.58 [facility] 9.2.7.2.686 [facility] [id number] 8 2020-12-26 2020-12-26 Telephone CM [place] 1.2.840.114 [id number] [facility] 00:00:00 00:00:00 Alexandra Miller 350.1.13.10 i ty of [place].2.[place] Profess[place] [phone] Pr dical [facility] 225 [facility] 2020-12-19 2020-12-19 Office Tran Madrigal 6410 1.2.840.114 1 [id number] MD 10:35:28 12:26:07 Visit TOLU HERBERT 350.1.13.58 Health 9.2.7.2.686 [id number] 7 2020-12-19 2020-12-19 Orders Doctor JULIEN 1.2.840.114 [id number] Univers 00:00:00 00:00:00 Only Unassigned, MESERET 350.1.13.10 ity of [place] [facility] 4.2.7.2.686 [place] [phone] [address] 2020-11-30 2020-11-30 Orders Doctor JULIEN 1.2.840.114 [id number] Univers 00:00:00 00:00:00 Only Unassigned, MESERET 350.1.13.10 ity of [place] [facility] 4.2.7.2.686 [place] [phone] [address] 2020-11-20 2020-11-22 Inpatient E ALIE [facility] 7536 [facility] 09:09:00 18:03:00 [facility] 2020-11-15 2020-11-15 Telephone CM [place] 1.2.840.114 [id number] [facility] 00:00:00 00:00:00 Alexandra Miller 350.1.13.10 i ty [facility] 4.2.7.2.[place] Profess[place] [phone] [address] 2020-11-09 2020-11-13 Inpatient ZINA, [facility] URO 7535 [facility] 06:06:00 16:00:00 CLARISSA 2020-11-07 2020-11-07 Telephone Rambo Glass UTP 6410 1.2. 840.114 [id number] MD 00:00:00 00:00:00 Rambo Glass 350.1.13. 58 Health 9.2.7.2.686 [id number] 7 2020-11-07 2020-11-07 Telephone HAYDEE Quispe 6410 1.2.840.114 1 [id number] MD 00:00:00 00:00:[address] 350.1.13.58 Health 9.2.7.2.686 [id number] 7 2020-11-07 2020-11-07 Telephone Darvin, [facility] 1.2.840.114 [id number] Univers 00:00:00 00:00:00 Alexandra [place] 350.1.13.10 i ty of [place].2.7.2.[place] Profess[place] [phone] Pr dical [facility] 225 [facility] 2020-11-02 2020-11-02 Orders Doctor VICTORIA 1.2.840.114 [id number] [facility] 00:00:00 00:00:00 Only Unassigned, MESERET 350.1.13.10 ity of [place] [facility] 4.2.7.2.686 [place] [phone] [address] 2020-10-31 2020-10-31 Telephone [facility] 1.2.840.114 [id number] [facility] 00:00:00 00:00:00 Alexandra [place] 350.1.13.10 i ty of [place].2.7.2.[place] Profess[place] [phone] Pr dic[address] 2020-10-25 2020-10-25 HAYDEE Latif [facility] 1.2.840.114 [id number] [place] 00:00:00 00:00:00 Only Wes [facility] 350.1.13.58 [facility] [place] 9.2.7.2.686 [id number] 3 2020-10-19 2020-10-19 Outside Tran Madrigal 6410 1.2.840.114 1 [id number] [place] 00:00:00 00:00:[address] 350.1.13.58 Health 9.2.7.2.686 [id number] 4 2020-09-28 2020-09-28 HAYDEE Jessica 6410 1.2.840.114 [id number] [place] 00:00:00 00:00:[address] 350.1.13.58 Health 9.2.7.2.686 [id number] 1 2020-09-21 2020-09-21 Outpatient [facility] [id number] Univers 11:30:00 11:30:00 CHIOT calhoun [facility] 2020-08-07 2020-09-05 Outpatient DE [facility] 9601 [facility] 13:13:00 23:59:00 BREANA CHOWDHURY 2020-08-29 2020-08-29 Refill Moris, UTP 6410 1.2.840.114 [id number] [place] 00:00:00 00:00:00 Kateaugustin MOTLEY 350.1.13.58 Health 9.2.7.2.686 [id number] 1 2020-08-10 2020-08-10 Appointsocrates RUSH [facility] Pedi [id number] UT 15:00:00 15:00:00 t; WES, Nephrology Phy linwood RUSH M.D. & fozia MAIER Hypertjose Strong n 2020-08-07 2020-08-07 Appointmen ORGANTRANSP [facility] UTP [id number] [place] 13:00:00 13:00:00 t; BRYN, SARA Physi ci ORGANTRANS ans PLANT, OP 2020-08-07 2020-08-07 EXT MHH OP de EXT MSRDP 1.2.840.114 1 [id number] [place] 00:00:00 00:00:00 [facility] 350.1.13.58 Health Breana 9.2.7.2.686 [id number] 0 2020-08-07 2020-08-07 EXT MHH OP de EXT MSRDP 1.2.840.114 1 [id number] [place] 00:00:00 00:00:00 [facility] LOCATION 350.1.13.58 [facility] Breana 9.2.7.2.686 [id number] 0 2020-08-03 2020-08-03 Office [facility] 1.2.840.114 [id number] Univers 11:54:09 13:07:33 Visit Chito [facility] 350.1.13.10 it y of Clear 4.2.7.2.686 Karoline Hernandez [phone] [address] Office Building 2020-08-03 2020-08-03 Outpatient Damian ANTELMO [facility] [id number] Univers 12:00:00 12:00:00 CHITO calhoun [facility] 2020-07-26 2020-07-26 Outpatient Damian OROZCO [facility] [id number] Univers 13:10:00 13:10:00 SHADIA calhoun [facility] 2020-07-21 2020-07-21 Outpatient Damian RODRIGES [facility] [id number] Univers 14:45:00 14:45:00 CHITO marilyn [facility] 2020-06-28 2020-06-28 Outpatient Damian OROZCO [facility] [id number] Univers 13:10:00 13:10:00 SHADIA marilyn [facility] 2020-06-23 2020-06-23 Outpatient Damain OROZCO [facility] [id number] Univers 13:15:00 13:15:00 SHADIA marilyn [facility] 2020-06-09 2020-06-09 Outpatient Damian BOSTON [facility] [id number] Univers 15:40:00 15:40:00 ALEXANDRA marilyn [facility] 2020-06-08 2020-06-08 Outpatient Damian [facility] [id number] Univers 12:40:00 12:40:00 CHITO marilyn [facility] 2020-05-31 2020-05-31 Outpatient Damian BOSTON [facility] [id number] Univers 15:20:00 15:20:00 ALEXANDRA marilyn [facility] 2020-05-12 2020-05-12 Outpatient Damian [facility] [id number] Univers 09:00:00 09:00:00 CHITO marilyn [facility] 2020-05-11 2020-05-11 Orders Doctor VICTORIA 1.2.840.114 [id number] Univers 00:00:00 00:00:00 Only Unassigned, MESERET 350.1.13.10 ity of [place] [facility] 4.2.7.2.686 [place] [phone] [place] [address] [place] 2020-04-27 2020-04-27 AppointHAYDEE Crowley Pedi [id number] [place] 15:40:00 15:40:00 t; WES, Nephrology Phmarilyn RUSH M.D. & Ye Duke M.D. n 2020-04-24 2020-04-24 Orders Doctor JULIEN 1..840.114 [id number] Univers 00:00:00 00:00:00 Only Unassigned, MESERET 350.1.13.10 ity of [place] [facility] 4.2.7.2.686 [place] [phone] [address] 2020-04-19 2020-04-19 AppointHAYDEE Bhandari [facility] [id number] [place] 15:00:00 15:00:00 t; TRAN MADRIGAL M.D. Urology P saranya MAYFIELD M.D. [facility] 2020-04-19 2020-04-19 AppointHAYDEE Bhandari [facility] [id number] [place] 14:00:00 14:00:00 t; TRAN MADRIGAL M.D. P saranya MAYFIELD M.D. [facility] 2020-04-19 2020-04-19 Telephone [facility] 1..840.114 [id number] [facility] 00:00:00 00:00:00 [facility] 350.1.13.10 i ty of [place].2.7.2.686 [place] [facility] [phone] [facility] 225 [facility] 2020-04-11 2020-04-11 Appointmen HAYDEE RUSH [facility] [id number] [place] 13:40:00 13:40:00 t; Silvano MAIER i, M.D. ans JOSHUA, M.D. 2020-04-04 2020-04-04 Telephone [facility] 1.2.840.114 [id number] Univers 00:00:00 00:00:00 Alexandra [place] 350.1.13.10 i ty of [place].2.[place] [phone] Pr dical nal 225 [facility] 2020-04-04 2020-04-04 Telephone [facility] 1.2.840.114 [id number] Univers 00:00:00 00:00:00 Alexandra Miller 350.1.13.10 i ty of [place] 4.2.7.2.[place] [phone] Pr dical nal 225 [facility] 2020-04-03 2020-04-03 Telephone Darvin, [facility] 1.2.840.114 [id number] Univers 00:00:00 00:00:00 Alexandra [facility] 350.1.13.10 it y of [place] 4.2.7.2.686 [place] Professio [phone] Pr dical nal 044 [place] Office [facility] One 2020-04-01 2020-04-01 [employer] Darian, Adc Lab Main [facility] 1.2.8 40.114 [id number] Univers 08:03:14 08:18:14 Visit Alexandra [place] 350.1.13.10 ity of [place].2.7.2.[place] [phone] Pr dical nal 353 [facility] 2020-04-01 2020-04-01 Outpatient R [facility] [id number] Univers 08:15:00 08:15:[address] [facility] 2020-03-31 2020-03-31 Patient [facility] 1.2.840.114 [id number] Univers 00:00:00 00:00:00 Outreach Kalyani [place] 350.1.13.10 ity of [place].7.2.[place] [phone] Pr dical nal 225 [facility] 2020-03-29 2020-03-29 Billing Darvin [facility] 1.2.840.114 [id number] Univers 16:35:01 16:50:01 Encounter Alexandra Miller 350.1.13.10 ity of [place].7.2.686 [place] [phone] Pr dical nal 225 [facility] 2020-03-29 2020-03-29 Office [facility] 1.2.840.114 [id number] Univers 09:09:56 10:51:25 Visit Alexandra [place] 350.1.13.10 i ty of [place].2.7.2.[place] [phone] Pr dical nal [address] [place] [address] 2020-03-29 2020-03-29 Outpatient R DARVIN, [facility] [id number] Univers 09:00:00 09:00:[address] ity of [facility] 2020-03-29 2020-03-29 Orders Doctor JULIEN 1.2.840.114 [id number] Univers 00:00:00 00:00:00 Only Unassigned, MESERET 350.1.13.10 ity of [place] [facility] 4.2.7.2.686 [place] [phone] [address] 2020-01-24 2020-01-24 Orders Doctor VICTORIA 1.2.840.114 [id number] Univers 00:00:00 00:00:00 Only Unassigned, MESERET 350.1.13.10 ity of [place] [facility] 4.2.7.2.686 [place] [phone] [address] 2020-01-14 2020-01-14 Telephone [facility] 1.2.840.114 [id number] Univers 00:00:00 00:00:00 Antoinette Shaffer 350.1.13.10 ity of Pediatric 4.2.7.2.686 [place] [facility] [phone] [address] 2020 2020 Orders Doctor VICTORIA 1.2.840.114 [id number] Univers 00:00:00 00:00:00 Only Unassigned, MESERET 350.1.13.10 ity of [place] [facility] 4.2.7.2.686 [place] [phone] [address] 2020-01-10 2020-01-10 Telephone Jd [facility] 1.2.840.114 [id number] Univers 00:00:00 00:00:00 [facility] 350.1.13.10 it y of Tayo Miller 4.2.7.2.686 [place] Professio [phone] Pr dical nal 044 [place] Office Building One 2019-12-22 2019-12-22 HAYDEE Nichols Pediatric [id number] [place] 13:00:00 13:00:00 t; TRAN MADRIGAL M.D. Surgery - Risa MAYFIELD M.D. [facility] 2019-12-14 2019-12-14 HAYDEE Rodriguez Pedi [id number] [place] 14:40:00 14:40:00 t; WES, Nephrology Phy linwood RUSH M.D. & [facility] Ye MAIER M.D. n 2019-11-24 2019-11-24 HAYDEE Nichols [facility] [id number] [place] 14:40:00 14:40:00 t; TRAN MADRIGAL M.D. P saranya MAYFIELD M.D. [facility] 2019-11-16 2019-11-16 Office [facility] 1.2.778.843 [id number] Univers 13:53:15 14:08:15 Visit Edjazmine P SPECIALTY 350.1.13.10 ity of [facility] 4.2.7.2.686 [facility] AT [phone] Pr dical VICTORY 198 [facility] 2019-11-16 2019-11-16 Outpatient R [facility] [id number] Univers 14:00:00 14:00:[address] [facility] 2019-11-16 2019-11-16 Orders Doctor JULIEN 1.2.840.114 [id number] Univers 00:00:00 00:00:00 Only Unassigned, MESERET 350.1.13.10 ity of [place] [facility] 4.2.7.2.686 [facility] [phone] [address] 2019-11-04 2019-11-04 Outpatient R [facility] [id number] Univers 13:15:00 13:15:00 EDWARD ity [facility] 2019-11-04 2019-11-04 HAYDEE Nichols [id number] [place] 09:30:00 09:30:00 t; TRAN MADRIGAL M.D. P saranya MAYFIELD M.D. [facility] 2019-10-14 2019-10-14 HAYDEE Nichols [id number] [place] 13:00:00 13:00:00 t; TRAN MADRIGAL M.D. P saranya MAYFIELD M.D. [facility] 2019-10-07 2019-10-07 Appointmen MADRIGALHAYDEE Pediatric [id number] MD 13:00:00 13:00:00 t; TRAN MADRIGAL M.D. Urology P saranya MAYFIELD M.D. [facility] 2019-09-09 2019-09-09 Outpatient R [facility] [id number] Univers 09:44:10 23:59:00 EDWARD ity [facility] 2019-09-09 2019-09-09 [facility] 1.2.840.114 [id number] Univers 09:44:00 23:59:00 Encounter Tayo Miller 350.1.13.10 ity of [place] 4.2.7.2.686 [facility] [phone] [facility] 804 [place] 2019-08-12 2019-09-09 Telemedici [facility] 1.2.840.114 7 [id number] Univers 07:55:40 12:35:52 ne Visit Tayo Minor SPECIALTY 350.1.13.10 ity of [facility] 4.2.7.2.686 [facility] AT [phone] Pr dical PAMELA 198 [facility] 2019-09-09 2019-09-09 Orders Doctor JULIEN 1.2.840.114 [id number] Univers 00:00:00 00:00:00 Only Unassigned, MESERET 350.1.13.10 ity of [place] [facility] 4.2.7.2.686 [facility] [phone] [facility] 009 [place] 2019-08-12 2019-08-12 Outpatient R [facility] [id number] Univers 11:15:00 11:15:00 TAYO ity [facility] 2019-08-05 2019-08-05 Outpatient [facility] [id number] Univers 15:40:00 15:40:00 CHITO ity [facility] 2019-07-27 2019-07-27 [facility] 1.2.840.114 [id number] Univers 10:49:00 23:59:00 Encounter Edward P [place] 350.1.13.10 ity of [place] 4.2.7.2.686 [place] [phone] [facility] 804 [place] 2019-07-27 2019-07-27 Outpatient R [facility] [id number] Univers 00:00:00 00:00:[address] [facility] 2019-07-27 2019-07-27 Orders Doctor JULIEN 1.2.840.114 [id number] Univers 00:00:00 00:00:00 Only Unassigned, MESERET 350.1.13.10 ity of [place] [facility] 4.2.7.2.686 [place] [phone] [address] 2019-07-22 2019-07-22 Outpatient [facility] [id number] Univers 10:40:00 10:40:[address] [facility] 2019-07-21 2019-07-21 [facility] 1.2.850.854 [id number] Univers 00:00:00 00:00:00 Management Edward P SPECIALTY 350.1.13.10 ity of CARE [place].2.7.2.686 [place] CENTER AT [phone] Pr lorri SANTIAGO [address] [place] [address] 2019-07-21 2019-07-21 Patient Doctor [facility] 1.2.840.114 [id number] Univers 00:00:00 00:00:00 Secure Msg Unassigned, SPECIALTY 350.1.13.10 ity of [place] CARE 4.2.7.2.686 [facility] AT [phone] Pr lorri SANTIAGO 198 [facility] 2019-07-15 2019-07-15 Orders Doctor JULIEN 1.2.840.114 [id number] Univers 00:00:00 00:00:00 Only Unassigned, MESERET 350.1.13.10 ity of [place] [facility] 4.2.7.2.686 [place] [phone] [address] 2019-07-09 2019-07-09 [facility] 1.2.840.114 [id number] Univers 14:49:00 23:59:00 Encounter Edward P SPECIALTY 350.1.13.10 ity of [place]2.7.2.[place] C[place] AT [phone] Pr lorri ARELLANOY 801 [facility] 2019-07-09 2019-07-09 [facility] 1.2.840.114 [id number] Univers 14:46:00 14:48:00 Encounter Edward P SPECIALTY 350.1.13.10 ity of C[place] 4.2.7.2.686 [place] CENTER AT [phone] Pr lorri SANTIAGO 804 [facility] 2019-07-09 2019-07-09 Outpatient R [facility] [id number] Univers 14:43:23 14:45:00 EDWARD ity [facility] 2019-07-09 2019-07-09 [facility] 1.2.840.114 [id number] Univers 14:43:00 14:45:00 Encounter Edward P SPECIALTY 350.1.13.10 ity of [place]2.7.2.686 [place] CENTER AT [phone] Pr lorri ARELLANO [address] [place] [address] 2019-07-08 2019-07-08 [facility] 1.2.280.607 [id number] Univers 14:33:00 23:59:00 Encounter Chito SPECIALTY 350.1.13.10 ity of [place]2.7.2.686 [place] C[place] AT [phone] Pr lorri SANTIAGO 804 [facility] 2019-07-08 2019-07-08 Outpatient R [facility] [id number] [id number] Univers 14:32:43 14:32:00 CHITO ity [facility] 2019-07-08 2019-07-08 [facility] 1.2.547.417 [id number] Univers 14:32:00 14:32:00 Encounter Chito SPECIALTY 350.1.13.10 ity of CARE [place].2.7.2.686 [place] C[place] AT [phone] Pr lorri SANTIAGO 804 [facility] 2019-07-06 2019-07-06 HAYDEE Rodriguez [facility] [id number] [place] 13:40:00 13:40:00 t; Silvano MAIER i, M.D. ans JOSHUA, M.D. 2019-07-05 2019-07-05 Outpatient [facility] 9600 [facility] 12:49:00 12:49:00 BREANA CHOWDHURY 2019-07-05 2019-07-05 Appointmen ORGANTRANSP UTP UTP [id number] MD 09:30:00 09:30:00 t; MARTIN Physi ci ORGANTRANS [facility] 2019-07-02 2019-07-02 Telephone [facility] 1.2.840.114 [id number] [facility] 00:00:00 00:00:00 [facility] 350.1.13.10 it y [place].2.[place] [phone] [address] Office [facility] 2019-07-01 2019-07-01 [facility] 1.2.840.114 [id number] Univers 11:33:00 23:59:00 Encounter Edward P SPECIALTY 350.1.13.10 ity of CARE 4.2.7.2.686 [place] CENTER AT [phone] Pr dical VICTORY 809 [facility] 2019-07-01 2019-07-01 [facility] [id number] [id number] Univers 10:07:15 11:38:11 Visit Edward P SPECIALTY 350.1.13.10 [place] [phone] Pr dical VICTORY 198 [facility] 2019-07-01 2019-07-01 Outpatient R [facility] [id number] Univers 10:31:31 11:32:[address] [facility] 2019-07-01 2019-07-01 [facility] 1.2.840.114 [id number] Univers 10:31:00 11:32:00 Encounter Edward P SPECIALTY [id number] [place] [phone] Pr dical VICTORY 809 [facility] 2019-06-30 2019-06-30 Appointmen ORGANTRANSP UTP UTP [id number] MD 07:00:00 07:00:00 t; MARTIN Physi ci ORGANTRANS ans PLANT, OP 2019-06-30 2019-06-30 [facility] 1.2.840.114 [id number] Univers 00:00:00 00:00:00 [facility] 350.1.13.10 [place] [phone] [address] Office Building 2019-06-28 2019-06-28 [facility] [id number] Univers 00:00:00 00:00:[address] [facility] 2019-06-28 2019-06-28 Telephone Marck Sargent [facility] 1.2.840.114 [id number] Univers 00:00:00 00:00:00 Edmund 350.1.13.10 it y of [facility] 4.2.7.2.686 [facility] [phone] [address] 2019-06-28 2019-06-28 Abstract [facility] 1.2.840.114 [id number] Univers 00:00:00 00:00:00 Juanita SPECIALTY 350.1.13.[address] [facility] [place] [phone] Pr lorri ARELLANO 198 [facility] 2019-06-28 2019-06-28 Orders Doctor JULIEN 1.2.840.114 [id number] Univers 00:00:00 00:00:00 Only Unassigned, MESERET 350.1.13.10 ity of [place] [facility] 4.2.7.2.686 [place] [phone] [address] 2019-06-16 2019-06-16 Telephone [facility] 1.2.840.114 [id number] Univers 00:00:00 00:00:00 [facility] 350.1.13.10 [place] [phone] [address] Office Building 2019-06-03 2019-06-03 Appointmen HAYDEE MADRIGAL Pediatric [id number] MD 14:00:00 14:00:00 t; TRAN MADRIGAL M.D. Urology [place] M.D. ans 2019-06-02 2019-06-02 Orders Doctor JULIEN 1.2.840.114 [id number] Univers 00:00:00 00:00:00 Only Unassigned, MESERET 350.1.13.10 ity of [place] [facility] 4.2.7.2.686 [place] [phone] [address] 2019-05-20 2019-05-20 Office [facility] 1.2.840.114 [id number] Univers 09:59:39 10:19:39 Visit [place] SPECIALTY 350.1.13.10 [place] [phone] [facility] [address] [place] 2019-05-20 2019-05-20 Letter [facility] 1.2.840.114 [id number] Univers 00:00:00 00:00:00 (Out) [place] SPECIALTY 350.1.13.10 [place] [phone] [address] 2019-05-18 2019-05-18 AppointHAYDEE [facility] [id number] [place] 15:15:00 15:15:00 t; TRAN MADRIGAL M.D. Urology P saranya MAYFIELD M.D. [facility] 2019-05-11 2019-05-11 HAYDEE Rodriguez Pedi [id number] [place] 13:40:00 13:40:00 t; Chip MAIER M.D. & Ye Duke M.D. n 2019-01-12 2019-01-12 HAYDEE Rodriguez Pedi [id number] [place] 13:00:00 13:00:00 t; WES Nephsebastian RUSH M.D. & Ye Duke M.D. n 2019-01-04 2019-01-04 Outpatient [facility] [id number] Univers 10:00:00 10:00:00 RYAN SHAIKH [facility] 2018-09-15 2018-09-15 HAYDEE Rodriguez Multispecia [id number] [place] 15:20:00 15:20:00 t; joceline MAIER i, M.D. [place] ans JOSHUA, M.D. 2018-06-09 2018-06-09 [facility] [id number] [place] 13:30:00 13:30:00 t; WES Nephsebastian RUSH M.D. & Ye Duke M.D. n 2018-03-17 2018-03-17 [facility] [id number] [place] 13:30:00 13:30:00 t; Ceasar MAIER i, M.D. Specialty fozia MAIER M.D. 2017-11-11 2017-11-11 [facility] [id number] [place] 15:00:00 15:00:00 t; WES Nephsebastian RUSH M.D. & Ye Duke M.D. n 2017-08-12 2017-08-12 [facility] [id number] [place] 14:30:00 14:30:00 t; Ceasar MAIER i, M.D. Specialty fozia MAIER M.D. 2017-05-13 2017-05-13 [facility] Ne[facility] [id number] [place] 15:30:00 15:30:00 t; Silvano MAIER i, M.D. ans JOSHUA, M.D. 2017-02-11 2017-02-11 [facility] [id number] [place] 15:30:00 15:30:00 t; Silvano MAIER i, M.D. ans JOSHUA, M.D. 2016-12-10 2016-12-10 Ann [facility] [id number] [place] 14:00:00 14:00:00 t; Silvano MAIER i, M.D. ans JOSHUA, M.D. 2016-12-03 2016-12-03 [facility] [id number] [place] 11:00:00 11:00:00 t; ECHO Silvano thea GARCIA, ans ECHO 2016-09-03 2016-09-03 [facility] R[facility], [facility] UTP [id number] [place] 16:00:00 16:00:00 t; Silvano MAIER i, M.D. ans JOSHUA, M.D. 2015-11-01 2015-11-01 [facility]ocrates RUSH [facility] UTP [id number] [place] 15:45:00 15:45:00 t; Silvano MAIER i, M.D. ans JOSHUA, M.D. 2015-06-28 2015-06-28 [facility] VICTOR MANUEL [facility] UTP [id number] [place] 15:45:00 15:45:00 t; Silvano MAIER i, M.D. ans JOSHUA, M.D. 2015-05-15 2015-05-15 Ann RUSH [facility] UTP [id number] [place] 14:00:00 14:00:00 t; Silvano MAIER i, M.D. ans JOSHUA, M.D. 2002 2002 Orders Doctor JULIEN [id number] [id number] Univers 00:00:00 00:00:00 Only Unassigned, MESERET [id number] it[place] [facility] [id number] [place] [phone] [facility] [address] 2002 2002 Orders Doctor JULIEN Hammer2.840.114 [id number] Univers 00:00:00 00:00:00 Only Unassigned, MESERET [id number] it[place] of [place] [facility] [id number] [place] [phone] [facility] [address] Results Test Description Test Time Test Comments Results Result Comments Source Prepare Packed RBC (in units) 2022-02-27 19:38:12 Test Item Value Reference Range Interpretation Comme nts Cross Match Result (test code = Compatible 4409) ISBT Blood Type Code (test code = 471153) Unit Blood Type (test code = 4410) O Pos Unit Number (test code = 4411) [id number] Blood Expiration Date & Time (test code = 307091) Status Information (test code = Issued 4411) Product Identification (test code = Red Blood Cells 4413) Product Code (test code = 4414) [id number] Performed at [facility] Laboratory Services - [facility] Blood [address] [id number] Free: [phone] A No. [id number] [facility] Screen - [id number] 17:58:08 Test Item Value Reference Range Interpretation Comments ABO & RH (test code O POSITIVE Performe d at [facility] = 20) Laboratory Serv [facility] Blood [facility] [facility] [address]Ugyt Free: [phone] A No. [id number] IAT (test code = Negative Performed a t [facility] 1185) Laboratory Serv [facility] Blood [facility] [address] [facility] [address]Xhbk Free: [phone] A No. [id number] [facility][QL] CMP [id number] 16:16:00 Test Item Value Reference Range Interpretation Comments GLUCOSE; Normal 90 mg/dl 65-99 N Fasting refe rence (test code = 1547-9) interva l UREA NITROGEN (BUN) 52 mg/dl 7-20 (test code = UREA NITROGEN (BUN)) CREATININE (test 3.41 mg/dl 0.50-1.00 code = CREATININE) eGFR NON-AFR. 19 See_Comment [Automated me ssage] CZECH (test code {ML/MIN/1.7} The syst em which = eGFR NON-AFR. generated th is CZECH) result transmit janes reference range : > OR = 60. The reference range was not used to interpret this result as normal/abnormal . eGFR 22 See_Comment [Automated mes marcelina] CZECH (test code {ML/MIN/1.7} The syst em which = eGFR generated thi s CZECH) result transmit janes reference range : > [...] mg/dl 0.2-1.1 N Normal (test code = 11582-6) ALKALINE PHOSPHATASE 49 u/l 36-128 N (test code = ALKALINE PHOSPHATASE) AST; Below Low 7 u/l 12-32 Threshold (test code = 1916-6) ALT; Normal (test 6 u/l 5-32 N code = 1742-6) [facility][O] Urine Dipstick (In Office)2020-08-10 15:47:00 Test Item Value Reference Range Interpretation Comments Glucose (test code = Glucose) Negative N LEUKOCYTES (test code = Small A LEUKOCYTES) NITRITE; Normal (test code = Negative N 82595-4) UROBILINOGEN; Normal (test code 0.2 N = 99318-9) PROTEIN; Abnormal (test code = 100 A 93409-7) pH (test code = pH) 6.5 N URINE BLOOD; Abnormal (test code Small A = 22765-0) SPECIFIC GRAVITY; Normal (test 1.010 N code = 2965-2) KETONES; Normal (test code = Negative N 64318-6) BILIRUBIN; Normal (test code = Negative N 85537-9) COLOR URINE; Normal (test code = Light Yellow N 5778-6) APPEARANCE; Abnormal (test code Turbid A = 5767-9) [facility][QL] CBC (INCLUDES DIFF/PLT)2020-07-26 11:37:00 Test Item Value Reference Range Interpretation Comments WHITE BLOOD CELL COUNT 6.9 {Thousand/u} 4.5-13.0 N (test code = WHITE BLOOD CELL COUNT) RED BLOOD CELL COUNT (test 4.11 {Million/uL} 3.80-5.10 N code = RED BLOOD CELL COUNT) HEMOGLOBIN; Below Low 11.0 g/dl 11.5-15.3 Threshold (test code = 93221-6) HEMATOCRIT; Normal (test 34.8 % 34.0-46.0 N code = 4544-3) MCV; Normal (test code = 84.7 fL 78.0-98.0 N 787-2) MCHC; Normal (test code = 31.6 g/dl 31.0-36.0 N 27089-0) RDW; Above High Threshold 15.6 % 11.0-15.0 (test code = 788-0) PLATELET COUNT; Normal 287 {Thousand/u} 140-400 N (test code = 777-3) MPV; Normal (test code = 12.1 fL 7.5-12.5 N 30463-5) ABSOLUTE NEUTROPHILS (test 4326 {cells/uL} 0621-1488 N code = ABSOLUTE NEUTROPHILS) ABSOLUTE LYMPHOCYTES (test 1442 {cells/uL} 5754-0751 N code = ABSOLUTE LYMPHOCYTES) ABSOLUTE MONOCYTES (test 338 {cells/uL} 200-900 N code = ABSOLUTE MONOCYTES) ABSOLUTE EOSINOPHILS (test 745 {cells/uL} 15-500 code = ABSOLUTE EOSINOPHILS) ABSOLUTE BASOPHILS (test 48 {cells/uL} 0-200 N code = ABSOLUTE BASOPHILS) NEUTROPHILS (test code = 62.7 % N NEUTROPHILS) LYMPHOCYTES (test code = 20.9 % N LYMPHOCYTES) MONOCYTES; Normal (test 4.9 % N code = 07010-6) EOSINOPHILS; Normal (test 10.8 % N code = 83119-0) BASOPHILS; Normal (test 0.7 % N code = 82310-6) [facility][QL] VITAMIN D, 25-HYDROXY, [id number] 11:37:00 Test Item Value Reference Range Interpretation [...] D, (D2,D3), LC/MS/MS is recommended: order code 99166 (pat ients >2yrs).See Note 1 Note 1 For additional information, pl ease refer to http://educatio n.TrafficLand.Vires Aeronautics/f aq/VXQ347 (This link is b eing provided for informational/e ducationa l purposes only .) REPORT COMMENT:FASTING:YES[facility][Q] IRON, TIBC AND FERRITIN PANEL 2020-07-26 11:37:00 Test Item Value Reference Range Interpretation Comments IRON, TOTAL (test code = 32 {mcg/dl} 27-164 N IRON, TOTAL) IRON BINDING CAPACITY (test 283 {mcg/dL ca} 271-448 N code = IRON BINDING CAPACITY) % SATURATION (test code = % 11 {% CALC} 15-45 SATURATION) FERRITIN (test code = 17 ng/ml 6-67 N FERRITIN) [facility][Q] PTH, INTACT AND [id number] 11:37:00 Test Item Value Reference Interpretation Comments [...] N code = CALCIUM) REPORT COMMENT:FASTING:YES[facility][QL] [id number] 11:37:00 Test Item Value Reference Range Interpretation Comments MAGNESIUM (test code = MAGNESIUM) 2.4 mg/dl 1.5-2.5 N [facility][QL] PHOSPHATE ( PHOSPHORUS)2020-07-26 11:37:00 Test Item Value Reference Range Interpretation Comments PHOSPHATE ( PHOSPHORUS) (test 4.8 mg/dl 2.5-4.5 code = PHOSPHATE ( PHOSPHORUS)) [facility][QL] CMP [id number] 11:37:00 Test Item Value Reference Range Interpretation Comments GLUCOSE; Normal 91 mg/dl 65-99 N Fasting refe renmagdaleno (test code = 1547-9) interva l UREA NITROGEN (BUN) 68 mg/dl 7-20 (test code = UREA NITROGEN (BUN)) CREATININE (test 3.48 mg/dl 0.50-1.00 code = CREATININE) eGFR NON-AFR. 18 See_Comment [Automated me ssage] CZECH (test code {ML/MIN/1.7} The syst em which = eGFR NON-AFR. generated th is CZECH) result transmit janes reference range : > OR = 60. The reference range was not used to interpret this result as normal/abnormal . eGFR 21 See_Comment [Automated mes marcelina] CZECH (test code {ML/MIN/1.7} The syst em which = eGFR generated thi s CZECH) result transmit janes reference range : > [...] mg/dl 0.2-1.1 N Normal (test code = 40441-5) ALKALINE PHOSPHATASE 75 u/l 36-128 N (test code = ALKALINE PHOSPHATASE) AST; Below Low 6 u/l 12-32 Threshold (test code = 1916-6) ALT; Normal (test 6 u/l 5-32 N code = 1742-6) [facility][QL] URINALYSIS, [id number] 11:37:00 Test Item Value Reference Range Interpretation Comments COLOR; Normal (test YELLOW YELLOW N code = 5778-6) APPEARANCE (test code CLEAR CLEAR N = APPEARANCE) SPECIFIC GRAVITY; 1.009 1.001-1.035 N Normal (test code = 2965-2) PH; Normal (test code 5.5 5.0-8.0 N = 2756-5) GLUCOSE; Normal (test NEGATIVE NEGATIVE N code = 1547-9) BILIRUBIN; Normal NEGATIVE NEGATIVE N (test code = 70500-8) KETONES; Normal (test NEGATIVE NEGATIVE N code = 39402-2) OCCULT BLOOD; Abnormal 1+ NEGATIVE A (test code = 10515-4) PROTEIN; Abnormal 1+ NEGATIVE A (test code = 49959-7) NITRITE; Abnormal POSITIVE NEGATIVE A (test code = 26527-5) LEUKOCYTE ESTERASE 3+ NEGATIVE A (test code = LEUKOCYTE ESTERASE) WBC; Abnormal (test 40-60 See_Comment A [Automa janes message] code = 6690-2) The system [facility] generated this result transmitted ref erence range: < OR = 5 . The reference range was not used to int erpret this result as normal/abnormal . RBC; Abnormal (test 3-10 See_Comment A [Automa janes message] code = 789-8) The system [facility] generated this result transmitted ref erence range: < OR = 2 . The reference range was not used to int erpret this result as normal/abnormal . SQUAMOUS EPITHELIAL 0-5 See_Comment [Automa janes message] CELLS (test code = The syste m which 04739-5) generated this result transmitted ref erence range: < OR = 5 . The reference range was not used to int erpret this result as normal/abnormal . BACTERIA; Abnormal MODERATE NONE SEEN A (test code = 630-4) HYALINE CAST; Normal NONE SEEN NONE SEEN N (test code = 48331-3) [facility][O] Urine Dipstick (In Office)2020-04-27 16:11:00 Test Item Value Reference Range Interpretation Comments Glucose (test code = Glucose) Negative N LEUKOCYTES (test code = Small A LEUKOCYTES) NITRITE; Normal (test code = Negative N 32177-4) UROBILINOGEN; Normal (test code 0.2 N = 96751-1) PROTEIN; Abnormal (test code = 100 A 21480-6) pH (test code = pH) 5.5 N URINE BLOOD; Abnormal (test code Small A = 10123-9) SPECIFIC GRAVITY; Normal (test 1.010 N code = 2965-2) KETONES; Normal (test code = Negative N 98150-2) BILIRUBIN; Normal (test code = Negative N 89283-4) COLOR URINE; Normal (test code = Light yellow N 5778-6) APPEARANCE; Abnormal (test code Cloudy A = 5767-9) [facility][Q] CYSTATIN C WITH [id number] 13:36:00 Test Item Value Reference Range Interpretation Comments CYSTATIN C (test code = 2.89 mg/L 0.52-1.19 CYSTATIN C) eGFR (test code = eGFR) 26 {ML/MIN/1.7} > OR = 60 [facility][QL] [id number] 13:35:00 Test Item Value Reference Range Interpretation Comments MAGNESIUM (test code = MAGNESIUM) 2.4 mg/dl 1.5-2.5 N [facility][QL] PHOSPHATE ( PHOSPHORUS)2020-04-25 13:35:00 Test Item Value Reference Range Interpretation Comments PHOSPHATE ( PHOSPHORUS) (test 4.8 mg/dl 2.5-4.5 code = PHOSPHATE ( PHOSPHORUS)) [facility][QL] IRON AND TOTAL IRON BINDING [id number] 13:35:00 Test Item Value Reference Range Interpretation Comments IRON, TOTAL (test code = 81 {mcg/dl} 27-164 N IRON, TOTAL) IRON BINDING CAPACITY (test 293 {mcg/dL ca} 271-448 N code = IRON BINDING CAPACITY) % SATURATION (test code = % 28 {% CALC} 15-45 N SATURATION) [facility][QL] CMP [id number] 13:35:00 Test Item Value Reference Range Interpretation Comments GLUCOSE; Normal (test 82 mg/dl 65-99 N Fastin g reference code = 1547-9) interval UREA NITROGEN (BUN) 67 mg/dl 7-20 (test code = UREA NITROGEN (BUN)) CREATININE (test code 3.22 mg/dl 0.50-1.00 = CREATININE) eGFR NON-AFR. 20 {ML/MIN/1.7} > OR = 60 CZECH (test code = eGFR NON-AFR. CZECH) eGFR 23 {ML/MIN/1.7} > OR = 60 [...] mg/dl 0.2-1.1 N Normal (test code = 98967-8) ALKALINE PHOSPHATASE 64 u/l 36-128 N (test code = ALKALINE PHOSPHATASE) AST; Normal (test 13 u/l 12-32 N code = 1916-6) ALT; Normal (test 17 u/l 5-32 N code = 1742-6) [facility][QL] URINALYSIS, [id number] 13:35:00 Test Item Value Reference Range Interpretation Comments COLOR; Normal (test code = 5778-6) YELLOW YELLOW N APPEARANCE (test code = APPEARANCE) CLOUDY CLEAR A SPECIFIC GRAVITY; Normal (test code 1.006 1.001-1.035 N = 2965-2) PH; Normal (test code = 2756-5) 5.5 5.0-8.0 N GLUCOSE; Normal (test code = NEGATIVE NEGATIVE N 1547-9) BILIRUBIN; Normal (test code = NEGATIVE NEGATIVE N 68652-9) KETONES; Normal (test code = NEGATIVE NEGATIVE N 82654-5) OCCULT BLOOD; Abnormal (test code = 1+ NEGATIVE A 37842-9) PROTEIN; Abnormal (test code = 1+ NEGATIVE A 62390-2) NITRITE; Abnormal (test code = POSITIVE NEGATIVE A 83387-1) LEUKOCYTE ESTERASE (test code = 3+ NEGATIVE A LEUKOCYTE ESTERASE) WBC; Abnormal (test code = 6690-2) > OR = 60 < OR = 5 A RBC; Abnormal (test code = 789-8) 3-10 < OR = 2 A SQUAMOUS EPITHELIAL CELLS (test 0-5 < OR = 5 code = 82121-3) BACTERIA; Abnormal (test code = MODERATE NONE SEEN A 630-4) HYALINE CAST; Normal (test code = NONE SEEN NONE SEEN N 03673-5) [facility][QL] CBC (INCLUDES DIFF/PLT)2020-04-25 13:35:00 Test Item Value Reference Range Interpretation Comments WHITE BLOOD CELL COUNT 6.6 {Thousand/u} 4.5-13.0 N (test code = WHITE BLOOD CELL COUNT) RED BLOOD CELL COUNT (test 4.09 {Million/uL} 3.80-5.10 N code = RED BLOOD CELL COUNT) HEMOGLOBIN; Below Low 10.6 g/dl 11.5-15.3 Threshold (test code = 24799-9) HEMATOCRIT; Normal (test 34.3 % 34.0-46.0 N code = 4544-3) MCV; Normal (test code = 83.9 fL 78.0-98.0 N 787-2) MCHC; Below Low Threshold 30.9 g/dl 31.0-36.0 N (test code = 41795-2) RDW; Normal (test code = 14.3 % 11.0-15.0 N 788-0) PLATELET COUNT; Normal 323 {Thousand/u} 140-400 N (test code = 777-3) MPV; Normal (test code = 11.2 fL 7.5-12.5 N 93669-9) ABSOLUTE NEUTROPHILS (test 4633 {cells/uL} 5388-2367 N code = ABSOLUTE NEUTROPHILS) ABSOLUTE LYMPHOCYTES (test 1353 {cells/uL} 7781-3393 N code = ABSOLUTE LYMPHOCYTES) ABSOLUTE MONOCYTES (test 383 {cells/uL} 200-900 N code = ABSOLUTE MONOCYTES) ABSOLUTE EOSINOPHILS (test 152 {cells/uL} 15-500 N code = ABSOLUTE EOSINOPHILS) ABSOLUTE BASOPHILS (test 79 {cells/uL} 0-200 N code = ABSOLUTE BASOPHILS) NEUTROPHILS (test code = 70.2 % N NEUTROPHILS) LYMPHOCYTES (test code = 20.5 % N LYMPHOCYTES) MONOCYTES; Normal (test 5.8 % N code = 58601-6) EOSINOPHILS; Normal (test 2.3 % N code = 18330-8) BASOPHILS; Normal (test 1.2 % N code = 80486-2) [facility][QL] PTH, INTACT (WITHOUT CALCIUM)2020-04-25 13:35:00 Test [...] Normal High [facility][QL] VITAMIN D, 25-HYDROXY, [id number] 13:35:00 Test Item Value Reference Range Interpretation [...] D, (D2,D3), LC/MS/MS is recommended: order code 72989 (pat ients >2yrs).See Note 1 Note 1 For additional information, pl ease refer to http://educatio n.TrafficLand.[employer]eron[employer]/f aq/NZO705 (This link is b eing provided for informational/e ducationa l purposes only .) [facility][Q] PROTEIN, TOTAL W/CREAT, RANDOM [id number] 13:35:00 Test Item Value Reference Range Interpretation Comments CREATININE, RANDOM URINE 35 mg/dl 20-275 N (test code = CREATININE, RANDOM URINE) PROTEIN/CREATININE RATIO 1.514 {mg/mg crea} 0.021-0.161 (test code = PROTEIN/CREATININE RATIO) PROTEIN, TOTAL, RANDOM UR 53 mg/dl 5-24 (test code = PROTEIN, TOTAL, RANDOM UR) [facility][O] Urine Dipstick (In Office)2019-12-14 15:25:00 Test Item Value Reference Range Interpretation Comments Glucose (test code = Glucose) Negative N LEUKOCYTES (test code = Small A LEUKOCYTES) NITRITE; Normal (test code = Negative N 22448-1) UROBILINOGEN; Normal (test code 0.2 N = 83243-9) PROTEIN; Abnormal (test code = 30 A 37609-4) pH (test code = pH) 5.5 N URINE BLOOD; Abnormal (test code Moderate A = 94951-0) SPECIFIC GRAVITY; Abnormal (test <1.005 A code = 2965-2) KETONES; Normal (test code = Negative N 91198-9) BILIRUBIN; Normal (test code = Negative N 81751-5) COLOR URINE; Normal (test code = Light yellow N 5778-6) APPEARANCE; Abnormal (test code Cloudy A = 5767-9) [facility][QL] HEPATITIS [id number] 00:00:00 Test Item Value Reference Range Interpretation Comments HEPATITIS A AB, REACTIVE NON-REACTIVE A For addition al TOTAL; Abnormal information, [place] ([place] [address]-7) http://educatio n.ques tdiagnostics.co m/faq/ GHW785 (This nk is being provided for informational/e ducati onal purposes o nly.) HEPATITIS B SURFACE NON-REACTIVE NON-REACTIVE N ANTIBODY QL; Normal (test code = 70161-9) HEPATITIS B SURFACE NON-REACTIVE NON-REACTIVE N ANTIGEN; Normal (test code = 5195-3) HEPATITIS B CORE AB NON-REACTIVE NON-REACTIVE N TOTAL; Normal (test code = 51269-2) HEPATITIS C NON-REACTIVE NON-REACTIVE N ANTIBODY; Normal (test code = 95127-3) SIGNAL TO CUT-OFF 0.01 <1.00 N HCV antibo dy was (test code = SIGNAL non-reac tive. There TO CUT-OFF) is no laborator y evidence of HCV infection. In m ost cases, no furth er action is requi red. However,if rece nt HCV exposure is suspected, a te [place] for HCV RNA([place] [address]) is sugge sted. For additional information ple ase refer tohttp://educat ion.tribr. Vires Aeronautics/fa q/SUN41b8(This link is being provid ed for informational/e ducati onal purposes o nly.) [facility][QL] [id number] 00:00:00 Test Item Value Reference Range Interpretation Comments MAGNESIUM (test code = MAGNESIUM) 2.3 mg/dl 1.5-2.5 N [facility][QL] PHOSPHATE ( PHOSPHORUS)2019-12-14 00:00:00 Test Item Value Reference Range Interpretation Comments PHOSPHATE ( PHOSPHORUS) (test 4.0 mg/dl 2.5-4.5 N code = PHOSPHATE ( PHOSPHORUS)) [facility][QL] CMP [id number] 00:00:00 Test Item Value Reference Range Interpretation Comments GLUCOSE; Normal (test 91 mg/dl 65-139 N Non-fa sting code = 1547-9) reference int erval UREA NITROGEN (BUN) 49 mg/dl 7-20 (test code = UREA NITROGEN (BUN)) CREATININE (test code 3.38 mg/dl 0.50-1.00 Patien t is <18 = CREATININE) years old. Adeltia ble to calculate eG FR. BUN/CREATININE RATIO [...] mg/dl 0.2-1.1 N Normal (test code = 25927-3) ALKALINE PHOSPHATASE 52 u/l 36-128 N (test code = ALKALINE PHOSPHATASE) AST; Below Low 7 u/l 12-32 Threshold (test code = 1916-6) ALT; Normal (test 6 u/l 5-32 N code = 1742-6) [facility][QL] CBC (INCLUDES DIFF/PLT)2019-12-14 00:00:00 Test Item Value Reference Range Interpretation Comments WHITE BLOOD CELL COUNT 5.9 {Thousand/u} 4.5-13.0 N (test code = WHITE BLOOD CELL COUNT) RED BLOOD CELL COUNT (test 4.15 {Million/uL} 3.80-5.10 N code = RED BLOOD CELL COUNT) HEMOGLOBIN; Below Low 11.1 g/dl 11.5-15.3 Threshold (test code = 52339-8) HEMATOCRIT; Normal (test 34.2 % 34.0-46.0 N code = 4544-3) MCV; Normal (test code = 82.4 fL 78.0-98.0 N 787-2) MCHC; Normal (test code = 32.5 g/dl 31.0-36.0 N 57157-2) RDW; Normal (test code = 14.6 % 11.0-15.0 N 788-0) PLATELET COUNT; Normal 345 {Thousand/u} 140-400 N (test code = 777-3) MPV; Normal (test code = 12.0 fL 7.5-12.5 N 39350-6) ABSOLUTE NEUTROPHILS (test 3463 {cells/uL} 6881-5566 N code = ABSOLUTE NEUTROPHILS) ABSOLUTE LYMPHOCYTES (test 1522 {cells/uL} 0982-9110 N code = ABSOLUTE LYMPHOCYTES) ABSOLUTE MONOCYTES (test 330 {cells/uL} 200-900 N code = ABSOLUTE MONOCYTES) ABSOLUTE EOSINOPHILS (test 537 {cells/uL} 15-500 code = ABSOLUTE EOSINOPHILS) ABSOLUTE BASOPHILS (test 47 {cells/uL} 0-200 N code = ABSOLUTE BASOPHILS) NEUTROPHILS (test code = 58.7 % N NEUTROPHILS) LYMPHOCYTES (test code = 25.8 % N LYMPHOCYTES) MONOCYTES; Normal (test 5.6 % N code = 52430-8) EOSINOPHILS; Normal (test 9.1 % N code = 48142-8) BASOPHILS; Normal (test 0.8 % N code = 78110-9) [facility][QL] PTH, INTACT (WITHOUT CALCIUM)2019-12-14 00:00:00 Test Item Value Reference Interpretation Comments Range PARATHYROID 136 pg/ml 12-71 Interpretive Gu lei Intact PTH HORMONE, INTACT Calcium----- (test code = ---- ---Normal PARATHYROID Parathyroid Nor mal HORMONE, INTACT) NormalHypop arathyroidism Low or Low Normal LowHyperparathy roidism Primary Normal or High High Secondary High Normal or Low Tertiary High HighNon-Parathy roid Hypercalcemia L ow or Low Normal High [facility][QL] VITAMIN D, 25-HYDROXY, [id number] 00:00:00 Test Item Value Reference Range Interpretation [...] D, (D2,D3), LC/MS/MS is recommended: order code 39381 (pat ients >2yrs).See Note 1 Note 1 For additional information, pl ease refer to [email or web address] [email or web address] (This link is b eiglen provided for informational/e ducationa l purposes only .) [facility][QL] URINALYSIS, [id number] 00:00:00 Test Item Value Reference Range Interpretation [...] Normal (test code = NEGATIVE NEGATIVE N 54089-0) KETONES; Normal (test code = NEGATIVE NEGATIVE N 64781-4) OCCULT BLOOD; Abnormal (test code 2+ NEGATIVE A = 10889-1) PROTEIN; Abnormal (test code = 1+ NEGATIVE A 22011-1) NITRITE; Normal (test code = NEGATIVE NEGATIVE N 45526-3) LEUKOCYTE ESTERASE (test code = 3+ NEGATIVE A LEUKOCYTE ESTERASE) WBC; Abnormal (test code = 6690-2) > OR = 60 < OR = 5 A RBC; Abnormal (test code = 789-8) 3-10 < OR = 2 A SQUAMOUS EPITHELIAL CELLS; Normal NONE SEEN < OR = 5 N (test code = 45712-8) BACTERIA; Abnormal (test code = MODERATE NONE SEEN A 630-4) HYALINE CAST; Normal (test code = NONE SEEN NONE SEEN N 39852-5) [facility][Q] CYSTATIN C WITH [id number] 00:00:00 Test Item Value Reference Range Interpretation Comments CYSTATIN C (test code = 2.69 mg/L 0.52-1.19 CYSTATIN C) eGFR (test code = eGFR) 28 {ML/MIN/1.7} > OR = 60 [facility][Q] PROTEIN, TOTAL W/CREAT, RANDOM [id number] 00:00:00 Test Item Value Reference Range Interpretation Comments CREATININE, RANDOM URINE 32 mg/dl 20-275 N (test code = CREATININE, RANDOM URINE) PROTEIN/CREATININE RATIO 1.250 {mg/mg crea} 0.021-0.161 (test code = PROTEIN/CREATININE RATIO) PROTEIN, TOTAL, RANDOM UR 40 mg/dl 5-24 (test code = PROTEIN, TOTAL, RANDOM UR) [facility][QL] URINALYSIS, COMPLETE W/REFLEX TO [id number] 00:00:00 Test Item Value Reference Range Interpretation Comments COLOR; Normal (test YELLOW YELLOW N code = 5778-6) APPEARANCE (test code CLEAR CLEAR N = APPEARANCE) SPECIFIC GRAVITY; 1.009 1.001-1.035 N Normal (test code = 2965-2) PH; Normal (test code 5.5 5.0-8.0 N = 2756-5) GLUCOSE; Normal (test NEGATIVE NEGATIVE N code = 1547-9) BILIRUBIN; Normal NEGATIVE NEGATIVE N (test code = 47976-9) KETONES; Normal (test NEGATIVE NEGATIVE N code = 34796-1) OCCULT BLOOD; 2+ NEGATIVE A Abnormal (test code = 86670-2) PROTEIN; Abnormal 1+ NEGATIVE A (test code = 47293-3) NITRITE (test code = NEGATIVE NEGATIVE N NITRITE) LEUKOCYTE ESTERASE 2+ NEGATIVE A (test code = LEUKOCYTE ESTERASE) WBC; Abnormal (test 10-20 < OR = 5 A code = 6690-2) RBC; Abnormal (test 3-10 < OR = 2 A code = 789-8) SQUAMOUS EPITHELIAL 0-5 < OR = 5 CELLS (test code = 11839-4) BACTERIA; Abnormal FEW NONE SEEN A (test code = 630-4) HYALINE CAST; Normal NONE SEEN NONE SEEN N SPECIME N RECEIVED DATE (test code = 64543-4) AND TI IA: [id number] [facility][QL] CBC (INCLUDES DIFF/PLT)2019-10-11 00:00:00 Test Item Value Reference Range Interpretation Comments WHITE BLOOD CELL 6.9 4.5-13.0 N COUNT (test code = {Thousand/u} WHITE BLOOD CELL COUNT) RED BLOOD CELL COUNT 4.16 3.80-5.10 N (test code = RED {Million/uL} BLOOD CELL COUNT) HEMOGLOBIN; Below 11.4 g/dl 11.5-15.3 Low Threshold (test code = 73724-9) HEMATOCRIT; Normal 34.8 % 34.0-46.0 N (test code = 4544-3) MCV; Normal (test 83.7 fL 78.0-98.0 N code = 787-2) MCHC; Normal (test 32.8 g/dl 31.0-36.0 N code = 02130-3) RDW; Above High 15.2 % 11.0-15.0 Threshold (test code = 788-0) PLATELET COUNT; 296 140-400 N Normal (test code = {Thousand/u} 777-3) MPV; Normal (test 11.4 fL 7.5-12.5 N code = 67485-4) ABSOLUTE NEUTROPHILS 3912 2619-7365 N (test code = {cells/uL} ABSOLUTE NEUTROPHILS) ABSOLUTE LYMPHOCYTES 2077 6598-0552 N (test code = {cells/uL} ABSOLUTE LYMPHOCYTES) [...] Normal 7.5 % N (test code = 95467-5) EOSINOPHILS; Normal 4.8 % N (test code = 24265-3) BASOPHILS; Normal 0.9 % N SPECIMEN R ECEIVED (test code = DATE AND TIME: 01876-1) [id number] [facility][QL] PTH, INTACT (WITHOUT CALCIUM)2019-10-11 00:00:00 Test Item Value Reference Interpretation Comments Range PARATHYROID 140 pg/ml 12-71 Interpretive Gu lei Intact PTH HORMONE, INTACT Calcium----- (test code = ---- ---Normal PARATHYROID Parathyroid Nor mal HORMONE, INTACT) NormalHypop arathyroidism Low or Low Normal LowHyperparathy roidism Primary Normal or High High Secondary High Normal or Low Tertiary High HighNon-Parathy roid Hypercalcemia L ow or Low Normal High SPE CIMEN RECEIVED DATE AND TIME: [facility][QL] VITAMIN D, 25-HYDROXY, LC/MS/[id number] 00:00:00 Test Item Value Reference Range Interpretation [...] and D3 fractions is re quired, the [employer] D()25-OH VIT D, (D2,D3), LC/MS/MS is recommended: order code 72948 (pat ients >2yrs).See Note 1 Note 1 For additional information, pl ease refer to http://educatio Searchdaimon/fa q/PZJ790 (This link is b eing provided for informational/e ducational purposes only.) SPECIMEN RECEIVED DATE A ND TIME: [facility][Q] REFLEXIVE URINE [id number] 00:00:00 Test Item Value Reference Range Interpretation Comments REFLEXIVE URINE CULTURE INDICATED SPECIME N RECEIVED CULTURE (test - RESULTS TO DATE AND TIME: code = REFLEXIVE FOLLOW 7 URINE CULTURE) [facility][QL] CULTURE, URINE, [id number] 00:00:00 Test Item Value Reference Range Interpretation Comments CULTURE (test code See Comment CULTURE, URINE, ROUTINE = CULTURE) Micro Number: [id number] Test Status: Fi nal Specimen Source : URINE Specimen Qualit y: Adequate Result : Multiple organi sms present, each l ess than 10,000 CFU/mL. These organisms, comm only found on agriculture mechanic al and internal genita yolanda, are considered to b e colonizers. No further testing performed.SPECI MEN RECEIVED DATE A ND TIME: [facility][QL] CULTURE, URINE, [id number] 13:59:00 Test Item Value Reference Range Interpretation Comments CULTURE (test See Comment A CULTURE, URINE , ROUTINE code = CULTURE) Micro Number : [id number] Test Status: Fi nal Specimen Source : URINE, CLEAN CATCH Spe cimen Quality: Adequ ate Result: Greater than 100,000 CFU/mL of Klebsiella oxyt oca K.oxytoca - INT HANSA AMOX/CLAVULANAT E S 4 AMPICILLIN R >= 32 AMP/SULBACTAM I 16 CEFAZOLIN R 16 1 CEFEPIME S <=1 CEFTRIAXONE S <=1 CIPROFLOXACIN S <=0.25 GENTAMICIN S <= 1 [...] doxime, cefprozil, cefu roxime, cephalexin and loracarbef. [facility] Bladder Cystourethrogram voiding [id number] 09:50:00EXAM: VOIDING CYSTOURETHROGRAMDATE: 09/14/2019, 0953 hoursINDICATION: - [...] 09/13/2010:16FINAL REPORTUT [facility][Q] IRON, TIBC AND FERRITIN [id number] 12:57:00 Test Item Value Reference Range Interpretation Comments IRON, TOTAL (test code = 47 {mcg/dl} 27-164 N IRON, TOTAL) IRON BINDING CAPACITY (test 231 {mcg/dL ca} 271-448 code = IRON BINDING CAPACITY) % SATURATION (test code = % 20 {% CALC} 15-45 N SATURATION) FERRITIN (test code = 21 ng/ml 6-67 N FERRITIN) [facility][QLH] [id number] 12:57:00 Test Item Value Reference Range Interpretation Comments MAGNESIUM (test code = MAGNESIUM) 2.3 mg/dl 1.5-2.5 N [facility]] PHOSPHATE ( PHOSPHORUS)2019-07-07 12:57:00 Test Item Value Reference Range Interpretation Comments PHOSPHATE ( PHOSPHORUS) (test 4.1 mg/dl 2.5-4.5 N code = PHOSPHATE ( PHOSPHORUS)) [facility][QL] CMP [id number] 12:57:00 Test Item Value Reference Range Interpretation [...] mg/dl 0.2-1.1 N Normal (test code = 19379-0) ALKALINE PHSPHATASE 45 u/l 36-128 N (test code = ALKALINE PHSPHATASE) AST; Below Low 6 u/l 12-32 Threshold (test code = 1916-6) ALT; Below Low 4 u/l 5-32 Threshold (test code = 1742-6) [facility]] URINALYSIS, [id number] 12:57:00 Test Item Value Reference Range Interpretation Comments COLOR; Normal (test code = 5778-6) YELLOW YELLOW N APPEARANCE (test code = APPEARANCE) CLEAR CLEAR N SPECIFIC GRAVITY; Normal (test code 1.010 1.001-1.035 N = 2965-2) PH; Normal (test code = 2756-5) 6.5 5.0-8.0 N GLUCOSE; Normal (test code = 1547-9) NEGATIVE NEGATIVE N BILIRUBIN; Normal (test code = NEGATIVE NEGATIVE N 58123-8) KETONES; Normal (test code = NEGATIVE NEGATIVE N 08065-2) OCCULT BLOOD; Abnormal (test code = TRACE NEGATIVE A 73815-9) PROTEIN; Abnormal (test code = TRACE NEGATIVE A 48996-9) NITRITE; Normal (test code = NEGATIVE NEGATIVE N 04788-7) LEUKOCYTE ESTERASE (test code = 2+ NEGATIVE A LEUKOCYTE ESTERASE) WBC; Abnormal (test code = 6690-2) 40-60 < OR = 5 A RBC; Abnormal (test code = 789-8) 3-10 < OR = 2 A SQUAMOUS EPITHELIAL CELLS; Abnormal 6-10 < OR = 5 A (test code = 31022-1) BACTERIA; Abnormal (test code = MODERATE NONE SEEN A 630-4) HYALINE CAST; Abnormal (test code = 0-1 NONE SEEN A 27883-3) [facility]] CBC (INCLUDES DIFF/PLT)2019-07-07 12:57:00 Test Item Value Reference Range Interpretation Comments WHITE BLOOD CELL COUNT 5.1 {Thousand/u} 4.5-13.0 N (test code = WHITE BLOOD CELL COUNT) RED BLOOD CELL COUNT (test 3.89 {Million/uL} 3.80-5.10 N code = RED BLOOD CELL COUNT) HEMAGLOBIN; Below Low 10.7 g/dl 11.5-15.3 Threshold (test code = 54955-6) HEMATOCRIT; Below Low 33.2 % 34.0-46.0 Threshold (test code = 4544-3) MCV; Normal (test code = 85.3 fL 78.0-98.0 N 787-2) MCHC; Normal (test code = 32.2 g/dl 31.0-36.0 N 76443-5) RDW; Normal (test code = 13.5 % 11.0-15.0 N 788-0) PLATELET COUNT; Normal 259 {Thousand/u} 140-400 N (test code = 777-3) MPV; Normal (test code = 11.5 fL 7.5-12.5 N 39545-3) ABSOLUTE NEUTROPHILS (test 2729 {cells/uL} 6181-1846 N code = ABSOLUTE NEUTROPHILS) ABSOLUTE LYMPHOCYTES (test 1637 {cells/uL} 9105-1412 N code = ABSOLUTE LYMPHOCYTES) ABSOLUTE MONOCYTES (test 281 {cells/uL} 200-900 N code = ABSOLUTE MONOCYTES) ABSOLUTE EOSINOPHILS (test 413 {cells/uL} 15-500 N code = ABSOLUTE EOSINOPHILS) ABSOLUTE BASOPHILS (test 41 {cells/uL} 0-200 N code = ABSOLUTE BASOPHILS) NEUTROPHILS (test code = 53.5 % N NEUTROPHILS) LYMPHOCYTES (test code = 32.1 % N LYMPHOCYTES) MONOCYTES; Normal (test 5.5 % N code = 99713-2) EOSINOPHILS; Normal (test 8.1 % N code = 05914-4) BASOPHILS; Normal (test 0.8 % N code = 52533-6) [facility]] PTH, INTACT (WITHOUT CALCIUM)2019-07-07 12:57:00 Test Item [...] Hypercalcemia L ow or Low Normal High [facility]] VITAMIN D, 25-HYDROXY, LC/MS/[id number] 12:57:00 Test Item Value Reference Range Interpretation [...] D, (D2,D3), LC/MS/MS is recommended: order code 85635 (pat ients >2yrs). For mor e information on this test, go to:[email or web address] [email or web address] [email or web address] m/faq/FAQ 163(This link i s being provided for informational/e ducationa l purposes only .) [facility][QH] PROTEIN, TOTAL W/CREAT, RANDOM [id number] 12:57:00 Test Item Value Reference Range Interpretation Comments CREATININE, RANDOM URINE 38 mg/dl 20-275 N (test code = CREATININE, RANDOM URINE) PROTEIN/CREATININE RATIO 0.711 {mg/mg crea} 0.021-0.161 (test code = PROTEIN/CREATININE RATIO) PROTEIN, TOTAL, RANDOM UR 27 mg/dl 5-24 (test code = PROTEIN, TOTAL, RANDOM UR) [facility] Retroperitoneal Complete [id number] 11:16:00PROCEDURE INFORMATION:Exam: US Retroperitoneal Complete.Exam date and time: 05/29/2019 11:34 AMAge: 19years oldClinical indication: Renal agenesis, unilateral; Additional info: /solitarykidneyTECHNIQUE:Imaging protocol: Real-time ultrasound of the retroperitoneum with imagedocumentation. 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 regional anatomy such [...] right kidney.Sebastián Seay MD On 05/29/2019 13:56:12; [id number]--Crwu by: Sebastián Seay MDDictated Date/time: 05/29/19 13:56Electronically Signed by: Sebastián Seay MD 05/29/2012:56FINALREPORTUT Physicians[[facility]] CBC (INCLUDES DIFF/PLT) 2019-05-11 14:55:01 Test Item Value Reference Range Interpretation Comments WBC (test code = 6690-2) 10.0 {K/CMM} 3.7-10.4 RBC; Below Low Threshold (test 4.12 {M/CMM} 4.20-5.40 code = 789-8) Hgb; Below Low Threshold (test 11.8 g/dl 12.0-16.0 code = 718-7) Hct; Below Low Threshold (test 35.9 % 36.0-48.0 code = 80740-4) MCV (test code = 787-2) 87.2 fL 80.0-98.0 MCH (test code = 785-6) 28.5 pg 27.0-31.0 MCHC (test code = 786-4) 32.7 g/dl 32.0-36.0 RDW (test code = 788-0) 13.9 % 11.5-14.5 Platelet (test code = 53254-5) 258 {K/CMM} 133-450 Mean Platelet Volume (test code 9.0 fL 7.4-10.4 = 06059-5) [facility][QL] [id number] 14:55:01 Test Item Value Reference Range Interpretation Comments Segmented Neutrophils (test code 67.2 % 45.0-75.0 = 02544-6) Monocytes (test code = 96300-7) 5.9 % 2.0-12.0 Lymphocytes; Below Low Threshold 14.5 % 20.0-40.0 (test code = 56177-5) Eosinophils; Above High Threshold 12.2 % 0.0-4.0 (test code = 26781-9) Basophils (test code = 706-2) 0.2 % 0.0-1.0 Segs-Bands # (test code = 6.7 {K/CMM} 1.5-8.1 31199-0) Lymphocytes # (test code = 1.5 {K/CMM} 1.0-5.5 29580-3) Monocytes # (test code = 09158-8) 0.6 {K/CMM} 0.0-0.8 Eosinophils #; Above High 1.2 {K/CMM} 0.0-0.5 Threshold (test code = 09729-9) [facility]] VITAMIN D, 25-HYDROXY, LC/MS/[id number] 14:55:01 Test Item Value Reference Range Interpretation Comments Vitamin D, 25-OH, 21.5 ng/ml 30.0-100.0 Reference range is based Total (test code on recommen dations in the = Vitamin D, EndocrineSociet y Clinical 25-OH, Total) Practice Guide line (J Clin Endocrinol Lxxab0174;96:19 11-1930) [facility][QLH] PTH, INTACT (WITHOUT CALCIUM)2019-05-11 14:55:01 Test Item Value Reference Range Interpretation Comments Parathyroid Hormone Intact; Above 143.3 pg/ml 18.4-80.1 High Threshold (test code = 2731-8) [facility][H] Pediatric Renal [id number] 14:55:01 Test Item Value Reference Range Interpretation [...] code = clinical guidel inesof 2345-7) the [employer]. Chol (test code = 167 mg/dl <=199 3-3) Albumin Lvl (test 3.7 g/dl 3.5-5.0 code = 1751-7) Alk Phos (test 80 u/l 43-86 The pediatric reference code = 1783-0) ranges for th is test represent a CLSI-basedtrans ference of the CALIPER database of pediatric re ference intervals to eSiemens Saxe analyzer (Clinical Biochemistry 46 (2013): 3142-6146). [facility] has not interna lly validated these referenceranges and therefore they should be used only in th e context of a thoroughcl inical assessment. ALT (test code = 19 u/l 0-65 1743-4) Calcium Level 8.9 mg/dl 8.5-10.5 Total (test code = 96533-1) Magnesium Level; 2.8 mg/dl 1.8-2.4 Above High Threshold (test code = 63305-3) Phosphorus Level 3.2 mg/dl 2.5-4.5 (test code = 2777-1) Uric Acid; Above 8.2 mg/dl 2.5-7.0 High Threshold (test code = 3084-1) eGFR (test code = See Comment No height is recorded 34805-3) for this patien t; estimated GFR c annot be calculated. [facility][H] Iron, TIBC \\T\\ [id number] 14:55:01 Test Item Value Reference Range Interpretation Comments Iron; Below Low Threshold (test 27 ug/dL 30-160 code = 2498-4) % Satur Fe (test code = 2502-3) 13 % 12-57 TIBC; Below Low Threshold (test 209 ug/dL 228-428 code = 2500-7) UIBC (test code = UIBC) 182 ug/dL 110-370 Ferritin Lvl (test code = 2276-4) 118 ng/ml 5-204 [facility][O] Urine Dipstick (In Office)2019-05-11 00:00:00 Test Item Value Reference Range Interpretation Comments Glucose (test code = Glucose) Negative N LEUKOCYTES (test code = small A LEUKOCYTES) NITRITE; Normal (test code = negative N 73049-3) UROBILINOGEN; Normal (test code 0.2 N = 41828-5) PROTEIN; Abnormal (test code = 30 A 87116-8) pH (test code = pH) 6.5 N URINE BLOOD; Abnormal (test code trace-intact A = 13067-4) SPECIFIC GRAVITY; Normal (test 1.010 N code = 2965-2) KETONES; Normal (test code = negative N 82965-9) BILIRUBIN; Normal (test code = negative N 64739-7) COLOR URINE; Normal (test code = yellow N 5778-6) APPEARANCE; Normal (test code = clear N 5767-9) [facility][QLH] CBC (INCLUDES DIFF/PLT)2019-01-12 14:36:01 Test Item Value Reference Range Interpretation Comments WBC (test code = 6690-2) 5.6 {K/CMM} 3.7-10.4 RBC (test code = 789-8) 4.35 {M/CMM} 4.20-5.40 Hgb (test code = 718-7) 12.1 g/dl 12.0-16.0 Hct (test code = 80802-9) 37.6 % 36.0-48.0 MCV (test code = 787-2) 86.5 fL 80.0-98.0 MCH (test code = 785-6) 27.9 pg 27.0-31.0 MCHC (test code = 786-4) 32.2 g/dl 32.0-36.0 RDW; Above High Threshold (test 15.5 % 11.5-14.5 code = 788-0) Platelet (test code = 43935-6) 278 {K/CMM} 133-450 Mean Platelet Volume (test code 9.4 fL 7.4-10.4 = 10670-1) [facility][QL] [id number] 14:36:01 Test Item Value Reference Range Interpretation Comments Segmented Neutrophils (test code 59.1 % 45.0-75.0 = 53776-5) Monocytes (test code = 07855-0) 7.5 % 2.0-12.0 Lymphocytes (test code = 20975-8) 28.4 % 20.0-40.0 Eosinophils (test code = 42195-9) 3.7 % 0.0-4.0 Basophils; Above High Threshold 1.3 % 0.0-1.0 (test code = 706-2) Segs-Bands # (test code = 3.3 {K/CMM} 1.5-8.1 08395-3) Lymphocytes # (test code = 1.6 {K/CMM} 1.0-5.5 58000-4) Monocytes # (test code = 00559-4) 0.4 {K/CMM} 0.0-0.8 Eosinophils # (test code = 0.2 {K/CMM} 0.0-0.5 67485-5) Basophils # (test code = 59894-9) 0.1 {K/CMM} 0.0-0.2 [facility][QL] PTH, INTACT (WITHOUT CALCIUM)2019-01-12 14:36:01 Test Item Value Reference Range Interpretation Comments Parathyroid Hormone Intact; Above 267.1 pg/ml 18.4-80.1 High Threshold (test code = 2731-8) [facility][QL] VITAMIN D, 25-HYDROXY, LC/MS/[id number] 14:36:01 Test Item Value Reference Range Interpretation Comments Vitamin D, 25-OH, 16.8 ng/ml 30.0-100.0 Reference range is based Total (test code on recommen dations in the = Vitamin D, EndocrineSociet y Clinical 25-OH, Total) Practice Guide line (J Clin Endocrinol Swxfv6150;96:19 11-1930) [facility][H] Pediatric Renal [id number] 14:36:01 Test Item Value Reference Range Interpretation [...] code = clinical guidel inesof 2345-7) the [employer]. Chol; Above High 206 mg/dl <=199 Threshold (test code = 2092-3) Albumin Lvl (test 4.1 g/dl 3.5-5.0 code = 1751-7) Alk Phos (test 61 u/l 43-86 The pediatric reference code = 1783-0) ranges for is test represent a CLSI-basedtrans ference of the CALIPER database of pediatric re ference intervals to eSiemens Saxe analyzer (Clinical Biochemistry 46 (2013): 5272-[address]007). [facility] has not interna lly validated these referenceranges and therefore they should be used only in e context of a thoroughcl inical assessment. ALT (test code = 20 u/l 0-65 1743-4) Calcium Level 8.7 mg/dl 8.5-10.5 Total (test code = 51591-5) Magnesium Level; 2.8 mg/dl 1.8-2.4 Above High Threshold (test code = 86712-5) Phosphorus Level 4.2 mg/dl 2.5-4.5 (test code = 2777-1) Uric Acid; Above 7.6 mg/dl 2.5-7.0 High Threshold (test code = 3084-1) eGFR (test code = See Comment No height is recorded 71625-9) for this patien t; estimated GFR c annot be calculated. [facility][H] Iron, TIBC \\T\\ [id number] 14:36:01 Test Item Value Reference Range Interpretation Comments Iron (test code = 2498-4) 78 ug/dL 30-160 % Satur Fe (test code = 2502-3) 29 % 12-57 TIBC (test code = 2500-7) 272 ug/dL 228-428 UIBC (test code = UIBC) 194 ug/dL 110-370 Ferritin Lvl (test code = 2276-4) 32 ng/ml 5-204 [facility][Q] PROTEIN, TOTAL W/CREAT, RANDOM [id number] 14:36:01 Test Item Value Reference Range Interpretation Comments U Creatinine (test 28.80 mg/dl No establ ished code = 2161-8) reference ran ge. Urine Protein Level 141.1 mg/dl No estab lished (test code = 2888-6) referen ce ranges. U Prot/Creat (test 4.90 code = 2890-2) [facility]] URINALYSIS, [id number] 14:36:01 Test Item Value Reference Range Interpretation Comments UA RBC (test code = 18521-2) <1 0-2 UA WBC; Above High Threshold 6 {/HPF} 0-5 (test code = 58185-6) UA Bacteria; Abnormal (test Many None Seen A code = 70387-3) UA Mucus (test code = 8247-9) Few None Seen UA Color (test code = 5778-6) Light Yellow Yellow UA Turbidity (test code = Slight Cloudy Clear 40939-1) UA Spec Grav (test code = 1.015 <=1.030 10-7) UA pH (test code = 5803-2) 6.0 5.0-8.0 UA Protein; Abnormal (test code 100 mg/dl Negative A = 63780-6) UA Glucose (test code = Negative Negative 86058-5) UA Ketones (test code = Negative Negative 02270-9) UA Bili (test code = 5770-3) Negative Negative UA Blood; Abnormal (test code = Small Negative A 5794-3) UROBILINOGEN (test code = 0.2 {EU/DL} 0.1-1.0 54045-0) UA Nitrite (test code = 5802-4) Negative Negative UA Leuk Est; Abnormal (test Moderate Negative A code = 5799-2) UA Sq Epi (test code = 24379-8) None Seen Few [facility][O] Urine Dipstick (In Office)2019-01-12 00:00:00 Test Item Value Reference Range Interpretation Comments Glucose (test code = Glucose) 100 A LEUKOCYTES (test code = Small A LEUKOCYTES) NITRITE; Abnormal (test code = Positive A 56923-5) UROBILINOGEN; Normal (test code 0.2 N = 98178-0) PROTEIN; Abnormal (test code = >300 A 07111-9) pH (test code = pH) 6.0 N URINE BLOOD; Abnormal (test code Moderate A = 80454-5) SPECIFIC GRAVITY; Normal (test 1.015 N code = 2965-2) KETONES; Normal (test code = Negative N 61088-8) BILIRUBIN; Normal (test code = Negative N 63667-7) COLOR URINE; Normal (test code = Light Yellow N 5778-6) APPEARANCE; Abnormal (test code Cloudy A = 5767-9) [facility][QL] CBC (INCLUDES DIFF/PLT)2018-09-15 17:00:01 Test Item Value Reference Range Interpretation Comments WBC (test code = 6690-2) 5.6 {K/CMM} 3.7-10.4 RBC (test code = 789-8) 4.73 {M/CMM} 4.20-5.40 Hgb (test code = 718-7) 13.1 g/dl 12.0-16.0 Hct (test code = 85212-6) 41.7 % 36.0-48.0 MCV (test code = 787-2) 88.1 fL 80.0-98.0 MCH (test code = 785-6) 27.6 pg 27.0-31.0 MCHC; Below Low Threshold (test 31.4 g/dl 32.0-36.0 code = 786-4) RDW (test code = 788-0) 14.4 % 11.5-14.5 Platelet (test code = 17639-4) 259 {K/CMM} 133-450 Mean Platelet Volume (test code 9.4 fL 7.4-10.4 = 49052-0) [facility][QL] [id number] 17:00:01 Test Item Value Reference Range Interpretation Comments Segmented Neutrophils (test code 69.0 % 45.0-75.0 = 17093-6) Monocytes (test code = 60856-0) 6.4 % 2.0-12.0 Lymphocytes (test code = 08777-5) 21.7 % 20.0-40.0 Eosinophils (test code = 45089-4) 1.9 % 0.0-4.0 Basophils (test code = 706-2) 1.0 % 0.0-1.0 Segs-Bands # (test code = 3.8 {K/CMM} 1.5-8.1 85856-4) Lymphocytes # (test code = 1.2 {K/CMM} 1.0-5.5 66251-4) Monocytes # (test code = 83226-3) 0.4 {K/CMM} 0.0-0.8 Eosinophils # (test code = 0.1 {K/CMM} 0.0-0.5 57892-0) Basophils # (test code = 01967-3) 0.1 {K/CMM} 0.0-0.2 [facility][H] Pediatric Renal [id number] 17:00:01 Test Item Value Reference Range Interpretation Comments Sodium Level (test 140 {mEq/l} 135-145 code = 2951-2) Potassium Level 3.7 {mEq/l} 3.5-5.1 (test code = 2823-3) Chloride Level; 110 {mEq/l} 95-109 Above High Threshold (test code = 5-0) Carbon Dioxide; 19 {mEq/l} 24-32 Below Low Threshold (test code = 8-9) Blood Urea Nitrogen; 52 mg/dl 7-22 Above High Threshold (test code = 3094-0) Creatinine Lvl; 2.80 mg/dl 0.50-1.40 Above High Threshold (test code = 2160-0) Glucose Lvl; Above 104 mg/dl 70-99 Adult ref erence range High Threshold (test values reflect the code = 2345-7) clinical guid elinesof the [employer]. Chol; Above High 236 mg/dl <=199 Threshold (test code = 3-3) Albumin Lvl (test 4.3 g/dl 3.5-5.0 code = 1751-7) Alk Phos (test code 62 u/l 39-136 = 1783-0) ALT (test code = 17 u/l 0-65 1743-4) Calcium Level Total 9.1 mg/dl 8.5-10.5 (test code = 46342-6) Magnesium Level; 2.8 mg/dl 1.8-2.4 Above High Threshold (test code = 24577-8) Phosphorus Level 4.0 mg/dl 2.5-4.5 (test code = 2777-1) Uric Acid (test code 7.0 mg/dl 2.5-7.0 = 3084-1) eGFR (test code = See Comment No height is recorded 09027-0) for this patien t; estimated GFR c annot be calculated. [facility][H] Iron, TIBC \\T\\ [id number] 17:00:01 Test Item Value Reference Range Interpretation Comments Iron (test code = 2498-4) 57 ug/dL 30-160 % Satur Fe (test code = 2502-3) 21 % 12-57 TIBC (test code = 2500-7) 277 ug/dL 228-428 UIBC (test code = UIBC) 220 ug/dL 110-370 Ferritin Lvl (test code = 2276-4) 24 ng/ml 5-204 [facility][QL[facility]] PTH, INTACT (WITHOUT CALCIUM)2018-09-15 17:00:01 Test Item Value Reference Range Interpretation Comments Parathyroid Hormone Intact; Above 216.9 pg/ml 18.4-80.1 High Threshold (test code = 2731-8) [facility]] VITAMIN D, 25-HYDROXY, LC/MS/[id number] 17:00:01 Test Item Value Reference Range Interpretation Comments Vitamin D, 25-OH, 11.7 ng/ml 30.0-100.0 Reference range is based Total (test code on recommen dations in the = Vitamin D, [facility] y Clinical 25-OH, Total) Practice Guide line (J Clin Endocrinol [id number];96:19 11-1930) [facility]] Urine Dipstick (In Office)2018-09-15 16:07:00 Test Item Value Reference Range Interpretation Comments Glucose (test code = Glucose) NEG N LEUKOCYTES (test code = LEUKOCYTES) LARGE A NITRITE; Abnormal (test code = POSITIVE A 54733-1) UROBILINOGEN; Normal (test code = 0.2 N 86812-7) PROTEIN; Abnormal (test code = 100 MG/DL A 49531-2) pH (test code = pH) 6.0 N URINE BLOOD; Abnormal (test code = MODERATE A 89344-6) SPECIFIC GRAVITY; Normal (test code 1.015 N = 2965-2) KETONES; Normal (test code = NEG N 17967-7) BILIRUBIN; Normal (test code = NEG N 15539-1) COLOR URINE; Abnormal (test code = MARCELINO A 5778-6) APPEARANCE; Abnormal (test code = CLOUDY A 5767-9) [facility]] PTH, INTACT (WITHOUT CALCIUM)2018-06-09 14:27:01 Test Item Value Reference Range Interpretation Comments Parathyroid Hormone Intact; Above 239.4 pg/ml 18.4-80.1 High Threshold (test code = 2731-8) [facility]] URINALYSIS, [id number] 14:27:01 Test Item Value Reference Range Interpretation Comments UA Color (test code = 5778-6) Red UA Turbidity; Abnormal (test code Marked Clear A = 93961-9) UA Spec Grav (test code = 5810-7) 1.016 <=1.030 UA pH (test code = 5803-2) 5.0 5.0-8.0 UA Protein; Abnormal (test code = 100 mg/dl Negative A 72921-2) UA Glucose (test code = 95093-1) Negative Negative UA Ketones (test code = 00486-0) Negative Negative UA Bili (test code = 5770-3) Negative Negative UA Blood; Abnormal (test code = Moderate Negative A 5794-3) UROBILINOGEN (test code = 02660-7) <=1.0 0.1-1.0 UA Nitrite (test code = 5802-4) Negative Negative UA Leuk Est; Abnormal (test code = Moderate Negative A 5799-2) UA RBC; Above High Threshold (test 4 {/HPF} 0-2 code = 48725-8) UA WBC; Above High Threshold (test 112 {/HPF} 0-5 code = 39948-8) UA Bacteria; Abnormal (test code = Many None Seen A 23370-2) UA Mucus (test code = 8247-9) Few None Seen UA Sq Epi (test code = 77550-7) Occasional Few [facility]] CBC (INCLUDES DIFF/PLT)2018-06-09 14:27:01 Test Item Value Reference Range Interpretation Comments WBC (test code = 6690-2) 7.0 {K/CMM} 3.7-10.4 RBC; Below Low Threshold (test 4.18 {M/CMM} 4.20-5.40 code = 789-8) Hgb; Below Low Threshold (test 11.8 g/dl 12.0-16.0 code = 718-7) Hct (test code = 93955-3) 37.1 % 36.0-48.0 MCV (test code = 787-2) 88.6 fL 80.0-98.0 MCH (test code = 785-6) 28.3 pg 27.0-31.0 MCHC; Below Low Threshold (test 31.9 g/dl 32.0-36.0 code = 786-4) RDW; Above High Threshold (test 14.6 % 11.5-14.5 code = 788-0) Platelet (test code = 06792-9) 228 {K/CMM} 133-450 Mean Platelet Volume (test code 9.2 fL 7.4-10.4 = 94849-3) [facility][QL] [id number] 14:27:01 Test Item Value Reference Range Interpretation Comments Segmented Neutrophils (test code 57.0 % 45.0-75.0 = 16497-0) Monocytes (test code = 43730-8) 6.2 % 2.0-12.0 Lymphocytes; Below Low Threshold 17.8 % 20.0-40.0 (test code = 01837-3) Eosinophils; Above High Threshold 18.6 % 0.0-4.0 (test code = 83842-7) Basophils (test code = 706-2) 0.4 % 0.0-1.0 Segs-Bands # (test code = 4.0 {K/CMM} 1.5-8.1 01105-0) Lymphocytes # (test code = 1.2 {K/CMM} 1.0-5.5 89896-5) Monocytes # (test code = 05074-4) 0.4 {K/CMM} 0.0-0.8 Eosinophils #; Above High 1.3 {K/CMM} 0.0-0.5 Threshold (test code = 69341-8) [facility][H] Pediatric Renal [id number] 14:27:01 Test Item Value Reference Range Interpretation Comments Sodium Level (test 141 {mEq/l} 135-145 code = 2951-2) Potassium Level 3.9 {mEq/l} 3.5-5.1 (test code = 2823-3) Chloride Level; 112 {mEq/l} 95-109 Above High Threshold (test code = 2075-0) Carbon Dioxide; 16 {mEq/l} 24-32 Below Low Threshold (test code = 8-9) Blood Urea Nitrogen; 51 mg/dl 7-22 Above High Threshold (test code = 3094-0) Creatinine Lvl; 3.10 mg/dl 0.50-1.40 Above High Threshold (test code = 2160-0) Glucose Lvl (test 88 mg/dl 70-99 Adult refe rence range code = 2345-7) values reflec t the clinical guidel inesof the [employer] [place] [employer]. Chol (test code = 191 mg/dl <=199 3-3) Albumin Lvl (test 3.9 g/dl 3.5-5.0 code = 1751-7) Alk Phos (test code 67 u/l 39-136 = 1783-0) ALT (test code = 16 u/l 0-65 1743-4) Calcium Level Total 8.6 mg/dl 8.5-10.5 (test code = 93297-2) Magnesium Level; 2.6 mg/dl 1.8-2.4 Above High Threshold (test code = 29340-7) Phosphorus Level 4.2 mg/dl 2.5-4.5 (test code = 2777-1) Uric Acid; Above 7.9 mg/dl 2.5-7.0 High Threshold (test code = 3084-1) eGFR (test code = See Comment No height is recorded 22575-9) for this patien t; estimated GFR c annot be calculated. [facility][H] Iron, TIBC \\T\\ [id number] 14:27:01 Test Item Value Reference Range Interpretation Comments Iron (test code = 2498-4) 41 ug/dL 30-160 % Satur Fe (test code = 2502-3) 17 % 12-57 TIBC (test code = 2500-7) 243 ug/dL 228-428 UIBC (test code = UIBC) 202 ug/dL 110-370 Ferritin Lvl (test code = 2276-4) 40 ng/ml 5-204 [facility][QL] VITAMIN D, 25-HYDROXY, [id number]/MS/[id number] 14:27:01 Test Item Value Reference Range Interpretation Comments Vitamin D, 25-OH, 13.2 ng/ml 30.0-100.0 Reference range is based Total (test code on recommen dations in the = Vitamin D, EndocrineSociet y Clinical 25-OH, Total) Practice Guide line (J Clin Endocrinol Ofiqv6393;96:19 11-1930) [facility][QH] PROTEIN, TOTAL W/CREAT, RANDOM [id number] 14:27:01 Test Item Value Reference Range Interpretation Comments U Creatinine (test 28.40 mg/dl No establ ished code = 2161-8) reference ran ges. Urine Protein Level 116.9 mg/dl No estab lished (test code = 2888-6) referen ce ranges. U Prot/Creat (test 4.12 code = 2890-2) [facility][O] Urine Dipstick (In Office)2018-06-09 13:40:00 Test Item Value Reference Range Interpretation Comments Glucose (test code = Glucose) 100 A LEUKOCYTES (test code = LEUKOCYTES) small A NITRITE; Normal (test code = neg N 23005-9) UROBILINOGEN; Normal (test code = 0.2 N 50691-0) PROTEIN; Abnormal (test code = 100 A 34121-2) pH (test code = pH) 6.0 MS URINE BLOOD; Abnormal (test code = moderate A 56955-1) SPECIFIC GRAVITY; Normal (test code 1.015 N = 2965-2) KETONES; Normal (test code = neg N 97087-4) BILIRUBIN; Normal (test code = neg N 21362-5) COLOR URINE; Normal (test code = yellow N 5778-6) APPEARANCE; Abnormal (test code = cloudy A 5767-9) [facility][QLH] CBC (INCLUDES DIFF/PLT)2018-03-17 14:36:01 Test Item Value Reference Range Interpretation Comments WBC (test code = 6690-2) 6.6 {K/CMM} 3.7-10.4 RBC (test code = 789-8) 4.79 {M/CMM} 4.20-5.40 Hgb (test code = 718-7) 13.3 g/dl 12.0-16.0 Hct (test code = 97817-6) 40.7 % 36.0-48.0 MCV (test code = 787-2) 84.9 fL 80.0-98.0 MCH (test code = 785-6) 27.8 pg 27.0-31.0 MCHC (test code = 786-4) 32.7 g/dl 32.0-36.0 RDW (test code = 788-0) 14.1 % 11.5-14.5 Platelet (test code = 06955-8) 271 {K/CMM} 133-450 Mean Platelet Volume (test code 8.8 fL 7.4-10.4 = 88621-1) [facility]] [id number] 14:36:01 Test Item Value Reference Range Interpretation Comments Segmented Neutrophils (test code 47.0 % 45.0-75.0 = 71060-8) Monocytes (test code = 48534-2) 5.3 % 2.0-12.0 Lymphocytes (test code = 04114-1) 26.7 % 20.0-40.0 Eosinophils; Above High Threshold 20.3 % 0.0-4.0 (test code = 81414-2) Basophils (test code = 706-2) 0.7 % 0.0-1.0 Segs-Bands # (test code = 3.1 {K/CMM} 1.5-8.1 58124-4) Lymphocytes # (test code = 1.8 {K/CMM} 1.0-5.5 46974-7) Monocytes # (test code = 29070-0) 0.3 {K/CMM} 0.0-0.8 Eosinophils #; Above High 1.3 {K/CMM} 0.0-0.5 Threshold (test code = 43737-0) Basophils # (test code = 26501-2) 0.0 {K/CMM} 0.0-0.2 [facility][QL[facility]] PTH, INTACT (WITHOUT CALCIUM)2018-03-17 14:36:01 Test Item Value Reference Range Interpretation Comments Parathyroid Hormone Intact; Above 141.6 pg/ml 18.4-80.1 High Threshold (test code = 2731-8) [facility][H] Pediatric Renal [id number] 14:36:01 Test Item Value Reference Range Interpretation Comments Sodium Level (test 141 {mEq/l} 135-145 code = 2951-2) Potassium Level 4.4 {mEq/l} 3.5-5.1 (test code = 2823-3) Chloride Level; 112 {mEq/l} 95-109 Above High Threshold (test code = 5-0) Carbon Dioxide; 20 {mEq/l} 24-32 Below Low Threshold (test code = 2027-9) Blood Urea Nitrogen; 41 mg/dl 7-22 Above High Threshold (test code = 3094-0) Creatinine Lvl; 2.70 mg/dl 0.50-1.40 Above High Threshold (test code = 2160-0) Glucose Lvl (test 80 mg/dl 70-99 Adult refe rence range code = 2345-7) values reflec t the clinical guidel inesof the [employer]. Chol; Above High 209 mg/dl <=199 Threshold (test code = 2093-3) Albumin Lvl (test 4.0 g/dl 3.5-5.0 code = 1751-7) Alk Phos (test code 71 u/l 39-136 = 1783-0) ALT (test code = 17 u/l 0-65 1743-4) Calcium Level Total 9.2 mg/dl 8.5-10.5 (test code = 55781-1) Magnesium Level; 2.7 mg/dl 1.8-2.4 Above High Threshold (test code = 55750-7) Phosphorus Level 3.8 mg/dl 2.5-4.5 (test code = 2777-1) Uric Acid (test code 6.1 mg/dl 2.5-7.0 = 3084-1) eGFR (test code = See Comment No height is recorded 72961-7) for this patien t; estimated GFR c annot be calculated. [facility][H] Iron, TIBC \\T\\ [id number] 14:36:01 Test Item Value Reference Range Interpretation Comments Iron (test code = 2498-4) 69 ug/dL 30-160 % Satur Fe (test code = 2502-3) 26 % 12-57 TIBC (test code = 2500-7) 261 ug/dL 228-428 UIBC (test code = UIBC) 192 ug/dL 110-370 Ferritin Lvl (test code = 2276-4) 50 ng/ml 5-204 [facility][QL] VITAMIN D, 25-HYDROXY, LC/MS/[id number] 14:36:01 Test Item Value Reference Range Interpretation Comments Vitamin D, 25-OH, 20.6 ng/ml 30.0-100.0 Reference range is based Total (test code on recommen dations in the = Vitamin D, EndocrineSociet y Clinical 25-OH, Total) Practice Guide line (J Clin Endocrinol Ocupy0498;96:19 11-1930) [facility][O] Urine Dipstick (In Office)2018-03-17 14:01:00 Test Item Value Reference Range Interpretation Comments Glucose (test code = Glucose) Negative N LEUKOCYTES (test code = Trace A LEUKOCYTES) NITRITE; Normal (test code = Negative N 38307-8) UROBILINOGEN; Normal (test code 0.2 N = 26075-5) PROTEIN; Abnormal (test code = 30 A 54090-6) pH (test code = pH) 6.5 N URINE BLOOD; Abnormal (test code Trace-intact A = 91185-4) SPECIFIC GRAVITY; Normal (test 1.015 N code = 2965-2) KETONES; Normal (test code = Negative N 60777-6) BILIRUBIN; Normal (test code = Negative N 55029-0) COLOR URINE; Normal (test code = light yellow N 5778-6) APPEARANCE; Normal (test code = clear N 5767-9) [facility][QL] [id number] 16:34:00 Test Item Value Reference Range Interpretation Comments MAGNESIUM (test code = MAGNESIUM) 2.6 mg/dl 1.5-2.5 [facility][QL] PHOSPHATE ( PHOSPHORUS)2017-12-18 16:34:00 Test Item Value Reference Range Interpretation Comments PHOSPHATE ( PHOSPHORUS) (test 4.1 mg/dl 2.5-4.5 N code = PHOSPHATE ( PHOSPHORUS)) [facility]] IRON AND TOTAL IRON BINDING [id number] 16:34:00 Test Item Value Reference Range Interpretation Comments IRON, TOTAL (test code = 78 {mcg/dl} 27-164 N IRON, TOTAL) IRON BINDING CAPACITY (test 258 {mcg/dL ca} 271-448 code = IRON BINDING CAPACITY) % SATURATION (test code = % 30 {% CALC} 8-45 N SATURATION) [facility][QL] CMP [id number] 16:34:00 Test Item Value Reference Range Interpretation [...] mg/dl 0.2-1.1 N Normal (test code = 02813-2) ALKALINE PHSPHATASE 76 u/l 41-244 N (test code = ALKALINE PHSPHATASE) AST; Below Low 8 u/l 12-32 Threshold (test code = 1916-6) ALT; Normal (test 7 u/l 6-19 N code = 1742-6) [facility]] URINALYSIS, [id number] 16:34:00 Test Item Value Reference Range Interpretation [...] Normal (test code = NEGATIVE NEGATIVE N 78834-0) KETONES; Normal (test code = NEGATIVE NEGATIVE N 85642-8) OCCULT BLOOD; Abnormal (test code 1+ NEGATIVE A = 62012-7) PROTEIN; Abnormal (test code = 2+ NEGATIVE A 54927-3) NITRITE; Abnormal (test code = POSITIVE NEGATIVE A 48747-9) LEUKOCYTE ESTERASE (test code = 2+ NEGATIVE A LEUKOCYTE ESTERASE) WBC; Abnormal (test code = 6690-2) 6-10 < OR = 5 A RBC; Abnormal (test code = 789-8) 3-10 < OR = 2 A SQUAMOUS EPITHELIAL CELLS (test 0-5 < OR = 5 code = 19813-9) BACTERIA; Abnormal (test code = FEW NONE SEEN A 630-4) HYALINE CAST; Normal (test code = NONE SEEN NONE SEEN N 45902-8) [facility]] CBC (INCLUDES DIFF/PLT)2017-12-18 16:34:00 Test Item Value Reference Range Interpretation Comments WHITE BLOOD CELL COUNT 5.1 {Thousand/u} 4.5-13.0 N (test code = WHITE BLOOD CELL COUNT) RED BLOOD CELL COUNT (test 4.40 {Million/uL} 3.80-5.10 N code = RED BLOOD CELL COUNT) HEMAGLOBIN; Normal (test 12.2 g/dl 11.5-15.3 N code = 31333-2) HEMATOCRIT; Normal (test 37.1 % 34.0-46.0 N code = 4544-3) MCV; Normal (test code = 84.3 fL 78.0-98.0 N 787-2) MCHC; Normal (test code = 32.9 g/dl 31.0-36.0 N 01650-5) RDW; Normal (test code = 13.5 % 11.0-15.0 N 788-0) PLATELET COUNT; Normal 263 {Thousand/u} 140-400 N (test code = 777-3) MPV; Normal (test code = 11.2 fL 7.5-12.5 N 45117-3) ABSOLUTE NEUTROPHILS (test 2933 {cells/uL} 9042-1427 N code = ABSOLUTE NEUTROPHILS) ABSOLUTE LYMPHOCYTES (test 1673 {cells/uL} 5288-9378 N code = ABSOLUTE LYMPHOCYTES) ABSOLUTE MONOCYTES (test 311 {cells/uL} 200-900 N code = ABSOLUTE MONOCYTES) ABSOLUTE EOSINOPHILS (test 133 {cells/uL} 15-500 N code = ABSOLUTE EOSINOPHILS) ABSOLUTE BASOPHILS (test 51 {cells/uL} 0-200 N code = ABSOLUTE BASOPHILS) NEUTROPHILS (test code = 57.5 % N NEUTROPHILS) LYMPHOCYTES (test code = 32.8 % N LYMPHOCYTES) MONOCYTES; Normal (test 6.1 % N code = 41348-1) EOSINOPHILS; Normal (test 2.6 % N code = 88370-2) BASOPHILS; Normal (test 1.0 % N code = 48139-0) [facility]] PTH, INTACT (WITHOUT CALCIUM)2017-12-18 16:34:00 Test Item [...] Hypercalcemia L ow or Low Normal High [facility]] [id number] 16:34:00 Test Item Value Reference Range Interpretation Comments FERRITIN (test code = FERRITIN) 34 ng/ml 6-67 N [facility]] VITAMIN D, 25-HYDROXY, [id number] 16:34:00 Test Item Value Reference Range Interpretation [...] D, (D2,D3), LC/MS/MS is recommended: order code 65344 (pat ients >2yrs). For mor e information on this test, go to:[email or web address]://educa tion.[email or web address] t[facility].co m/faq/FAQ 163(This link i s being provided for informational/e ducationa l purposes only .) [facility][QH] PROTEIN, TOTAL W/CREAT, RANDOM [id number] 16:34:00 Test Item Value Reference Range Interpretation [...] NITRITE; Abnormal (test code POSITIVE A = 34387-9) UROBILINOGEN; Normal (test 0.2 N code = 99962-1) PROTEIN; Abnormal (test code 100 MG/DL A = 58988-9) pH (test code = pH) 6.0 N URINE BLOOD; Abnormal (test LARGE A code = 16376-6) SPECIFIC GRAVITY; Normal 1.010 N (test code = 2965-2) KETONES; Normal (test code = NEG N 29054-7) BILIRUBIN; Normal (test code NEG N = 31970-4) GLUCOSE; Normal (test code = NEG N 1547-9) COLOR URINE; Normal (test LIGHT YELLOW N code = 5778-6) APPEARANCE (test code = SLIGHTLY CLOUDY 5767-9) [facility][QLH] PHOSPHATE ( PHOSPHORUS)2017-09-16 15:20:00 Test Item Value Reference Range Interpretation Comments PHOSPHATE ( PHOSPHORUS) (test 4.6 mg/dl 2.5-4.5 code = PHOSPHATE ( PHOSPHORUS)) [facility]] CMP [id number] 15:20:00 Test Item Value Reference Range Interpretation [...] mg/dl 0.2-1.1 N Normal (test code = 63328-3) ALKALINE PHSPHATASE 106 u/l 41-244 N (test code = ALKALINE PHSPHATASE) AST; Below Low 7 u/l 12-32 Threshold (test code = 1916-6) ALT; Normal (test 7 u/l 6-19 N code = 1742-6) [facility]] PTH, INTACT (WITHOUT CALCIUM)2017-09-16 15:20:00 Test Item Value Reference Interpretation Comments Range PARATHYROID 311 pg/ml 9-69 Interpretive Gu lei Intact PTH HORMONE, INTACT Calcium----- (test code = --- ----Normal PARATHYROID Parathyroid Nor mal HORMONE, INTACT) NormalHypop arathyroidism Low or Low Normal LowHyperparathy roidism Primary Normal or High High Secondary High Normal or Low Tertiary High HighNon-Parathy roid Hypercalcemia L ow or Low Normal High [facility][QL] [id number] 16:50:01 Test Item Value Reference Range Interpretation Comments Ferritin Lvl (test code = 2276-4) 24 ng/ml 5-204 [facility][QL] IRON AND TOTAL IRON BINDING [id number] 16:50:01 Test Item Value Reference Range Interpretation Comments Iron (test code = 2498-4) 57 ug/dL 30-160 % Satur Fe (test code = 2502-3) 18 % 12-57 TIBC (test code = 2500-7) 312 ug/dL 228-428 UIBC (test code = UIBC) 255 ug/dL 110-370 [facility][H] Pediatric Renal [id number] 16:50:01 Test Item Value Reference Range Interpretation Comments Sodium Level (test 139 {mEq/l} 135-145 code = 2951-2) Potassium Level 3.7 {mEq/l} 3.5-5.1 (test code = 2823-3) Chloride Level (test 108 {mEq/l} 95-109 code = 2075-0) Carbon Dioxide; 20 {mEq/l} 24-32 Below Low Threshold (test code = 2027-) Blood Urea Nitrogen; 48 mg/dl 7-22 Above High Threshold (test code = 3094-0) Creatinine Lvl; 2.40 mg/dl 0.50-1.40 Above High Threshold (test code = 2160-0) Glucose Lvl; Above 100 mg/dl 70-99 Adult ref erence range High Threshold (test values reflect the code = 2345-7) clinical guid elinesof the [employer] [place] [employer]. Chol; Above High 223 mg/dl <=199 Threshold (test code = 2093-3) Albumin Lvl (test 3.7 g/dl 3.5-5.0 code = 1751-7) Alk Phos (test code 127 u/l 80-406 = 1783-0) ALT (test code = 16 u/l 0-65 1743-4) Calcium Level Total 8.8 mg/dl 8.5-10.5 (test code = 02603-2) Magnesium Level; 2.5 mg/dl 1.8-2.4 Above High Threshold (test code = 60067-6) Phosphorus Level; 5.4 mg/dl 2.5-4.5 Above High Threshold (test code = 2777-1) Uric Acid (test code 7.0 mg/dl 2.5-7.0 = 3084-1) eGFR (test code = See Comment No height is recorded 47477-3) for this patien t; estimated GFR c annot be calculated. [facility][QL] PTH, INTACT (WITHOUT CALCIUM)2017-08-12 16:50:01 Test Item Value Reference Range Interpretation Comments Parathyroid Hormone Intact; Above 272.6 pg/ml 18.4-80.1 High Threshold (test code = 2731-8) [facility]] CBC (INCLUDES DIFF/PLT)2017-08-12 16:50:01 Test Item Value Reference Range Interpretation Comments WBC (test code = 6690-2) 7.3 {K/CMM} 3.7-10.4 RBC (test code = 789-8) 4.56 {M/CMM} 4.20-5.40 Hgb (test code = 718-7) 12.8 g/dl 12.0-16.0 Hct (test code = 20279-4) 38.0 % 36.0-48.0 MCV (test code = 787-2) 83.3 fL 80.0-98.0 MCH (test code = 785-6) 28.0 pg 27.0-31.0 MCHC (test code = 786-4) 33.6 g/dl 32.0-36.0 RDW (test code = 788-0) 13.9 % 11.5-14.5 Platelet (test code = 85242-6) 230 {K/CMM} 133-450 Mean Platelet Volume (test code 9.5 fL 7.4-10.4 = 76654-6) [facility]] [id number] 16:50:01 Test Item Value Reference Range Interpretation Comments Segmented Neutrophils (test code 51.9 % 34.0-64.0 = 34784-9) Monocytes (test code = 98801-9) 6.3 % 2.0-12.0 Lymphocytes (test code = 34749-6) 29.6 % 20.0-40.0 Eosinophils; Above High Threshold 11.8 % 0.0-4.0 (test code = 39279-2) Basophils (test code = 706-2) 0.4 % 0.0-1.0 Segs-Bands # (test code = 3.8 {K/CMM} 1.5-8.1 60216-8) Lymphocytes # (test code = 2.2 {K/CMM} 1.0-5.5 56763-6) Monocytes # (test code = 79132-4) 0.5 {K/CMM} 0.0-0.8 Eosinophils #; Above High 0.9 {K/CMM} 0.0-0.5 Threshold (test code = 29534-4) Basophils # (test code = 15974-1) 0.0 {K/CMM} 0.0-0.2 [facility]] VITAMIN D, 25-HYDROXY, LC/MS/[id number] 16:50:01 Test Item Value Reference Range Interpretation Comments Vitamin D, 25-OH, 13.9 ng/ml 30.0-100.0 Reference range is based Total (test code on recommen dations in the = Vitamin D, EndocrineSociet y Clinical 25-OH, Total) Practice Guide line (J Clin Endocrinol Udtke0079;96:19 11-1930) [facility]] VITAMIN D, 1,25 DIHYDROXY [id number]/MS/[id number] 16:50:01 Test Item Value Reference Range Interpretation [...] Esoteri x D3 1,25 (OH)2) Endocrinology [address], [place] [id number] gurinder Franz MD Ph:[phone] [facility][O] Urine Dipstick (In Office)2017-08-12 15:56:00 Test Item Value Reference Range Interpretation Comments LEUKOCYTES (test code = LEUKOCYTES) Trace A NITRITE; Abnormal (test code = positive A 09125-9) UROBILINOGEN; Normal (test code = 0.2 N 93765-7) PROTEIN; Abnormal (test code = 100 A 95069-3) pH (test code = pH) 7.0 N URINE BLOOD; Abnormal (test code = small A 42326-0) SPECIFIC GRAVITY; Normal (test code 1.010 N = 2965-2) KETONES; Normal (test code = neg N 21464-3) BILIRUBIN; Normal (test code = neg N 82302-1) GLUCOSE; Normal (test code = 1547-9) neg N COLOR URINE; Normal (test code = yellow N 5778-6) APPEARANCE; Normal (test code = clear N 5767-9) [facility]] CBC (INCLUDES DIFF/PLT)2017-05-13 17:29:01 Test Item Value Reference Range Interpretation Comments WBC (test code = WBC) 6.1 {K/CMM} 3.7-10.4 RBC (test code = RBC) 4.60 {M/CMM} 4.20-5.40 Hgb (test code = 25078-2) 12.5 g/dl 12.0-16.0 Hct (test code = 4544-3) 38.3 % 36.0-48.0 MCV (test code = MCV) 83.2 fL 80.0-98.0 MCH (test code = MCH) 27.1 pg 27.0-31.0 MCHC (test code = MCHC) 32.5 g/dl 32.0-36.0 RDW (test code = RDW) 13.9 % 11.5-14.5 Platelet (test code = 777-3) 264 {K/CMM} 133-450 Mean Platelet Volume (test code 8.9 fL 7.4-10.4 = Mean Platelet Volume) [facility]] [id number] 17:29:01 Test Item Value Reference Range Interpretation Comments Segmented Neutrophils (test code 48.9 % 34.0-64.0 = 27085-3) Monocytes # (test code = 07092-9) 0.4 {K/CMM} 0.0-0.8 Lymphocytes (test code = 27.6 % 20.0-40.0 Lymphocytes) Eosinophils #; Above High 1.0 {K/CMM} 0.0-0.5 Threshold (test code = 35158-1) Basophils (test code = 76012-7) 0.6 % 0.0-1.0 Segs-Bands # (test code = 3.0 {K/CMM} 1.5-8.1 23895-8) Lymphocytes # (test code = 1.7 {K/CMM} 1.0-5.5 75320-3) [facility]] PROTEIN, TOTAL W/CREAT, RANDOM [id number] 17:29:01 Test Item Value Reference Range Interpretation [...] pg/ml 11.1-79.5 code = Parathyroid Hormone Intact) [facility][H] Pediatric Renal [id number] 17:29:01 Test Item Value Reference Range Interpretation [...] r eflect the clinical guidel inesof the [employer]. Chol (test code = [...] t; estimated GFR c annot be calculated. [facility]] VITAMIN D, 25-HYDROXY, LC/MS/[id number] 17:29:01 Test Item Value Reference Range Interpretation Comments Vitamin D, 25-OH, 10.7 ng/ml 30.0-100.0 Reference range is based Total (test code on recommen dations in the = Vitamin D, EndocrineSociet y Clinical 25-OH, Total) Practice Guide line (J Clin Endocrinol Hoyjj9016;96:19 11-1930) [facility]] VITAMIN D, 1,25 DIHYDROXY [id number] 17:29:01 Test Item Value Reference Range Interpretation [...] Esoteri x D3 1,25 (OH)2) Endocrinology [address], [place] [id number] Franz MD Ph:[phone] [facility][O] Urine Dipstick (In Office)2017-05-13 15:54:00 Test Item Value Reference Range Interpretation Comments LEUKOCYTES (test code = LEUKOCYTES) Small A NITRITE; Abnormal (test code = Positive A 34231-3) UROBILINOGEN; Normal (test code = 0.2 N 59679-8) PROTEIN; Abnormal (test code = 100mg/dL A 28495-6) pH (test code = pH) 7.0 N URINE BLOOD; Abnormal (test code = Moderate A 79171-3) SPECIFIC GRAVITY; Normal (test code 1.010 N = 2965-2) KETONES; Normal (test code = Negative N 03175-2) BILIRUBIN; Normal (test code = Negative N 13679-6) GLUCOSE; Normal (test code = 1547-9) Negative N [facility][O] Urine Dipstick (In Office)2017-02-11 16:23:00 Test Item Value Reference Range Interpretation Comments LEUKOCYTES (test code = TRACE A LEUKOCYTES) NITRITE; Abnormal (test code = POSITIVE A 10363-1) UROBILINOGEN; Normal (test code = 0.2 N 92770-8) PROTEIN; Abnormal (test code = 30mg/dL A 26149-4) pH (test code = pH) 7.0 N URINE BLOOD; Abnormal (test code TRACE-LYSED A = 32297-3) SPECIFIC GRAVITY; Normal (test 1.010 N code = 2965-2) KETONES; Normal (test code = NEGATIVE N 04347-9) BILIRUBIN; Normal (test code = NEGATIVE N 21917-3) GLUCOSE; Normal (test code = NEGATIVE N 1547-9) [facility]
[2022-04-13] MEDS ORDERED: DOXYCYCLINE 100 MG CAP PO ONE (16:19)
--- NOTE | 2022-04-13 16:57 | EDPHYS ---
Physician Documentation [facility] Name: Ari Honeycutt Age: 22 yrs Sex: Female : 2000 Arrival Date: 04/13/2022 Time: 15:05 Bed 20 Private MD: ED Physician Veronica Castillo HPI: 04/13 15:56 This 22 yrs old Female presents to ER via Wheelchair with complaints of jmm Incisional Drainage. 15:56 This is a 22 year old female with a history of spina bifida, htn that present to the ED jmm with complaints of abnormal drainage to her incision sites to her lower extremities. Denies fever, denies pain. patient is currently taking fosfomycin for a uti. . Historical: - Allergies: 15:49 Latex, Natural Rubber; ph 15:49 Motrin; ph - PMHx: 15:49 Hypertension; SPINABIFADA; ph - Immunization history:: Adult Immunizations unknown. - Social history:: Smoking status: Patient denies any tobacco usage or history of. ROS: 15:56 Constitutional: Negative for fever, chills, and weight loss, Cardiovascular: Negative jmm for chest pain, palpitations, and edema, Respiratory: Negative for shortness of breath, cough, wheezing, and pleuritic chest pain. 15:56 Skin: Positive for drainage. 15:56 Neuro: Positive for 15:56 All other systems are negative. Exam: 15:56 Constitutional: This is a well developed, well nourished patient who is awake, alert, jmm and in no acute distress. Head/Face: atraumatic. Eyes: EOMI, no conjunctival erythema appreciated ENT: Moist Mucus Membranes Neck: Trachea midline, Supple Chest/axilla: Normal chest wall appearance and motion. Cardiovascular: Regular rate and rhythm. No edema appreciated Respiratory: Normal respirations, no respiratory distress appreciated Abdomen/GI: Non distended Back: Normal ROM 15:56 Skin: purulent drainage noted to the incision to the right thigh, no induration or erythema appreciated. . 15:56 Neuro: Orientation: is normal, Mentation: is normal, Memory: is normal. 15:56 Psych: Behavior/mood is pleasant, cooperative. Vital Signs: 15:47 BP 108 / 63; Pulse 83; Resp 18; Temp 97.3; Pulse Ox 99% on R/A; Weight 52.16 kg; Height ph 4 ft. 9 in. (144.78 cm); 16:00 BP 110 / 64; Pulse 78; Pulse Ox 99% on R/A; ko1 15:47 Body Mass Index 24.89 (52.16 kg, 144.78 cm) ph MDM: 15:56 Patient medically screened. [facility] 16:16 Data reviewed: vital signs, nurses notes. Counseling: I had a detailed discussion with [facility] the patient and/or guardian regarding: the historical points, exam findings, and any diagnostic results supporting the discharge/admit diagnosis. 16:54 Counseling: I had a detailed discussion with the patient and/or guardian regarding: the jmm need for outpatient follow up, to return to the emergency department if symptoms worsen or persist or if there are any questions or concerns that arise at home. ED course: Patient is alert and non toxic in appearance in the ED. PE findings concerning for infection. patient advised to follow up with surgery and otherwise given strict return precautions. patient/family understood and agrees with the plan of care. . 04/13 16:10 Order name: Wound Culture [facility] Administered Medications: 16:29 Drug: Doxycycline 100 mg Route: PO; ko1 17:22 Follow up: Response: No adverse reaction; No change in condition ko1 Disposition: 18:54 STAFF ATTESTATION STATEMENT: I was immediately available onsite in the emergency sd2 department for consultation in the care of this patient. I did not see or examine this patient. Veronica Castillo MD. Disposition Summary: 04/13/22 16:57 Discharge Ordered Location: Home [facility] Condition: Stable [facility] Diagnosis - Cellulitis of right lower limb [facility] Followup: [facility] - With: Private Physician - When: 2 - 3 days - Reason: Recheck today's complaints, Continuance of care, Re-evaluation by your physician Discharge Instructions: - Discharge Summary Sheet [facility] - Cellulitis, Adult, [id number] [facility] Forms: - Medication Reconciliation Form [facility] - Thank You Letter [facility] - Antibiotic Education [facility] - Prescription Opioid Use [facility] Prescriptions: - Doxycycline Hyclate 100 mg Oral Tablet - take 1 tablet by ORAL route every 12 hours; 20 tablet; Refills: 0, Product [facility] Selection Permitted Signatures: Dispatcher MedT1 Visions EDRodrick Blackmon PA PA jmm Hall, Patricia, RN RN ph Veronica Castillo MD MD sd2 Nurys Gama RN RN ko1
--- NOTE | 2022-04-13 16:57 | ER ---
Nurse's Notes [facility] Name: Ari Honeycutt Age: 22 yrs Sex: Female : 2000 Arrival Date: 04/13/2022 Time: 15:05 Bed 20 Private MD: Diagnosis: Cellulitis of right lower limb Presentation: 04/13 15:47 Chief complaint: Patient states: Hx of spina bifida, had surgery on 02/27 at [facility] on both legs, reports they noted drainage on bandages when changing today w/ slight redness noted, pt denies pain, chills or fever. Coronavirus screen: Vaccine status: Patient reports receiving the 2nd dose of the covid vaccine. Ebola Screen: No symptoms or risks identified at this time. Initial Sepsis Screen: Does the patient meet any 2 criteria? No. Patient's initial sepsis screen is negative. Does the patient have a suspected source of infection? No. Patient's initial sepsis screen is negative. Risk Assessment: Do you want to hurt yourself or someone else? Patient reports no desire to harm self or others. Onset of symptoms was April 13, 2022. 15:47 Method Of Arrival: Wheelchair ph 15:47 Acuity: ARSEN 4 ph Historical: - Allergies: 15:49 Latex, Natural Rubber; ph 15:49 Motrin; ph - PMHx: 15:49 Hypertension; SPINABIFADA; ph - Immunization history:: Adult Immunizations unknown. - Social history:: Smoking status: Patient denies any tobacco usage or history of. Screenin:00 [facility] ED Fall Risk Assessment (Adult) History of falling in the last 3 months, ko1 including since admission No falls in past 3 months (0 pts) Confusion or Disorientation No (0 pts) Intoxicated or Sedated No (0 pts) Impaired Gait Yes (1 pt) Mobility Assist Device Used Yes (1 pt) Altered Elimination Yes (1 pt) Score/Fall Risk Level 3 or more points = High Risk. Abuse screen: Denies threats or abuse. Denies injuries from another. Nutritional screening: No deficits noted. Tuberculosis screening: No symptoms or risk factors identified. Assessment: 16:00 General: Appears in no apparent distress. comfortable, Behavior is calm, cooperative, ko1 appropriate for age. Pain: Denies pain. Neuro: No deficits noted. Cardiovascular: No deficits noted. Respiratory: No deficits noted. GI: No deficits noted. : No deficits noted. EENT: No deficits noted. Derm: Skin is dry, Skin is pink, warm \T\ dry. Wound noted lateral aspect of right knee Reports. Musculoskeletal: Range of motion: limited in bilateral lower ext. Vital Signs: 15:47 BP 108 / 63; Pulse 83; Resp 18; Temp 97.3; Pulse Ox 99% on R/A; Weight 52.16 kg; Height ph 4 ft. 9 in. (144.78 cm); 16:00 BP 110 / 64; Pulse 78; Pulse Ox 99% on R/A; ko1 15:47 Body Mass Index 24.89 (52.16 kg, 144.78 cm) ph ED Course: 15:05 Patient arrived in ED. as 15:05 Rodrick Moon PA is PHCP. gregorio 15:05 Veronica Castillo MD is Attending Physician. vicki 15:49 Triage completed. ph 15:50 Arm band placed on Patient placed in an exam room. ph 15:55 Nurys Gama, RN is Primary Nurse. ko1 16:00 Patient has correct armband on for positive identification. Bed in low position. Call ko1 light in reach. Adult w/ patient. Pulse ox on. NIBP on. 16:00 Patient did not have IV access during this emergency room visit. Dressings: Kerlix ko1 non-adherent dressing x 4 left leg and right leg and lateral aspect of right knee and left knee. 16:30 Wound Culture Sent. ko1 17:21 No provider procedures requiring assistance completed. ko1 Administered Medications: 16:29 Drug: Doxycycline 100 mg Route: PO; ko1 17:22 Follow up: Response: No adverse reaction; No change in condition ko1 Medication: 16:00 VIS not applicable for this client. ko1 Outcome: 16:57 Discharge ordered by . gregorio 17:21 Discharged to home via wheelchair, with family. ko1 17:21 Condition: stable 17:21 Discharge instructions given to patient, family, Instructed on discharge instructions, follow up and referral plans. medication usage, wound care, Demonstrated understanding of instructions, follow-up care, medications, wound care, Prescriptions given X 1. 17:23 Patient left the ED. ko1 Signatures: MickaRodrick swan PA PA jmm Martinez, Amelia as Hall, Patricia, RN RN ph Nurys Gama RN RN ko1
[2022-04-13 17:27] VITALS: TEMP 97.3; O2SAT 99
[2022-04-13 17:28] VITALS: BP 110/64
== END 2022-04-13 17:23 | disposition home or self-care (01) ==
LOC: ER 15:03
DX: L03.115 Cellulitis of right lower limb (principal); I10 Essential (primary) hypertension; Z91.040 Latex allergy status; Z91.048 Other nonmedicinal substance allergy status
CPT/HCPCS: 87070; 87205